=== PATIENT | male | born 1930 | race Caucasian/White ===

== ENCOUNTER 2017-10-19 13:08 | Inpatient (IN) | payer BC, OTHER ==
[2017-10-19] MEDS ORDERED: ACETAMINOPHEN 325 MG TABLET (FP) PO ONE (13:17)
[2017-10-19] MEDS ORDERED: SODIUM CHLORIDE 1,000 ML IV STA (13:32)
--- NOTE | 2017-10-19 13:39 | PDOC ---
History of Present Illness - General Chief Complaint: SIRS, Suspected/Possible Stated Complaint: WEAKNESS Time Seen by Provider: 10/19/17 13:25 History Source: Patient, Family - History of Present Illness Timing/Duration: other (this am) Past History - Past Medical History Allergies/Adverse Reactions: Allergies Allergy/AdvReac Type Severity Reaction Status Date / Time No Known Allergies Allergy Verified 10/03/14 13:20 Home Medications: Ambulatory Orders Acetaminophen W/ Codeine #3 [Tylenol # 3 -] 1 tab PO Q6H #14 tablet 07/19/14 Aspirin Coated [Ecotrin -] 81 mg PO DAILY #0 07/19/14 Cholecalciferol (Vitamin D3) [Vitamin D3] 1,000 units PO DAILY 07/19/14 Cyanocobalamin [Vitamin B12 -] 5,000 mcg PO DAILY 07/19/14 Donepezil HCl [Aricept] 10 mg PO DAILY 07/19/14 Ferrous Sulfate [Feosol] 325 mg PO BID 07/19/14 Folic Acid 0.4 mg PO DAILY 07/19/14 Memantine HCl [Namenda -] 10 mg PO BID 07/19/14 Metoprolol Succinate [Toprol XL -] 25 mg PO DAILY 07/19/14 Pravastatin Sodium [Pravachol] 40 mg PO DAILY 07/19/14 Pyridoxine HCl [Vitamin B6] 100 mg PO DAILY 07/19/14 Ranitidine [Zantac -] 150 mg PO DAILY 07/19/14 Fenofibrate Nanocrystallized [Fenofibrate] DAILY 10/19/17 Valsartan 40 mg PO BID 10/19/17 Anemia: No Asthma: No Cancer: No Cardiac Disorders: Yes (2 "MILD HEART ATTACKS" STENT PLACED -) CVA: No COPD: No CHF: No Dementia: Yes (ALZ) Diabetes: No GI Disorders: No Disorders: No HTN: No Hypercholesterolemia: No Liver Disease: No Seizures: No Thyroid Disease: No - Surgical History Cardiac Surgery: Yes (CARDIAC STENT 4 YRS AGO) Cholecystectomy: Yes - Suicide/Smoking/Psychosocial Hx Smoking History: Former smoker Have you smoked in the past 12 months: No Information on smoking cessation initiated: No Hx Alcohol Use: Yes (RARE) Drug/Substance Use Hx: No Substance Use Type: None Hx Substance Use Treatment: No Review of Systems - Review of Systems Constitutional: Yes: Fever, Weakness Respiratory: Yes: Cough. No: Shortness of Breath Cardiac (ROS): No: Chest Pain, Lightheadedness, Palpitations, Syncope ABD/GI: No: Blood Streaked Bowels, Constipated, Diarrhea, Nausea, Rectal Bleeding, Vomiting, Abdominal cramping : No: Burning, Dysuria, Frequency, Flank Pain, Hematuria Musculoskeletal: No: Back Pain, Neck Pain Neurological: No: Headache, Dizziness *Physical Exam - Vital Signs Last Vital Signs Temp Pulse Resp BP Pulse Ox 101.3 F H 86 20 141/62 96 10/19/17 13:13 10/19/17 13:13 10/19/17 13:13 10/19/17 13:13 10/19/17 13:13 - Physical Exam General Appearance: Yes: Appropriately Dressed. No: Apparent Distress HEENT: positive: Normal Voice Neck: positive: Supple Respiratory/Chest: positive: Lungs Clear, Normal Breath Sounds. negative: Respiratory Distress Cardiovascular: positive: Regular Rate, S1, S2 Gastrointestinal/Abdominal: positive: Soft. negative: Tender Musculoskeletal: negative: CVA Tenderness Integumentary: positive: Dry, Warm Neurologic: positive: Fully Oriented, Alert, Normal Mood/Affect ED Treatment Course - LABORATORY CBC & Chemistry Diagram: 10/19/17 13:54 10/19/17 13:54 - RADIOLOGY Radiology Studies Ordered: Category Date Time Status CHEST X-RAY PORTABLE* [RAD] Stat Radiology 10/19/17 13:32 Ordered - Medications Given in the ED: ED Medications Discontinued Medications Generic Name Dose Route Start Last Admin Trade Name Freq PRN Reason Stop Dose Admin Acetaminophen 975 mg 10/19/17 13:17 10/19/17 13:21 Tylenol - PO 10/19/17 13:18 975 mg NOW ONE Administration Medical Decision Making - Medical Decision Making 10/19/17 13:34 87-year-old male, history of alzheimers, HTN, HLD, CAD w/ 1 stent, stomach cancer, s/p surgery over 20 years ago, BPH, s/p TURP, brought in by family for lethargy. As per , states patient appeared "out of it" this a.m. and that while walking outdoors with home health caregiver this afternoon, patient's legs gave out but that pt was able to hold on to a car which prevented him from falling. Noted that patient had fever at triage. Possible dry cough at home per . Patient denies any shortness of breath, chest pain, abdominal pain, change in bowel movements or dysuria See exam FUO Triggered sepsis at triage Febrile to 101 F w/ unremarkable exam otherwise -antipyretic -IVF -ekg -cxr -labs -melendez-cx -anticipate admission 10/19/17 14:53 Cr 2.3, same on labs 08/25, was 1.4/1.5 in 2010 based on chart review. Rest of labs and CXR unremarkable. UA pending 10/19/17 15:22 EKG w/ LBBB, new since ekg 2010. Trop wnl. Pt has no CP or SOB and is stable on monitor. Will contact PMD to inquire about more recent ekg and admission 10/19/17 15:[address] Antoine Alfonso, patient's PMD, who states patient has known LBBB (within the past 2 years). [address] Gunn. States patient's baseline creatinine is about 1.9. Pt to be admitted to Dr Proctor 10/19/17 16:25 UA unremarkable. Case discussed with Dr. Proctor and patient admitted to observation *DC/Admit/Observation/Transfer Diagnosis at time of Disposition: Near syncope, KATHY (acute kidney injury) - Discharge Dispostion Condition at time of disposition: Fair Decision to Admit order: Yes - Referrals Referrals: Antoine Alfonso MD [Primary Care Provider] - - Patient Instructions - Post Discharge Activity
[2017-10-19 14:09] LABS: BASO % 0.3 % (0-2.0); EOS % 0.2 % (0-4.5); HEMATOCRIT 37.5 % (35.4-49); HEMOGLOBIN 12.7 GM/dL (11.7-16.9); LYMPH % 10.6 % (8-40); MCH 30.1 pg (25.7-33.7); MCHC 33.9 g/dl (32.0-35.9); MONO % 7.6 % (3.8-10.2); NEUT % 81.3 % (42.8-82.8); PLATELET COUNT 149 K/MM3 (134-434); RBC 4.21 M/mm3 (4.00-5.60); RDW 14.3 % (11.9-15.9); WHITE BLOOD COUNT 6.8 K/mm3 (4.0-10.0)
[2017-10-19 14:11] LABS: VENOUS PC02 40.7 mmHg (38-52); VENOUS PH 7.36 (7.32-7.42); VENOUS PO2 30.2 mmHg (28-48)
[2017-10-19 14:34] LABS: ALBUMIN 3.2 g/dl (3.4-5.0); ALK PHOS 31 U/L (45-117); ANION GAP 6 (8-16); BILIRUBIN,TOTAL 0.8 mg/dL (0.2-1.0); BLOOD UREA NITROGEN 34 mg/dL (7-18); CALCIUM 8.6 mg/dL (8.5-10.1); CHLORIDE 110 mmol/L (98-107); CO2 24 mmol/L (21-32); CREATININE 2.3 mg/dL (0.7-1.3); GLUCOSE,RANDOM 164 mg/dL (74-106); SGOT/AST 19 U/L (15-37); SGPT/ALT 18 U/L (12-78); SODIUM 140 mmol/L (136-145)
[2017-10-19 14:46] LABS: INR 1.11 (0.82-1.09); PROTHROMBIN TIME (PATIENT) 12.5 SEC (9.7-13.0)
[2017-10-19 14:49] LABS: ACTIVATED PTT 27.9 SECONDS (26.9-34.4)
[2017-10-19 15:45] LABS: URINE APPEARANCE CLEAR; URINE BILIRUBIN NEGATIVE (<2.0 mg/dL); URINE COLOR YELLOW; URINE GLUCOSE (UA) 2+ (NEGATIVE); URINE KETONE NEGATIVE (NEGATIVE); URINE LEUK ESTERASE NEGATIVE (NEGATIVE); URINE NITRITE NEGATIVE (NEGATIVE)
--- NOTE | 2017-10-19 15:50 | HP ---
Admitting History and Physical - Primary Care Physician PCP: Antoine Alfonso - Admission Chief Complaint: weakness History of Present Illness: is an 87 year old male pmh of Alzheimer's disease, htn, hld, cad s/ p angioplasty, ckd, chf, oa, stomach ca s/p resection, who comes in from home after having a near fall experience today. Pt unable to provide much history due to dementia. mentions pt went for a walk with his aide this am, felt as his legs gave out and almost fell, he was caught by his neighbors who helped him to a sitting position. She reports "he has been out of it" since yesterday. mentions pt did not report any symptoms at the time of fall or before. She said pt's ambulation has declined since yesterday. He is usually ambulatory at home but since yesterday, he hasn't been able to ambulate as well as before. She reports he has had a productive cough since yesterday as well. Otherwise, he has not complained of any symptoms. He denies chest pain, sob, n/v/d, rash, fever/chills, dysuria, unilateral weakness, dizziness, lightheadedness, recent medication change, or changes in diet. 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 Cardiovascular: Yes: CAD, CHF, HTN, Hyperlipdemia, [place], Other (hyperlipidemia) Gastrointestinal: Yes: GERD Renal/: Yes: Renal Inusuff Heme/Onc: Yes: B12 Deficiency Musculoskeletal: Yes: Osteoarthritis - Past Surgical History Past Surgical History: Yes: None - Smoking History Smoking history: Former smoker Have you smoked in the past 12 months: No - Alcohol/Substance Use Hx Alcohol Use: Yes (RARE) - Social History Usual Living Arrangement: Yes: With Spouse ADL: Family Assistance History of Recent Travel: No Home Medications - Allergies Allergies/Adverse Reactions: Allergies Allergy/AdvReac Type Severity Reaction Status Date / Time No Known Allergies Allergy Verified 10/03/14 13:20 - Home Medications Home Medications: Ambulatory Orders Aspirin Coated [Ecotrin -] 81 mg PO DAILY #0 07/19/14 Cholecalciferol (Vitamin D3) [Vitamin D3] 1,000 units PO DAILY 07/19/14 Cyanocobalamin [Vitamin B12 -] 5,000 mcg PO DAILY 07/19/14 Donepezil HCl [Aricept] 10 mg PO DAILY 07/19/14 Folic Acid 1 mg PO DAILY 07/19/14 Memantine HCl [Namenda -] 10 mg PO BID 07/19/14 Metoprolol Succinate [Toprol XL -] 25 mg PO DAILY 07/19/14 Pravastatin Sodium [Pravachol] 40 mg PO DAILY 07/19/14 Ranitidine [Zantac -] 150 mg PO DAILY 07/19/14 Fenofibrate Nanocrystallized [Fenofibrate] 160 mg PO DAILY 10/19/17 [place]-3 Acid Ethyl Esters [Lovaza -] 1 gm PO DAILY 10/19/17 Valsartan 40 mg PO BID 10/19/17 Family Disease History - Family Disease History Family Disease History: Heart Disease: Brother, [place]: Sister Review of Systems Findings/Remarks: as per hpi Physical Examination Vital Signs: Vital Signs Temperature 101.3 F H 10/19/17 13:13 Pulse Rate 86 10/19/17 13:13 Respiratory Rate 20 10/19/17 13:13 Blood Pressure 141/62 10/19/17 13:13 O2 Sat by Pulse Oximetry (%) 96 10/19/17 13:13 Constitutional: Yes: Well Nourished, No Distress Cardiovascular: Yes: WNL, Regular Rate and Rhythm Respiratory: Yes: WNL, Regular, CTA Bilaterally, Diminished. No: Accessory Muscle Use, SOB, Tachypnea, Wheezes Gastrointestinal: Yes: WNL, Normal Bowel Sounds, Soft, Abdomen, Obese. No: Distention, Tenderness Renal/: Yes: WNL Edema: Yes Edema: LLE: 1+, RLE: Trace Neurological: Yes: Alert, Oriented, Confusion (forgetful) Psychiatric: Yes: WNL, Alert, Oriented Labs: CBC, BMP 10/19/17 13:54 10/19/17 13:54 Imaging - Results Chest X-ray: Report Reviewed (unremarkable) Ultrasound: Report Reviewed (b/l le duplex neg) Problem List - Problems (1) SIRS (systemic inflammatory response syndrome) Assessment/Plan: febrile, generalized weakness, +productive cough wbcs, lactic acid wnl UA neg/ UC pending chest xray without acute findings blood cultures pending defer empiric antibiotics for now and monitor IVF will monitor Code(s): R65.10 - SIRS OF NON-INFECTIOUS ORIGIN W/O ACUTE ORGAN DYSFUNCTION (2) FUO (fever of unknown origin) Assessment/Plan: as above Code(s): R50.9 - FEVER, UNSPECIFIED (3) Near syncope Assessment/Plan: generalized weakness and near syncope episode today r/o infec etiology echo ordered trop x1 neg, ekg noted Code(s): R55 - SYNCOPE AND COLLAPSE (4) KATHY (acute kidney injury) Assessment/Plan: acute on chronic plan as below Code(s): N17.9 - ACUTE KIDNEY FAILURE, UNSPECIFIED (5) CKD (chronic kidney disease) Assessment/Plan: acute on chronic, baseline cr 1.9 ivf-gentle hydration hold valsartan until tomorrow urine na ordered monitor Code(s): N18.9 - CHRONIC KIDNEY DISEASE, UNSPECIFIED Qualifiers: Chronic kidney disease stage: stage 3 (moderate) Qualified Code(s): N18.3 - Chronic kidney disease, stage 3 (moderate) (6) Dehydration Assessment/Plan: secondary to poor intake, possibly increased demand 2/2 infectious process IVF will monitor Code(s): E86.0 - DEHYDRATION (7) Swelling of lower leg Assessment/Plan: L >R has chronic pedal edema secondary to chf/ckd r/o dvt b/l us duplex neg Code(s): M79.89 - OTHER SPECIFIED SOFT TISSUE DISORDERS (8) HTN (hypertension) Assessment/Plan: controlled continue metoprolol/valsartan Code(s): I10 - ESSENTIAL (PRIMARY) HYPERTENSION Qualifiers: Hypertension type: essential hypertension Qualified Code(s): I10 - Essential (primary) hypertension (9) Hyperlipidemia Assessment/Plan: chronic continue statin, lovaza lifestyle modifications Code(s): E78.5 - HYPERLIPIDEMIA, UNSPECIFIED Qualifiers: Hyperlipidemia type: mixed hyperlipidemia Qualified Code(s): E78.2 - Mixed hyperlipidemia (10) ASHD (arteriosclerotic heart disease) Assessment/Plan: Hx of [place], s/p angioplasty continue statin heart healthy diet weight loss followed by outpt Cardiology, Code(s): I25.10 - ATHSCL HEART DISEASE OF [place] CORONARY ARTERY W/O ANG PCTRS (11) CHF (congestive heart failure) Assessment/Plan: chronic, systolic bnp elevated, baseline uncertain echo ordered chest xray normal Code(s): I50.9 - HEART FAILURE, UNSPECIFIED Qualifiers: Heart failure type: systolic Heart failure chronicity: chronic Qualified Code(s): I50.22 - Chronic systolic (congestive) heart failure
[2017-10-19 16:20] LABS: URINE PROTEIN 1+ (NEGATIVE)
[2017-10-19 16:39] LABS: EPI CELLS RARE /HPF (FEW); URINE MUCUS RARE
--- NOTE | 2017-10-19 16:59 | PDOC ---
*Physical Exam - Vital Signs Last Vital Signs Temp Pulse Resp BP Pulse Ox 101.3 F H 86 20 141/62 96 10/19/17 13:13 10/19/17 13:13 10/19/17 13:13 10/19/17 13:13 10/19/17 13:13 ED Treatment Course - LABORATORY CBC & Chemistry Diagram: 10/19/17 13:54 10/19/17 13:54 - ADDITIONAL ORDERS Additional order review: Laboratory Results 10/19/17 10/19/17 10/19/17 15:32 13:54 13:54 PT with INR INR PTT (Actin FS) VBG pH POC VBG pCO2 POC VBG pO2 Mixed VBG HCO3 Sodium Potassium Chloride Carbon Dioxide Anion Gap BUN Creatinine Creat Clearance w eGFR Random Glucose Lactic Acid 1.6 Calcium Total Bilirubin AST ALT Alkaline Phosphatase Troponin I 0.05 Total Protein Albumin Urine Color Yellow Urine Appearance Clear Urine pH 5.0 Ur Specific [place] 1.018 Urine Protein 1+ H Urine Glucose (UA) 2+ H Urine Ketones Negative Urine Blood 1+ H Urine Nitrite Negative Urine Bilirubin Negative Urine Urobilinogen 2.0 Ur Leukocyte Esterase Negative Urine WBC (Auto) 2 Urine RBC (Auto) 7 Ur Epithelial Cells Rare Urine Mucus Rare 10/19/17 10/19/17 10/19/17 13:54 13:54 13:54 PT with INR 12.50 INR 1.11 PTT (Actin FS) 27.9 VBG pH 7.36 POC VBG pCO2 40.7 POC VBG pO2 30.2 Mixed VBG HCO3 22.2 Sodium 140 Potassium 5.0 Chloride 110 H Carbon Dioxide 24 Anion Gap 6 L BUN 34 H Creatinine 2.3 H Creat Clearance w eGFR 27.03 Random Glucose 164 H Lactic Acid Calcium 8.6 Total Bilirubin 0.8 AST 19 ALT 18 Alkaline Phosphatase 31 L Troponin I Total Protein 7.0 Albumin 3.2 L Urine Color Urine Appearance Urine pH Ur Specific [place] Urine Protein Urine Glucose (UA) Urine Ketones Urine Blood Urine Nitrite Urine Bilirubin Urine Urobilinogen Ur Leukocyte Esterase Urine WBC (Auto) Urine RBC (Auto) Ur Epithelial Cells Urine Mucus 10/19/17 13:54 RBC 4.21 MCV 89.0 MCHC 33.9 RDW 14.3 MPV 7.0 L Neutrophils % 81.3 Lymphocytes % 10.6 Monocytes % 7.6 Eosinophils % 0.2 Basophils % 0.3 - RADIOLOGY Radiology Studies Ordered: Category Date Time Status CHEST X-RAY PORTABLE* [RAD] Stat Radiology 10/19/17 13:32 Completed - Medications Given in the ED: ED Medications Discontinued Medications Generic Name Dose Route Start Last Admin Trade Name Freq PRN Reason Stop Dose Admin Acetaminophen 975 mg 10/19/17 13:17 10/19/17 13:21 Tylenol - PO 10/19/17 13:18 975 mg NOW ONE Administration Sodium Chloride 1,000 mls @ 1,000 mls/hr 10/19/17 13:32 10/19/17 14:19 Normal Saline - IV 10/19/17 14:31 1,000 mls/hr ASDIR STA Administration *DC/Admit/Observation/Transfer Diagnosis at time of Disposition: KATHY (acute kidney injury), Near syncope, Fever of unknown origin - Discharge Dispostion Condition at time of disposition: Fair - Referrals - Patient Instructions - Post Discharge Activity
[2017-10-19] MEDS: SODIUM CHLORIDE 1,000 ML IV SCH (17:16)
[2017-10-19] MEDS: MEMANTINE HCL 10 MG TABLET (FP) PO SCH (21:24)
[2017-10-19] MEDS ORDERED: VALSARTAN 40 MG TABLET (FP) PO SCH (22:00)
[2017-10-19 23:46] VITALS: BMI 33.9
[2017-10-20 06:35] LABS: BASO % 0.3 % (0-2.0); EOS % 0.2 % (0-4.5); HEMATOCRIT 35.4 % (35.4-49); HEMOGLOBIN 12.2 GM/dL (11.7-16.9); LYMPH % 16.3 % (8-40); MCH 30.5 pg (25.7-33.7); MCHC 34.4 g/dl (32.0-35.9); MEAN CELL VOLUME 88.7 fl (80-96); MEAN PLT VOLUME 6.9 fl (7.5-11.1); MONO % 10.9 % (3.8-10.2); NEUT % 72.3 % (42.8-82.8); PLATELET COUNT 122 K/MM3 (134-434); RBC 3.99 M/mm3 (4.00-5.60); RDW 14.4 % (11.9-15.9); WHITE BLOOD COUNT 5.1 K/mm3 (4.0-10.0)
[2017-10-20 07:01] LABS: CHLORIDE 110 mmol/L (98-107); POTASSIUM 4.7 mmol/L (3.5-5.1); SODIUM 142 mmol/L (136-145)
[2017-10-20 07:07] LABS: ANION GAP 11 (8-16); BLOOD UREA NITROGEN 27 mg/dL (7-18); CALCIUM 8.2 mg/dL (8.5-10.1); CO2 21 mmol/L (21-32); CREATININE 1.9 mg/dL (0.7-1.3); GLUCOSE,RANDOM 140 mg/dL (74-106); MAGNESIUM 1.9 mg/dL (1.8-2.4)
[2017-10-20] MEDS ORDERED: PT OWN MED DRAWER 7, Y5N ONE ×2 (07:45→08:58)
[2017-10-20] MEDS: VALSARTAN 40 MG TABLET (FP) PO SCH ×2 (09:04→21:20)
[2017-10-20] MEDS: MEMANTINE HCL 10 MG TABLET (FP) PO SCH ×2 (09:04→21:11)
[2017-10-20] MEDS: FOLIC ACID 1 MG TABLET (FP) PO SCH (09:05)
[2017-10-20] MEDS: OMEGA-3 ACID ETHYL ESTERS (FATTY-ACIDS) 1 GM CAPSULE (FP) PO SCH (09:05)
[2017-10-20] MEDS: ASPIRIN COATED 81 MG TABLET.EC PO SCH (09:05)
[2017-10-20] MEDS: CYANOCOBALAMIN 1,000 MCG TABLET (FP) PO SCH (09:05)
[2017-10-20] MEDS: metoPROLOL SUCCINATE 25 MG TAB.SR.24H (FP) PO SCH (09:05)
[2017-10-20] MEDS: CHOLECALCIFEROL (VITAMIN D3) 1,000 UNIT TABLET (FP) PO SCH (09:05)
[2017-10-20] MEDS: FENOFIBRIC ACID 135 MG CAP PO SCH (09:05)
[2017-10-20] MEDS: RANITIDINE HCL 150 MG TABLET (FP) PO SCH (09:05)
--- NOTE | 2017-10-20 09:43 | EKG ---
Test Reason : Blood Pressure : / mmHG Vent. Rate : 080 BPM Atrial Rate : 080 BPM P-R Int : 224 ms QRS Dur : 152 ms QT Int : 408 ms P-R-T Axes : 049 -30 123 degrees QTc Int : 470 ms SINUS RHYTHM WITH 1ST DEGREE A-V BLOCK POSSIBLE LEFT ATRIAL ENLARGEMENT LEFT AXIS DEVIATION LEFT BUNDLE BRANCH BLOCK ABNORMAL ECG WHEN COMPARED WITH ECG OF 02-JUN-2010 10:34, NM INTERVAL HAS INCREASED LEFT BUNDLE BRANCH BLOCK IS NOW PRESENT Confirmed by MIRIAN CUMMINS, YELENA ([id number]) on 10/20/2017 9:43:05 AM Referred By: Confirmed By:YELENA VELA MD
--- NOTE | 2017-10-20 11:49 | PN ---
Progress Note, Physician Chief Complaint: Pt lying in bed in no acute distress. He denies any chest discomfort, chest pain , sob, n/v/d, unilateral weakness or further complaints. Per his room mate, pt was very congested and frequently coughing throughout the night. at bedside. - Current Medication List Current Medications: Active Medications Aspirin (Ecotrin -) 81 mg PO DAILY [facility] Last Admin: 10/20/17 09:05 Dose: 81 mg Atorvastatin Calcium (Lipitor -) [address] [facility] Cholecalciferol (Vitamin D3 -) 1,000 unit PO DAILY [facility] Last Admin: 10/20/17 09:05 Dose: 1,000 unit Cyanocobalamin (Vitamin B12 -) 5,000 mcg PO DAILY [facility] Last Admin: 10/20/17 09:05 Dose: 5,000 mcg Donepezil HCl (Aricept -) [address] [facility] Fenofibric Acid (Trilipix -) 135 mg PO DAILY [facility] Last Admin: 10/20/17 09:05 Dose: 135 mg Folic Acid (Folic Acid -) 1 mg PO DAILY [facility] Last Admin: 10/20/17 09:05 Dose: 1 mg Sodium Chloride (Normal Saline -) 1,000 mls @ 50 mls/hr IV ASDIR [facility] Stop: 10/20/17 17:00 Last Admin: 10/19/17 17:16 Dose: 50 mls/hr Memantine (Namenda -) 10 mg PO BID [facility] Last Admin: 10/20/17 09:04 Dose: 10 mg Metoprolol Succinate (Toprol Xl -) 25 mg PO DAILY [facility] Last Admin: 10/20/17 09:05 Dose: 25 mg [id number] Ethyl Esters (Lovaza -) 1 gm PO DAILY [facility] Last Admin: 10/20/17 09:05 Dose: 1 gm Ranitidine HCl (Zantac -) 150 mg PO DAILY [facility] Last Admin: 10/20/17 09:05 Dose: 150 mg Valsartan (Diovan -) 40 mg PO BID [facility] Last Admin: 10/20/17 09:04 Dose: 40 mg - Objective Vital Signs: Vital Signs Temperature 100.2 F H 10/20/17 05:30 Pulse Rate 79 10/20/17 05:30 Respiratory Rate 17 10/20/17 05:30 Blood Pressure 158/76 10/20/17 05:30 O2 Sat by Pulse Oximetry (%) 97 10/19/17 20:00 Constitutional: Yes: Well Nourished, No Distress, Calm, Obese Cardiovascular: Yes: WNL, Regular Rate and Rhythm Respiratory: Yes: Regular, CTA Bilaterally, Cough, Other (congestion). No: Accessory Muscle Use, Rhonchi, SOB, Tachypnea, Wheezes Gastrointestinal: Yes: WNL, Normal Bowel Sounds, Soft, Abdomen, Obese. No: Distention, Tenderness Edema: Yes Edema: LLE: 1+, RLE: 1+ Neurological: Yes: Alert, Oriented Psychiatric: Yes: WNL, Alert, Oriented Labs: CBC, BMP 10/20/17 05:30 10/20/17 05:30 INR, PTT INR 1.11 (0.82-1.09) 10/19/17 13:54 - ....Imaging Cat Scan: Pending Problem List - Problems (1) SIRS (systemic inflammatory response syndrome) Code(s): R65.10 - SIRS OF NON-INFECTIOUS ORIGIN W/O ACUTE ORGAN DYSFUNCTION (2) Near syncope Code(s): R55 - SYNCOPE AND COLLAPSE (3) KATHY (acute kidney injury) Code(s): N17.9 - ACUTE KIDNEY FAILURE, UNSPECIFIED (4) CKD (chronic kidney disease) Code(s): N18.9 - CHRONIC KIDNEY DISEASE, UNSPECIFIED Qualifiers: Chronic kidney disease stage: stage 3 (moderate) Qualified Code(s): N18.3 - Chronic kidney disease, stage 3 (moderate) (5) Dehydration Code(s): E86.0 - DEHYDRATION (6) Swelling of lower leg Code(s): M79.89 - OTHER SPECIFIED SOFT TISSUE DISORDERS (7) HTN (hypertension) Code(s): I10 - ESSENTIAL (PRIMARY) HYPERTENSION Qualifiers: Hypertension type: essential hypertension Qualified Code(s): I10 - Essential (primary) hypertension (8) Hyperlipidemia Code(s): E78.5 - HYPERLIPIDEMIA, UNSPECIFIED Qualifiers: Hyperlipidemia type: mixed hyperlipidemia Qualified Code(s): E78.2 - Mixed hyperlipidemia (9) ASHD (arteriosclerotic heart disease) Code(s): I25.10 - ATHSCL HEART DISEASE OF [place] CORONARY ARTERY W/O ANG PCTRS (10) CHF (congestive heart failure) Code(s): I50.9 - HEART FAILURE, UNSPECIFIED Qualifiers: Heart failure type: systolic Heart failure chronicity: chronic Qualified Code(s): I50.22 - Chronic systolic (congestive) heart failure Assessment/Plan (1) SIRS (systemic inflammatory response syndrome) Assessment/Plan: persistent fevers overnight,+productive cough/congestion wbcs, lactic acid wnl influenza panel neg UA neg/ UC pending chest xray without acute findings chest CT ordered blood cultures pending start empiric azithromycin/ceftriaxone considering persistent fevers IVF will monitor Code(s): R65.10 - SIRS OF NON-INFECTIOUS ORIGIN W/O ACUTE ORGAN DYSFUNCTION (2) FUO (fever of unknown origin) Assessment/Plan: as above Code(s): R50.9 - FEVER, UNSPECIFIED (3) Near syncope Assessment/Plan: cardiac/neuro etiology unlikely suspect generalized weakness secondary to infectious process r/o infec etiology echo pending trop neg, ekg LBBB w/out acute changes cardiology consulted PT- pt ambulated 5ft. Code(s): R55 - SYNCOPE AND COLLAPSE (4) KATHY (acute kidney injury) Assessment/Plan: acute on chronic improved s/p IVF will monitor Code(s): N17.9 - ACUTE KIDNEY FAILURE, UNSPECIFIED (5) CKD (chronic kidney disease) Assessment/Plan: acute on chronic, baseline cr 1.9 improved, at baseline now continue valsartan/metoprolol urine na pending monitor Code(s): N18.9 - CHRONIC KIDNEY DISEASE, UNSPECIFIED Qualifiers: Chronic kidney disease stage: stage 3 (moderate) Qualified Code(s): N18.3 - Chronic kidney disease, stage 3 (moderate) (6) Dehydration Assessment/Plan: secondary to poor intake, possibly increased demand 2/2 infectious process IVF will monitor Code(s): E86.0 - DEHYDRATION (7) Swelling of lower leg Assessment/Plan: b/l us duplex neg secondary to ckd/chf Code(s): M79.89 - OTHER SPECIFIED SOFT TISSUE DISORDERS (8) HTN (hypertension) Assessment/Plan: controlled continue metoprolol/valsartan Code(s): I10 - ESSENTIAL (PRIMARY) HYPERTENSION Qualifiers: Hypertension type: essential hypertension Qualified Code(s): I10 - Essential (primary) hypertension (9) Hyperlipidemia Assessment/Plan: chronic continue statin, lovaza lifestyle modifications Code(s): E78.5 - HYPERLIPIDEMIA, UNSPECIFIED Qualifiers: Hyperlipidemia type: mixed hyperlipidemia Qualified Code(s): E78.2 - Mixed hyperlipidemia (10) ASHD (arteriosclerotic heart disease) Assessment/Plan: Hx of [place], s/p angioplasty continue statin heart healthy diet weight loss followed by outpt Cardiology, Code(s): I25.10 - ATHSCL HEART DISEASE OF [place] CORONARY ARTERY W/O ANG PCTRS (11) CHF (congestive heart failure) Assessment/Plan: chronic, systolic bnp elevated, baseline uncertain echo pending chest xray normal cardiology consulted Code(s): I50.9 - HEART FAILURE, UNSPECIFIED Qualifiers: Heart failure type: systolic Heart failure chronicity: chronic Qualified Code(s): I50.22 - Chronic systolic (congestive) heart failure Dispo: pt ambulated 5ft. cm informed. discussed with at bedside, option of SNF possibly. continue PT tomorrow, and monitor
[2017-10-20] MEDS ORDERED: ACETAMINOPHEN 1000 MG/100 ML VIAL (NON FORMULARY) IVPB ONE (12:13)
--- NOTE | 2017-10-20 16:00 | CON.CARD ---
Cardiology Consult (text) - Consultation Consultation Note: CC: weakness 87 yo with hx of htn, hld, cad s/p BMS, ischemic cardiomyopathy, known LBBB, sinus margarette, Alzheimer's disease, ckd (baseline [employer] 1.5-2.6)-, venous insufficiency, oa, stomach ca s/p resection, kidney stones, gerd who p/w weakness/near fall. + weakness. Legs gave out on him while walking on day of presentation. Was able to catch himself from falling to the ground. Family endorses increased confusion today. recent cough. Thus far, has had temp up to 102.8 F. s/p 1L IVF and then maintenance IVF at 50 cc/hr. --> improvement in cr today. Denies cp, sob, orthopnea, pnd, le edema, palps, dizziness, bleeding, claudication. Denies chills/sweats, n/v/d, congestion, rash, h/a, visual disturbances. cards: Dr. Altamirano pmhx/pshx: per hpi social hx: Former smoker family hx: brother, heart disease. ros: per hpi Ambulatory Orders Aspirin Coated [Ecotrin -] 81 mg PO DAILY #0 07/19/14 Cholecalciferol (Vitamin D3) [Vitamin D3] 1,000 units PO DAILY 07/19/14 Cyanocobalamin [Vitamin B12 -] 5,000 mcg PO DAILY 07/19/14 Donepezil HCl [Aricept] 10 mg PO DAILY 07/19/14 Folic Acid 0.4 mg PO DAILY 07/19/14 Memantine HCl [Namenda -] 10 mg PO BID 07/19/14 Metoprolol Succinate [Toprol XL -] 25 mg PO DAILY 07/19/14 Pravastatin Sodium [Pravachol] 40 mg PO DAILY 07/19/14 Ranitidine [Zantac -] 150 mg PO DAILY 07/19/14 Fenofibrate Nanocrystallized [Fenofibrate] 160 mg PO DAILY 10/19/17 Bruce-3 Acid Ethyl Esters [Lovaza -] 1 gm PO DAILY 10/19/17 Valsartan 40 mg PO BID 10/19/17 Current Medications Acetaminophen (Tylenol -) 650 mg PO Q6H PRN PRN Reason: FEVER Aspirin (Ecotrin -) 81 mg PO DAILY [facility] Last Admin: 10/20/17 09:05 Dose: 81 mg Atorvastatin Calcium (Lipitor -) 10 mg PO [facility] Cholecalciferol (Vitamin D3 -) 1,000 unit PO DAILY [facility] Last Admin: 10/20/17 09:05 Dose: 1,000 unit Cyanocobalamin (Vitamin B12 -) 5,000 mcg PO DAILY [facility] Last Admin: 10/20/17 09:05 Dose: 5,000 mcg Donepezil HCl (Aricept -) 10 mg PO [facility] Fenofibric Acid (Trilipix -) 135 mg PO DAILY [facility] Last Admin: 10/20/17 09:05 Dose: 135 mg Folic Acid (Folic Acid -) 1 mg PO DAILY [facility] Last Admin: 10/20/17 09:05 Dose: 1 mg Sodium Chloride (Normal Saline -) 1,000 mls @ 50 mls/hr IV ASDIR [facility] Stop: 10/20/17 17:00 Last Admin: 10/19/17 17:16 Dose: 50 mls/hr Memantine (Namenda -) 10 mg PO BID [facility] Last Admin: 10/20/17 09:04 Dose: 10 mg Metoprolol Succinate (Toprol Xl -) 25 mg PO DAILY [facility] Last Admin: 10/20/17 09:05 Dose: 25 mg [id number] Ethyl Esters (Lovaza -) 1 gm PO DAILY [facility] Last Admin: 10/20/17 09:05 Dose: 1 gm Ranitidine HCl (Zantac -) 150 mg PO DAILY [facility] Last Admin: 10/20/17 09:05 Dose: 150 mg Valsartan (Diovan -) 40 mg PO BID [facility] Last Admin: 10/20/17 09:04 Dose: 40 mg Vital Signs - 24 hr 10/19/17 10/20/17 10/20/17 20:00 02:00 05:30 Temperature 100.7 F H 100.3 F H 100.2 F H Pulse Rate 81 81 79 Respiratory 18 20 17 Rate Blood Pressure 147/59 175/74 158/76 O2 Sat by Pulse 97 Oximetry (%) 10/20/17 10/20/17 10/20/17 10:00 12:36 14:00 Temperature 99.3 F 102.8 F H 101.1 F H Pulse Rate 74 71 Respiratory 18 Rate Blood Pressure 160/59 135/64 O2 Sat by Pulse 96 Oximetry (%) Intake & Output 10/18/17 10/19/17 10/20/17 10/21/17 07:59 07:59 07:59 07:59 Intake Total 780 540 Balance 780 540 Weight 210 lb NAD, calm JVD flat, neck supple ctab, nl effort rrr nl s1, s2. no mrg + bs soft nt nd ext without e/c/c + dp/pt, no carotid bruits no jaundice, diaphoresis aaox3 CBC, BMP 10/20/17 05:30 10/20/17 05:30 Laboratory Tests 08/19/17 10/19/17 10/19/17 16:44 13:54 13:54 ESR INR 1.11 Creatinine 2.3 H 2.3 H Lactic Acid Magnesium Total Bilirubin 0.8 AST 19 ALT 18 Alkaline Phosphatase 31 L Troponin I C-Reactive Protein Albumin 3.2 L 10/19/17 10/19/17 10/20/17 13:54 13:54 05:30 ESR INR Creatinine Lactic Acid 1.6 Magnesium 1.9 Total Bilirubin AST ALT Alkaline Phosphatase Troponin I 0.05 C-Reactive Protein 9.9 H Albumin 10/20/17 10/20/17 12:10 12:10 ESR 30 H INR Creatinine Lactic Acid Magnesium Total Bilirubin AST ALT Alkaline Phosphatase Troponin I 0.09 H D C-Reactive Protein Albumin tele: sr/sb. ventricular ectopy, occ bigeminy. EKG: sr, av delay. lad. LBBB Echo 10/2017: tds, "no definitive statements can be made about findings due to extremely poor acoustic windows". nl lv size. Severely decreased LV sys fn. Global with possible anteroapical septal AK. RV not seen. 1+ ar. MV/TV not well visualized. chest ct 10/2017: vascular u/s 10/2017: no dvt, bilaterally Echo 09/2016: nl lv size. Septum is akinetic. No rwma in inferior, inferolateral or lateral wall, other ordoñez not well seen. Overall ejection fraction is probably mildly, vs [id number]-ot-[id number] reduced--estimated at 45% vs 40-45%. nl rv/valves. MUGA 08/23: EF 51% MIBI 07/22: 4:30min, probably + STs; large area mid-AW/septum/apex scar with small P.I.I.; moder decr EF with mild global HK and sev HK vs AK of mid-AW// apex; mild LVE, no TID [facility] ([place]) 05/20: thrombotic subtotal occl pLAD (BMS), 70-80% ramus, diffuse 30- 50% RCA, EF 35% (anterolat AK, lateral/posterolat HK) ASSESSMENT/PLAN 87 yo with hx of htn, hld, cad s/p BMS, ischemic cardiomyopathy, known LBBB, sinus margarette, Alzheimer's disease, ckd (baseline [employer] 1.5-2.6)-, venous insufficiency, oa, stomach ca s/p resection, kidney stones, gerd who p/w weakness/near fall. weakness - likely with large contribution from fevers/infection. Ongoing eval/mgm't per pmd - chest ct pending. CAD/hl/lbbb - s/p ACS 2010 with LAD thrombotic lesion --> s/p BMS, residual ramus dz - con't asa, toprol, valsartan, statin/fibrate/lovaza - ekg with lbbb. trop x 2 yesterday and today - neg (would not consider 0.09 an elevation in this clinical setting). No clinical signs suggestive of acs. - frequent ventricular ectopy on tele, con't to monitor. ischemic cardiomyopathy - has been euvolemic off diuretics as outpatient. would not make clinical decisions based on bnp with this level of ckd. - ? questionable decrease in EF on current echo. However, given that report stated that no definitive statements could be made regarding findings due to suboptimal images, will not make any clinical decisions based on this report. May need to review images. - s/p gentle IVF with improvement in creatinine. bp stable. - daily weights, i/o's, bmp. - lyte repletion prn htn - outpatient regimen being resumed today. Monitor for hypotension in setting of infection.
[2017-10-20] MEDS ORDERED: cefTRIAXone SODIUM 1 GM VIAL ONE (17:14)
[2017-10-20] MEDS ORDERED: DEXTROSE 5%-WATER - 50 ML IVPB ONE (17:14)
[2017-10-20] MEDS: SODIUM CHLORIDE 1,000 ML IV SCH (17:28)
[2017-10-20] MEDS: CEFTRIAXONE 1 GM in DEXTROSE 5%-WATER - 50 ML IVPB SCH (17:28)
[2017-10-20] MEDS: AZITHROMYCIN IVPB 500 MG in DEXTROSE 5%-WATER - 250 ML IVPB SCH (18:56)
[2017-10-20] MEDS: ATORVASTATIN CA 10 MG TABLET (FP) PO SCH (21:11)
[2017-10-20] MEDS: ACETAMINOPHEN 325 MG TABLET (FP) PO PRN (21:11)
[2017-10-20] MEDS: DONEPEZIL HCL 10 MG TABLET (FP) PO SCH (21:12)
[2017-10-21] MEDS ORDERED: cefTRIAXone SODIUM 1 GM VIAL ONE ×2 (08:25→09:45)
[2017-10-21 08:56] LABS: ANION GAP 9 (8-16); BLOOD UREA NITROGEN 26 mg/dL (7-18); CALCIUM 8.3 mg/dL (8.5-10.1); CHLORIDE 110 mmol/L (98-107); CO2 22 mmol/L (21-32); CREATININE 1.9 mg/dL (0.7-1.3); GLUCOSE,RANDOM 139 mg/dL (74-106); MAGNESIUM 2.1 mg/dL (1.8-2.4); POTASSIUM 4.6 mmol/L (3.5-5.1); SODIUM 141 mmol/L (136-145)
[2017-10-21 09:04] LABS: BASO % 0.6 % (0-2.0); EOS % 4.9 % (0-4.5); HEMATOCRIT 35.3 % (35.4-49); HEMOGLOBIN 12.2 GM/dL (11.7-16.9); LYMPH % 23.7 % (8-40); MCH 30.5 pg (25.7-33.7); MCHC 34.5 g/dl (32.0-35.9); MEAN CELL VOLUME 88.7 fl (80-96); MEAN PLT VOLUME 7.6 fl (7.5-11.1); MONO % 13.8 % (3.8-10.2); PLATELET COUNT 113 K/MM3 (134-434); RBC 3.98 M/mm3 (4.00-5.60); RDW 14.5 % (11.9-15.9); WHITE BLOOD COUNT 4.5 K/mm3 (4.0-10.0)
[2017-10-21] MEDS ORDERED: DEXTROSE 5%-WATER - 50 ML IVPB ONE (09:45)
[2017-10-21] MEDS: FENOFIBRIC ACID 135 MG CAP PO SCH (10:14)
[2017-10-21] MEDS: RANITIDINE HCL 150 MG TABLET (FP) PO SCH (10:14)
[2017-10-21] MEDS: ASPIRIN COATED 81 MG TABLET.EC PO SCH (10:14)
[2017-10-21] MEDS: VALSARTAN 40 MG TABLET (FP) PO SCH ×2 (10:14→22:36)
[2017-10-21] MEDS: OMEGA-3 ACID ETHYL ESTERS (FATTY-ACIDS) 1 GM CAPSULE (FP) PO SCH (10:14)
[2017-10-21] MEDS: CYANOCOBALAMIN 1,000 MCG TABLET (FP) PO SCH (10:14)
[2017-10-21] MEDS: FOLIC ACID 1 MG TABLET (FP) PO SCH (10:14)
[2017-10-21] MEDS: CHOLECALCIFEROL (VITAMIN D3) 1,000 UNIT TABLET (FP) PO SCH (10:14)
[2017-10-21] MEDS: AZITHROMYCIN IVPB 500 MG in DEXTROSE 5%-WATER - 250 ML IVPB SCH (10:15)
[2017-10-21] MEDS: MEMANTINE HCL 10 MG TABLET (FP) PO SCH ×2 (10:15→22:36)
[2017-10-21] MEDS: metoPROLOL SUCCINATE 25 MG TAB.SR.24H (FP) PO SCH (10:15)
[2017-10-21] MEDS: CEFTRIAXONE 1 GM in DEXTROSE 5%-WATER - 50 ML IVPB SCH (10:15)
--- NOTE | 2017-10-21 10:29 | PN ---
Progress Note, Physician Chief Complaint: Pt lying in bed in no acute distress. He denies any chest discomfort, chest pain , sob, n/v/d, unilateral weakness or further complaints. - Current Medication List Current Medications: Active Medications Acetaminophen (Tylenol -) 650 mg PO Q6H PRN PRN Reason: FEVER Last Admin: 10/20/17 21:11 Dose: 650 mg Aspirin (Ecotrin -) 81 mg PO DAILY [facility] Last Admin: 10/21/17 10:14 Dose: 81 mg Atorvastatin Calcium (Lipitor -) 10 mg PO HS [facility] Last Admin: 10/20/17 21:11 Dose: 10 mg Cholecalciferol (Vitamin D3 -) 1,000 unit PO DAILY [facility] Last Admin: 10/21/17 10:14 Dose: 1,000 unit Cyanocobalamin (Vitamin B12 -) 5,000 mcg PO DAILY [facility] Last Admin: 10/21/17 10:14 Dose: 5,000 mcg Donepezil HCl (Aricept -) 10 mg PO HS [facility] Last Admin: 10/20/17 21:12 Dose: 10 mg Fenofibric Acid (Trilipix -) 135 mg PO DAILY [facility] Last Admin: 10/21/17 10:14 Dose: 135 mg Folic Acid (Folic Acid -) 1 mg PO DAILY [facility] Last Admin: 10/21/17 10:14 Dose: 1 mg Azithromycin 500 mg/ Dextrose 250 mls @ 250 mls/hr IVPB DAILY [facility] Last Admin: 10/21/17 10:15 Dose: 250 mls/hr Ceftriaxone Sodium 1 gm/ (Dextrose) 50 mls @ 100 mls/hr IVPB DAILY [facility]; Protocol Last Admin: 10/21/17 10:15 Dose: 100 mls/hr Memantine (Namenda -) 10 mg PO BID [facility] Last Admin: 10/21/17 10:15 Dose: 10 mg Metoprolol Succinate (Toprol Xl -) 25 mg PO DAILY [facility] Last Admin: 10/21/17 10:15 Dose: 25 mg [id number]-7-[id number] Ethyl Esters (Lovaza -) 1 gm PO DAILY [facility] Last Admin: 10/21/17 10:14 Dose: 1 gm Ranitidine HCl (Zantac -) 150 mg PO DAILY [facility] Last Admin: 10/21/17 10:14 Dose: 150 mg Valsartan (Diovan -) 40 mg PO BID [facility] Last Admin: 10/21/17 10:14 Dose: 40 mg - Objective Vital Signs: Vital Signs Temperature 98.5 F 10/21/17 09:00 Pulse Rate 66 10/21/17 09:00 Respiratory Rate 18 10/21/17 09:00 Blood Pressure 152/77 10/21/17 09:00 O2 Sat by Pulse Oximetry (%) 96 10/21/17 09:00 Constitutional: Yes: Well Nourished, No Distress, Calm Cardiovascular: Yes: WNL, Regular Rate and Rhythm Respiratory: Yes: CTA Bilaterally, Diminished. No: Accessory Muscle Use, SOB, Tachypnea, Wheezes Gastrointestinal: Yes: WNL, Normal Bowel Sounds, Soft, Abdomen, Obese. No: Distention, Tenderness Genitourinary: Yes: Incontinence Edema: Yes Edema: LLE: Trace, RLE: Trace Neurological: Yes: Alert, Oriented, Confusion (forgetful) Psychiatric: Yes: WNL, Alert, Oriented Labs: CBC, BMP 10/21/17 06:00 10/21/17 06:00 INR, PTT INR 1.11 (0.82-1.09) 10/19/17 13:54 - ....Imaging Cat Scan: Report Reviewed (mild interstitial/pleural thickening, mild bibasal atelectasis, trace right pleural effusion) Problem List - Problems (1) SIRS (systemic inflammatory response syndrome) Code(s): R65.10 - SIRS OF NON-INFECTIOUS ORIGIN W/O ACUTE ORGAN DYSFUNCTION (2) Near syncope Code(s): R55 - SYNCOPE AND COLLAPSE (3) KATHY (acute kidney injury) Code(s): N17.9 - ACUTE KIDNEY FAILURE, UNSPECIFIED (4) CKD (chronic kidney disease) Code(s): N18.9 - CHRONIC KIDNEY DISEASE, UNSPECIFIED Qualifiers: Chronic kidney disease stage: stage 3 (moderate) Qualified Code(s): N18.3 - Chronic kidney disease, stage 3 (moderate) (5) Dehydration Code(s): E86.0 - DEHYDRATION (6) Swelling of lower leg Code(s): M79.89 - OTHER SPECIFIED SOFT TISSUE DISORDERS (7) HTN (hypertension) Code(s): I10 - ESSENTIAL (PRIMARY) HYPERTENSION Qualifiers: Hypertension type: essential hypertension Qualified Code(s): I10 - Essential (primary) hypertension (8) Hyperlipidemia Code(s): E78.5 - HYPERLIPIDEMIA, UNSPECIFIED Qualifiers: Hyperlipidemia type: mixed hyperlipidemia Qualified Code(s): E78.2 - Mixed hyperlipidemia (9) ASHD (arteriosclerotic heart disease) Code(s): I25.10 - ATHSCL HEART DISEASE OF [place] CORONARY ARTERY W/O ANG PCTRS (10) CHF (congestive heart failure) Code(s): I50.9 - HEART FAILURE, UNSPECIFIED Qualifiers: Heart failure type: systolic Heart failure chronicity: chronic Qualified Code(s): I50.22 - Chronic systolic (congestive) heart failure Assessment/Plan (1) SIRS (systemic inflammatory response syndrome) Assessment/Plan: chest CT mild pleural/interstitial thickening, suspect viral- bacterial pneumonitis/possible superimposed infection febrile last night, +productive cough/congestion leukocytosis neg influenza panel/UA/UC/blood cultures neg sputum culture pending empiric azithromycin/ceftriaxone day 2 transition to po antibiotics if afebrile for 24 hours and plan for discharge to SNF will monitor Code(s): R65.10 - SIRS OF NON-INFECTIOUS ORIGIN W/O ACUTE ORGAN DYSFUNCTION (2) FUO (fever of unknown origin) Assessment/Plan: as above Code(s): R50.9 - FEVER, UNSPECIFIED (3) Near syncope Assessment/Plan: cardiac/neuro etiology unlikely suspect generalized weakness secondary to infectious process echo reviewed trop neg, ekg LBBB w/out acute changes cardiology following PT- poorly tolerated Code(s): R55 - SYNCOPE AND COLLAPSE (4) KATHY (acute kidney injury) Assessment/Plan: resolved, at baseline Code(s): N17.9 - ACUTE KIDNEY FAILURE, UNSPECIFIED (5) CKD (chronic kidney disease) Assessment/Plan: baseline cr 1.9 at baseline now continue valsartan/metoprolol monitor Code(s): N18.9 - CHRONIC KIDNEY DISEASE, UNSPECIFIED Qualifiers: Chronic kidney disease stage: stage 3 (moderate) Qualified Code(s): N18.3 - Chronic kidney disease, stage 3 (moderate) (6) Dehydration Assessment/Plan: secondary to poor intake, possibly increased demand 2/2 infectious process improved s/p IVF Code(s): E86.0 - DEHYDRATION (7) Swelling of lower leg Assessment/Plan: b/l us duplex neg secondary to ckd/chf Code(s): M79.89 - OTHER SPECIFIED SOFT TISSUE DISORDERS (8) HTN (hypertension) Assessment/Plan: controlled continue metoprolol/valsartan Code(s): I10 - ESSENTIAL (PRIMARY) HYPERTENSION Qualifiers: Hypertension type: essential hypertension Qualified Code(s): I10 - Essential (primary) hypertension (9) Hyperlipidemia Assessment/Plan: chronic continue statin, lovaza lifestyle modifications Code(s): E78.5 - HYPERLIPIDEMIA, UNSPECIFIED Qualifiers: Hyperlipidemia type: mixed hyperlipidemia Qualified Code(s): E78.2 - Mixed hyperlipidemia (10) ASHD (arteriosclerotic heart disease) Assessment/Plan: Hx of AK, s/p angioplasty continue statin heart healthy diet weight loss followed by outpt Cardiology, Code(s): I25.10 - ATHSCL HEART DISEASE OF [place] CORONARY ARTERY W/O ANG PCTRS (11) CHF (congestive heart failure) Assessment/Plan: chronic, systolic, euvolemic ischemic cardiomyopathy echo reviewed- suboptimal images chest xray normal cardiology following Code(s): I50.9 - HEART FAILURE, UNSPECIFIED Qualifiers: Heart failure type: systolic Heart failure chronicity: chronic Qualified Code(s): I50.22 - Chronic systolic (congestive) heart failure Dispo: SNF when afebrile for 24 hours
--- NOTE | 2017-10-21 10:45 | PN ---
Progress Note (short form) - Note Progress Note: s: no cp sob palps dizzy loc o: Vital Signs Period Temp Pulse Resp BP Sys/Hereida Pulse Ox Last 24 Hr 97.9 F-102.8 F 54-71 18-18 114-152/50-77 96-96 NAD, calm JVD flat, neck supple ctab, nl effort rrr nl s1, s2. no mrg + bs soft nt nd ext without e/c/c no jaundice, diaphoresis aaox3 Current Medications Generic Name Dose Route Start Last Admin Trade Name Freq PRN Reason Stop Dose Admin Acetaminophen 650 mg 10/20/17 11:56 10/20/17 21:11 Tylenol - PO 650 mg Q6H PRN Administration FEVER Aspirin 81 mg 10/20/17 10:00 10/21/17 10:14 Ecotrin - PO 81 mg DAILY [facility] Administration Atorvastatin Calcium 10 mg 10/20/17 22:00 10/20/17 21:11 Lipitor - PO 10 mg HS [facility] Administration Cholecalciferol 1,000 unit 10/20/17 10:00 10/21/17 10:14 Vitamin D3 - PO 1,000 unit DAILY [facility] Administration Cyanocobalamin 5,000 mcg 10/20/17 10:00 10/21/17 10:14 Vitamin B12 - PO 5,000 mcg DAILY [facility] Administration Donepezil HCl 10 mg 10/20/17 22:00 10/20/17 21:12 Aricept - PO 10 mg HS [facility] Administration Fenofibric Acid 135 mg 10/20/17 10:00 10/21/17 10:14 Trilipix - PO 135 mg DAILY [facility] Administration Folic Acid 1 mg 10/20/17 10:00 10/21/17 10:14 Folic Acid - PO 1 mg DAILY [facility] Administration Azithromycin 500 mg/ Dextrose 250 mls @ 250 mls/hr 10/20/17 16:30 10/21/17 10 :15 IVPB 250 mls/hr DAILY [facility] Administration Ceftriaxone Sodium 1 gm/ 50 mls @ 100 mls/hr 10/20/17 16:30 10/21/17 10:15 Dextrose IVPB 100 mls/hr DAILY [facility] Administration Protocol Memantine 10 mg 10/19/17 22:00 10/21/17 10:15 Namenda - PO 10 mg BID [facility] Administration Metoprolol Succinate 25 mg 10/20/17 10:00 10/21/17 10:15 Toprol Xl - PO 25 mg DAILY [facility] Administration [id number] Ethyl Esters 1 gm 10/20/17 10:00 10/21/17 10:14 Lovaza - PO 1 gm DAILY [facility] Administration Ranitidine HCl 150 mg 10/20/17 10:00 10/21/17 10:14 Zantac - PO 150 mg DAILY [facility] Administration Valsartan 40 mg 10/20/17 10:00 10/21/17 10:14 Diovan - PO 40 mg BID [facility] Administration CBC, BMP 10/21/17 06:00 10/21/17 06:00 tele: sr/sb. ventricular ectopy EKG: sr, av delay. lad. LBBB Echo 10/2017: tds, "no definitive statements can be made about findings due to extremely poor acoustic windows". nl lv size. Severely decreased LV sys fn. Global with possible anteroapical septal AK. RV not seen. 1+ ar. MV/TV not well visualized. chest ct 10/2017: vascular u/s 10/2017: no dvt, bilaterally Echo 09/2016: nl lv size. Septum is akinetic. No rwma in inferior, inferolateral or lateral wall, other ordoñez not well seen. Overall ejection fraction is probably mildly, vs atvv-[id number]-iyqwrpvplr reduced--estimated at 45% vs 40-45%. nl rv/valves. MUGA 08/23: EF 51% MIBI 07/22: 4:30min, probably + STs; large area mid-AW/septum/apex scar with small P.I.I.; moder decr EF with mild global HK and sev HK vs AK of mid-AW// apex; mild LVE, no TID [facility] ([place]) 05/20: thrombotic subtotal occl pLAD (BMS), 70-80% ramus, diffuse 30- 50% RCA, EF 35% (anterolat AK, lateral/posterolat HK) ASSESSMENT/PLAN 87 yo with hx of htn, hld, cad s/p BMS, ischemic cardiomyopathy, known LBBB, sinus margarette, Alzheimer's disease, ckd (baseline [employer] 1.5-2.6)-, venous insufficiency, oa, stomach ca s/p resection, kidney stones, gerd who p/w weakness/near fall. weakness - likely with contribution from fevers/infection. Ongoing eval/mgm't per pmd CAD/hl/lbbb - s/p ACS 2010 with LAD thrombotic lesion --> s/p BMS, residual ramus dz - con't asa, toprol, valsartan, statin/fibrate/lovaza - ekg with lbbb. trop x 2 yesterday and today - neg (would not consider 0.09 an elevation in this clinical setting). No clinical signs suggestive of acs. ischemic cardiomyopathy - has been euvolemic off diuretics as outpatient. would not make clinical decisions based on bnp with this level of ckd. - ? questionable decrease in EF on current echo. However, given that report stated that no definitive statements could be made regarding findings due to suboptimal images, will not make any clinical decisions based on this report. - s/p gentle IVF with improvement in creatinine. bp stable. htn - outpatient regimen resumed. Monitor for hypotension in setting of infection.
[2017-10-21] MEDS: LACTOBACILLUS ACIDOPHILUS 1 TABLET PO SCH (12:26)
[2017-10-21] MEDS: DONEPEZIL HCL 10 MG TABLET (FP) PO SCH (22:36)
[2017-10-21] MEDS: ATORVASTATIN CA 10 MG TABLET (FP) PO SCH (22:36)
[2017-10-21] MEDS: ACETAMINOPHEN 325 MG TABLET (FP) PO PRN (22:38)
[2017-10-22 06:59] VITALS: TEMP 98.5
[2017-10-22 07:06] LABS: ANION GAP 8 (8-16); BLOOD UREA NITROGEN 23 mg/dL (7-18); CALCIUM 8.4 mg/dL (8.5-10.1); CHLORIDE 111 mmol/L (98-107); CO2 23 mmol/L (21-32); CREATININE 1.7 mg/dL (0.7-1.3); GLUCOSE,RANDOM 138 mg/dL (74-106); POTASSIUM 4.6 mmol/L (3.5-5.1); SODIUM 142 mmol/L (136-145)
[2017-10-22 07:12] LABS: BASO % 0.3 % (0-2.0); EOS % 3.5 % (0-4.5); HEMATOCRIT 35.1 % (35.4-49); HEMOGLOBIN 12.1 GM/dL (11.7-16.9); LYMPH % 18.8 % (8-40); MCH 30.3 pg (25.7-33.7); MCHC 34.4 g/dl (32.0-35.9); MEAN CELL VOLUME 88.2 fl (80-96); MEAN PLT VOLUME 7.7 fl (7.5-11.1); MONO % 9.1 % (3.8-10.2); NEUT % 68.3 % (42.8-82.8); PLATELET COUNT 125 K/MM3 (134-434); RBC 3.98 M/mm3 (4.00-5.60); RDW 14.2 % (11.9-15.9); WHITE BLOOD COUNT 6.6 K/mm3 (4.0-10.0)
[2017-10-22 07:51] VITALS: BP 144/72; PULSE 80
[2017-10-22] MEDS ORDERED: cefTRIAXone SODIUM 1 GM VIAL ONE (08:20)
[2017-10-22] MEDS ORDERED: DEXTROSE 5%-WATER - 50 ML IVPB ONE (08:21)
[2017-10-22] MEDS ORDERED: PT OWN MED DRAWER 7, Y5N ONE (09:09)
[2017-10-22] MEDS: AZITHROMYCIN IVPB 500 MG in DEXTROSE 5%-WATER - 250 ML IVPB SCH (09:12)
[2017-10-22] MEDS: CYANOCOBALAMIN 1,000 MCG TABLET (FP) PO SCH (09:13)
[2017-10-22] MEDS: ASPIRIN COATED 81 MG TABLET.EC PO SCH (09:13)
[2017-10-22] MEDS: MEMANTINE HCL 10 MG TABLET (FP) PO SCH (09:13)
[2017-10-22] MEDS: FOLIC ACID 1 MG TABLET (FP) PO SCH (09:13)
[2017-10-22] MEDS: CHOLECALCIFEROL (VITAMIN D3) 1,000 UNIT TABLET (FP) PO SCH (09:13)
[2017-10-22] MEDS: FENOFIBRIC ACID 135 MG CAP PO SCH (09:13)
[2017-10-22] MEDS: CEFTRIAXONE 1 GM in DEXTROSE 5%-WATER - 50 ML IVPB SCH (09:13)
[2017-10-22] MEDS: LACTOBACILLUS ACIDOPHILUS 1 TABLET PO SCH (09:13)
[2017-10-22] MEDS: RANITIDINE HCL 150 MG TABLET (FP) PO SCH (09:13)
[2017-10-22] MEDS: VALSARTAN 40 MG TABLET (FP) PO SCH (09:13)
[2017-10-22] MEDS: OMEGA-3 ACID ETHYL ESTERS (FATTY-ACIDS) 1 GM CAPSULE (FP) PO SCH (09:14)
[2017-10-22] MEDS: metoPROLOL SUCCINATE 25 MG TAB.SR.24H (FP) PO SCH (09:14)
--- NOTE | 2017-10-22 10:01 | DS ---
Physical Examination Vital Signs: Vital Signs Temperature 98.5 F 10/22/17 07:46 Pulse Rate 80 10/22/17 07:46 Respiratory Rate 19 10/22/17 07:51 Blood Pressure 144/72 10/22/17 07:46 O2 Sat by Pulse Oximetry (%) 95 10/22/17 07:51 Constitutional: Yes: Well Nourished, No Distress, Calm Cardiovascular: Yes: WNL, Regular Rate and Rhythm Respiratory: Yes: Regular, Cough, Rhonchi (scattered). No: Accessory Muscle Use , On Nasal O2, Rales, SOB, Tachypnea, Wheezes Gastrointestinal: Yes: WNL, Normal Bowel Sounds, Soft. No: Distention, Tenderness Edema: Yes Edema: LLE: Trace, RLE: Trace Neurological: Yes: Alert, Oriented, Confusion (forgetful) Psychiatric: Yes: WNL, Alert, Oriented Labs: CBC, BMP 10/22/17 05:30 10/22/17 05:30 Discharge Summary Reason For Visit: PRE SYNCOPE Current Active Problems GERD (gastroesophageal reflux disease) (Chronic) HTN (hypertension) (Chronic) CKD (chronic kidney disease) (Chronic) Hyperlipidemia (Chronic) ASHD (arteriosclerotic heart disease) (Chronic) Swelling of lower leg (Chronic) CHF (congestive heart failure) (Chronic) Hospital Course: is an 87 year old male who was admitted for FUO, KATHY, and inability to ambulate, near syncope. Pt had persistent fevers, resp congestion, and cough. CT shows pleural/bronchial thickening, otherwise no infiltrate, suspect superimposed viral to bacterial pneumonitis. Antibiotics started due to persistent fevers. Pt has been afebrile for the last 24 hours since starting antibiotics. Transition to PO vantin and azithromycin today and d/c to SNF for further rehabilitation. Duonebs prn for sob/rhonchi/wheezing. Cardiac/neuro causes of near syncope ruled out. Suspect near syncope secondary to infectious process/weakness. KATHY resolved with IVF, renal function at baseline. Pt ambulated 30 ft with PT, poorly tolerated. Plan to safely discharge pt to SNF today. Pt is medically cleared for discharge. He has been afebrile, hemodynamically stable, without further clinical changes. F/U DIRECTED. Condition: Fair - Instructions Diet, Activity, Other Instructions: resume prev diet, activity PT as tolerated Antibiotics - vantin and azithromycin x 2 MORE DAYS STARTING TOMORROW. f/u as directed Referrals: Heraclio Altamirano MD [Staff Physician] - 2 Weeks Antoine Alfonso MD [Primary Care Provider] - 1 Week Disposition: [facility] - Home Medications Comprehensive Discharge Medication List: Ambulatory Orders Aspirin Coated [Ecotrin -] 81 mg PO DAILY #0 07/19/14 Cholecalciferol (Vitamin D3) [Vitamin D3] 1,000 units PO DAILY 07/19/14 Cyanocobalamin [Vitamin B12 -] 5,000 mcg PO DAILY 07/19/14 Donepezil HCl [Aricept] 10 mg PO DAILY 07/19/14 Folic Acid 1 mg PO DAILY 07/19/14 Memantine HCl [Namenda -] 10 mg PO BID 07/19/14 Metoprolol Succinate [Toprol XL -] 25 mg PO DAILY 07/19/14 Pravastatin Sodium [Pravachol] 40 mg PO DAILY 07/19/14 Ranitidine [Zantac -] 150 mg PO DAILY 07/19/14 Fenofibrate Nanocrystallized [Fenofibrate] 160 mg PO DAILY 10/19/17 [place]-3 Acid Ethyl Esters [Lovaza -] 1 gm PO DAILY 10/19/17 Valsartan 40 mg PO BID 10/19/17 Azithromycin 250 mg PO DAILY 2 Days tablet 10/22/17 Cefpodoxime Proxetil [Vantin -] 200 mg PO Q12H 2 Days #20 tablet 10/22/17 Lactobacillus Acidophilus [Bacid -] 1 tab PO DAILY 2 Days tab 10/22/17
[2017-10-22] MEDS ORDERED: ALBUTEROL SO4 2.5/IPRATROPIUM 0.5 INH SOL 3 ML VIAL.NEB. NEB ONE (11:00)
--- NOTE | 2017-10-22 11:54 | PN ---
Progress Note (short form) - Note Progress Note: s: no cp sob palps dizzy loc o: Vital Signs Period Temp Pulse Resp BP Sys/Heredia Pulse Ox Last 24 Hr 97.6 F-98.8 F 56-80 17-20 134-155/65-82 95-95 NAD, calm JVD flat, neck supple ctab, nl effort rrr nl s1, s2. no mrg + bs soft nt nd ext without e/c/c no jaundice, diaphoresis aaox3 Current Medications Generic Name Dose Route Start Last Admin Trade Name Freq PRN Reason Stop Dose Admin Acetaminophen 650 mg 10/20/17 11:56 10/21/17 22:38 Tylenol - PO 650 mg Q6H PRN Administration FEVER Aspirin 81 mg 10/20/17 10:00 10/22/17 09:13 Ecotrin - PO 81 mg DAILY IKER Administration Atorvastatin Calcium 10 mg 10/20/17 22:00 10/21/17 22:36 Lipitor - PO 10 mg HS IKER Administration Cholecalciferol 1,000 unit 10/20/17 10:00 10/22/17 09:13 Vitamin D3 - PO 1,000 unit DAILY IKER Administration Cyanocobalamin 5,000 mcg 10/20/17 10:00 10/22/17 09:13 Vitamin B12 - PO 5,000 mcg DAILY IKER Administration Donepezil HCl 10 mg 10/20/17 22:00 10/21/17 22:36 Aricept - PO 10 mg HS IKER Administration Fenofibric Acid 135 mg 10/20/17 10:00 10/22/17 09:13 Trilipix - PO 135 mg DAILY IKER Administration Folic Acid 1 mg 10/20/17 10:00 10/22/17 09:13 Folic Acid - PO 1 mg DAILY IKER Administration Azithromycin 500 mg/ Dextrose 250 mls @ 250 mls/hr 10/20/17 16:30 10/22/17 09 :12 IVPB 250 mls/hr DAILY IKER Administration Ceftriaxone Sodium 1 gm/ 50 mls @ 100 mls/hr 10/20/17 16:30 10/22/17 09:13 Dextrose IVPB 100 mls/hr DAILY IKER Administration Protocol Lactobacillus Acidophilus 1 tab 10/21/17 11:30 10/22/17 09:13 Bacid - PO 1 tab DAILY IKER Administration Memantine 10 mg 10/19/17 22:00 10/22/17 09:13 Namenda - PO 10 mg BID IKER Administration Metoprolol Succinate 25 mg 10/20/17 10:00 10/22/17 09:14 Toprol Xl - PO 25 mg DAILY IKER Administration [id number] Ethyl Esters 1 gm 10/20/17 10:00 10/22/17 09:14 Lovaza - PO 1 gm DAILY IKER Administration Ranitidine HCl 150 mg 10/20/17 10:00 10/22/17 09:13 Zantac - PO 150 mg DAILY IKER Administration Valsartan 40 mg 10/20/17 10:00 10/22/17 09:13 Diovan - PO 40 mg BID IKER Administration Laboratory Last Values WBC 6.6 K/mm3 (4.0-10.0) D 10/22/17 05:30 RBC 3.98 M/mm3 (4.00-5.60) L 10/22/17 05:30 Hgb 12.1 GM/dL (11.7-16.9) 10/22/17 05:30 Hct 35.1 % (35.4-49) L 10/22/17 05:30 MCV 88.2 fl (80-96) 10/22/17 05:30 MCH 30.3 pg (25.7-33.7) 10/22/17 05:30 MCHC 34.4 g/dl (32.0-35.9) 10/22/17 05:30 RDW 14.2 % (11.9-15.9) 10/22/17 05:30 Plt Count 125 K/MM3 (134-434) L 10/22/17 05:30 MPV 7.7 fl (7.5-11.1) 10/22/17 05:30 Absolute Neuts (auto) 4.5 # 10/22/17 05:30 Neutrophils % 68.3 % (42.8-82.8) 10/22/17 05:30 Lymphocytes % 18.8 % (8-40) D 10/22/17 05:30 Monocytes % 9.1 % (3.8-10.2) 10/22/17 05:30 Eosinophils % 3.5 % (0-4.5) 10/22/17 05:30 Basophils % 0.3 % (0-2.0) 10/22/17 05:30 Nucleated RBC % 0 % (0-0) 10/22/17 05:30 ESR 30 mm/hr (0-20) H 10/20/17 12:10 PT with INR 12.50 SEC (9.7-13.0) 10/19/17 13:54 INR 1.11 (0.82-1.09) 10/19/17 13:54 PTT (Actin FS) 27.9 SECONDS (26.9-34.4) 10/19/17 13:54 VBG pH 7.36 (7.32-7.42) 10/19/17 13:54 POC VBG pCO2 40.7 mmHg (38-52) 10/19/17 13:54 POC VBG pO2 30.2 mmHg (28-48) 10/19/17 13:54 Mixed VBG HCO3 22.2 meq/L (19-25) 10/19/17 13:54 Sodium 142 mmol/L (136-145) 10/22/17 05:30 Potassium 4.6 mmol/L (3.5-5.1) 10/22/17 05:30 Chloride 111 mmol/L (98-107) H 10/22/17 05:30 Carbon Dioxide 23 mmol/L (21-32) 10/22/17 05:30 Anion Gap 8 (8-16) 10/22/17 05:30 BUN 23 mg/dL (7-18) H 10/22/17 05:30 Creatinine 1.7 mg/dL (0.7-1.3) H 10/22/17 05:30 Creat Clearance w eGFR 27.03 (>60) 10/19/17 13:54 Random Glucose 138 mg/dL (74-106) H 10/22/17 05:30 Lactic Acid 1.6 mmol/L (0.0-2.0) 10/19/17 13:54 Calcium 8.4 mg/dL (8.5-10.1) L 10/22/17 05:30 Magnesium 2.1 mg/dL (1.8-2.4) 10/21/17 06:00 Total Bilirubin 0.8 mg/dL (0.2-1.0) 10/19/17 13:54 AST 19 U/L (15-37) 10/19/17 13:54 ALT 18 U/L (12-78) 10/19/17 13:54 Alkaline Phosphatase 31 U/L (45-117) L 10/19/17 13:54 Troponin I 0.08 ng/ml (0.00-0.05) H 10/20/17 18:50 C-Reactive Protein Cancelled 10/20/17 09:45 B-Natriuretic Peptide 9330.07 pg/ml (5-450) H 10/20/17 05:30 Total Protein 7.0 g/dl (6.4-8.2) 10/19/17 13:54 Albumin 3.2 g/dl (3.4-5.0) L 10/19/17 13:54 Urine Color Yellow 10/19/17 15:32 Urine Appearance Clear 10/19/17 15:32 Urine pH 5.0 (5.0-8.0) 10/19/17 15:32 Ur Specific Snow 1.018 (1.001-1.035) 10/19/17 15:32 Urine Protein 1+ (NEGATIVE) H 10/19/17 15:32 Urine Glucose (UA) 2+ (NEGATIVE) H 10/19/17 15:32 Urine Ketones Negative (NEGATIVE) 10/19/17 15:32 Urine Blood 1+ (NEGATIVE) H 10/19/17 15:32 Urine Nitrite Negative (NEGATIVE) 10/19/17 15:32 Urine Bilirubin Negative (<2.0 mg/dL) 10/19/17 15:32 Urine Urobilinogen 2.0 mg/dL (0.2-1.0) 10/19/17 15:32 Ur Leukocyte Esterase Negative (NEGATIVE) 10/19/17 15:32 Urine WBC (Auto) 2 /hpf (3-5) 10/19/17 15:32 Urine RBC (Auto) 7 /hpf (0-3) 10/19/17 15:32 Ur Epithelial Cells Rare /HPF (FEW) 10/19/17 15:32 Urine Mucus Rare 10/19/17 15:32 Ur Random Sodium 137 MMOL/L 10/21/17 12:10 tele: sr/sb. ventricular ectopy EKG: sr, av delay. lad. LBBB Echo 10/2017: tds, "no definitive statements can be made about findings due to extremely poor acoustic windows". nl lv size. Severely decreased LV sys fn. Global with possible anteroapical septal AK. RV not seen. 1+ ar. MV/TV not well visualized. chest ct 10/2017: vascular u/s 10/2017: no dvt, bilaterally Echo 09/2016: nl lv size. Septum is akinetic. No rwma in inferior, inferolateral or lateral wall, other ordoñez not well seen. Overall ejection fraction is probably mildly, vs urny-hc-dmsgawevet reduced--estimated at 45% vs 40-45%. nl rv/valves. MUGA 08/23: EF 51% MIBI 07/22: 4:30min, probably + STs; large area mid-AW/septum/apex scar with small P.I.I.; moder decr EF with mild global HK and sev HK vs AK of mid-AW// apex; mild LVE, no TID [facility] ([facility]) 05/20: thrombotic subtotal occl pLAD (BMS), 70-80% ramus, diffuse 30- 50% RCA, EF 35% (anterolat AK, lateral/posterolat HK) ASSESSMENT/PLAN 87 yo with hx of htn, hld, cad s/p BMS, ischemic cardiomyopathy, known LBBB, sinus margarette, Alzheimer's disease, ckd (baseline Distribution Driver 1.5-2.6)-, venous insufficiency, oa, stomach ca s/p resection, kidney stones, gerd who p/w weakness/near fall. weakness - likely with contribution from fevers/infection. Ongoing eval/mgm't per pmd CAD/hl/lbbb - s/p ACS 2010 with LAD thrombotic lesion --> s/p BMS, residual ramus dz - con't asa, toprol, valsartan, statin/fibrate/lovaza - ekg with lbbb. trop x 2 yesterday and today - neg (would not consider 0.09 an elevation in this clinical setting). No clinical signs suggestive of acs. ischemic cardiomyopathy - has been euvolemic off diuretics as outpatient. would not make clinical decisions based on bnp with this level of ckd. - ? questionable decrease in EF on current echo. However, given that report stated that no definitive statements could be made regarding findings due to suboptimal images, will not make any clinical decisions based on this report. - s/p gentle IVF with improvement in creatinine. bp stable. htn - outpatient regimen resumed. cardiac lopez remains stable
--- NOTE | 2017-10-23 08:36 | EKG ---
Test Reason : Blood Pressure : / mmHG Vent. Rate : 059 BPM Atrial Rate : 059 BPM P-R Int : 160 ms QRS Dur : 154 ms QT Int : 450 ms P-R-T Axes : 019 -12 125 degrees QTc Int : 445 ms SINUS BRADYCARDIA WITH OCCASIONAL PREMATURE VENTRICULAR COMPLEXES LEFT BUNDLE BRANCH BLOCK ABNORMAL ECG WHEN COMPARED WITH ECG OF 19-OCT-2017 14:02, PREMATURE VENTRICULAR COMPLEXES ARE NOW PRESENT [place] INTERVAL HAS DECREASED Confirmed by MIRIAN CUMMINS, YELENA ([id number]) on 10/23/2017 8:35:58 AM Referred By: CHUY WATERS DR Confirmed By:YELENA VELA MD
== END 2017-10-22 12:48 | DRG 194 ==
LOC: JER 13:08 → JERBED 16:26 → J4W 18:21 → OBSVTOIN 10-20 12:53
PROVIDERS: ADMIT Internal Medicine; ATTEND Internal Medicine
DX: J15.9 Unspecified bacterial pneumonia (principal); N17.9 Acute kidney failure, unspecified; R65.10 Systemic inflammatory response syndrome (SIRS) of non-infectious origin without acute organ dysfunction; I13.0 Hypertensive heart and chronic kidney disease with heart failure and stage 1 through stage 4 chronic kidney disease, or unspecified chronic kidney disease; I50.22 Chronic systolic (congestive) heart failure; J98.11 Atelectasis; J12.9 Viral pneumonia, unspecified; I12.9 Hypertensive chronic kidney disease with stage 1 through stage 4 chronic kidney disease, or unspecified chronic kidney disease; N18.3 Chronic kidney disease, stage 3 (moderate); E86.0 Dehydration; M79.89 Other specified soft tissue disorders; E78.5 Hyperlipidemia, unspecified; I25.10 Atherosclerotic heart disease of native coronary artery without angina pectoris; I25.2 Old myocardial infarction; K21.9 Gastro-esophageal reflux disease without esophagitis; G30.9 Alzheimer's disease, unspecified; I44.7 Left bundle-branch block, unspecified; I25.5 Ischemic cardiomyopathy; N20.0 Calculus of kidney; R00.1 Bradycardia, unspecified; M19.90 Unspecified osteoarthritis, unspecified site; I87.2 Venous insufficiency (chronic) (peripheral); F02.80 Dementia in other diseases classified elsewhere, unspecified severity, without behavioral disturbance, psychotic disturbance, mood disturbance, and anxiety; E66.9 Obesity, unspecified; Z68.31 Body mass index [BMI] 31.0-31.9, adult; E53.8 Deficiency of other specified B group vitamins; Z95.5 Presence of coronary angioplasty implant and graft; Z87.891 Personal history of nicotine dependence; Z85.028 Personal history of other malignant neoplasm of stomach
CPT/HCPCS: 36415; 71045-TC-FY; 71250-TC; 80048; 80053; 81003; 81015; 82803; 83605; 83735; 83880; 84300; 84484; 85025; 85610; 85651; 85730; 86140; 87040; 87070; 87086; 87205; 87804; 87899; 93005; 93010; 93306-TC; 93970-TC; 94010; 94640; 97116-GP; 97161-GP; 99283-25; G0378; J0131; J7030; J7620

== ENCOUNTER 2018-12-02 13:09 | Inpatient (IN) | payer BC, OTHER ==
--- NOTE | 2018-12-02 13:18 | PDOC ---
Rapid Medical Evaluation Time Seen by Provider: 12/02/18 13:16 Medical Evaluation: Allergies Allergy/AdvReac Type Severity Reaction Status Date / Time No Known Allergies Allergy Verified 10/03/14 13:20 Vital Signs Temp Pulse Resp BP Pulse Ox 98.0 F 74 126 H 153/58 L 96 12/02/18 13:14 12/02/18 13:14 12/02/18 13:14 12/02/18 13:14 12/02/18 13:14 12/02/18 13:16 I have performed a brief in-person evaluation of this patient. The patient presents with a chief complaint of: Vomiting a lot of phlegm since yesterday Pertinent physical exam findings: I have ordered the following: The patient will proceed to the ED for further evaluation. Discharge Disposition - Diagnosis Vomiting Qualifiers: Vomiting type: unspecified Vomiting Intractability: unspecified Nausea presence : unspecified Qualified Code(s): R11.10 - Vomiting, unspecified - Referrals - Patient Instructions - Post Discharge Activity
--- NOTE | 2018-12-02 13:20 | PDOC ---
Rapid Medical Evaluation Chief Complaint: Nausea/Vomiting Time Seen by Provider: 12/02/18 13:16 Medical Evaluation: Allergies Allergy/AdvReac Type Severity Reaction Status Date / Time No Known Allergies Allergy Verified 12/02/18 13:16 Vital Signs Temp Pulse Resp BP Pulse Ox 98.0 F 74 126 H 153/58 L 96 12/02/18 13:14 12/02/18 13:14 12/02/18 13:14 12/02/18 13:14 12/02/18 13:14 12/02/18 13:19 I have performed a brief in-person evaluation of this patient. The patient presents with a chief complaint of: vomiting a lot of phlegm since yesterday with burning in the chest. Denies chest pain/back pain, no abdominal pain, no known sick contacts, no recent travel. Pertinent physical exam findings: Pt in no acute distress I have ordered the following: CBC, CMP, lytes, cardiac enzymes, CXR, EKG. The patient will proceed to the ED for further evaluation. Discharge Disposition - Diagnosis Vomiting Qualifiers: Vomiting type: unspecified Vomiting Intractability: unspecified Nausea presence : unspecified Qualified Code(s): R11.10 - Vomiting, unspecified - Referrals - Patient Instructions - Post Discharge Activity
--- NOTE | 2018-12-02 14:48 | PDOC ---
History of Present Illness - General Chief Complaint: Nausea/Vomiting Stated Complaint: VOMITTING Time Seen by Provider: 12/02/18 13:16 - History of Present Illness Initial Comments: Mariano Camacho is an 88yo man with a PMH HTH, HLD, CAD, known LBBB and bradycardia, Alzheimer's, CKD, PVD, OA, h/o stomach CA s/p resection, GERD who presents with multiple episodes of vomiting since yesterday. Mr Camacho is unable to provide details due to his dementia, but his and home health aide are at bedside. According to his , the pt ate dinner yesterday without difficulty. He started to have vomiting after dinner yesterday; she reports at least 10 episdes of NBNB vomiting overnight. His aide reports that he ate breakfast this morning but subsequently vomited out everything he ate. Neither is aware of any fever, chills, diarrhea, or constipation. His aide states that he had a normal bowel movement today. Mr Camacho currently denies any nausea or pain. Past History - Past Medical History Allergies/Adverse Reactions: Allergies Allergy/AdvReac Type Severity Reaction Status Date / Time No Known Allergies Allergy Verified 12/02/18 13:16 Home Medications: Ambulatory Orders Aspirin Coated [Ecotrin -] 81 mg PO DAILY #0 07/19/14 Cholecalciferol (Vitamin D3) [Vitamin D3] 2,000 units PO DAILY 07/19/14 Cyanocobalamin [Vitamin B12 -] 1,000 mcg PO DAILY 07/19/14 Donepezil HCl [Aricept] 10 mg PO DAILY 07/19/14 Folic Acid 1 mg PO DAILY 07/19/14 Memantine HCl [Namenda -] 10 mg PO BID 07/19/14 Metoprolol Succinate [Toprol XL -] 25 mg PO DAILY 07/19/14 Pravastatin Sodium [Pravachol] 40 mg PO DAILY 07/19/14 Ranitidine [Zantac -] 150 mg PO DAILY 07/19/14 Fenofibrate Nanocrystallized [Fenofibrate] 160 mg PO DAILY 10/19/17 Albuterol 2.5/Ipratropium 0.5 [Duoneb -] 1 amp NEB Q6H PRN 7 Days amp 10/22/17 Lactobacillus Acidophilus [Acidophilus] 1 each PO DAILY 12/02/18 [place]-3 Fatty Acids/Fish Oil [Fish Oil 1,000 mg Capsule] 1 each PO DAILY Anemia: No Asthma: No Cancer: Yes (Stomach (2 yrs ago)) Cardiac Disorders: Yes (AR x2, CAD) CVA: No COPD: No CHF: Yes Dementia: Yes Diabetes: No GI Disorders: No Disorders: No HTN: Yes Hypercholesterolemia: Yes Liver Disease: No Seizures: No Thyroid Disease: No - Surgical History Cardiac Surgery: Yes (CARDIAC STENTS 4 YRS AGO) Cholecystectomy: Yes - Suicide/Smoking/Psychosocial Hx Smoking History: Never smoked Have you smoked in the past 12 months: No If you are a former smoker, when did you quit?: Does not remember Hx Alcohol Use: Yes (RARE) Drug/Substance Use Hx: No Substance Use Type: None Hx Substance Use Treatment: No Review of Systems - Review of Systems Comments:: Could not obtain due to dementia *Physical Exam - Vital Signs Last Vital Signs Temp Pulse Resp BP Pulse Ox 98.0 F 74 126 H 153/58 L 96 12/02/18 13:14 12/02/18 13:14 12/02/18 13:14 12/02/18 13:14 12/02/18 13:14 - Physical Exam Comments: General: Comfortable, no acute distress HEENT: PERRL, EOMI, MMM, voice normal Cards: RRR, no murmur appreciated Pulm: Comfortable on room air, clear to auscultation bilaterally Abd: Soft, nontender, nondistended Ext: Atraumatic. No LE edema Vasc: Extremities WWP Skin: Normal color, no rashes or lesions Neuro: Awake, alert, oriented to self, CN grossly intact, normal speech, motor/ sensory grossly intact and symmetric Psych: Pleasant, cooperative Procedures - Intubation Intubation Method: orotracheal Blade used: Mac (3) Tube Size (Fr): 7.5 Medications: Etomidate, Rocuronium Tube position confirmed by: Direct visualization, CO2 detector, Chest x-ray, Breath sounds Breath Sounds after Intubation: right greater than left (Same finding pre- intubation) Post Intubation Xray: Yes ED Treatment Course - LABORATORY CBC & Chemistry Diagram: 12/02/18 14:35 12/02/18 15:48 Medical Decision Making - Medical Decision Making 12/02/18 14:48 Mariano Camacho is an 88yo man with a PMH HTH, HLD, CAD, known LBBB and bradycardia, Alzheimer's, CKD, PVD, OA, h/o stomach CA s/p resection, GERD who presents with multiple episodes of NBNB vomiting since yesterday with no abdominal pain or associated symptoms. - Ddx includes gastritis, pancreatitis. Less likely ACS as he has no chest pain. Pt reports he is s/p cholecystectomy; duct stone still possible but no abdominal tenderness - CBC, CMP, lipase, trop, EKG - EKG completed prior to evaluation; Sinus w/ HR 76, left axis, prolonged intervals (VA 256, QRS 158, PTc 468), LBBB. Unchanged from previous - NS, zofran, Pepcid for symptoms 12/02/18 15:36 - Chemistry, lipase, trop hemolized. Reordered - h/o gastric surgery. Will need CT w/ PO contrast. IV contrast preferred but pending labs 12/02/18 16:42 - Labs reviewed. Notable for Cr 1.9, appears to be baseline. Leukocytosis to 11 , nonspecific, possibly inflammatory due to vomiting. - Noncontrast CT abd/pelvis ordered for evaluation. PO contrast to be given just prior to scan due to gastric surgery - Continued retching. Additional 4mg zofran and 0.5mg ativan ordered 12/02/18 18:42 - Pt developed acute respiratory distress, gurgling respirations, hypoxia, tachycardia, AMS - intubated following discussion w/ pt's . Significant foaming secretions in pt's airway. Intubated using glidoscope, 7.5 tube at 22cm at the teeth. Initial tube with malfunctioning balloon; replaced over boogie. - CXR ordered to confirm - Propofol drip, 50mcg fentanyl ordered - Spoke to Dr Wilson, ICU. Will come for evaluation - Microblog to hospitalist for admission - CT pending 12/02/18 19:01 - CT read completed. No acute abnormalities noted 12/02/18 19:52 - Sign out given to hospitalist team by Dr Recinos. Seen and discussed with Dr Recinos. Martha Fuller PGY2 *DC/Admit/Observation/Transfer Diagnosis at time of Disposition: Acute respiratory distress, Aspiration pneumonia Vomiting Qualifiers: Vomiting type: unspecified Vomiting Intractability: unspecified Nausea presence : unspecified Qualified Code(s): R11.10 - Vomiting, unspecified - Discharge Dispostion Condition at time of disposition: Guarded Decision to Admit order: Yes - Referrals - Patient Instructions - Post Discharge Activity
[2018-12-02 14:52] LABS: BASO % 0.6 % (0-2.0); EOS % 0.7 % (0-4.5); HEMATOCRIT 38.4 % (35.4-49); MCH 30.4 pg (25.7-33.7); MCHC 33.9 g/dl (32.0-35.9); MEAN CELL VOLUME 89.9 fl (80-96); MEAN PLT VOLUME 7.5 fl (7.5-11.1); MONO % 3.9 % (3.8-10.2); NEUT % 83.8 % (42.8-82.8); PLATELET COUNT 170 K/MM3 (134-434); RBC 4.27 M/mm3 (4.00-5.60); RDW 14.4 % (11.9-15.9); WHITE BLOOD COUNT 11.6 K/mm3 (4.0-10.0)
[2018-12-02 15:00] LABS: INR 1.01 (0.83-1.09); PROTHROMBIN TIME (PATIENT) 11.9 SEC (9.7-13.0)
[2018-12-02] MEDS ORDERED: FAMOTIDINE 20 MG/50 ML IVPB 20 MG/50 ML MG IVPB ONE ×2 (15:12→15:37)
[2018-12-02] MEDS ORDERED: SODIUM CHLORIDE 0.9% 500 ML INFUS.BAG IV ONE ×2 (15:12→19:30)
[2018-12-02] MEDS ORDERED: ONDANSETRON 4 MG/2 ML VIAL IVPUSH ONE ×2 (15:13→16:41)
[2018-12-02] MEDS ORDERED: ONDANSETRON 4 MG/2 ML VIAL ONE ×2 (15:36→16:42)
[2018-12-02 16:38] LABS: ALBUMIN 3.6 g/dl (3.4-5.0); ALK PHOS 37 U/L (45-117); ANION GAP 6 MMOL/L (8-16); BILIRUBIN,TOTAL 0.7 mg/dL (0.2-1); BLOOD UREA NITROGEN 34.8 mg/dL (7-18); CALCIUM 9.3 mg/dL (8.5-10.1); CHLORIDE 111 mmol/L (98-107); CO2 25 mmol/L (21-32); CREATININE 1.9 mg/dL (0.55-1.3); GLUCOSE,RANDOM 154 mg/dL (74-106); POTASSIUM 4.9 mmol/L (3.5-5.1); SGOT/AST 11 U/L (15-37); SGPT/ALT 15 U/L (13-61); SODIUM 142 mmol/L (136-145); TOT PROT 7.3 g/dl (6.4-8.2)
[2018-12-02] MEDS ORDERED: LORazepam 2 MG/ML SDV VIAL ONE (16:42)
[2018-12-02] MEDS ORDERED: ETOMIDATE 20 MG/10 ML AMPUL IVPUSH ONE (18:13)
[2018-12-02] MEDS ORDERED: PIPERACILLIN/TAZOB 3.375 GM 3.375 GM in DEXTROSE 5%-WATER - 50 ML IVPB ONE (18:13)
[2018-12-02] MEDS ORDERED: ETOMIDATE 40 MG/20 ML VIAL IVPUSH ONE (18:17)
[2018-12-02] MEDS: PROPOFOL 1,000,000 MCG/100 ML VIAL IVPB SCH (19:05)
[2018-12-02] MEDS ORDERED: PROPOFOL 1,000,000 MCG/100 ML VIAL ONE (19:08)
[2018-12-02] MEDS ORDERED: PIPERACILLIN/TAZOB 3.375 GM 3.375 GM/50 ML BAG IVPB ONE (19:08)
[2018-12-02] MEDS ORDERED: ALBUTEROL SO4 2.5/IPRATROPIUM 0.5 INH SOL 3 ML VIAL.NEB. NEB PRN (19:38)
--- NOTE | 2018-12-02 19:43 | PDOC ---
Documentation entered by Rosy León SCRIBE, acting as scribe for Chiki Recinos MD. Chiki Recinos MD: This documentation has been prepared by the [place], SCRIBE, under my direction and personally reviewed by me in its entirety. I confirm that the documentation accurately reflects all work, treatment, procedures, and medical decision making performed by me. Attending Attestation - Resident Resident Name: JonnyMartha - ED Attending Attestation I have performed the following: I have examined & evaluated the patient, The case was reviewed & discussed with the resident, I agree w/resident's findings & plan, Exceptions are as noted - HPI HPI: 12/02/18 16:39 The patient is an 88 year old male, with a significant PMH of PMH HTH, HLD, CAD , known LBBB and bradycardia, Alzheimer's, CKD, PVD, OA, h/o stomach CA s/p resection and GERD who presents to the emergency department with 10 episodes of NBNB vomiting since yesterday. As per aide, on the bedside, the patient ate dinner yesterday, which was when his vomiting began and continued overnight. As per aide, he ate breakfast this morning but was not able to keep it down, but notes that he had a normal bowel movement as well. The aide denies any fever or chills. The patient denies nausea or pain. Allergies: NKA Past surgical history: Cholecystectomy, stents 4 years ago - Physicial Exam PE: 12/02/18 19:20 GENERAL: Ill-appearing, minimally responsive, diaphoretic, critically ill HEAD: No signs of trauma EYES:EOMI, sclera anicteric, conjunctiva clear ENT: Auricles normal inspection, nares patent, NECK: Normal ROM, supple LUNGS: Course breath sounds bilaterally. Tachypneic HEART: Regular rate and rhythm, normal S1 and S2, no murmurs, rubs or gallops. Tachycardic ABDOMEN: Soft, nontender EXTREMITIES: Normal range of motion, no edema. NEUROLOGICAL: minimally responsive. Withdraws on tactile stimuli. SKIN: Warm, Dry, normal turgor, no rashes or lesions noted. - Critical Care Time Total Critical Care Time: 45 Critical Care Statement: The care of this patient involved high complexity decision making to prevent further life threatening deterioration of the patient 's condition and/or to evaluate & treat vital organ system(s) failure or risk of failure. - Medical Decision Making 12/02/18 19:36 A portion of this note was written by my scribe, under my supervision. Vital Signs Temp Pulse Resp BP Pulse Ox 99.9 F H 138 H 12 153/58 L 98 12/02/18 19:35 12/02/18 18:40 12/02/18 18:40 12/02/18 13:14 12/02/18 18:40 88 year old male with likely aspiration pneumonia. The patient was seen initially by my residents. At that time, the patient was alert and talkative. However, pt was continuously vomiting. However, as the stay progressed, pt started to continue vomiting and had likely aspirated. The patient become increasingly somnolent and difficulty breathing. Became less unresponsive and started to become hypoxic. Pt was brought immediately to room 10 and noted to be 56% on room air. Pt placed on nonrebreather but pt found to be in acute respiratory distress. Pt's at bedside and given updates. Given our concerns for pt's overall general status, decision was made to intubate the patient. Pt's consents for intubation. Pt intubated with glydeoscope and intubated. 7.5 ET tube at 22 at the lip. Tube confirmed with chest xray. This chest xray demonstrates new infiltrates compared to the right (possibly ARDS) Pt's respiratory status improved with intubation. Pt now sedated with propofol. Will treat as aspiration PNA. Give vanc and zosyn. Case discussed with ICU who accepts the patient. Dr. Alfonso at bedside and speaking with . Requests hospitalist admission. Case discussed with hospitalist who accepts patient. CBC, BMP 12/02/18 14:35 12/02/18 15:48 CMP Sodium 142 mmol/L (136-145) 12/02/18 15:48 Potassium 4.9 mmol/L (3.5-5.1) 12/02/18 15:48 Chloride 111 mmol/L (98-107) H 12/02/18 15:48 Carbon Dioxide 25 mmol/L (21-32) 12/02/18 15:48 Anion Gap 6 MMOL/L (8-16) L 12/02/18 15:48 BUN 34.8 mg/dL (7-18) H 12/02/18 15:48 Creatinine 1.9 mg/dL (0.55-1.3) H 12/02/18 15:48 Est GFR (CKD-EPI)AfAm 35.69 12/02/18 15:48 Est GFR (CKD-EPI)NonAf 30.79 12/02/18 15:48 POC Glucometer 247 UNITS (80-120) 12/02/18 18:02 Random Glucose 154 mg/dL (74-106) H 12/02/18 15:48 Calcium 9.3 mg/dL (8.5-10.1) 12/02/18 15:48 Phosphorus Cancelled 12/02/18 14:35 Magnesium Cancelled 12/02/18 14:35 Total Bilirubin 0.7 mg/dL (0.2-1) 12/02/18 15:48 AST 11 U/L (15-37) L 12/02/18 15:48 ALT 15 U/L (13-61) 12/02/18 15:48 Alkaline Phosphatase 37 U/L (45-117) L 12/02/18 15:48 Creatine Kinase 72 U/L (26-308) 12/02/18 15:48 Troponin I < 0.02 ng/ml (0.00-0.05) 12/02/18 15:48 Total Protein 7.3 g/dl (6.4-8.2) 12/02/18 15:48 Albumin 3.6 g/dl (3.4-5.0) 12/02/18 15:48 Lipase 91 U/L (73-393) 12/02/18 15:48 12/02/18 20:09 Doug has a history of Left bundle branch block. ECG shows tachycardia with LBBB. *DC/Admit/Observation/Transfer Diagnosis at time of Disposition: Acute respiratory distress, Aspiration pneumonia Vomiting Qualifiers: Vomiting type: unspecified Vomiting Intractability: unspecified Nausea presence : unspecified Qualified Code(s): R11.10 - Vomiting, unspecified - Discharge Dispostion Condition at time of disposition: Guarded Decision to Admit order: Yes - Referrals - Patient Instructions - Post Discharge Activity Heart Score/ECG Review #1 ECG reviewed & interpreted by me at: 18:00 12/02/18 19:15 ?Sinus tachycardia with LBBB pattern
--- NOTE | 2018-12-02 19:52 | CONSULT ---
Consultation: REQUESTING PROVIDER: Dr. Fuller CONSULT REQUEST: We have been asked to medically evaluate this patient for aspiration pneumonitis. PCP: Dr. 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 The patient and his had been eating dinner last night and an hour after finishing dinner the patient began to have multiple episodes of nausea and vomiting for roughly 2 hours. Vomiting was non bililious and non bloody. The did not have similar symptoms and consumed the same food. The patient had roughly 10 episodes of vomiting which was described as watery white phlegm. The patient did not have any further episodes until this morning when he was given a breakfast of oatmeal and began to have similar episodes of vomiting. stated that he did not have any symptoms prior to the episodes that indicated any illness, no fevers, chills, chest pain, palpitations, abd pain, headaches, lightheadedness, dizziness, weakness. Had been having normal non bloody bowel movements. No sick contacts. Previously had colonoscopy which was negative. In the ED, the patient had arrived and was in no apparent distress. While the patient was at the CT scan, there was concern for another vomiting episode and possible aspiration. When the patient was brought back to the department, he began to develop tachypnea, tachycardia, and began to desaturate to the 50s. The patient was deemed unable to protect his airway and was intubated. ED Course notable for: 1) Intubation 2) EKG with LBBB and sinus tachycardia, LBBB unchanged from previous EKG 3) WBC 11.6 REVIEW OF SYSTEMS: PER CONSTITUTIONAL: Absent: fever, chills, diaphoresis, generalized weakness, malaise, loss of appetite, weight change HEENT: Absent: rhinorrhea, nasal congestion, throat pain, throat swelling, difficulty swallowing, mouth swelling, ear pain, eye pain, visual changes CARDIOVASCULAR: Absent: chest pain, syncope, palpitations, irregular heart rate, lightheadedness , peripheral edema RESPIRATORY: Absent: cough, shortness of breath, dyspnea with exertion, orthopnea, wheezing, stridor, hemoptysis GASTROINTESTINAL: nausea, vomiting Absent: abdominal pain, abdominal distension, diarrhea, constipation, melena, hematochezia GENITOURINARY: Absent: dysuria, frequency, urgency, hesitancy, hematuria, flank pain, genital pain MUSCULOSKELETAL: Absent: myalgia, arthralgia, joint swelling, back pain, neck pain SKIN: Absent: rash, itching, pallor HEMATOLOGIC/IMMUNOLOGIC: Absent: easy bleeding, easy bruising, lymphadenopathy, frequent infections ENDOCRINE: Absent: unexplained weight gain, unexplained weight loss, heat intolerance, cold intolerance NEUROLOGIC: Absent: headache, focal weakness or paresthesias, dizziness, unsteady gait, seizure, mental status changes, bladder or bowel incontinence PSYCHIATRIC: Absent: anxiety, depression, suicidal or homicidal ideation, hallucinations. PHYSICAL EXAMINATION Vital Signs - 24 hr 12/02/18 12/02/18 12/02/18 13:14 18:20 18:40 Temperature 98.0 F Pulse Rate 74 138 H Respiratory 126 H 12 12 Rate Blood Pressure 153/58 L O2 Sat by Pulse 96 98 Oximetry (%) 12/02/18 19:35 Temperature 99.9 F H Pulse Rate Respiratory Rate Blood Pressure O2 Sat by Pulse Oximetry (%) GENERAL: Intubated and sedated HEAD: Normal with no signs of trauma. EYES: Pupils equal, round and reactive to light. EARS, NOSE, THROAT: Intubated, moist mucous membranes LUNGS: Crackles and coarse breath sounds heard in the R upper lobe and lower lobes, Decreased breath sounds at the bases. HEART: Tachycardic rate and regular rhythm, normal S1 and S2, systolic murmur appreciated at the L 2nd intercostal space ABDOMEN: Soft, nontender, not distended, normoactive bowel sounds, no guarding, no rebound, no masses. MUSCULOSKELETAL: Normal range of motion at all joints. UPPER EXTREMITIES: 1+ pulses, warm, well-perfused. No cyanosis. No clubbing. Cap refill <2 seconds. No peripheral edema. LOWER EXTREMITIES: 1+ pulses, warm, well-perfused. No peripheral edema. NEUROLOGICAL: Unable to assess PSYCHIATRIC: Unable to assess SKIN: Warm, dry, normal turgor, no rashes or lesions noted. Laboratory Results - last 24 hr 0712/02/18 12/02/18 14:35 14:35 14:35 WBC 11.6 H RBC 4.27 Hgb 13.0 Hct 38.4 MCV 89.9 MCH 30.4 MCHC 33.9 RDW 14.4 Plt Count 170 D MPV 7.5 Absolute Neuts (auto) 9.7 H Neutrophils % 83.8 H D Lymphocytes % 11.0 D Monocytes % 3.9 Eosinophils % 0.7 Basophils % 0.6 Nucleated RBC % 0 PT with INR INR Sodium Cancelled Potassium Cancelled Chloride Cancelled Carbon Dioxide Cancelled Anion Gap Cancelled BUN Cancelled Creatinine Cancelled Est GFR (CKD-EPI)AfAm Cancelled Est GFR (CKD-EPI)NonAf Cancelled POC Glucometer Random Glucose Cancelled Calcium Cancelled Phosphorus Cancelled Magnesium Cancelled Total Bilirubin Cancelled AST Cancelled ALT Cancelled Alkaline Phosphatase Cancelled Creatine Kinase Troponin I Total Protein Cancelled Albumin Cancelled Lipase Cancelled Blood Type AB POSITIVE Antibody Screen Negative 12/02/18 12/02/18 12/02/18 14:35 14:35 15:48 WBC RBC Hgb Hct MCV MCH MCHC RDW Plt Count MPV Absolute Neuts (auto) Neutrophils % Lymphocytes % Monocytes % Eosinophils % Basophils % Nucleated RBC % PT with INR 11.90 INR 1.01 Sodium 142 Potassium 4.9 Chloride 111 H Carbon Dioxide 25 Anion Gap 6 L BUN 34.8 H Creatinine 1.9 H Est GFR (CKD-EPI)AfAm 35.69 Est GFR (CKD-EPI)NonAf 30.79 POC Glucometer Random Glucose 154 H Calcium 9.3 Phosphorus Magnesium Total Bilirubin 0.7 AST 11 L ALT 15 Alkaline Phosphatase 37 L Creatine Kinase Cancelled 72 Troponin I Cancelled < 0.02 Total Protein 7.3 Albumin 3.6 Lipase Blood Type Antibody Screen 12/02/18 12/02/18 15:48 18:02 WBC RBC Hgb Hct MCV MCH MCHC RDW Plt Count MPV Absolute Neuts (auto) Neutrophils % Lymphocytes % Monocytes % Eosinophils % Basophils % Nucleated RBC % PT with INR INR Sodium Potassium Chloride Carbon Dioxide Anion Gap BUN Creatinine Est GFR (CKD-EPI)AfAm Est GFR (CKD-EPI)NonAf POC Glucometer 247 Random Glucose Calcium Phosphorus Magnesium Total Bilirubin AST ALT Alkaline Phosphatase Creatine Kinase Troponin I Total Protein Albumin Lipase 91 Blood Type Antibody Screen Active Medications Generic Name Dose Route Start Last Admin Trade Name Freq PRN Reason Stop Dose Admin Propofol 1,000,000 mcg in 100 mls @ 2.613 mls/hr 12/02/18 18:45 12/02/18 19: 05 Diprivan - IVPB 5 mcg/kg/min TITR IKER 2.613 mls/hr Administration Protocol 5 MCG/KG/MIN ASSESSMENT/PLAN: Mariano Camacho is an 88 y/o male with a PMHx of HTN, HLD, CAD (s/p stent 2010) , LBBB, Alzheimer's disease, CKD, PVD, OA, 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 Hypoxic Hypercapneic Respiratory Failure 2/2 aspiration with ARDS Possible severe sepsis HTN HLD CAD Alzheimer's disease Hx of stomach CA (MALT) NEUROLOGIC - intubated and sedated - propofol and fentanyl - continue home donepezil and memantine CARDIOLOGY - EKG showing LBBB, which is unchanged from 2018 - tachycardia likely from aspiration and respiratory compromise, continue to monitor - given Lopressor 5mg once with good effect - continue aspirin - continue home metoprolol 25mg daily - last echo on 10/20/17 showing EF of 35% - repeat echo ordered - I+Os RESPIRATORY - intubated - aspiration pneumonitis may follow a fulminant course and result in complications of ARDS thus implementing vent settings for possible ARDS physiology, adjust as needed based on ABG - ABG showing respiratory acidosis with non anion gap metabolic acidosis, respiratory component of CO2 retention, metabolic component of likely hyperchloremia from dehydration and chronic renal failure - repeat ABG mildly improved, still with component of respiratory acidosis and retention of CO2 - A-a gradient 534, expected 26, indicating likely PNA or ARDS - continue to monitor with regular ABGs to adjust vent settings as needed - keep SpO2 above 92% - original CXR did not show infiltrate - subsequent CXR show endotracheal tube placement and infiltrate in the R upper and lower lobes, likely from aspiration - continue to monitor CXR for development of pneumonitis/pneumonia - duonebs q6h prn - will likely need PFTs to assess respiratory function RENAL - CRE 1.9, at baseline GASTROINTESTINAL - given Zofran and Pepcid in ED - one dose Protonix now - Protonix 40mg daily - Abdominal CT showing s/p gastrectomy, 1.5cm hypodense nodule in the pancreatic tail, epigastric hernia with nondilated small bowel loop, small umbilical hernia with a small nondilated small bowel loop, bilateral inguinal hernias containing only fat, colonic diverticulosis, nonobstructing renal calculi - vomiting causes may include transient obstruction from hernias, food poisoning , viral gastritis - HOB elevated, aspiration precautions GENITOURINARY - gan in - no acute issues INFECTIOUS DISEASE - qSOFA of 2 for altered mental status and elevated respiratory rate, high risk of in-hospital mortality, admitted to ICU - severe sepsis in the setting of aspiration pneumonitis/pneumonia - cannot rule out community acquired pneumonia - initiation of broad spectrum coverage - given Zosyn in ED - continue renal dosed Zosyn 2.25 q6h - Vancomycin 1g given - doxycycline 100mg bid - lactic acid 2.8, repeat and trend - urine legionella and strep pneumo ordered - sputum culture - blood cultures ordered - urine unlikely source - isolation precautions, hx of MRSA ENDOCRINE - elevated glucose on current and prior admissions - HgA1c ordered - BGM - ISS HEMATOLOGY - WBC elevation likely from aspiration - continue to monitor counts MUSCULOSKELETAL - no acute issues PSYCHIATRY - no acute issues F/E/N - LR @ 42 cc/hr, decreased due to reduced heart function - continue to monitor electrolytes and replete as necessary - NPO LINES - R AC inserted 12/02/18 - L AC inserted 12/02/18 PROPHYLAXIS - heparin 5000 units subq bid - Protonix - SCDs CODE - full code DISPO - continue to monitor in ICU Thank you for this consultative opportunity. CASE DISCUSSED WITH PRIMARY TEAM ERIK PERSON DO - PGY-1 INTERNAL MEDICINE Problem List - Problems (1) Acute respiratory distress Code(s): R06.03 - ACUTE RESPIRATORY DISTRESS (2) Vomiting Code(s): R11.10 - VOMITING, UNSPECIFIED Qualifiers: Vomiting type: unspecified Vomiting Intractability: unspecified Nausea presence: unspecified Qualified Code(s): R11.10 - Vomiting, unspecified (3) CHF (congestive heart failure) Code(s): I50.9 - HEART FAILURE, UNSPECIFIED Qualifiers: Heart failure type: systolic Heart failure chronicity: chronic Qualified Code(s): I50.22 - Chronic systolic (congestive) heart failure (4) CKD (chronic kidney disease) Code(s): N18.9 - CHRONIC KIDNEY DISEASE, UNSPECIFIED Qualifiers: Chronic kidney disease stage: stage 3 (moderate) Qualified Code(s): N18.3 - Chronic kidney disease, stage 3 (moderate) (5) GERD (gastroesophageal reflux disease) Code(s): K21.9 - GASTRO-ESOPHAGEAL REFLUX DISEASE WITHOUT ESOPHAGITIS (6) HTN (hypertension) Code(s): I10 - ESSENTIAL (PRIMARY) HYPERTENSION Qualifiers: Hypertension type: essential hypertension Qualified Code(s): I10 - Essential (primary) hypertension (7) Hyperlipidemia Code(s): E78.5 - HYPERLIPIDEMIA, UNSPECIFIED Qualifiers: Hyperlipidemia type: mixed hyperlipidemia Qualified Code(s): E78.2 - Mixed hyperlipidemia Visit type - Emergency Visit Emergency Visit: Yes ED Registration Date: 12/02/18 Care time: The patient presented to the Emergency Department on the above date and was hospitalized for further evaluation of their emergent condition. - New Patient This patient is new to me today: Yes Date on this admission: 12/03/18 - Critical Care Critical Care patient: Yes Total Critical Care Time (in minutes): 35 Critical Care Statement: The care of this patient involved high complexity decision making to prevent further life threatening deterioration of the patient 's condition and/or to evaluate & treat vital organ system(s) failure or risk of failure.
[2018-12-02 20:27] LABS: ARTERIAL BLD GAS O2 SATURATION 94.1 % (95-98); ARTERIAL BLOOD GAS BASE EXCESS -13.7 meq/l (-2-2); ARTERIAL BLOOD GAS PCO2 60.4 mmHg (35-45); ARTERIAL BLOOD GAS PO2 97.7 mmHg (80-105); CARBOXYHEMOGLOBIN 0.8 % (0-2)
[2018-12-02 20:39] LABS: ARTERIAL BLOOD GAS pH 7.08 (7.35-7.45)
[2018-12-02] MEDS ORDERED: LACTATED RINGERS SOLUTION 1,000 ML/1,000 ML INFUS.BAG IV SCH (20:45)
[2018-12-02] MEDS ORDERED: METOPROLOL TARTRATE 5 MG/5 ML VIAL IVPUSH ONE (20:50)
[2018-12-02] MEDS: MEMANTINE HCL 10 MG TABLET (FP) GT SCH (21:09)
[2018-12-02] MEDS: HEPARIN NA (PORCINE) 5,000 UNITS/ML 1ML VIAL SQ SCH (21:13)
[2018-12-02] MEDS ORDERED: VANCOMYCIN 1 GM in D5W (PRE-DOCKED) 1,000 MG/250 ML IVPB ONE (21:18)
[2018-12-02] MEDS ORDERED: PIPERACILLIN/TAZOB 2.25 GM 2.25 GM in DEXTROSE 5%-WATER - 50 ML IVPB SCH (21:30)
[2018-12-02] MEDS ORDERED: PANTOPRAZOLE SODIUM 40 MG VIAL IVPUSH ONE (21:42)
[2018-12-02] MEDS ORDERED: DOXYCYCLINE INJECTION 100 MG in DEXTROSE 5%-WATER - 100 ML IVPB SCH (22:00)
[2018-12-02 22:14] LABS: ARTERIAL BLD GAS O2 SATURATION 95.6 % (95-98); ARTERIAL BLOOD GAS BASE EXCESS -12.6 meq/l (-2-2); ARTERIAL BLOOD GAS PCO2 59.7 mmHg (35-45); ARTERIAL BLOOD GAS PO2 104 mmHg (80-105)
[2018-12-02 22:19] LABS: ALLENS TEST POSITIVE
--- NOTE | 2018-12-02 22:52 | HP ---
CHIEF COMPLAINT: vomiting PCP: HISTORY OF PRESENT ILLNESS: 88 y/o M with PMH HTN, HLD, CAD, known LBBB, Alzheimer's, CKD, PVD, OA, stomach ca s/p resection, GERD, hx R gluteal stage 3 ulcer, hx MRSA, ER course was notable for: (1) (2) (3) Recent Travel: PAST MEDICAL HISTORY: PAST SURGICAL HISTORY: Social History: Smoking: Alcohol: Drugs: Family History: Allergies No Known Allergies Allergy (Verified 12/02/18 13:16) HOME MEDICATIONS: Home Medications Medication Instructions Recorded Aspirin Coated [Ecotrin -] 81 mg PO DAILY #0 07/19/14 Cholecalciferol (Vitamin D3) 2,000 units PO DAILY 07/19/14 [Vitamin D3] Cyanocobalamin [Vitamin B12 -] 1,000 mcg PO DAILY 07/19/14 Donepezil HCl [Aricept] 10 mg PO DAILY 07/19/14 Folic Acid 1 mg PO DAILY 07/19/14 Memantine HCl [Namenda -] 10 mg PO BID 07/19/14 Metoprolol Succinate [Toprol XL -] 25 mg PO DAILY 07/19/14 Pravastatin Sodium [Pravachol] 40 mg PO DAILY 07/19/14 Ranitidine [Zantac -] 150 mg PO DAILY 07/19/14 Fenofibrate Nanocrystallized 160 mg PO DAILY 10/19/17 [Fenofibrate] Albuterol 2.5/Ipratropium 0.5 1 amp NEB Q6H PRN 7 Days amp 10/22/17 [Duoneb -] Lactobacillus Acidophilus 1 each PO DAILY 12/02/18 [Acidophilus] [place]-3 Fatty Acids/Fish Oil [Fish 1 each PO DAILY 12/02/18 Oil 1,000 mg Capsule] REVIEW OF SYSTEMS CONSTITUTIONAL: Absent: fever, chills, diaphoresis, generalized weakness, malaise, loss of appetite, weight change HEENT: Absent: rhinorrhea, nasal congestion, throat pain, throat swelling, difficulty swallowing, mouth swelling, ear pain, eye pain, visual changes CARDIOVASCULAR: Absent: chest pain, syncope, palpitations, irregular heart rate, lightheadedness , peripheral edema RESPIRATORY: Absent: cough, shortness of breath, dyspnea with exertion, orthopnea, wheezing, stridor, hemoptysis GASTROINTESTINAL: Absent: abdominal pain, abdominal distension, nausea, vomiting, diarrhea, constipation, melena, hematochezia GENITOURINARY: Absent: dysuria, frequency, urgency, hesitancy, hematuria, flank pain, genital pain MUSCULOSKELETAL: Absent: myalgia, arthralgia, joint swelling, back pain, neck pain SKIN: Absent: rash, itching, pallor HEMATOLOGIC/IMMUNOLOGIC: Absent: easy bleeding, easy bruising, lymphadenopathy, frequent infections ENDOCRINE: Absent: unexplained weight gain, unexplained weight loss, heat intolerance, cold intolerance NEUROLOGIC: Absent: headache, focal weakness or paresthesias, dizziness, unsteady gait, seizure, mental status changes, bladder or bowel incontinence PSYCHIATRIC: Absent: anxiety, depression, suicidal or homicidal ideation, hallucinations. PHYSICAL EXAMINATION Vital Signs - 24 hr 12/02/18 12/02/18 12/02/18 13:14 18:00 18:20 Temperature 98.0 F Pulse Rate 74 Pulse Rate [ 133 H 133 H Apical] Respiratory 126 H 38 H 35 H Rate Blood Pressure 153/58 L Blood Pressure 125/72 130/72 [Left Arm] O2 Sat by Pulse 96 54 L 89 L Oximetry (%) 12/02/18 12/02/18 12/02/18 18:30 18:40 19:35 Temperature 99.9 F H Pulse Rate 138 H Pulse Rate [ 124 H Apical] Respiratory 12 Rate Blood Pressure Blood Pressure 160/72 [Left Arm] O2 Sat by Pulse 98 Oximetry (%) 12/02/18 12/02/18 12/02/18 19:41 20:30 21:00 Temperature Pulse Rate Pulse Rate [ 130 H Apical] Respiratory 12 12 15 Rate Blood Pressure Blood Pressure 117/72 [Left Arm] O2 Sat by Pulse 96 Oximetry (%) 12/02/18 21:12 Temperature Pulse Rate 127 H Pulse Rate [ Apical] Respiratory Rate Blood Pressure 125/60 Blood Pressure [Left Arm] O2 Sat by Pulse Oximetry (%) GENERAL: Awake, alert, and fully oriented, in no acute distress. HEAD: Normal with no signs of trauma. EYES: Pupils equal, round and reactive to light, extraocular movements intact, sclera anicteric, conjunctiva clear. No lid lag. EARS, NOSE, THROAT: Ears normal, nares patent, oropharynx clear without exudates. Moist mucous membranes. NECK: Normal range of motion, supple without lymphadenopathy, JVD, or masses. LUNGS: Breath sounds equal, clear to auscultation bilaterally. No wheezes, and no crackles. No accessory muscle use. HEART: Regular rate and rhythm, normal S1 and S2 without murmur, rub or gallop. ABDOMEN: Soft, nontender, not distended, normoactive bowel sounds, no guarding, no rebound, no masses. No hepatomegaly or splenomegaly. MUSCULOSKELETAL: Normal range of motion at all joints. No bony deformities or tenderness. No CVA tenderness. UPPER EXTREMITIES: 2+ pulses, warm, well-perfused. No cyanosis. No clubbing. No peripheral edema. LOWER EXTREMITIES: 2+ pulses, warm, well-perfused. No calf tenderness. No peripheral edema. NEUROLOGICAL: Cranial nerves II-XII intact. Normal speech. Normal gait. PSYCHIATRIC: Cooperative. Good eye contact. Appropriate mood and affect. SKIN: Warm, dry, normal turgor, no rashes or lesions noted, normal capillary refill. Laboratory Results - last 24 hr 12/02/18 12/02/18 12/02/18 14:35 14:35 14:35 WBC 11.6 H RBC 4.27 Hgb 13.0 Hct 38.4 MCV 89.9 MCH 30.4 MCHC 33.9 RDW 14.4 Plt Count 170 D MPV 7.5 Absolute Neuts (auto) 9.7 H Neutrophils % 83.8 H D Lymphocytes % 11.0 D Monocytes % 3.9 Eosinophils % 0.7 Basophils % 0.6 Nucleated RBC % 0 PT with INR INR Anticoagulation Therapy Puncture Site ABG pH ABG pCO2 at Pt Temp ABG pO2 at Pt Temp ABG HCO3 ABG O2 Sat (Measured) ABG O2 Content ABG Base Excess Tony Test Carboxyhemoglobin Methemoglobin O2 Delivery Device Oxygen Flow Rate Vent Mode Vent Rate Mechanical Rate PEEP Pressure Support Vent Sodium Cancelled Potassium Cancelled Chloride Cancelled Carbon Dioxide Cancelled Anion Gap Cancelled BUN Cancelled Creatinine Cancelled Est GFR (CKD-EPI)AfAm Cancelled Est GFR (CKD-EPI)NonAf Cancelled POC Glucometer Random Glucose Cancelled Calcium Cancelled Phosphorus Cancelled Magnesium Cancelled Total Bilirubin Cancelled AST Cancelled ALT Cancelled Alkaline Phosphatase Cancelled Creatine Kinase Troponin I Total Protein Cancelled Albumin Cancelled Lipase Cancelled Blood Type AB POSITIVE Antibody Screen Negative 12/02/18 12/02/18 12/02/18 14:35 14:35 15:48 WBC RBC Hgb Hct MCV MCH MCHC RDW Plt Count MPV Absolute Neuts (auto) Neutrophils % Lymphocytes % Monocytes % Eosinophils % Basophils % Nucleated RBC % PT with INR 11.90 INR 1.01 Anticoagulation Therapy Puncture Site ABG pH ABG pCO2 at Pt Temp ABG pO2 at Pt Temp ABG HCO3 ABG O2 Sat (Measured) ABG O2 Content ABG Base Excess Tony Test Carboxyhemoglobin Methemoglobin O2 Delivery Device Oxygen Flow Rate Vent Mode Vent Rate Mechanical Rate PEEP Pressure Support Vent Sodium 142 Potassium 4.9 Chloride 111 H Carbon Dioxide 25 Anion Gap 6 L BUN 34.8 H Creatinine 1.9 H Est GFR (CKD-EPI)AfAm 35.69 Est GFR (CKD-EPI)NonAf 30.79 POC Glucometer Random Glucose 154 H Calcium 9.3 Phosphorus Magnesium Total Bilirubin 0.7 AST 11 L ALT 15 Alkaline Phosphatase 37 L Creatine Kinase Cancelled 72 Troponin I Cancelled < 0.02 Total Protein 7.3 Albumin 3.6 Lipase Blood Type Antibody Screen 12/02/18 12/02/18 12/02/18 15:48 18:02 19:59 WBC RBC Hgb Hct MCV MCH MCHC RDW Plt Count MPV Absolute Neuts (auto) Neutrophils % Lymphocytes % Monocytes % Eosinophils % Basophils % Nucleated RBC % PT with INR INR Anticoagulation Therapy No Result Required. Puncture Site Right radial ABG pH 7.08 L* ABG pCO2 at Pt Temp 60.4 H ABG pO2 at Pt Temp 97.7 ABG HCO3 16.9 L ABG O2 Sat (Measured) 94.1 L ABG O2 Content 17.4 ABG Base Excess -13.7 L Tony Test No Result Required. Carboxyhemoglobin 0.8 Methemoglobin 0.6 O2 Delivery Device Mech vent Oxygen Flow Rate 100% Vent Mode No Result Required. Vent Rate 12 Mechanical Rate A/c PEEP 5.0 Pressure Support Vent 450 Sodium Potassium Chloride Carbon Dioxide Anion Gap BUN Creatinine Est GFR (CKD-EPI)AfAm Est GFR (CKD-EPI)NonAf POC Glucometer 247 Random Glucose Calcium Phosphorus Magnesium Total Bilirubin AST ALT Alkaline Phosphatase Creatine Kinase Troponin I Total Protein Albumin Lipase 91 Blood Type Antibody Screen 12/02/18 21:50 WBC RBC Hgb Hct MCV MCH MCHC RDW Plt Count MPV Absolute Neuts (auto) Neutrophils % Lymphocytes % Monocytes % Eosinophils % Basophils % Nucleated RBC % PT with INR INR Anticoagulation Therapy No Result Required. Puncture Site Right radial ABG pH 7.10 L* ABG pCO2 at Pt Temp 59.7 H ABG pO2 at Pt Temp 104 ABG HCO3 17.7 L ABG O2 Sat (Measured) 95.6 ABG O2 Content 18.4 ABG Base Excess -12.6 L Tony Test Positive Carboxyhemoglobin Methemoglobin O2 Delivery Device No Result Required. Oxygen Flow Rate 100% Vent Mode A/c Vent Rate 12 Mechanical Rate No Result Required. PEEP 5.0 Pressure Support Vent 450 Sodium Potassium Chloride Carbon Dioxide Anion Gap BUN Creatinine Est GFR (CKD-EPI)AfAm Est GFR (CKD-EPI)NonAf POC Glucometer Random Glucose Calcium Phosphorus Magnesium Total Bilirubin AST ALT Alkaline Phosphatase Creatine Kinase Troponin I Total Protein Albumin Lipase Blood Type Antibody Screen ASSESSMENT/PLAN: ATTENDING PHYSICIAN STATEMENT I saw and evaluated the patient. I reviewed the resident's note and discussed the case with the resident. I agree with the resident's findings and plan as documented. SUBJECTIVE: OBJECTIVE: ASSESSMENT AND PLAN:
[2018-12-02] MEDS: MUPIROCIN 2% TOPICAL OINTMENT FOR DECOLONIZATION NS SCH (23:09)
[2018-12-02] MEDS: CHLORHEXIDINE GLUCONATE 4% CLEANSER FOR DECOLONIZATION TP SCH (23:09)
[2018-12-02 23:18] LABS: EPI CELLS 7.5 /HPF (0-5/HPF); HYALINE CASTS 43 /lpf (0-8); URINE APPEARANCE TURBID; URINE BILIRUBIN NEGATIVE (NEGATIVE); URINE COLOR YELLOW; URINE GLUCOSE (UA) NEGATIVE (NEGATIVE); URINE KETONE TRACE (NEGATIVE); URINE LEUK ESTERASE NEGATIVE (NEGATIVE); URINE NITRITE NEGATIVE (NEGATIVE); URINE PROTEIN 2+ (NEGATIVE); URINE RBC 1 /hpf (0-4); URINE UROBILINOGEN 0.2 mg/dL (0.2-1.0); URINE WBC 5 /hpf (0-5)
[2018-12-02 23:29] LABS: MAGNESIUM 2.2 mg/dL (1.8-2.4)
[2018-12-02 23:43] LABS: COCAINE, UR NEGATIVE ng/ml (CUTOFF=300); METHADONE, UR NEGATIVE ng/ml (CUTOFF=300); OPIATES, URI NEGATIVE ng/ml (CUTOFF=300); PHENCYCLIDINE,URINE NEGATIVE ng/ml (CUTOFF=25); URINE AMPHETAMINES NEGATIVE ng/ml (CUTOFF=500); URINE BARBITURATES NEGATIVE ng/ml (CUTOFF=200); URINE BENZODIAZEPINES NEGATIVE ng/ml (CUTOFF=200)
[2018-12-03 01:06] LABS: ARTERIAL BLD GAS O2 SATURATION 97.9 % (95-98); ARTERIAL BLOOD GAS BASE EXCESS -9.6 meq/l (-2-2); ARTERIAL BLOOD GAS PCO2 51.5 mmHg (35-45); ARTERIAL BLOOD GAS PO2 118 mmHg (80-105)
[2018-12-03 01:10] LABS: ALLENS TEST POSITIVE
[2018-12-03 01:12] LABS: ARTERIAL BLOOD GAS pH 7.18 (7.35-7.45)
--- NOTE | 2018-12-03 01:51 | PN ---
Teaching Attending Note Name of Resident: Ximena Marshall ATTENDING PHYSICIAN STATEMENT I saw and evaluated the patient. Chart, data, imaging reviewed. I reviewed the resident's note and discussed the case with the resident. I agree with the resident's findings and plan as documented. SUBJECTIVE: 88 year old critically ill male with HTN, HLD, CAD (s/p stent 2010), LBBB, ALzheimer's disease, CKD, PVD, OA, stomach CA (MALToma) s/p resection brought to hospital after vomiting episodes, suspected aspiration, intubated in ER for airway protection, resp failure. OBJECTIVE: Last Vital Signs Temp Pulse Resp BP Pulse Ox 99.9 F H 127 H 18 125/60 96 12/02/18 19:35 12/02/18 21:12 12/03/18 00:22 12/02/18 21:12 12/03/18 00:22 gen - intubated, sedated heent- at, nc et tube neck supple cor s1+s2+tachy chest -b/l air entry sounds abd -soft, bs+ ext - no pedal edema Abnormal Lab Results 12/02/18 12/02/18 12/02/18 14:35 15:48 19:59 WBC 11.6 H Absolute Neuts (auto) 9.7 H Neutrophils % 83.8 H D ABG pH 7.08 L* ABG pCO2 at Pt Temp 60.4 H ABG pO2 at Pt Temp ABG HCO3 16.9 L ABG O2 Sat (Measured) 94.1 L ABG Base Excess -13.7 L Chloride 111 H Anion Gap 6 L BUN 34.8 H Creatinine 1.9 H Random Glucose 154 H Lactic Acid AST 11 L Alkaline Phosphatase 37 L Urine Protein Urine Ketones 12/02/18 12/02/18 12/02/18 21:50 22:50 22:50 WBC Absolute Neuts (auto) Neutrophils % ABG pH 7.10 L* ABG pCO2 at Pt Temp 59.7 H ABG pO2 at Pt Temp ABG HCO3 17.7 L ABG O2 Sat (Measured) ABG Base Excess -12.6 L Chloride Anion Gap BUN Creatinine Random Glucose Lactic Acid 2.8 H* AST Alkaline Phosphatase Urine Protein 2+ H Urine Ketones Trace H 12/03/18 00:30 WBC Absolute Neuts (auto) Neutrophils % ABG pH 7.18 L* ABG pCO2 at Pt Temp 51.5 H ABG pO2 at Pt Temp 118 H ABG HCO3 18.5 L ABG O2 Sat (Measured) ABG Base Excess -9.6 L Chloride Anion Gap BUN Creatinine Random Glucose Lactic Acid AST Alkaline Phosphatase Urine Protein Urine Ketones cxr - b/l patchy infiltrates ct abdomen/pelvis reviewed qtc- prolonged qtc ASSESSMENT AND PLAN: 88yo critically ill man with hypercapniec, hypoxemic resp failure, likely sepsis secondary to aspiration pneumonia, ARDS, severe hypoxemia, leukocytosis, mild lactic acidosis. Currently hemodynamically stable. -ICU -maintain HOB elevated -NPO -maintain on sedation with propofol + fentanyl -mechanical ventilation -blood, urine, tracheal aspirate cultures -urine legionella ag -repeat abg, adjust vent settings - ARDS protocol -echo -doxycycline, vancomycin, zosyn -blood glucose measurements -dvt ppx
[2018-12-03] MEDS ORDERED: PIPERACILLIN/TAZOB 2.25 GM 2.25 GM in DEXTROSE 5%-WATER - 50 ML IVPB ONE (03:00)
--- NOTE | 2018-12-03 03:45 | HP ---
CHIEF COMPLAINT: multiple episodes emesis PCP: Dr. 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 Upon my exam, pt intubated and sedated. Per chart, pt had multiple episodes of NBNB emesis after eating dinner last night. Was seen to aspirate by . Pt quickly deteriorated in ER, becoming cyanotic, with dropping 02 sat to high 50's. Was intubated and sedated w propofol gtt and brought to ICU for further mgmt. ER course was notable for: (1) intubated, sedated. on vent a/c (2) zosyn (3) EKG with LBBB and sinus tach, LBBB unchanged from previous Recent Travel: none PAST MEDICAL HISTORY: as above PAST SURGICAL HISTORY: unable to obtain; see above Social History: unable to obtain; see above Family History: Allergies No Known Allergies Allergy (Verified 12/02/18 13:16) HOME MEDICATIONS: Home Medications Medication Instructions Recorded Aspirin Coated [Ecotrin -] 81 mg PO DAILY #0 07/19/14 Cholecalciferol (Vitamin D3) 2,000 units PO DAILY 07/19/14 [Vitamin D3] Cyanocobalamin [Vitamin B12 -] 1,000 mcg PO DAILY 07/19/14 Donepezil HCl [Aricept] 10 mg PO DAILY 07/19/14 Folic Acid 1 mg PO DAILY 07/19/14 Memantine HCl [Namenda -] 10 mg PO BID 07/19/14 Metoprolol Succinate [Toprol XL -] 25 mg PO DAILY 07/19/14 Pravastatin Sodium [Pravachol] 40 mg PO DAILY 07/19/14 Ranitidine [Zantac -] 150 mg PO DAILY 07/19/14 Fenofibrate Nanocrystallized 160 mg PO DAILY 10/19/17 [Fenofibrate] Albuterol 2.5/Ipratropium 0.5 1 amp NEB Q6H PRN 7 Days amp 10/22/17 [Duoneb -] Lactobacillus Acidophilus 1 each PO DAILY 12/02/18 [Acidophilus] [place]-3 Fatty Acids/Fish Oil [Fish 1 each PO DAILY 12/02/18 Oil 1,000 mg Capsule] PHYSICAL EXAMINATION Vital Signs 12/02/18 12/02/18 12/02/18 13:14 18:00 18:20 Temperature 98.0 F Pulse Rate 74 Pulse Rate [ 133 H 133 H Apical] Respiratory 126 H 38 H 35 H Rate Blood Pressure 153/58 L Blood Pressure 125/72 130/72 [Left Arm] O2 Sat by Pulse 96 54 L 89 L Oximetry (%) GENERAL: intubated. vented, sedated HEAD: NCAT EYES: Pupils equal, round and reactive to light. EARS, NOSE, THROAT: Intubated, moist mucous membranes LUNGS: +crackles appreciated, coarse breath sounds. HEART: +tachy rate. +ISIDRA ABDOMEN: Soft, nontender, not distended, normoactive bowel sounds LOWER EXTREMITIES: 2+ pt pulses, warm, well-perfused. No peripheral edema. NEUROLOGICAL: currently sedated Laboratory Tests 12/02/18 12/02/18 12/02/18 19:59 21:50 22:50 ABG pH 7.08 L* 7.10 L* ABG pCO2 at Pt Temp 60.4 H 59.7 H ABG pO2 at Pt Temp 97.7 104 ABG HCO3 16.9 L 17.7 L O2 Delivery Device Mech vent No Result Required. 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 Found to be in acute hypoxic hypercapnic RF 2/2 possible asp PNA w ARDS. #acute hypoxic hypercapnic RF #sepsis from possible asp pneumonitis w ARDS -vented, sedated. cont w/ propofol, fent gtt. -settings per [facility] protocol. p plateau P < 30, high RR. f/u repeat ABG -will hold steroids for now in case of asp pneumonitis -however will cover w/ vanc, zosyn, doxy -iso precautions: hx MRSA -repeat lactic. f/u. c/w gentle IVF as low EF -f/u UA, ucx, sputum, blood cx -bg control: ISS, BGM #HTN- controlled -c/w metoprolol #CAD -EKG w unchanged LBBB -c/w asa -last ECHO ef 35% (2017) #stomach CA s/p resection #GERD -c/w protonix -elevate HOB -asp precautions #CKD -at baseline #dementia -c/w donepezil, memantine. #F/E/N LR 42 cc/hr cont to follow lytes npo #PPX hep 5k sq tid #dispo admit to icu Visit type - Emergency Visit Emergency Visit: Yes ED Registration Date: 12/02/18 Care time: The patient presented to the Emergency Department on the above date and was hospitalized for further evaluation of their emergent condition. - New Patient This patient is new to me today: Yes Date on this admission: 12/03/18 - Critical Care Critical Care patient: Yes Total Critical Care Time (in minutes): 45 Critical Care Statement: The care of this patient involved high complexity decision making to prevent further life threatening deterioration of the patient 's condition and/or to evaluate & treat vital organ system(s) failure or risk of failure. ATTENDING PHYSICIAN STATEMENT I saw and evaluated the patient. I reviewed the resident's note and discussed the case with the resident. I agree with the resident's findings and plan as documented. SUBJECTIVE: OBJECTIVE: ASSESSMENT AND PLAN:
[2018-12-03] MEDS ORDERED: DEXTROSE 5%-WATER - 50 ML IVPB ONE ×4 (04:23→21:48)
[2018-12-03] MEDS ORDERED: PIPERACILLIN/TAZOBACTAM 2.25 GM VIAL IVPB ONE ×4 (04:23→21:48)
[2018-12-03 04:48] LABS: ARTERIAL BLD GAS O2 SATURATION 99.7 % (95-98); ARTERIAL BLOOD GAS BASE EXCESS -9.5 meq/l (-2-2); ARTERIAL BLOOD GAS PCO2 37.2 mmHg (35-45); ARTERIAL BLOOD GAS PO2 229 mmHg (80-105); ARTERIAL BLOOD GAS pH 7.27 (7.35-7.45)
[2018-12-03 04:52] LABS: ALLENS TEST POSITIVE
[2018-12-03 06:27] LABS: BASO % 0.6 % (0-2.0); HEMATOCRIT 39.9 % (35.4-49); HEMOGLOBIN 13.6 GM/dL (11.7-16.9); LYMPH % 9.6 % (8-40); MEAN CELL VOLUME 91.1 fl (80-96); MEAN PLT VOLUME 7.7 fl (7.5-11.1); MONO % 4.2 % (3.8-10.2); NEUT % 85.6 % (42.8-82.8); PLATELET COUNT 186 K/MM3 (134-434); RBC 4.38 M/mm3 (4.00-5.60); RDW 14.7 % (11.9-15.9); WHITE BLOOD COUNT 9.5 K/mm3 (4.0-10.0)
[2018-12-03 06:35] LABS: INR 1.07 (0.83-1.09); PROTHROMBIN TIME (PATIENT) 12.6 SEC (9.7-13.0)
[2018-12-03 06:38] LABS: ACTIVATED PTT 32.2 SECONDS (25.2-36.5)
[2018-12-03] MEDS: INSULIN SLIDING SCALE (NOVOLOG) 1 VIAL SQ SCH ×4 (06:38→21:51)
[2018-12-03 06:48] LABS: BILIRUBIN,TOTAL 1.1 mg/dL (0.2-1); BLOOD UREA NITROGEN 38.7 mg/dL (7-18); CALCIUM 8.6 mg/dL (8.5-10.1); CREATININE 2.9 mg/dL (0.55-1.3); PHOSPHOROUS 4.4 mg/dL (2.5-4.9); POTASSIUM 5.5 mmol/L (3.5-5.1); TOT PROT 6.8 g/dl (6.4-8.2)
[2018-12-03 07:22] LABS: ARTERIAL BLD GAS O2 SATURATION 99.1 % (95-98); ARTERIAL BLOOD GAS BASE EXCESS -8.7 meq/l (-2-2); ARTERIAL BLOOD GAS PO2 142 mmHg (80-105); ARTERIAL BLOOD GAS pH 7.29 (7.35-7.45)
[2018-12-03 07:28] LABS: ALLENS TEST POSITIVE
--- NOTE | 2018-12-03 09:06 | CONSULT ---
Consult Consult Specialty:: PULM/CCM Referred by:: Dr. Luis Proctor Reason for Consultation:: RESP FAIL - History of Present Illness Chief Complaint: RESP FAIL History of Present Illness: Mr. 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 No report of any fever, chills, diarrhea, or constipation. S/p CTAP in ED pt vomited while supine & subsequently developed SOB requiring intubation m/l asp pna. 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 - Alcohol/Substance Use Hx Alcohol Use: Yes (RARE) - Smoking History Smoking history: Never smoked Have you smoked in the past 12 months: No If you are a former smoker, when did you quit?: Does not remember - Social History Usual Living Arrangement: With Spouse ADL: Family Assistance History of Recent Travel: No Home Medications - Allergies Allergies/Adverse Reactions: Allergies Allergy/AdvReac Type Severity Reaction Status Date / Time No Known Allergies Allergy Verified 12/02/18 13:16 - Home Medications Home Medications: Ambulatory Orders Aspirin Coated [Ecotrin -] 81 mg PO DAILY #0 07/19/14 Cholecalciferol (Vitamin D3) [Vitamin D3] 2,000 units PO DAILY 07/19/14 Cyanocobalamin [Vitamin B12 -] 1,000 mcg PO DAILY 07/19/14 Donepezil HCl [Aricept] 10 mg PO DAILY 07/19/14 Folic Acid 1 mg PO DAILY 07/19/14 Memantine HCl [Namenda -] 10 mg PO BID 07/19/14 Metoprolol Succinate [Toprol XL -] 25 mg PO DAILY 07/19/14 Pravastatin Sodium [Pravachol] 40 mg PO DAILY 07/19/14 Ranitidine [Zantac -] 150 mg PO DAILY 07/19/14 Fenofibrate Nanocrystallized [Fenofibrate] 160 mg PO DAILY 10/19/17 Albuterol 2.5/Ipratropium 0.5 [Duoneb -] 1 amp NEB Q6H PRN 7 Days amp 10/22/17 Lactobacillus Acidophilus [Acidophilus] 1 each PO DAILY 12/02/18 [place]-3 Fatty Acids/Fish Oil [Fish Oil 1,000 mg Capsule] 1 each PO DAILY Family Disease History - Family Disease History Family History: Unable to Obtain (PT IS UNCON/UNRESP SEDATED INTUBATED) Family Disease History: Heart Disease: Brother, CA: Sister Review of Systems Unable to obtain ROS, reason: PT IS UNCON/UNRESP SEDATE Physical Exam Vital Signs: Vital Signs Temperature 97.4 F L 12/03/18 03:57 Pulse Rate 75 12/03/18 04:17 Respiratory Rate 18 12/03/18 07:00 Blood Pressure 93/58 L 12/03/18 04:17 O2 Sat by Pulse Oximetry (%) 96 12/03/18 00:22 Intake & Output 11/30/18 12/01/18 12/02/18 12/03/18 23:59 23:59 23:59 23:59 Weight 87.09 kg 84.277 kg Constitutional: Yes: No Distress, Calm, Obese Eyes: Yes: WNL, Conjunctiva Clear, PERRL HENT: Yes: WNL, Atraumatic, Normocephalic Neck: Yes: WNL, Trachea Midline Cardiovascular: Yes: WNL, Regular Rate and Rhythm Respiratory: Yes: Diminished, Intubated, Mechanically Ventilated, Rhonchi Gastrointestinal: Yes: Abdomen, Obese, Hypoactive Bowel Sounds, Vomiting ...Rectal Exam: Yes: Deferred Renal/: Yes: [place] Present Breast(s): Yes: WNL Musculoskeletal: Yes: WNL Extremities: Yes: WNL Edema: No Peripheral Pulses WNL: Yes Integumentary: Yes: WNL Neurological: Yes: WNL, Other (SEDATED On VENT) ...Motor Strength: WNL Psychiatric: Yes: WNL Labs: CBC, BMP 12/03/18 05:40 12/03/18 05:40 ABG Results ABG pH 7.29 (7.35-7.45) L 12/03/18 06:55 ABG pCO2 at Pt Temp 36.0 mmHg (35-45) 12/03/18 06:55 ABG pO2 at Pt Temp 142 mmHg (80-105) H 12/03/18 06:55 ABG HCO3 16.8 mmol/L (22-27) L 12/03/18 06:55 ABG O2 Sat (Measured) 99.1 % (95-98) H 12/03/18 06:55 ABG O2 Content 18.3 % vol (15-22) 12/03/18 06:55 ABG Base Excess -8.7 meq/l (-2-2) L 12/03/18 06:55 Hepatic Panel Total Bilirubin 1.1 mg/dL (0.2-1) H 12/03/18 05:40 AST 67 U/L (15-37) H 12/03/18 05:40 ALT 39 U/L (13-61) 12/03/18 05:40 Alkaline Phosphatase 37 U/L (45-117) L 12/03/18 05:40 Albumin 3.0 g/dl (3.4-5.0) L 12/03/18 05:40 Imaging - Results Chest X-ray: Image Reviewed (CXR 12/03: ETT in good position, NGT in esophagus & needs to be advanced. B/L patchy infiltrates & Retrocardiac opacity (My Read).) Cat Scan: Report Reviewed (CTAP 12/02: No definite CT findings of acute pathology are identified. Status post partial gastrectomy. A 1.5 cm spherical hypodense structure is seen within or adjacent to the pancreatic tail possibly representing a pancreatic cystic lesion and less likely a splenic artery aneurysm. Correlation with 3 month follow-up CT or MRI is suggested to evaluate stability. Epigastric hernia containing a nondilated small bowel loop. Small umbilical hernia with a nondilated small bowel loop slightly bulging into the hernia defect. Bilateral inguinal hernias containing fat only. Colonic diverticulosis. Status post cholecystectomy. Nonobstructing left renal calculi.) EKG: Image Reviewed (12-LEAD 12/02: ABNORMALS-Tach in the 120's, L axis deviation, LBB, QTC = 526ms (My Read).) Problem List - Problems (1) Acute kidney injury superimposed on CKD Code(s): N17.9 - ACUTE KIDNEY FAILURE, UNSPECIFIED; N18.9 - CHRONIC KIDNEY DISEASE, UNSPECIFIED (2) Acute respiratory distress Code(s): R06.03 - ACUTE RESPIRATORY DISTRESS (3) Acute respiratory failure Code(s): J96.00 - ACUTE RESPIRATORY FAILURE, UNSP W HYPOXIA OR HYPERCAPNIA (4) Aspiration pneumonia Code(s): J69.0 - PNEUMONITIS DUE TO INHALATION OF FOOD AND VOMIT (5) Vomiting Code(s): R11.10 - VOMITING, UNSPECIFIED Qualifiers: Vomiting type: unspecified Vomiting Intractability: unspecified Nausea presence: unspecified Qualified Code(s): R11.10 - Vomiting, unspecified (6) MRSA (methicillin resistant Staphylococcus aureus) colonization Code(s): Z22.322 - CARRIER OR SUSPECTED CARRIER OF METHICILLIN RESIS STAPH (7) CHF (congestive heart failure) Code(s): I50.9 - HEART FAILURE, UNSPECIFIED Qualifiers: Heart failure type: systolic Heart failure chronicity: chronic Qualified Code(s): I50.22 - Chronic systolic (congestive) heart failure (8) CKD (chronic kidney disease) Code(s): N18.9 - CHRONIC KIDNEY DISEASE, UNSPECIFIED Qualifiers: Chronic kidney disease stage: stage 3 (moderate) Qualified Code(s): N18.3 - Chronic kidney disease, stage 3 (moderate) (9) HTN (hypertension) Code(s): I10 - ESSENTIAL (PRIMARY) HYPERTENSION Qualifiers: Hypertension type: essential hypertension Qualified Code(s): I10 - Essential (primary) hypertension (10) Hyperlipidemia Code(s): E78.5 - HYPERLIPIDEMIA, UNSPECIFIED Qualifiers: Hyperlipidemia type: mixed hyperlipidemia Qualified Code(s): E78.2 - Mixed hyperlipidemia Assessment/Plan ASSESS: -Respiratory failure secondary to aspiration -vomiting unexplained- lipase normal, ct scan normal -HTN -HLD -CAD -CKD -MARTA -PVD -OA -GERD PLAN: -Cont Vent support -Sedated for Vent Sync -Wean FiO2 as tolerated -Nebs -F/u ABG -F/u CXR -F/u Clxrs -NGT --> iLWS -Continue Zo -check vanco level and redose if less then 25 pat with KATHY/CKD -ID -ONCE CXR Clears Wean Sedation & begin SBTs -Stict I's & O's -Trend BUN/Cr -Replete e-lytes prn -SQH -SCD -PPI (RESP FAIL) -[facility] ICU PULM/CCM [id number]
--- NOTE | 2018-12-03 09:29 | CON.ID ---
Consult Consult Specialty:: infectious disease Referred by:: hospitalist Reason for Consultation:: respiratory failure, pneumonia - History of Present Illness Chief Complaint: vomiting History of Present Illness: 88 yo man admitted from home- now intubated and sedated history from chart developed vomiting night after dinner NBNB about 10 times per apparently had breakfast Wednesday morning and begain vomiting again he came to ED continued to vomit developed hypoxia and cyanosis with lethargy required intubation in the ED cxray with LLL infiltrate history of MRSA gluteal ulcer given vanco/zosyn/doxycycline in the ED - History Source History Provided By: Medical Record Limitations to Obtaining History: Clinical Condition - 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 Cardio/Vascular: Yes: CAD, CHF, HTN, Hyperlipdemia, [place], Other (hyperlipidemia) Gastrointestinal: Yes: GERD Renal/: Yes: Renal Inusuff Heme/Onc: Yes: Cancer (gastric) Infectious Disease: Yes: MRSA (buttock wound April 2018) Musculoskeletal: Yes: Osteoarthritis - Past Surgical History Past Surgical History: Yes: None Additional Surgical History: gastric resection - Alcohol/Substance Use Hx Alcohol Use: Yes (RARE) - Smoking History Smoking history: Never smoked Have you smoked in the past 12 months: No If you are a former smoker, when did you quit?: Does not remember - Social History Usual Living Arrangement: With Spouse ADL: Family Assistance History of Recent Travel: No Home Medications - Allergies Allergies/Adverse Reactions: Allergies Allergy/AdvReac Type Severity Reaction Status Date / Time No Known Allergies Allergy Verified 12/02/18 13:16 - Home Medications Home Medications: Ambulatory Orders Aspirin Coated [Ecotrin -] 81 mg PO DAILY #0 07/19/14 Cholecalciferol (Vitamin D3) [Vitamin D3] 2,000 units PO DAILY 07/19/14 Cyanocobalamin [Vitamin B12 -] 1,000 mcg PO DAILY 07/19/14 Donepezil HCl [Aricept] 10 mg PO DAILY 07/19/14 Folic Acid 1 mg PO DAILY 07/19/14 Memantine HCl [Namenda -] 10 mg PO BID 07/19/14 Metoprolol Succinate [Toprol XL -] 25 mg PO DAILY 07/19/14 Pravastatin Sodium [Pravachol] 40 mg PO DAILY 07/19/14 Ranitidine [Zantac -] 150 mg PO DAILY 07/19/14 Fenofibrate Nanocrystallized [Fenofibrate] 160 mg PO DAILY 10/19/17 Albuterol 2.5/Ipratropium 0.5 [Duoneb -] 1 amp NEB Q6H PRN 7 Days amp 10/22/17 Lactobacillus Acidophilus [Acidophilus] 1 each PO DAILY 12/02/18 [place]-3 Fatty Acids/Fish Oil [Fish Oil 1,000 mg Capsule] 1 each PO DAILY Family Disease History - Family Disease History Family Disease History: Heart Disease: Brother, CA: Sister Review of Systems Unable to obtain ROS, reason: unable to obtain, per HPI Physical Exam Vital Signs: Vital Signs Temperature 97.4 F L 12/03/18 03:57 Pulse Rate 75 12/03/18 04:17 Respiratory Rate 18 12/03/18 07:00 Blood Pressure 93/58 L 12/03/18 04:17 O2 Sat by Pulse Oximetry (%) 96 12/03/18 00:22 Constitutional: Yes: Other (SEDATED) Eyes: Yes: Conjunctiva Clear HENT: Yes: Atraumatic, Normocephalic Neck: Yes: Supple Cardiovascular: Yes: Regular Rate and Rhythm Respiratory: Yes: Diminished (AT BASES) Gastrointestinal: Yes: Normal Bowel Sounds, Soft. No: Tenderness ...Rectal Exam: Yes: Deferred Extremities: Yes: WNL Edema: No Wound/Incision: Yes: Other (NO SKIN BREAKDOWN) Labs: CBC, BMP 12/03/18 05:40 12/03/18 05:40 blood cultures pending sputum culture pending Imaging - Results Chest X-ray: Report Reviewed, Image Reviewed Cat Scan: Report Reviewed Problem List - Problems (1) Acute respiratory failure Code(s): J96.00 - ACUTE RESPIRATORY FAILURE, UNSP W HYPOXIA OR HYPERCAPNIA (2) Aspiration pneumonia Code(s): J69.0 - PNEUMONITIS DUE TO INHALATION OF FOOD AND VOMIT (3) Vomiting Code(s): R11.10 - VOMITING, UNSPECIFIED Qualifiers: Vomiting type: unspecified Vomiting Intractability: unspecified Nausea presence: unspecified Qualified Code(s): R11.10 - Vomiting, unspecified (4) MRSA (methicillin resistant Staphylococcus aureus) colonization Code(s): Z22.322 - CARRIER OR SUSPECTED CARRIER OF METHICILLIN RESIS STAPH (5) Acute kidney injury superimposed on CKD Code(s): N17.9 - ACUTE KIDNEY FAILURE, UNSPECIFIED; N18.9 - CHRONIC KIDNEY DISEASE, UNSPECIFIED Assessment/Plan respiratory failure secondary to aspiration vomiting unexplained- lipase normal, ct scan normal agree with cultures zosyn to continue check vanco level and redose if less then 25 pat with KATHY/CKD f/u cultures contact isolation MRSA
[2018-12-03] MEDS: metoPROLOL SUCCINATE 25 MG TAB.SR.24H (FP) PO SCH (10:32)
[2018-12-03] MEDS: ASPIRIN 81 MG CHEWABLE TABLETS NGT SCH (10:32)
[2018-12-03] MEDS: MEMANTINE HCL 10 MG TABLET (FP) GT SCH ×2 (10:32→21:59)
[2018-12-03] MEDS: PANTOPRAZOLE SODIUM 40 MG VIAL IVPUSH SCH (10:47)
[2018-12-03] MEDS: HEPARIN NA (PORCINE) 5,000 UNITS/ML 1ML VIAL SQ SCH ×2 (10:47→21:51)
[2018-12-03] MEDS: PIPERACILLIN/TAZOB 2.25 GM 2.25 GM in DEXTROSE 5%-WATER - 50 ML IVPB SCH ×3 (10:47→21:50)
[2018-12-03] MEDS: MUPIROCIN 2% TOPICAL OINTMENT FOR DECOLONIZATION NS SCH ×2 (10:47→22:30)
[2018-12-03] MEDS: PROPOFOL 1,000,000 MCG/100 ML VIAL IVPB SCH (12:00)
--- NOTE | 2018-12-03 17:05 | PN ---
Progress Note, Physician Chief Complaint: Unable to obtain, patient intubated and sedated - Current Medication List Current Medications: Active Medications Albuterol/Ipratropium (Duoneb -) 1 amp NEB Q6H PRN PRN Reason: SHORT OF BREATH/WHEEZING Aspirin (Asa -) 81 mg NGT DAILY [facility] Last Admin: 12/03/18 10:32 Dose: Not Given Chlorhexidine Gluconate (Hibiclens For Decolonization -) 1 applic TP HS [facility] Last Admin: 12/02/18 23:09 Dose: 1 applic Donepezil HCl (Aricept -) 10 mg NGT HS [facility] Heparin Sodium (Porcine) (Heparin -) 5,000 unit SQ BID [facility] Last Admin: 12/03/18 10:47 Dose: 5,000 unit Propofol (Diprivan -) 1,000,000 mcg in 100 mls @ 2.613 mls/hr IVPB TITR [facility]; Protocol Last Admin: 12/02/18 19:05 Dose: 5 mcg/kg/min, 2.613 mls/hr Lactated Ringer's (Lactated Ringers Solution) 1,000 ml in 1,000 mls @ 42 mls/ hr IV ASDIR [facility] Stop: 12/03/18 20:34 Last Admin: 12/02/18 21:13 Dose: 42 mls/hr Piperacillin Sod/Tazobactam (Sod 2.25 gm/ Dextrose) 50 mls @ 100 mls/hr IVPB Q6H-IV [facility]; Protocol Last Admin: 12/03/18 15:17 Dose: 100 mls/hr Insulin Aspart (Novolog Vial Sliding Scale -) 1 vial SQ ACHS [facility]; Protocol Last Admin: 12/03/18 12:19 Dose: 2 units Memantine (Namenda -) 10 mg GT BID [facility] Last Admin: 12/03/18 10:32 Dose: Not Given Metoprolol Succinate (Toprol Xl -) 25 mg PO DAILY [facility] Last Admin: 12/03/18 10:32 Dose: Not Given Mupirocin (Bactroban Ointment (For Decolonization) -) 1 applic NS BID [facility] Stop: 12/07/18 21:59 Last Admin: 12/03/18 10:47 Dose: 1 applic Pantoprazole Sodium (Protonix Iv) 40 mg IVPUSH DAILY [facility] Last Admin: 12/03/18 10:47 Dose: 40 mg - Objective Vital Signs: Vital Signs Temperature 36.3 C L 12/03/18 03:57 Pulse Rate 81 12/03/18 16:00 Respiratory Rate 24 H 12/03/18 16:29 Blood Pressure 98/51 L 12/03/18 16:00 O2 Sat by Pulse Oximetry (%) 100 12/03/18 09:25 Constitutional: Yes: Well Nourished, Other (sedated) Cardiovascular: Yes: Regular Rate and Rhythm. No: Gallop, Murmur, Rub Respiratory: Yes: Regular, Intubated, Mechanically Ventilated, Rhonchi. No: Rales, Wheezes Gastrointestinal: Yes: Soft, Hypoactive Bowel Sounds. No: Distention, Tenderness Extremities: Yes: WNL Edema: No Labs: CBC, BMP 12/03/18 05:40 12/03/18 05:40 INR, PTT INR 1.07 (0.83-1.09) 12/03/18 05:40 Problem List - Problems (1) Acute respiratory failure with hypoxia Assessment/Plan: -secondary to aspiration pneumonia -case d/w ICU team -intubated -treat pneumonia -wean as tolerated Code(s): J96.01 - ACUTE RESPIRATORY FAILURE WITH HYPOXIA (2) Aspiration pneumonia Assessment/Plan: -case d/w ID -continue zosyn Code(s): J69.0 - PNEUMONITIS DUE TO INHALATION OF FOOD AND VOMIT (3) Hyperkalemia Assessment/Plan: -concerning with constellation of symptoms -patient with hernias, ? if had strangulation that spontaneously resolved -CT scan not showing strangulation and abdomen soft -has NGT placed, expect to improve with LIWS -monitor Code(s): E87.5 - HYPERKALEMIA (4) Acute kidney injury superimposed on CKD Assessment/Plan: -hydration -IV antibiotics -recheck in am Code(s): N17.9 - ACUTE KIDNEY FAILURE, UNSPECIFIED; N18.9 - CHRONIC KIDNEY DISEASE, UNSPECIFIED (5) ASHD (arteriosclerotic heart disease) Assessment/Plan: -quiescent Code(s): I25.10 - ATHSCL HEART DISEASE OF [place] CORONARY ARTERY W/O ANG PCTRS (6) CHF (congestive heart failure) Assessment/Plan: -intubated and sedated Code(s): I50.9 - HEART FAILURE, UNSPECIFIED Qualifiers: Heart failure type: systolic Heart failure chronicity: chronic Qualified Code(s): I50.22 - Chronic systolic (congestive) heart failure (7) HTN (hypertension) Assessment/Plan: -low normal Code(s): I10 - ESSENTIAL (PRIMARY) HYPERTENSION Qualifiers: Hypertension type: essential hypertension Qualified Code(s): I10 - Essential (primary) hypertension (8) Hyperlipidemia Assessment/Plan: -on pravastatin as an outpatient Code(s): E78.5 - HYPERLIPIDEMIA, UNSPECIFIED Qualifiers: Hyperlipidemia type: mixed hyperlipidemia Qualified Code(s): E78.2 - Mixed hyperlipidemia
[2018-12-03] MEDS ORDERED: ACETAMINOPHEN 1000 MG/100 ML VIAL (NON FORMULARY) IVPB STA (21:43)
[2018-12-03] MEDS: DONEPEZIL HCL 10 MG TABLET (FP) NGT SCH ×2 (21:51→22:03)
[2018-12-03] MEDS: CHLORHEXIDINE GLUCONATE 4% CLEANSER FOR DECOLONIZATION TP SCH (21:51)
[2018-12-04] MEDS: PIPERACILLIN/TAZOB 2.25 GM 2.25 GM in DEXTROSE 5%-WATER - 50 ML IVPB SCH ×5 (03:37→18:44)
[2018-12-04] MEDS ORDERED: PIPERACILLIN/TAZOBACTAM 2.25 GM VIAL IVPB ONE ×3 (04:51→17:06)
[2018-12-04] MEDS ORDERED: DEXTROSE 5%-WATER - 50 ML IVPB ONE ×3 (04:51→17:07)
[2018-12-04] MEDS: INSULIN SLIDING SCALE (NOVOLOG) 1 VIAL SQ SCH ×4 (06:29→21:47)
[2018-12-04] MEDS ORDERED: AMIODARONE HCL 150 MG/3 ML VIAL ONE ×2 (06:30→13:20)
[2018-12-04] MEDS ORDERED: AMIODARONE HCL 150 MG/3 ML VIAL IVPUSH ONE (06:34)
[2018-12-04] MEDS ORDERED: LACTATED RINGERS SOLUTION 1,000 ML/1,000 ML INFUS.BAG IV STA (06:35)
[2018-12-04] MEDS: PROPOFOL 1,000,000 MCG/100 ML VIAL IVPB SCH ×2 (07:00→18:44)
--- NOTE | 2018-12-04 08:23 | PN ---
Progress Note (short form) - Note Progress Note: PULM/CCM Pt Seen & Examined in the ICU. A-Fib w/ RVR --> 140's this AM ---> quickly suppressed w/ 150 IV Amio X 1. Doing well on NGT --> iLWS. Active Medications Albuterol/Ipratropium (Duoneb -) 1 amp NEB Q6H PRN PRN Reason: SHORT OF BREATH/WHEEZING Aspirin (Asa -) 81 mg NGT DAILY [facility] Last Admin: 12/03/18 10:32 Dose: Not Given Chlorhexidine Gluconate (Hibiclens For Decolonization -) 1 applic TP HS [facility] Last Admin: 12/03/18 21:51 Dose: 1 applic Donepezil HCl (Aricept -) 10 mg NGT HS [facility] Last Admin: 12/03/18 22:03 Dose: Not Given Heparin Sodium (Porcine) (Heparin -) 5,000 unit SQ BID [facility] Last Admin: 12/03/18 21:51 Dose: 5,000 unit Propofol (Diprivan -) 1,000,000 mcg in 100 mls @ 2.613 mls/hr IVPB TITR [facility]; Protocol Last Titration: 12/03/18 17:57 Dose: 5 mcg/kg/min, 2.613 mls/hr Piperacillin Sod/Tazobactam (Sod 2.25 gm/ Dextrose) 50 mls @ 100 mls/hr IVPB Q6H-IV [facility]; Protocol Last Admin: 12/04/18 03:37 Dose: 100 mls/hr Insulin Aspart (Novolog Vial Sliding Scale -) 1 vial SQ ACHS [facility]; Protocol Last Admin: 12/04/18 06:29 Dose: Not Given Memantine (Namenda -) 10 mg GT BID [facility] Last Admin: 12/03/18 21:59 Dose: Not Given Metoprolol Succinate (Toprol Xl -) 25 mg PO DAILY [facility] Last Admin: 12/03/18 10:32 Dose: Not Given Mupirocin (Bactroban Ointment (For Decolonization) -) 1 applic NS BID [facility] Stop: 12/07/18 21:59 Last Admin: 12/03/18 22:30 Dose: 1 applic Pantoprazole Sodium (Protonix Iv) 40 mg IVPUSH DAILY [facility] Last Admin: 12/03/18 10:47 Dose: 40 mg Vital Signs Period Temp Pulse Resp BP Sys/Heredia Pulse Ox Last 24 Hr 98 F-102.1 F 68-122 19-32 82-160/44-133 100 Intake & Output 12/01/18 12/02/18 12/03/18 12/04/18 23:59 23:59 23:59 23:59 Output Total 400 Balance -400 Weight 87.09 kg 83.915 kg 87.634 kg CBC, BMP 12/03/18 05:40 12/03/18 05:40 Microbiology 12/02/18 18:30 Blood - Peripheral Venous Blood Culture - Preliminary NO GROWTH OBTAINED AFTER 24 HOURS, INCUBATION TO CONTINUE FOR 4 DAYS. 12/02/18 18:31 Blood - Peripheral Venous Blood Culture - Preliminary NO GROWTH OBTAINED AFTER 24 HOURS, INCUBATION TO CONTINUE FOR 4 DAYS. 12/02/18 22:50 Sputum - Endotrachea Suction/Ventilator Gram Stain - Final Chest X-ray: Image Reviewed (CXR 12/03: ETT in good position, NGT in esophagus & needs to be advanced. B/L patchy infiltrates & Retrocardiac opacity (My Read).) Cat Scan: Report Reviewed (CTAP 12/02: No definite CT findings of acute pathology are identified. Status post partial gastrectomy. A 1.5 cm spherical hypodense structure is seen within or adjacent to the pancreatic tail possibly representing a pancreatic cystic lesion and less likely a splenic artery aneurysm. Correlation with 3 month follow-up CT or MRI is suggested to evaluate stability. Epigastric hernia containing a nondilated small bowel loop. Small umbilical hernia with a nondilated small bowel loop slightly bulging into the hernia defect. Bilateral inguinal hernias containing fat only. Colonic diverticulosis. Status post cholecystectomy. Nonobstructing left renal calculi.) EKG: Image Reviewed (12-LEAD 12/02: ABNORMALS-Tach in the 120's, L axis deviation, LBB, QTC = 526ms (My Read). ASSESS: -Respiratory failure secondary to aspiration -vomiting m/l gastroenteritis (No SBO seen on CTAP) -HTN -HLD -CAD -CKD -MARTA -PVD -OA -GERD PLAN: -Cont Vent support -Sedated for Vent Sync -Wean FiO2 as tolerated -Nebs -F/u ABG -F/u CXR -F/u Clxrs -NGT --> iLWS -Continue Zo -Redose Vanc a/p Levels -ID -ONCE CXR Clears Wean Sedation & begin SBTs -Stict I's & O's -Trend BUN/Cr -Replete e-lytes prn -SQH -SCD -PPI (RESP FAIL) -[facility], ACNP-BC [facility] ICU PULM/CCM [id number] Problem List - Problems (1) Acute kidney injury superimposed on CKD Code(s): N17.9 - ACUTE KIDNEY FAILURE, UNSPECIFIED; N18.9 - CHRONIC KIDNEY DISEASE, UNSPECIFIED (2) Acute respiratory distress Code(s): R06.03 - ACUTE RESPIRATORY DISTRESS (3) Acute respiratory failure Code(s): J96.00 - ACUTE RESPIRATORY FAILURE, UNSP W HYPOXIA OR HYPERCAPNIA (4) Aspiration pneumonia Code(s): J69.0 - PNEUMONITIS DUE TO INHALATION OF FOOD AND VOMIT (5) Vomiting Code(s): R11.10 - VOMITING, UNSPECIFIED Qualifiers: Vomiting type: unspecified Vomiting Intractability: unspecified Nausea presence: unspecified Qualified Code(s): R11.10 - Vomiting, unspecified (6) MRSA (methicillin resistant Staphylococcus aureus) colonization Code(s): Z22.322 - CARRIER OR SUSPECTED CARRIER OF METHICILLIN RESIS STAPH (7) CHF (congestive heart failure) Code(s): I50.9 - HEART FAILURE, UNSPECIFIED Qualifiers: Heart failure type: systolic Heart failure chronicity: chronic Qualified Code(s): I50.22 - Chronic systolic (congestive) heart failure (8) CKD (chronic kidney disease) Code(s): N18.9 - CHRONIC KIDNEY DISEASE, UNSPECIFIED Qualifiers: Chronic kidney disease stage: stage 3 (moderate) Qualified Code(s): N18.3 - Chronic kidney disease, stage 3 (moderate) (9) HTN (hypertension) Code(s): I10 - ESSENTIAL (PRIMARY) HYPERTENSION Qualifiers: Hypertension type: essential hypertension Qualified Code(s): I10 - Essential (primary) hypertension (10) Hyperlipidemia Code(s): E78.5 - HYPERLIPIDEMIA, UNSPECIFIED Qualifiers: Hyperlipidemia type: mixed hyperlipidemia Qualified Code(s): E78.2 - Mixed hyperlipidemia
[2018-12-04 08:37] LABS: BASO % 0.3 % (0-2.0); EOS % 1.7 % (0-4.5); HEMATOCRIT 33.1 % (35.4-49); HEMOGLOBIN 11.4 GM/dL (11.7-16.9); LYMPH % 8.6 % (8-40); MCH 30.7 pg (25.7-33.7); MCHC 34.3 g/dl (32.0-35.9); MEAN CELL VOLUME 89.3 fl (80-96); MEAN PLT VOLUME 7.9 fl (7.5-11.1); NEUT % 86.4 % (42.8-82.8); PLATELET COUNT 146 K/MM3 (134-434); RBC 3.71 M/mm3 (4.00-5.60); RDW 14.9 % (11.9-15.9); WHITE BLOOD COUNT 10.6 K/mm3 (4.0-10.0)
[2018-12-04 08:45] LABS: BLOOD UREA NITROGEN 58.4 mg/dL (7-18); CALCIUM 8.3 mg/dL (8.5-10.1); CREATININE 4.9 mg/dL (0.55-1.3); MAGNESIUM 1.8 mg/dL (1.8-2.4); POTASSIUM 4.7 mmol/L (3.5-5.1)
[2018-12-04] MEDS ORDERED: SODIUM CHLORIDE 1,000 ML IV SCH (09:45)
--- NOTE | 2018-12-04 09:46 | PN ---
Progress Note, Physician Chief Complaint: Unable to obtain, patient intubated and sedated - Current Medication List Current Medications: Active Medications Albuterol/Ipratropium (Duoneb -) 1 amp NEB Q6H PRN PRN Reason: SHORT OF BREATH/WHEEZING Aspirin (Asa -) 81 mg NGT DAILY [facility] Last Admin: 12/03/18 10:32 Dose: Not Given Chlorhexidine Gluconate (Hibiclens For Decolonization -) 1 applic TP HS [facility] Last Admin: 12/03/18 21:51 Dose: 1 applic Donepezil HCl (Aricept -) 10 mg NGT HS [facility] Last Admin: 12/03/18 22:03 Dose: Not Given Heparin Sodium (Porcine) (Heparin -) 5,000 unit SQ BID [facility] Last Admin: 12/03/18 21:51 Dose: 5,000 unit Propofol (Diprivan -) 1,000,000 mcg in 100 mls @ 2.613 mls/hr IVPB TITR [facility]; Protocol Last Titration: 12/03/18 17:57 Dose: 5 mcg/kg/min, 2.613 mls/hr Piperacillin Sod/Tazobactam (Sod 2.25 gm/ Dextrose) 50 mls @ 100 mls/hr IVPB Q6H-IV [facility]; Protocol Last Admin: 12/04/18 03:37 Dose: 100 mls/hr Sodium Chloride (Normal Saline -) 1,000 mls @ 75 mls/hr IV ASDIR [facility] Insulin Aspart (Novolog Vial Sliding Scale -) 1 vial SQ ACHS [facility]; Protocol Last Admin: 12/04/18 06:29 Dose: Not Given Memantine (Namenda -) 10 mg GT BID [facility] Last Admin: 12/03/18 21:59 Dose: Not Given Metoprolol Succinate (Toprol Xl -) 25 mg PO DAILY [facility] Last Admin: 12/03/18 10:32 Dose: Not Given Mupirocin (Bactroban Ointment (For Decolonization) -) 1 applic NS BID [facility] Stop: 12/07/18 21:59 Last Admin: 12/03/18 22:30 Dose: 1 applic Pantoprazole Sodium (Protonix Iv) 40 mg IVPUSH DAILY [facility] Last Admin: 12/03/18 10:47 Dose: 40 mg - Objective Vital Signs: Vital Signs Temperature 36.9 C 12/04/18 04:00 Pulse Rate 73 12/04/18 08:52 Respiratory Rate 25 H 12/04/18 08:52 Blood Pressure 130/56 L 12/04/18 08:00 O2 Sat by Pulse Oximetry (%) 97 12/04/18 08:52 Constitutional: Yes: Well Nourished, Other (sedated) Cardiovascular: Yes: Regular Rate and Rhythm. No: Gallop, Murmur, Rub Respiratory: Yes: CTA Bilaterally, Intubated, Mechanically Ventilated, Tachypnea Gastrointestinal: Yes: Hypoactive Bowel Sounds. No: Soft, Distention, Tenderness Extremities: Yes: WNL Edema: Yes Edema: LLE: 1+, RLE: 1+ Labs: CBC, BMP 12/04/18 07:56 12/04/18 07:56 INR, PTT INR 1.07 (0.83-1.09) 12/03/18 05:40 Problem List - Problems (1) Acute respiratory failure with hypoxia Code(s): J96.01 - ACUTE RESPIRATORY FAILURE WITH HYPOXIA (2) Aspiration pneumonia Code(s): J69.0 - PNEUMONITIS DUE TO INHALATION OF FOOD AND VOMIT (3) Hyperkalemia Code(s): E87.5 - HYPERKALEMIA (4) Acute kidney injury superimposed on CKD Code(s): N17.9 - ACUTE KIDNEY FAILURE, UNSPECIFIED; N18.9 - CHRONIC KIDNEY DISEASE, UNSPECIFIED (5) ASHD (arteriosclerotic heart disease) Code(s): I25.10 - ATHSCL HEART DISEASE OF [place] CORONARY ARTERY W/O ANG PCTRS (6) CHF (congestive heart failure) Code(s): I50.9 - HEART FAILURE, UNSPECIFIED Qualifiers: Heart failure type: systolic Heart failure chronicity: chronic Qualified Code(s): I50.22 - Chronic systolic (congestive) heart failure (7) HTN (hypertension) Code(s): I10 - ESSENTIAL (PRIMARY) HYPERTENSION Qualifiers: Hypertension type: essential hypertension Qualified Code(s): I10 - Essential (primary) hypertension (8) Hyperlipidemia Code(s): E78.5 - HYPERLIPIDEMIA, UNSPECIFIED Qualifiers: Hyperlipidemia type: mixed hyperlipidemia Qualified Code(s): E78.2 - Mixed hyperlipidemia Assessment/Plan (1) Acute respiratory failure with hypoxia Assessment/Plan: -secondary to aspiration pneumonia -intubated and sedated -continue treating aspiration pneumonia -wean as tolerated Code(s): J96.01 - ACUTE RESPIRATORY FAILURE WITH HYPOXIA (2) Aspiration pneumonia Assessment/Plan: -case d/w ID -continue zosyn Code(s): J69.0 - PNEUMONITIS DUE TO INHALATION OF FOOD AND VOMIT (3) Hyperkalemia Assessment/Plan: -resolved Code(s): E87.5 - HYPERKALEMIA (4) Acute kidney injury superimposed on CKD Assessment/Plan: -dramatically worsened Cr today -renal ultrasound -urinalysis and urine lytes -consult Dr Taylor -most likely secondary to sepsis and hypoperfusion but will d/w nephrology Code(s): N17.9 - ACUTE KIDNEY FAILURE, UNSPECIFIED; N18.9 - CHRONIC KIDNEY DISEASE, UNSPECIFIED (5) ASHD (arteriosclerotic heart disease) Assessment/Plan: -troponin elevation but decreasing -suspect stress induced Code(s): I25.10 - ATHSCL HEART DISEASE OF [place] CORONARY ARTERY W/O ANG PCTRS (6) CHF (congestive heart failure) Assessment/Plan: -intubated and sedated Code(s): I50.9 - HEART FAILURE, UNSPECIFIED Qualifiers: Heart failure type: systolic Heart failure chronicity: chronic Qualified Code(s): I50.22 - Chronic systolic (congestive) heart failure (7) HTN (hypertension) Assessment/Plan: -improved Code(s): I10 - ESSENTIAL (PRIMARY) HYPERTENSION Qualifiers: Hypertension type: essential hypertension Qualified Code(s): I10 - Essential (primary) hypertension (8) Hyperlipidemia Assessment/Plan: -on pravastatin as an outpatient Code(s): E78.5 - HYPERLIPIDEMIA, UNSPECIFIED Qualifiers: Hyperlipidemia type: mixed hyperlipidemia Qualified Code(s): E78.2 - Mixed hyperlipidemia
--- NOTE | 2018-12-04 10:26 | PN ---
Progress Note (short form) - Note Progress Note: intubated sedated Vital Signs Period Temp Pulse Resp BP Sys/Heredia Pulse Ox Last 24 Hr 98 F-102.1 F 68-122 19-30 82-160/44-133 97 cor-rrr lungs decreased bs at bases abd soft,nt, decreased bs ext no edema skin +diffuse erythema lower abdomen, no perineal /scrotal involvement CBC, BMP 12/04/18 07:56 12/04/18 07:56 Microbiology 12/02/18 22:50 Sputum - Endotrachea Suction/Ventilator Gram Stain - Final 12/02/18 22:50 Sputum - Endotrachea Suction/Ventilator Sputum Culture - Preliminary NORMAL RESPIRATORY ALEYDA 12/02/18 18:30 Blood - Peripheral Venous Blood Culture - Preliminary NO GROWTH OBTAINED AFTER 24 HOURS, INCUBATION TO CONTINUE FOR 4 DAYS. 12/02/18 18:31 Blood - Peripheral Venous Blood Culture - Preliminary NO GROWTH OBTAINED AFTER 24 HOURS, INCUBATION TO CONTINUE FOR 4 DAYS. vanco trough 8 a/p resp failure aspiration pneumonia ?abdominal wall cellulitis dwain history of MRSA redose vancomycin, adjust zosyn dosing repeat cxray renal sonogram IVF renal evaluation contact isolation Problem List - Problems (1) Acute respiratory failure Code(s): J96.00 - ACUTE RESPIRATORY FAILURE, UNSP W HYPOXIA OR HYPERCAPNIA (2) Aspiration pneumonia Code(s): J69.0 - PNEUMONITIS DUE TO INHALATION OF FOOD AND VOMIT (3) Vomiting Code(s): R11.10 - VOMITING, UNSPECIFIED Qualifiers: Vomiting type: unspecified Vomiting Intractability: unspecified Nausea presence: unspecified Qualified Code(s): R11.10 - Vomiting, unspecified (4) MRSA (methicillin resistant Staphylococcus aureus) colonization Code(s): Z22.322 - CARRIER OR SUSPECTED CARRIER OF METHICILLIN RESIS STAPH (5) Acute kidney injury superimposed on CKD Code(s): N17.9 - ACUTE KIDNEY FAILURE, UNSPECIFIED; N18.9 - CHRONIC KIDNEY DISEASE, UNSPECIFIED
[2018-12-04] MEDS ORDERED: VANCOMYCIN 1,000 MG in DEXTROSE 5%-WATER - 250 ML IVPB ONE (10:28)
[2018-12-04] MEDS ORDERED: VANCOMYCIN 1 GRAM (PRE-DOCKED) 1,000 MG/250 ML BAG IVPB ONE (10:45)
--- NOTE | 2018-12-04 10:45 | EKG ---
Test Reason : Blood Pressure : / mmHG Vent. Rate : 127 BPM Atrial Rate : 125 BPM P-R Int : 000 ms QRS Dur : 166 ms QT Int : 366 ms P-R-T Axes : 000 -43 099 degrees QTc Int : 531 ms WIDE QRS TACHYCARDIA LEFT BUNDLE BRANCH BLOCK MORPHOLOGY ABNORMAL ECG WHEN COMPARED WITH ECG OF 02-DEC-2018 14:12, PREVIOUS ECG LBBB QRX MORPHOLOGY IS UNCHANGED ON PRESENT TRACING, HOWEVER TACHYCARDIA IS NOW PRESENT Confirmed by JEWEL SPEAR MD ([id number]) on 12/04/2018 10:45:11 AM Referred By: Confirmed By:JEWEL PSEAR MD
--- NOTE | 2018-12-04 10:48 | EKG ---
Test Reason : Blood Pressure : / mmHG Vent. Rate : 076 BPM Atrial Rate : 076 BPM P-R Int : 256 ms QRS Dur : 158 ms QT Int : 416 ms P-R-T Axes : 058 -68 100 degrees QTc Int : 468 ms SINUS RHYTHM WITH 1ST DEGREE A-V BLOCK POSSIBLE LEFT ATRIAL ENLARGEMENT LEFT AXIS DEVIATION LEFT BUNDLE BRANCH BLOCK ABNORMAL ECG WHEN COMPARED WITH ECG OF 21-OCT-2017 08:43, PREMATURE VENTRICULAR COMPLEXES ARE NO LONGER PRESENT VA INTERVAL HAS INCREASED QRS AXIS SHIFTED LEFT Confirmed by JEWEL SPEAR MD ([id number]) on 12/04/2018 10:48:07 AM Referred By: Confirmed By:JEWEL SPEAR MD
[2018-12-04] MEDS ORDERED: PT OWN MED DRAWER 7, Y5N ONE (11:04)
--- NOTE | 2018-12-04 12:02 | CONSULT ---
Consult Consult Specialty:: Nephrology Reason for Consultation:: KATHY - History of Present Illness Chief Complaint: vomiting History of Present Illness: Pt is an 88 year old make with pmhx of ckd, htn, hld, cad, alzheimers, PVD, OA, gastric cancer, and gerd who presents to the ER with multiple episodes of vomiting. He was intubated and in now in the ICU. He is unable to give history. He developed worsening renal failure and I was called to evaluate him. He is making urine. He is also being treated for aspiration PNA. Pt became cyanotic and deteriorated in the ER. He was intubated and transferred to ICU. Pt does have history of gastric cancer. - History Source History Provided By: Medical Record - Past Medical History [employer]: Yes: Alzheimer's Cardio/Vascular: Yes: CAD, CHF, HTN, Hyperlipdemia, PA, Other (hyperlipidemia) Gastrointestinal: Yes: Cancer, GERD Renal/: Yes: Renal Inusuff Infectious Disease: Yes: MRSA Musculoskeletal: Yes: Osteoarthritis - Past Surgical History Past Surgical History: Yes: None Additional Surgical History: open Intestinal resect 2/2 gastric CA. - Alcohol/Substance Use Hx Alcohol Use: Yes (RARE) - Smoking History Smoking history: Never smoked Have you smoked in the past 12 months: No If you are a former smoker, when did you quit?: Does not remember - Social History Usual Living Arrangement: With Spouse ADL: Family Assistance History of Recent Travel: No Home Medications - Allergies Allergies/Adverse Reactions: Allergies Allergy/AdvReac Type Severity Reaction Status Date / Time No Known Allergies Allergy Verified 12/02/18 13:16 - Home Medications Home Medications: Ambulatory Orders Aspirin Coated [Ecotrin -] 81 mg PO DAILY #0 07/19/14 Cholecalciferol (Vitamin D3) [Vitamin D3] 2,000 units PO DAILY 07/19/14 Cyanocobalamin [Vitamin B12 -] 1,000 mcg PO DAILY 07/19/14 Donepezil HCl [Aricept] 10 mg PO DAILY 07/19/14 Folic Acid 1 mg PO DAILY 07/19/14 Memantine HCl [Namenda -] 10 mg PO BID 07/19/14 Metoprolol Succinate [Toprol XL -] 25 mg PO DAILY 07/19/14 Pravastatin Sodium [Pravachol] 40 mg PO DAILY 07/19/14 Ranitidine [Zantac -] 150 mg PO DAILY 07/19/14 Fenofibrate Nanocrystallized [Fenofibrate] 160 mg PO DAILY 10/19/17 Albuterol 2.5/Ipratropium 0.5 [Duoneb -] 1 amp NEB Q6H PRN 7 Days amp 10/22/17 Lactobacillus Acidophilus [Acidophilus] 1 each PO DAILY 12/02/18 [place]on-3 Fatty Acids/Fish Oil [Fish Oil 1,000 mg Capsule] 1 each PO DAILY Family Disease History - Family Disease History Family Disease History: Heart Disease: Brother, [place]: Sister Review of Systems Unable to obtain ROS, reason: pt sedated Physical Exam Vital Signs: Vital Signs Temperature 98.4 F 12/04/18 04:00 Pulse Rate 73 12/04/18 08:52 Respiratory Rate 25 H 12/04/18 08:52 Blood Pressure 130/56 L 12/04/18 08:00 O2 Sat by Pulse Oximetry (%) 97 12/04/18 08:52 Constitutional: Yes: Calm Eyes: Yes: Conjunctiva Clear HENT: Yes: Atraumatic Neck: Yes: Supple Cardiovascular: Yes: S1, S2 Respiratory: Yes: Intubated, Mechanically Ventilated Gastrointestinal: Yes: Soft Renal/: Yes: [place] Present Musculoskeletal: Yes: Muscle Weakness Edema: No Neurological: Yes: Lethargy Labs: CBC, BMP 12/04/18 07:56 12/04/18 07:56 Laboratory Tests 10/22/17 12/02/18 12/03/18 05:30 15:48 05:40 WBC 9.5 Hgb Plt Count ABG pH ABG pCO2 at Pt Temp Sodium Potassium Chloride Carbon Dioxide Anion Gap BUN Creatinine 1.7 H 1.9 H 12/03/18 12/03/18 12/04/18 05:40 06:55 07:56 WBC Hgb Plt Count ABG pH 7.29 L ABG pCO2 at Pt Temp 36.0 Sodium 142 Potassium 4.7 Chloride 113 H Carbon Dioxide 20 L Anion Gap 10 BUN 58.4 H Creatinine 2.9 H 4.9 H 12/04/18 07:56 WBC 10.6 H Hgb 11.4 L Plt Count 146 D ABG pH ABG pCO2 at Pt Temp Sodium Potassium Chloride Carbon Dioxide Anion Gap BUN Creatinine Imaging - Results Chest X-ray: Report Reviewed Problem List - Problems (1) Acute kidney injury superimposed on CKD Code(s): N17.9 - ACUTE KIDNEY FAILURE, UNSPECIFIED; N18.9 - CHRONIC KIDNEY DISEASE, UNSPECIFIED (2) Aspiration pneumonia Code(s): J69.0 - PNEUMONITIS DUE TO INHALATION OF FOOD AND VOMIT (3) Vomiting Code(s): R11.10 - VOMITING, UNSPECIFIED Qualifiers: Vomiting type: unspecified Vomiting Intractability: unspecified Nausea presence: unspecified Qualified Code(s): R11.10 - Vomiting, unspecified Assessment/Plan Current Medications Generic Name Dose Route Start Last Admin Trade Name Freq PRN Reason Stop Dose Admin Albuterol/Ipratropium 1 amp 12/02/18 19:38 Duoneb - NEB Q6H PRN SHORT OF BREATH/WHEEZING Aspirin 81 mg 12/03/18 10:00 12/03/18 10:32 Asa - NGT Not Given DAILY [facility] Chlorhexidine Gluconate 1 applic 12/02/18 22:00 12/03/18 21:51 Hibiclens For Decolonization - TP 1 applic HS [facility] Administration Donepezil HCl 10 mg 12/03/18 22:00 12/03/18 22:03 Aricept - NGT Not Given HS [facility] Heparin Sodium (Porcine) 5,000 unit 12/02/18 22:00 12/03/18 21:51 Heparin - SQ 5,000 unit BID [facility] Administration Propofol 1,000,000 mcg in 100 mls @ 2.613 mls/hr 12/02/18 18:45 12/03/18 17: 57 Diprivan - IVPB 5 mcg/kg/min TITR [facility] 2.613 mls/hr Titration Protocol 5 MCG/KG/MIN Sodium Chloride 1,000 mls @ 75 mls/hr 12/04/18 09:45 Normal Saline - IV ASDIR [facility] Piperacillin Sod/Tazobactam 50 mls @ 100 mls/hr 12/04/18 10:30 Sod 2.25 gm/ Dextrose IVPB Q8H-IV [facility] Protocol Insulin Aspart 1 vial 12/03/18 07:00 12/04/18 06:29 Novolog Vial Sliding Scale - SQ Not Given ACHS [facility] Protocol Memantine 10 mg 12/02/18 22:00 12/03/18 21:59 Namenda - GT Not Given BID [facility] Metoprolol Succinate 25 mg 12/03/18 10:00 12/03/18 10:32 Toprol Xl - PO Not Given DAILY [facility] Mupirocin 1 applic 12/02/18 22:00 12/03/18 22:30 Bactroban Ointment (For Decolonization) - NS 12/07/18 21:59 1 applic BID [facility] Administration Pantoprazole Sodium 40 mg 12/03/18 10:00 12/03/18 10:47 Protonix Iv IVPUSH 40 mg DAILY [facility] Administration Impression 1. KATHY 2. acute resp failure 3. HTN 4. gastric cancer 5. dementia 6. HLD 7. CAD 8. PVD 9. PNA 10. sepsis 11. 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
[2018-12-04] MEDS ORDERED: SODIUM CHLORIDE 1,000 ML IV STA (12:09)
[2018-12-04] MEDS: MUPIROCIN 2% TOPICAL OINTMENT FOR DECOLONIZATION NS SCH ×2 (12:17→21:39)
[2018-12-04] MEDS: HEPARIN NA (PORCINE) 5,000 UNITS/ML 1ML VIAL SQ SCH ×2 (12:19→21:41)
[2018-12-04] MEDS: PANTOPRAZOLE SODIUM 40 MG VIAL IVPUSH SCH (12:21)
[2018-12-04 13:08] LABS: EPI CELLS 10.3 /HPF (0-5/HPF); HYALINE CASTS 19 /lpf (0-8); URINE APPEARANCE CLOUDY; URINE BACTERIA 1.4 /hpf (NEGATIVE); URINE BILIRUBIN NEGATIVE (NEGATIVE); URINE COLOR YELLOW; URINE GLUCOSE (UA) NEGATIVE (NEGATIVE); URINE KETONE TRACE (NEGATIVE); URINE LEUK ESTERASE 1+ (NEGATIVE); URINE NITRITE NEGATIVE (NEGATIVE); URINE PROTEIN 1+ (NEGATIVE); URINE RBC 9 /hpf (0-4); URINE WBC 17 /hpf (0-5)
--- NOTE | 2018-12-04 14:05 | PROC ---
Procedure Note Procedure: PROCEDURE: MIDLINE INDICATION: POOR VENOUS ACCESS I did evaluate the pts R Basilic vein w/ US & I did appreciate the vessel to be healthy, patent, & easily accessible. The site was prepped & draped in the usual sterile fashion. STOP TIME OUT I did conduct a Time Out w/ the pt' Nurse Alondra Alvarez @ the bedside. I did anesthetize the target site w/ 2cc 1% Lido. I then entered the pts R Basilic vein under US guidance w/ a 21G introducer needle & I did appreciate the flow of non-pulsatile dark venous blood. I then threaded a 50cm Nitinol straight tip Flexura guidewire through the needle into the pts R Basilic vein I & removed the needle. I then passed a 5.0 Fr MicroEZ Micro introducer w/ vessel dilator over the wire & into the vessel using the seldinger technique. I then removed the wire & I appreciated the wire to be intact & whole. I then removed the central stylette & threaded a 5Fr dual lumen 20cm midline through the sheath into the vessel & then I broke away the sheath & advanced the Midline to the 20cm hub. I did appreciate the return of Dark Venous non- pulsatile blood in both ports. Both ports were flushed & capped in the usual sterile fashion. The line was secured in place w/ the STAT-Lock system. I placed a Bio-disc on the site where the catheter breaches through the pts skin. I applied a sterile dressing to the entire site. EBL < 5cc. The pt tolerated the procedure well. I have no complications to report. A post procedure CXR was ordered to Confirm the Midline placement. FELICIA BELLE-HORACIO [facility] ICU PULM/CCM [id number]
[2018-12-04 14:24] LABS: URINE CRYSTALS AMORPHOUS URATES=1+ /hpf
[2018-12-04] MEDS: SODIUM CHLORIDE 0.45% 1,000 ML IV SCH (14:37)
[2018-12-04] MEDS ORDERED: SODIUM CHLORIDE 1,000 ML IV ONE (15:00)
[2018-12-04] MEDS: metoPROLOL SUCCINATE 25 MG TAB.SR.24H (FP) PO SCH (15:24)
[2018-12-04] MEDS: ASPIRIN 81 MG CHEWABLE TABLETS NGT SCH (15:50)
[2018-12-04] MEDS: MEMANTINE HCL 10 MG TABLET (FP) GT SCH ×2 (15:50→21:39)
[2018-12-04 17:55] LABS: RATIO URIN PROTEIN/URIN CREAT 0.88 MG/DL
[2018-12-04] MEDS ORDERED: AMIODARONE HCL 150 MG/3 ML VIAL IVPUSH STA (18:26)
[2018-12-04] MEDS: DONEPEZIL HCL 10 MG TABLET (FP) NGT SCH (21:38)
[2018-12-04] MEDS: CHLORHEXIDINE GLUCONATE 4% CLEANSER FOR DECOLONIZATION TP SCH (21:39)
[2018-12-04] MEDS ORDERED: PROPOFOL 1,000,000 MCG/100 ML VIAL ONE (21:41)
[2018-12-05] MEDS ORDERED: DEXTROSE 5%-WATER - 50 ML IVPB ONE ×3 (01:40→09:42)
[2018-12-05] MEDS ORDERED: PIPERACILLIN/TAZOBACTAM 2.25 GM VIAL IVPB ONE ×2 (01:40→09:05)
[2018-12-05] MEDS: PIPERACILLIN/TAZOB 2.25 GM 2.25 GM in DEXTROSE 5%-WATER - 50 ML IVPB SCH (01:41)
[2018-12-05] MEDS: INSULIN SLIDING SCALE (NOVOLOG) 1 VIAL SQ SCH ×4 (06:04→22:16)
[2018-12-05 06:21] LABS: BASO % 0.2 % (0-2.0); HEMATOCRIT 30.8 % (35.4-49); HEMOGLOBIN 10.6 GM/dL (11.7-16.9); LYMPH % 8.5 % (8-40); MCH 30.8 pg (25.7-33.7); MCHC 34.5 g/dl (32.0-35.9); MEAN CELL VOLUME 89.3 fl (80-96); MEAN PLT VOLUME 8.5 fl (7.5-11.1); NEUT % 84.3 % (42.8-82.8); PLATELET COUNT 152 K/MM3 (134-434); RBC 3.45 M/mm3 (4.00-5.60); RDW 14.8 % (11.9-15.9); WHITE BLOOD COUNT 9.9 K/mm3 (4.0-10.0)
--- NOTE | 2018-12-05 07:34 | PN ---
Physical Exam: SUBJECTIVE: Patient seen and examined at bed side , intubated sedated on Propofol @ 20 , On vent 18/425/Fio2 35 % PEEP 8 OBJECTIVE: Vital Signs Period Temp Pulse Resp BP Sys/Heredia Pulse Ox Last 24 Hr 99.3 F-99.9 F 66-88 12-25 105-136/45-99 97-100 GENERAL: The patient intubated sedated with OG tube and suction HEAD:NC/AT EYES: PERRL, ENT: intubated sedated with OG tube NECK: supple. LUNGS:decrease breath sounds at the bases HEART: Regular rate and rhythm, S1, S2 without murmur, rub or gallop. ABDOMEN: Obese , Soft, nontender, normoactive bowel sounds, EXTREMITIES: 2+ pulses, warm, well-perfused, +1 LLE edema. NEUROLOGICAL:intubated sedated Laboratory Results - last 24 hr 12/04/18 12/04/18 12/04/18 07:56 07:56 07:56 WBC 10.6 H RBC 3.71 L Hgb 11.4 L Hct 33.1 L D MCV 89.3 MCH 30.7 MCHC 34.3 RDW 14.9 Plt Count 146 D MPV 7.9 Absolute Neuts (auto) 9.2 H Neutrophils % 86.4 H Lymphocytes % 8.6 Monocytes % 3.0 L Eosinophils % 1.7 D Basophils % 0.3 Nucleated RBC % 0 Sodium 142 Potassium 4.7 Chloride 113 H Carbon Dioxide 20 L Anion Gap 10 BUN 58.4 H Creatinine 4.9 H Est GFR (CKD-EPI)AfAm 11.35 Est GFR (CKD-EPI)NonAf 9.79 POC Glucometer Random Glucose 145 H Calcium 8.3 L Phosphorus 5.0 H Magnesium 1.8 Troponin I 1.14 H* Urine Color Urine Appearance Urine pH Ur Specific [place] Urine Protein Urine Glucose (UA) Urine Ketones Urine Blood Urine Nitrite Urine Bilirubin Urine Urobilinogen Ur Leukocyte Esterase Urine WBC (Auto) Urine RBC (Auto) Urine Casts (Auto) U Epithel Cells (Auto) Urine Crystals (Auto) Urine Bacteria (Auto) Ur Random Creatinine U Random Total Protein Ur Random Sodium Ur Random Potassium Ur Random Chloride Urine Creatinine Protein/Creatinin Ratio Random Vancomycin 8.2 L 12/04/18 12/04/18 12/04/18 12:00 12:00 12:00 WBC RBC Hgb Hct MCV MCH MCHC RDW Plt Count MPV Absolute Neuts (auto) Neutrophils % Lymphocytes % Monocytes % Eosinophils % Basophils % Nucleated RBC % Sodium Potassium Chloride Carbon Dioxide Anion Gap BUN Creatinine Est GFR (CKD-EPI)AfAm Est GFR (CKD-EPI)NonAf POC Glucometer Random Glucose Calcium Phosphorus Magnesium Troponin I Urine Color Yellow Urine Appearance Cloudy Urine pH 5.0 Ur Specific [place] 1.022 Urine Protein 1+ H Urine Glucose (UA) Negative Urine Ketones Trace H Urine Blood 1+ H Urine Nitrite Negative Urine Bilirubin Negative Urine Urobilinogen 1.0 Ur Leukocyte Esterase 1+ H Urine WBC (Auto) 17 Urine RBC (Auto) 9 Urine Casts (Auto) 19 U Epithel Cells (Auto) 10.3 Urine Crystals (Auto) Amorphous urates=1+ Urine Bacteria (Auto) 1.4 Ur Random Creatinine 149.0 U Random Total Protein Ur Random Sodium 66 Ur Random Potassium Ur Random Chloride Urine Creatinine Protein/Creatinin Ratio Random Vancomycin 12/04/18 12/04/18 12/04/18 12:12 17:15 17:15 WBC RBC Hgb Hct MCV MCH MCHC RDW Plt Count MPV Absolute Neuts (auto) Neutrophils % Lymphocytes % Monocytes % Eosinophils % Basophils % Nucleated RBC % Sodium Potassium Chloride Carbon Dioxide Anion Gap BUN Creatinine Est GFR (CKD-EPI)AfAm Est GFR (CKD-EPI)NonAf POC Glucometer 110 Random Glucose Calcium Phosphorus Magnesium Troponin I Urine Color Urine Appearance Urine pH Ur Specific [place] Urine Protein Urine Glucose (UA) Urine Ketones Urine Blood Urine Nitrite Urine Bilirubin Urine Urobilinogen Ur Leukocyte Esterase Urine WBC (Auto) Urine RBC (Auto) Urine Casts (Auto) U Epithel Cells (Auto) Urine Crystals (Auto) Urine Bacteria (Auto) Ur Random Creatinine 109.0 U Random Total Protein Ur Random Sodium 67 Ur Random Potassium 27.9 Ur Random Chloride 35 L Urine Creatinine Protein/Creatinin Ratio Random Vancomycin 12/04/18 12/04/18 12/04/18 17:15 17:15 18:02 WBC RBC Hgb Hct MCV MCH MCHC RDW Plt Count MPV Absolute Neuts (auto) Neutrophils % Lymphocytes % Monocytes % Eosinophils % Basophils % Nucleated RBC % Sodium Potassium Chloride Carbon Dioxide Anion Gap BUN Creatinine Est GFR (CKD-EPI)AfAm Est GFR (CKD-EPI)NonAf POC Glucometer 106 Random Glucose Calcium Phosphorus Magnesium Troponin I Urine Color Urine Appearance Urine pH Ur Specific [place] Urine Protein Urine Glucose (UA) Urine Ketones Urine Blood Urine Nitrite Urine Bilirubin Urine Urobilinogen Ur Leukocyte Esterase Urine WBC (Auto) Urine RBC (Auto) Urine Casts (Auto) U Epithel Cells (Auto) Urine Crystals (Auto) Urine Bacteria (Auto) Ur Random Creatinine U Random Total Protein 96.1 H Ur Random Sodium 67 Ur Random Potassium Ur Random Chloride Urine Creatinine 109.0 Protein/Creatinin Ratio 0.880 Random Vancomycin 12/04/18 12/05/18 12/05/18 21:44 05:14 05:15 WBC 9.9 RBC 3.45 L Hgb 10.6 L Hct 30.8 L MCV 89.3 MCH 30.8 MCHC 34.5 RDW 14.8 Plt Count 152 MPV 8.5 Absolute Neuts (auto) 8.4 H Neutrophils % 84.3 H Lymphocytes % 8.5 Monocytes % 3.0 L Eosinophils % 4.0 D Basophils % 0.2 Nucleated RBC % 0 Sodium Potassium Chloride Carbon Dioxide Anion Gap BUN Creatinine Est GFR (CKD-EPI)AfAm Est GFR (CKD-EPI)NonAf POC Glucometer 80 109 Random Glucose Calcium Phosphorus Magnesium Troponin I Urine Color Urine Appearance Urine pH Ur Specific [place] Urine Protein Urine Glucose (UA) Urine Ketones Urine Blood Urine Nitrite Urine Bilirubin Urine Urobilinogen Ur Leukocyte Esterase Urine WBC (Auto) Urine RBC (Auto) Urine Casts (Auto) U Epithel Cells (Auto) Urine Crystals (Auto) Urine Bacteria (Auto) Ur Random Creatinine U Random Total Protein Ur Random Sodium Ur Random Potassium Ur Random Chloride Urine Creatinine Protein/Creatinin Ratio Random Vancomycin Active Medications Generic Name Dose Route Start Last Admin Trade Name Freq PRN Reason Stop Dose Admin Albuterol/Ipratropium 1 amp 12/02/18 19:38 Duoneb - NEB Q6H PRN SHORT OF BREATH/WHEEZING Aspirin 81 mg 12/03/18 10:00 12/04/18 15:50 Asa - NGT Not Given DAILY IKER Chlorhexidine Gluconate 1 applic 12/02/18 22:00 12/04/18 21:39 Hibiclens For Decolonization - TP 1 applic HS IKER Administration Donepezil HCl 10 mg 12/03/18 22:00 12/04/18 21:38 Aricept - NGT Not Given HS IKER Heparin Sodium (Porcine) 5,000 unit 12/02/18 22:00 12/04/18 21:41 Heparin - SQ 5,000 unit BID IKER Administration Propofol 1,000,000 mcg in 100 mls @ 2.613 mls/hr 12/02/18 18:45 12/04/18 19: 00 Diprivan - IVPB 20 mcg/kg/min TITR IKER 10.451 mls/hr Titration Protocol 5 MCG/KG/MIN Piperacillin Sod/Tazobactam 50 mls @ 100 mls/hr 12/04/18 10:30 12/05/18 01:41 Sod 2.25 gm/ Dextrose IVPB 100 mls/hr Q8H-IV IKER Administration Protocol Sodium Chloride 1,000 mls @ 100 mls/hr 12/04/18 12:15 12/04/18 14:37 1/2 Normal Saline IV 100 mls/hr ASDIR IKER Administration Insulin Aspart 1 vial 12/03/18 07:00 12/05/18 06:04 Novolog Vial Sliding Scale - SQ Not Given ACHS [facility] Protocol Memantine 10 mg 12/02/18 22:00 12/04/18 21:39 Namenda - GT Not Given BID IKER Metoprolol Succinate 25 mg 12/03/18 10:00 12/04/18 15:24 Toprol Xl - PO Not Given DAILY IKER Mupirocin 1 applic 12/02/18 22:00 12/04/18 21:39 Bactroban Ointment (For Decolonization) - NS 12/07/18 21:59 1 applic BID IKER Administration Pantoprazole Sodium 40 mg 12/03/18 10:00 12/04/18 12:21 Protonix Iv IVPUSH 40 mg DAILY IKER Administration CBC, BMP 12/05/18 05:15 12/05/18 05:15 ASSESSMENT/PLAN: Mariano Camacho is an 88 y/o male with a PMHx of HTN, HLD, CAD (s/p stent 2010) , LBBB, Alzheimer's disease, CKD, PVD, OA, 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 # LBBB , not changed from 2018 * given Lopressor 5mg once with good effect, continue aspirin, continue home metoprolol 25mg daily * last echo on 10/20/17 showing EF of 35% * repeat echo showing EF 40-45% * daily weight , I&O # Acute hypoxic hypercapnic respiratory failure * intubated, sedated on propfol @ 20 mc/hr * Vent settings rate 18, TV 425, FiO2 35, PEEP 8 * ABG showing respiratory acidosis with non anion gap metabolic acidosis, respiratory component of CO2 retention, metabolic component of likely hyperchloremia from dehydration and chronic renal failure * A-a gradient 534, expected 26, indicating likely PNA or ARDS * maintain o2 sat above 92% * CXR with RUL Consolidation * duonebs q6h prn * will likely need PFTs to assess respiratory function # KATHY in term of sepsis vs AIN or ATN * CR 1.9 on admission, worsening , continue fluids * renal U/S did not show any hydronephrosis or other acute pathology #N/V on admission * given Zofran and Pepcid in ED, Protonix 40 daily * Abdominal CT showing s/p gastrectomy, 1.5cm hypodense nodule in the pancreatic tail, epigastric hernia with nondilated small bowel loop, small umbilical hernia with a small nondilated small bowel loop, bilateral inguinal hernias containing only fat, colonic diverticulosis, nonobstructing renal calculi * - vomiting causes may include transient obstruction from hernias, food poisoning, viral gastritis * HOB elevated, aspiration precautions # severe sepsis in the setting of aspiration pneumonitis/pneumonia * cannot rule out community acquired pneumonia * Dr. Patel consulted, recs appreciated * third day of abx, ceftriaxone and flagyl * cx negative , isolation precautions, hx of MRSA # DM * HgA1c ordered, BGM, ISS Alzheimer's disease Hx of stomach CA (MALT) # dementia on memantine and donepezil #F/E/N * NS @ 100cc/hr * continue to monitor electrolytes and replete as necessary * NPO #PROPHYLAXIS * heparin SQ BID , SCDS * Protonix #CODE * full code #DISPO * continue to monitor in ICU Visit type - Emergency Visit Emergency Visit: Yes ED Registration Date: 12/02/18 Care time: The patient presented to the Emergency Department on the above date and was hospitalized for further evaluation of their emergent condition. - New Patient This patient is new to me today: Yes Date on this admission: 12/05/18 - Critical Care Critical Care patient: Yes Total Critical Care Time (in minutes): 45 Critical Care Statement: The care of this patient involved high complexity decision making to prevent further life threatening deterioration of the patient 's condition and/or to evaluate & treat vital organ system(s) failure or risk of failure. - Discharge Referral Referred to [facility] No ATTENDING PHYSICIAN STATEMENT I saw and evaluated the patient. I reviewed the resident's note and discussed the case with the resident. I agree with the resident's findings and plan as documented. SUBJECTIVE: OBJECTIVE: ASSESSMENT AND PLAN:
[2018-12-05 07:37] LABS: BLOOD UREA NITROGEN 53.9 mg/dL (7-18); CALCIUM 7.8 mg/dL (8.5-10.1); CREATININE 4.2 mg/dL (0.55-1.3); MAGNESIUM 1.8 mg/dL (1.8-2.4); PHOSPHOROUS 4.1 mg/dL (2.5-4.9); POTASSIUM 4.6 mmol/L (3.5-5.1)
--- NOTE | 2018-12-05 08:36 | PN ---
Teaching Attending Note Name of Resident: Arnaud Batista ATTENDING PHYSICIAN STATEMENT I saw and evaluated the patient. I reviewed the resident's note and discussed the case with the resident. I agree with the resident's findings and plan as documented. SUBJECTIVE: unable to obtain, intubated and sedated OBJECTIVE: Last Vital Signs Temp Pulse Resp BP Pulse Ox 37.6 C H 75 19 126/55 L 100 12/05/18 06:00 12/05/18 08:15 12/05/18 08:15 12/05/18 06:00 12/05/18 08:15 Gen: intubated and sedated Pulm: ctab, mechanically ventilated CV: rrr w/o m/r/g Abd: no bowel sounds auscultated, s/nt/nd Ext: trace edema CBC, BMP 12/05/18 05:15 12/05/18 05:15 ASSESSMENT AND PLAN: (1) Acute respiratory failure with hypoxia Assessment/Plan: -secondary to aspiration pneumonia -intubated and sedated -continue treating aspiration pneumonia -wean as tolerated Code(s): J96.01 - ACUTE RESPIRATORY FAILURE WITH HYPOXIA (2) Aspiration pneumonia with sepsis Assessment/Plan: -sepsis present since admission -ID following -antibiotics changed to rocephin and flagyl Code(s): J69.0 - PNEUMONITIS DUE TO INHALATION OF FOOD AND VOMIT (3) Hyperkalemia Assessment/Plan: -resolved Code(s): E87.5 - HYPERKALEMIA (4) Acute kidney injury superimposed on CKD Assessment/Plan: -appreciate nephrology assistance -improving -continue fluid support Code(s): N17.9 - ACUTE KIDNEY FAILURE, UNSPECIFIED; N18.9 - CHRONIC KIDNEY DISEASE, UNSPECIFIED (5) ASHD (arteriosclerotic heart disease) Assessment/Plan: -troponin elevation but decreasing -suspect stress induced Code(s): I25.10 - ATHSCL HEART DISEASE OF [place] CORONARY ARTERY W/O ANG PCTRS (6) CHF (congestive heart failure) Assessment/Plan: -intubated and sedated Code(s): I50.9 - HEART FAILURE, UNSPECIFIED Qualifiers: Heart failure type: systolic Heart failure chronicity: chronic Qualified Code(s): I50.22 - Chronic systolic (congestive) heart failure (7) HTN (hypertension) Assessment/Plan: -improved Code(s): I10 - ESSENTIAL (PRIMARY) HYPERTENSION Qualifiers: Hypertension type: essential hypertension Qualified Code(s): I10 - Essential (primary) hypertension (8) Hyperlipidemia Assessment/Plan: -on pravastatin as an outpatient Code(s): E78.5 - HYPERLIPIDEMIA, UNSPECIFIED Qualifiers: Hyperlipidemia type: mixed hyperlipidemia Qualified Code(s): E78.2 - Mixed hyperlipidemia Problem List - Problems (1) Acute respiratory failure with hypoxia Code(s): J96.01 - ACUTE RESPIRATORY FAILURE WITH HYPOXIA (2) Aspiration pneumonia Code(s): J69.0 - PNEUMONITIS DUE TO INHALATION OF FOOD AND VOMIT (3) Hyperkalemia Code(s): E87.5 - HYPERKALEMIA (4) Acute kidney injury superimposed on CKD Code(s): N17.9 - ACUTE KIDNEY FAILURE, UNSPECIFIED; N18.9 - CHRONIC KIDNEY DISEASE, UNSPECIFIED (5) ASHD (arteriosclerotic heart disease) Code(s): I25.10 - ATHSCL HEART DISEASE OF [place] CORONARY ARTERY W/O ANG PCTRS (6) CHF (congestive heart failure) Code(s): I50.9 - HEART FAILURE, UNSPECIFIED Qualifiers: Heart failure type: systolic Heart failure chronicity: chronic Qualified Code(s): I50.22 - Chronic systolic (congestive) heart failure (7) HTN (hypertension) Code(s): I10 - ESSENTIAL (PRIMARY) HYPERTENSION Qualifiers: Hypertension type: essential hypertension Qualified Code(s): I10 - Essential (primary) hypertension (8) Hyperlipidemia Code(s): E78.5 - HYPERLIPIDEMIA, UNSPECIFIED Qualifiers: Hyperlipidemia type: mixed hyperlipidemia Qualified Code(s): E78.2 - Mixed hyperlipidemia
[2018-12-05] MEDS: metoPROLOL SUCCINATE 25 MG TAB.SR.24H (FP) PO SCH (09:01)
[2018-12-05] MEDS: ASPIRIN 81 MG CHEWABLE TABLETS NGT SCH (09:01)
[2018-12-05] MEDS: MEMANTINE HCL 10 MG TABLET (FP) GT SCH ×2 (09:01→22:16)
--- NOTE | 2018-12-05 09:06 | PN ---
Progress Note (short form) - Note Progress Note: erythema abdomen resolved intubated/sedated Vital Signs Period Temp Pulse Resp BP Sys/Heredia Pulse Ox Last 24 Hr 99.3 F-99.9 F 66-88 12-24 105-136/45-99 100-100 +NGT with green bile cor-rrr lungs decreased at bases abd soft,nt, +BS (diminished)-erythema resolved ext -no edema CBC, BMP 12/05/18 05:15 12/05/18 05:15 Microbiology 12/02/18 18:30 Blood - Peripheral Venous Blood Culture - Preliminary NO GROWTH OBTAINED AFTER 48 HOURS, INCUBATION TO CONTINUE FOR 3 DAYS. 12/02/18 18:31 Blood - Peripheral Venous Blood Culture - Preliminary NO GROWTH OBTAINED AFTER 48 HOURS, INCUBATION TO CONTINUE FOR 3 DAYS. 12/02/18 22:50 Sputum - Endotrachea Suction/Ventilator Gram Stain - Final 12/02/18 22:50 Sputum - Endotrachea Suction/Ventilator Sputum Culture - Preliminary NORMAL RESPIRATORY ALEYDA a/p resp failure aspiration pneumonia ?abdominal wall cellulitis-resolved dwain history of MRSA day #3 antibiotics will switch to rocephin plan 7 days total Problem List - Problems (1) Acute respiratory failure Code(s): J96.00 - ACUTE RESPIRATORY FAILURE, UNSP W HYPOXIA OR HYPERCAPNIA (2) Aspiration pneumonia Code(s): J69.0 - PNEUMONITIS DUE TO INHALATION OF FOOD AND VOMIT (3) Vomiting Code(s): R11.10 - VOMITING, UNSPECIFIED Qualifiers: Vomiting type: unspecified Vomiting Intractability: unspecified Nausea presence: unspecified Qualified Code(s): R11.10 - Vomiting, unspecified (4) MRSA (methicillin resistant Staphylococcus aureus) colonization Code(s): Z22.322 - CARRIER OR SUSPECTED CARRIER OF METHICILLIN RESIS STAPH (5) Acute kidney injury superimposed on CKD Code(s): N17.9 - ACUTE KIDNEY FAILURE, UNSPECIFIED; N18.9 - CHRONIC KIDNEY DISEASE, UNSPECIFIED
[2018-12-05] MEDS: MUPIROCIN 2% TOPICAL OINTMENT FOR DECOLONIZATION NS SCH ×2 (09:18→22:14)
[2018-12-05] MEDS: HEPARIN NA (PORCINE) 5,000 UNITS/ML 1ML VIAL SQ SCH ×2 (09:18→22:15)
[2018-12-05] MEDS: PANTOPRAZOLE SODIUM 40 MG VIAL IVPUSH SCH (09:18)
[2018-12-05] MEDS ORDERED: cefTRIAXone SODIUM 1 GM VIAL ONE (09:42)
[2018-12-05] MEDS: CEFTRIAXONE 1 GM in DEXTROSE 5%-WATER - 50 ML IVPB SCH (09:44)
--- NOTE | 2018-12-05 12:07 | PN ---
Teaching Attending Note Name of Resident: Brendan Chan ATTENDING PHYSICIAN STATEMENT I saw and evaluated the patient. I reviewed the resident's note and discussed the case with the resident. I agree with the resident's findings and plan as documented. SUBJECTIVE: Patient seen and examined in the ICU. Remains intubated and sedated on AC Mode of vent, 35% FiO2. No pressors. No acute events overnight. Intake & Output 12/02/18 12/03/18 12/04/18 12/05/18 23:59 23:59 23:59 23:59 Intake Total 4025 1020 Output Total 400 910 350 Balance -400 3115 670 Weight 192 lb 185 lb 193 lb 3.2 oz 196 lb 6.4 oz Last Vital Signs Temp Pulse Resp BP Pulse Ox 98.9 F 76 24 H 148/62 100 12/05/18 10:00 12/05/18 10:00 12/05/18 11:35 12/05/18 10:00 12/05/18 11:37 Active Medications Albuterol/Ipratropium (Duoneb -) 1 amp NEB Q6H PRN PRN Reason: SHORT OF BREATH/WHEEZING Aspirin (Asa -) 81 mg NGT DAILY [facility] Last Admin: 12/05/18 09:01 Dose: Not Given Chlorhexidine Gluconate (Hibiclens For Decolonization -) 1 applic TP HS [facility] Last Admin: 12/04/18 21:39 Dose: 1 applic Donepezil HCl (Aricept -) 10 mg NGT HS [facility] Last Admin: 12/04/18 21:38 Dose: Not Given Heparin Sodium (Porcine) (Heparin -) 5,000 unit SQ BID [facility] Last Admin: 12/05/18 09:18 Dose: 5,000 unit Propofol (Diprivan -) 1,000,000 mcg in 100 mls @ 2.613 mls/hr IVPB TITR [facility]; Protocol Last Titration: 12/05/18 10:15 Dose: 0 mcg/kg/min, 0 mls/hr Sodium Chloride (1/2 Normal Saline) 1,000 mls @ 100 mls/hr IV ASDIR [facility] Last Admin: 12/04/18 14:37 Dose: 100 mls/hr Ceftriaxone Sodium 1 gm/ (Dextrose) 50 mls @ 200 mls/hr IVPB DAILY [facility]; Protocol Last Admin: 12/05/18 09:44 Dose: 200 mls/hr Metronidazole (Flagyl 500mg Premixed Ivpb -) 500 mg in 100 mls @ 100 mls/hr IVPB Q8H-IV [facility] Last Admin: 12/05/18 09:44 Dose: 100 mls/hr Insulin Aspart (Novolog Vial Sliding Scale -) 1 vial SQ ACHS [facility]; Protocol Last Admin: 12/05/18 11:38 Dose: Not Given Memantine (Namenda -) 10 mg GT BID [facility] Last Admin: 12/05/18 09:01 Dose: Not Given Metoprolol Succinate (Toprol Xl -) 25 mg PO DAILY [facility] Last Admin: 12/05/18 09:01 Dose: Not Given Mupirocin (Bactroban Ointment (For Decolonization) -) 1 applic NS BID [facility] Stop: 12/07/18 21:59 Last Admin: 12/05/18 09:18 Dose: 1 applic Pantoprazole Sodium (Protonix Iv) 40 mg IVPUSH DAILY [facility] Last Admin: 12/05/18 09:18 Dose: 40 mg Constitutional: Yes: Intubated and sedated Eyes: Yes: WNL, Conjunctiva Clear, PERRL HENT: Yes: WNL, Atraumatic, Normocephalic Neck: Yes: WNL, Trachea Midline Cardiovascular: Yes: WNL, Regular Rate and Rhythm Respiratory: Yes: Diminished, Intubated, Mechanically Ventilated, Bilateral Rhonchi Gastrointestinal: Yes: Abdomen, Obese, (+) Bowel Sounds Renal/: Yes: Verdugo Present Breast(s): Yes: WNL Musculoskeletal: Yes: WNL Extremities: Yes: WNL Edema: No Peripheral Pulses WNL: Yes Integumentary: Yes: WNL Neurological: Yes: Sedated ...Motor Strength: Sedated Psychiatric: Yes: Sedated Labs: Laboratory Results - last 24 hr 12/04/18 12/04/18 12/04/18 12:00 12:00 12:00 WBC RBC Hgb Hct MCV MCH MCHC RDW Plt Count MPV Absolute Neuts (auto) Neutrophils % Lymphocytes % Monocytes % Eosinophils % Basophils % Nucleated RBC % Sodium Potassium Chloride Carbon Dioxide Anion Gap BUN Creatinine Est GFR (CKD-EPI)AfAm Est GFR (CKD-EPI)NonAf POC Glucometer Random Glucose Calcium Phosphorus Magnesium Urine Color Yellow Urine Appearance Cloudy Urine pH 5.0 Ur Specific Logan 1.022 Urine Protein 1+ H Urine Glucose (UA) Negative Urine Ketones Trace H Urine Blood 1+ H Urine Nitrite Negative Urine Bilirubin Negative Urine Urobilinogen 1.0 Ur Leukocyte Esterase 1+ H Urine WBC (Auto) 17 Urine RBC (Auto) 9 Urine Casts (Auto) 19 U Epithel Cells (Auto) 10.3 Urine Crystals (Auto) Amorphous urates=1+ Urine Bacteria (Auto) 1.4 Ur Random Creatinine 149.0 U Random Total Protein Ur Random Sodium 66 Ur Random Potassium Ur Random Chloride Urine Creatinine Protein/Creatinin Ratio 12/04/18 12/04/18 12/04/18 12:12 17:15 17:15 WBC RBC Hgb Hct MCV MCH MCHC RDW Plt Count MPV Absolute Neuts (auto) Neutrophils % Lymphocytes % Monocytes % Eosinophils % Basophils % Nucleated RBC % Sodium Potassium Chloride Carbon Dioxide Anion Gap BUN Creatinine Est GFR (CKD-EPI)AfAm Est GFR (CKD-EPI)NonAf POC Glucometer 110 Random Glucose Calcium Phosphorus Magnesium Urine Color Urine Appearance Urine pH Ur Specific Logan Urine Protein Urine Glucose (UA) Urine Ketones Urine Blood Urine Nitrite Urine Bilirubin Urine Urobilinogen Ur Leukocyte Esterase Urine WBC (Auto) Urine RBC (Auto) Urine Casts (Auto) U Epithel Cells (Auto) Urine Crystals (Auto) Urine Bacteria (Auto) Ur Random Creatinine 109.0 U Random Total Protein Ur Random Sodium 67 Ur Random Potassium 27.9 Ur Random Chloride 35 L Urine Creatinine Protein/Creatinin Ratio 12/04/18 12/04/18 12/04/18 17:15 17:15 18:02 WBC RBC Hgb Hct MCV MCH MCHC RDW Plt Count MPV Absolute Neuts (auto) Neutrophils % Lymphocytes % Monocytes % Eosinophils % Basophils % Nucleated RBC % Sodium Potassium Chloride Carbon Dioxide Anion Gap BUN Creatinine Est GFR (CKD-EPI)AfAm Est GFR (CKD-EPI)NonAf POC Glucometer 106 Random Glucose Calcium Phosphorus Magnesium Urine Color Urine Appearance Urine pH Ur Specific Logan Urine Protein Urine Glucose (UA) Urine Ketones Urine Blood Urine Nitrite Urine Bilirubin Urine Urobilinogen Ur Leukocyte Esterase Urine WBC (Auto) Urine RBC (Auto) Urine Casts (Auto) U Epithel Cells (Auto) Urine Crystals (Auto) Urine Bacteria (Auto) Ur Random Creatinine U Random Total Protein 96.1 H Ur Random Sodium 67 Ur Random Potassium Ur Random Chloride Urine Creatinine 109.0 Protein/Creatinin Ratio 0.880 12/04/18 12/05/18 12/05/18 21:44 05:14 05:15 WBC 9.9 RBC 3.45 L Hgb 10.6 L Hct 30.8 L MCV 89.3 MCH 30.8 MCHC 34.5 RDW 14.8 Plt Count 152 MPV 8.5 Absolute Neuts (auto) 8.4 H Neutrophils % 84.3 H Lymphocytes % 8.5 Monocytes % 3.0 L Eosinophils % 4.0 D Basophils % 0.2 Nucleated RBC % 0 Sodium Potassium Chloride Carbon Dioxide Anion Gap BUN Creatinine Est GFR (CKD-EPI)AfAm Est GFR (CKD-EPI)NonAf POC Glucometer 80 109 Random Glucose Calcium Phosphorus Magnesium Urine Color Urine Appearance Urine pH Ur Specific Logan Urine Protein Urine Glucose (UA) Urine Ketones Urine Blood Urine Nitrite Urine Bilirubin Urine Urobilinogen Ur Leukocyte Esterase Urine WBC (Auto) Urine RBC (Auto) Urine Casts (Auto) U Epithel Cells (Auto) Urine Crystals (Auto) Urine Bacteria (Auto) Ur Random Creatinine U Random Total Protein Ur Random Sodium Ur Random Potassium Ur Random Chloride Urine Creatinine Protein/Creatinin Ratio 12/05/18 12/05/18 05:15 11:28 WBC RBC Hgb Hct MCV MCH MCHC RDW Plt Count MPV Absolute Neuts (auto) Neutrophils % Lymphocytes % Monocytes % Eosinophils % Basophils % Nucleated RBC % Sodium 142 Potassium 4.6 Chloride 112 H Carbon Dioxide 19 L Anion Gap 10 BUN 53.9 H Creatinine 4.2 H Est GFR (CKD-EPI)AfAm 13.68 Est GFR (CKD-EPI)NonAf 11.80 POC Glucometer 125 Random Glucose 118 H Calcium 7.8 L Phosphorus 4.1 Magnesium 1.8 Urine Color Urine Appearance Urine pH Ur Specific Logan Urine Protein Urine Glucose (UA) Urine Ketones Urine Blood Urine Nitrite Urine Bilirubin Urine Urobilinogen Ur Leukocyte Esterase Urine WBC (Auto) Urine RBC (Auto) Urine Casts (Auto) U Epithel Cells (Auto) Urine Crystals (Auto) Urine Bacteria (Auto) Ur Random Creatinine U Random Total Protein Ur Random Sodium Ur Random Potassium Ur Random Chloride Urine Creatinine Protein/Creatinin Ratio Problem List - Problems (1) Acute kidney injury superimposed on CKD Code(s): N17.9 - ACUTE KIDNEY FAILURE, UNSPECIFIED; N18.9 - CHRONIC KIDNEY DISEASE, UNSPECIFIED (2) Acute respiratory distress Code(s): R06.03 - ACUTE RESPIRATORY DISTRESS (3) Acute respiratory failure Code(s): J96.00 - ACUTE RESPIRATORY FAILURE, UNSP W HYPOXIA OR HYPERCAPNIA (4) Aspiration pneumonia Code(s): J69.0 - PNEUMONITIS DUE TO INHALATION OF FOOD AND VOMIT (5) Vomiting Code(s): R11.10 - VOMITING, UNSPECIFIED Qualifiers: Vomiting type: unspecified Vomiting Intractability: unspecified Nausea presence: unspecified Qualified Code(s): R11.10 - Vomiting, unspecified (6) MRSA (methicillin resistant Staphylococcus aureus) colonization Code(s): Z22.322 - CARRIER OR SUSPECTED CARRIER OF METHICILLIN RESIS STAPH (7) CHF (congestive heart failure) Code(s): I50.9 - HEART FAILURE, UNSPECIFIED Qualifiers: Heart failure type: systolic Heart failure chronicity: chronic Qualified Code(s): I50.22 - Chronic systolic (congestive) heart failure (8) CKD (chronic kidney disease) Code(s): N18.9 - CHRONIC KIDNEY DISEASE, UNSPECIFIED Qualifiers: Chronic kidney disease stage: stage 3 (moderate) Qualified Code(s): N18.3 - Chronic kidney disease, stage 3 (moderate) (9) HTN (hypertension) Code(s): I10 - ESSENTIAL (PRIMARY) HYPERTENSION Qualifiers: Hypertension type: essential hypertension Qualified Code(s): I10 - Essential (primary) hypertension (10) Hyperlipidemia Code(s): E78.5 - HYPERLIPIDEMIA, UNSPECIFIED Qualifiers: Hyperlipidemia type: mixed hyperlipidemia Qualified Code(s): E78.2 - Mixed hyperlipidemia Assessment/Plan Respiratory failure secondary to aspiration Vomiting HTN HLD CAD CKD PVD OA GERD PLAN: Sedation vacation with Wean trials as tolerated Wean FiO2 as tolerated BD TX F/u CXR ABX coverage per ID Strict I's & O's Trend BUN/Cr Replete e-lytes prn VTE prophylaxis PPI Requires ICU monitoring Dr Rebollar Critical care time spent in reviewing chart, evaluating patient and formulating plan - 36 minutes.
[2018-12-05] MEDS: SODIUM CHLORIDE 0.45% 1,000 ML IV SCH (13:00)
--- NOTE | 2018-12-05 14:44 | PN ---
Progress Note, Physician History of Present Illness: Pt seen and examined at bedside. He remains in the ICU. He remains intubated. - Current Medication List Current Medications: Active Medications Albuterol/Ipratropium (Duoneb -) 1 amp NEB Q6H PRN PRN Reason: SHORT OF BREATH/WHEEZING Aspirin (Asa -) 81 mg NGT DAILY [facility] Last Admin: 12/05/18 09:01 Dose: Not Given Chlorhexidine Gluconate (Hibiclens For Decolonization -) 1 applic TP HS [facility] Last Admin: 12/04/18 21:39 Dose: 1 applic Donepezil HCl (Aricept -) 10 mg NGT HS [facility] Last Admin: 12/04/18 21:38 Dose: Not Given Heparin Sodium (Porcine) (Heparin -) 5,000 unit SQ BID [facility] Last Admin: 12/05/18 09:18 Dose: 5,000 unit Propofol (Diprivan -) 1,000,000 mcg in 100 mls @ 2.613 mls/hr IVPB TITR [facility]; Protocol Last Titration: 12/05/18 10:15 Dose: 0 mcg/kg/min, 0 mls/hr Sodium Chloride (1/2 Normal Saline) 1,000 mls @ 100 mls/hr IV ASDIR [facility] Last Admin: 12/04/18 14:37 Dose: 100 mls/hr Ceftriaxone Sodium 1 gm/ (Dextrose) 50 mls @ 200 mls/hr IVPB DAILY [facility]; Protocol Last Admin: 12/05/18 09:44 Dose: 200 mls/hr Metronidazole (Flagyl 500mg Premixed Ivpb -) 500 mg in 100 mls @ 100 mls/hr IVPB Q8H-IV [facility] Last Admin: 12/05/18 09:44 Dose: 100 mls/hr Insulin Aspart (Novolog Vial Sliding Scale -) 1 vial SQ ACHS [facility]; Protocol Last Admin: 12/05/18 11:38 Dose: Not Given Memantine (Namenda -) 10 mg GT BID [facility] Last Admin: 12/05/18 09:01 Dose: Not Given Metoprolol Succinate (Toprol Xl -) 25 mg PO DAILY [facility] Last Admin: 12/05/18 09:01 Dose: Not Given Mupirocin (Bactroban Ointment (For Decolonization) -) 1 applic NS BID [facility] Stop: 12/07/18 21:59 Last Admin: 12/05/18 09:18 Dose: 1 applic Pantoprazole Sodium (Protonix Iv) 40 mg IVPUSH DAILY [facility] Last Admin: 12/05/18 09:18 Dose: 40 mg - Objective Vital Signs: Vital Signs Temperature 98.9 F 12/05/18 10:00 Pulse Rate 84 12/05/18 12:00 Respiratory Rate 20 12/05/18 13:55 Blood Pressure 162/67 12/05/18 12:00 O2 Sat by Pulse Oximetry (%) 100 12/05/18 11:37 Constitutional: Yes: Calm Eyes: Yes: WNL HENT: Yes: WNL Cardiovascular: Yes: S1, S2 Respiratory: Yes: Intubated, Mechanically Ventilated Gastrointestinal: Yes: Soft Genitourinary: Yes: Verdugo Present Musculoskeletal: Yes: WNL Edema: No Integumentary: Yes: WNL Neurological: Yes: Lethargy Labs: CBC, BMP 12/05/18 05:15 12/05/18 05:15 INR, PTT INR 1.07 (0.83-1.09) 12/03/18 05:40 Problem List - Problems (1) Acute kidney injury superimposed on CKD Code(s): N17.9 - ACUTE KIDNEY FAILURE, UNSPECIFIED; N18.9 - CHRONIC KIDNEY DISEASE, UNSPECIFIED (2) Aspiration pneumonia Code(s): J69.0 - PNEUMONITIS DUE TO INHALATION OF FOOD AND VOMIT (3) Vomiting Code(s): R11.10 - VOMITING, UNSPECIFIED Qualifiers: Vomiting type: unspecified Vomiting Intractability: unspecified Nausea presence: unspecified Qualified Code(s): R11.10 - Vomiting, unspecified Assessment/Plan Current Medications Generic Name Dose Route Start Last Admin Trade Name Freq PRN Reason Stop Dose Admin Albuterol/Ipratropium 1 amp 12/02/18 19:38 Duoneb - NEB Q6H PRN SHORT OF BREATH/WHEEZING Aspirin 81 mg 12/03/18 10:00 12/05/18 09:01 Asa - NGT Not Given DAILY [facility] Chlorhexidine Gluconate 1 applic 12/02/18 22:00 12/04/18 21:39 Hibiclens For Decolonization - TP 1 applic HS [facility] Administration Donepezil HCl 10 mg 12/03/18 22:00 12/04/18 21:38 Aricept - NGT Not Given HS [facility] Heparin Sodium (Porcine) 5,000 unit 12/02/18 22:00 12/05/18 09:18 Heparin - SQ 5,000 unit BID [facility] Administration Propofol 1,000,000 mcg in 100 mls @ 2.613 mls/hr 12/02/18 18:45 12/05/18 10: 15 Diprivan - IVPB 0 mcg/kg/min TITR [facility] 0 mls/hr Titration Protocol 5 MCG/KG/MIN Sodium Chloride 1,000 mls @ 100 mls/hr 12/04/18 12:15 12/04/18 14:37 1/2 Normal Saline IV 100 mls/hr ASDIR [facility] Administration Ceftriaxone Sodium 1 gm/ 50 mls @ 200 mls/hr 12/05/18 10:00 12/05/18 09:44 Dextrose IVPB 200 mls/hr DAILY [facility] Administration Protocol Metronidazole 500 mg in 100 mls @ 100 mls/hr 12/05/18 10:00 12/05/18 09:44 Flagyl 500mg Premixed Ivpb - IVPB 100 mls/hr Q8H-IV [facility] Administration Insulin Aspart 1 vial 12/03/18 07:00 12/05/18 11:38 Novolog Vial Sliding Scale - SQ Not Given ACHS [facility] Protocol Memantine 10 mg 12/02/18 22:00 12/05/18 09:01 Namenda - GT Not Given BID [facility] Metoprolol Succinate 25 mg 12/03/18 10:00 12/05/18 09:01 Toprol Xl - PO Not Given DAILY [facility] Mupirocin 1 applic 12/02/18 22:00 12/05/18 09:18 Bactroban Ointment (For Decolonization) - NS 12/07/18 21:59 1 applic BID [facility] Administration Pantoprazole Sodium 40 mg 12/03/18 10:00 12/05/18 09:18 Protonix Iv IVPUSH 40 mg DAILY [facility] Administration Laboratory Tests 12/05/18 12/05/18 05:15 05:15 ALYSSA M-[place] Pending ALBERTO Screen Pending Impression 1. KATHY 2. acute resp failure 3. HTN 4. gastric cancer 5. dementia 6. HLD 7. CAD 8. PVD 9. PNA 10. sepsis 11. hyperkalemia Plan - renal function is starting to improve - cont with fluids - vent support - renal ultrasound reviewed - KATHY likely from sepsis - monitor urine output
--- NOTE | 2018-12-05 14:45 | PN ---
Physical Exam: SUBJECTIVE: Patient SpO2 from 95% --> 90-91% @ 1420 OBJECTIVE: Scattered rhonchi in anterior lung sorensen; ET tube in place; mild aspirate from NG tube. Vital Signs Period Temp Pulse Resp BP Sys/Ehredia Pulse Ox Last 24 Hr 98.9 F-99.9 F 74-88 18-24 105-162/45-99 100-100 Laboratory Results - last 24 hr 12/04/18 12/04/18 12/04/18 17:15 17:15 17:15 WBC RBC Hgb Hct MCV MCH MCHC RDW Plt Count MPV Absolute Neuts (auto) Neutrophils % Lymphocytes % Monocytes % Eosinophils % Basophils % Nucleated RBC % Sodium Potassium Chloride Carbon Dioxide Anion Gap BUN Creatinine Est GFR (CKD-EPI)AfAm Est GFR (CKD-EPI)NonAf POC Glucometer Random Glucose Calcium Phosphorus Magnesium Ur Random Creatinine 109.0 U Random Total Protein 96.1 H Ur Random Sodium 67 Ur Random Potassium 27.9 Ur Random Chloride 35 L Urine Creatinine 109.0 Protein/Creatinin Ratio 0.880 12/04/18 12/04/18 12/04/18 17:15 18:02 21:44 WBC RBC Hgb Hct MCV MCH MCHC RDW Plt Count MPV Absolute Neuts (auto) Neutrophils % Lymphocytes % Monocytes % Eosinophils % Basophils % Nucleated RBC % Sodium Potassium Chloride Carbon Dioxide Anion Gap BUN Creatinine Est GFR (CKD-EPI)AfAm Est GFR (CKD-EPI)NonAf POC Glucometer 106 80 Random Glucose Calcium Phosphorus Magnesium Ur Random Creatinine U Random Total Protein Ur Random Sodium 67 Ur Random Potassium Ur Random Chloride Urine Creatinine Protein/Creatinin Ratio 12/05/18 12/05/18 12/05/18 05:14 05:15 05:15 WBC 9.9 RBC 3.45 L Hgb 10.6 L Hct 30.8 L MCV 89.3 MCH 30.8 MCHC 34.5 RDW 14.8 Plt Count 152 MPV 8.5 Absolute Neuts (auto) 8.4 H Neutrophils % 84.3 H Lymphocytes % 8.5 Monocytes % 3.0 L Eosinophils % 4.0 D Basophils % 0.2 Nucleated RBC % 0 Sodium 142 Potassium 4.6 Chloride 112 H Carbon Dioxide 19 L Anion Gap 10 BUN 53.9 H Creatinine 4.2 H Est GFR (CKD-EPI)AfAm 13.68 Est GFR (CKD-EPI)NonAf 11.80 POC Glucometer 109 Random Glucose 118 H Calcium 7.8 L Phosphorus 4.1 Magnesium 1.8 Ur Random Creatinine U Random Total Protein Ur Random Sodium Ur Random Potassium Ur Random Chloride Urine Creatinine Protein/Creatinin Ratio 12/05/18 11:28 WBC RBC Hgb Hct MCV MCH MCHC RDW Plt Count MPV Absolute Neuts (auto) Neutrophils % Lymphocytes % Monocytes % Eosinophils % Basophils % Nucleated RBC % Sodium Potassium Chloride Carbon Dioxide Anion Gap BUN Creatinine Est GFR (CKD-EPI)AfAm Est GFR (CKD-EPI)NonAf POC Glucometer 125 Random Glucose Calcium Phosphorus Magnesium Ur Random Creatinine U Random Total Protein Ur Random Sodium Ur Random Potassium Ur Random Chloride Urine Creatinine Protein/Creatinin Ratio Active Medications Generic Name Dose Route Start Last Admin Trade Name Freq PRN Reason Stop Dose Admin Albuterol/Ipratropium 1 amp 12/02/18 19:38 Duoneb - NEB Q6H PRN SHORT OF BREATH/WHEEZING Aspirin 81 mg 12/03/18 10:00 12/05/18 09:01 Asa - NGT Not Given DAILY [facility] Chlorhexidine Gluconate 1 applic 12/02/18 22:00 12/04/18 21:39 Hibiclens For Decolonization - TP 1 applic HS [facility] Administration Donepezil HCl 10 mg 12/03/18 22:00 12/04/18 21:38 Aricept - NGT Not Given HS [facility] Heparin Sodium (Porcine) 5,000 unit 12/02/18 22:00 12/05/18 09:18 Heparin - SQ 5,000 unit BID [facility] Administration Propofol 1,000,000 mcg in 100 mls @ 2.613 mls/hr 12/02/18 18:45 12/05/18 10: 15 Diprivan - IVPB 0 mcg/kg/min TITR [facility] 0 mls/hr Titration Protocol 5 MCG/KG/MIN Sodium Chloride 1,000 mls @ 100 mls/hr 12/04/18 12:15 12/04/18 14:37 1/2 Normal Saline IV 100 mls/hr ASDIR [facility] Administration Ceftriaxone Sodium 1 gm/ 50 mls @ 200 mls/hr 12/05/18 10:00 12/05/18 09:44 Dextrose IVPB 200 mls/hr DAILY [facility] Administration Protocol Metronidazole 500 mg in 100 mls @ 100 mls/hr 12/05/18 10:00 12/05/18 09:44 Flagyl 500mg Premixed Ivpb - IVPB 100 mls/hr Q8H-IV [facility] Administration Insulin Aspart 1 vial 12/03/18 07:00 12/05/18 11:38 Novolog Vial Sliding Scale - SQ Not Given ACHS [facility] Protocol Memantine 10 mg 12/02/18 22:00 12/05/18 09:01 Namenda - GT Not Given BID [facility] Metoprolol Succinate 25 mg 12/03/18 10:00 12/05/18 09:01 Toprol Xl - PO Not Given DAILY [facility] Mupirocin 1 applic 12/02/18 22:00 12/05/18 09:18 Bactroban Ointment (For Decolonization) - NS 12/07/18 21:59 1 applic BID [facility] Administration Pantoprazole Sodium 40 mg 12/03/18 10:00 12/05/18 09:18 Protonix Iv IVPUSH 40 mg DAILY [facility] Administration ASSESSMENT/PLAN: Patient noted to be desaturating from 95-96% to 90-91%; scattered rhonchi on anterior lung sorensen. Will obtain CXR to evaluate for any interval change; consider restarting sedation as per clinical course. ATTENDING PHYSICIAN STATEMENT I saw and evaluated the patient. I reviewed the resident's note and discussed the case with the resident. I agree with the resident's findings and plan as documented. SUBJECTIVE: OBJECTIVE: ASSESSMENT AND PLAN:
--- NOTE | 2018-12-05 14:46 | PN ---
Physical Exam: SUBJECTIVE: Patient seen and examined at the bedside. Remains intubated. Was given sedation vacation and was alert and oriented and able to follow simple commands. Patient was placed on CPAP mode and was able to tolerate for a brief period of time but became diaphoretic and tachypneic and was placed back on AC mode of ventilation. OBJECTIVE: Vital Signs Period Temp Pulse Resp BP Sys/Heredia Pulse Ox Last 24 Hr 98.9 F-99.9 F 74-88 18-24 105-162/45-99 100-100 GENERAL: Intubated on sedation. When off sedation is alert and oriented and able to follow simple commands. HEAD: Normal with no signs of trauma. EYES: PERRL, extraocular movements intact, sclera anicteric, conjunctiva clear. No ptosis. NECK: Trachea midline, full range of motion, supple. LUNGS: Ventilated, mechanical breath sounds. Coarse sounds heard in the R lobe, improved from previous exam. HEART: Regular rate and rhythm, S1, S2 without murmur, rub or gallop. ABDOMEN: Soft, nontender, nondistended, normoactive bowel sounds, no guarding, no rebound, no masses. EXTREMITIES: 1+ pulses, warm, well-perfused, no edema. NEUROLOGICAL: Unable to assess PSYCH: Unable to assess SKIN: Warm, dry, normal turgor, no rashes or lesions noted. Laboratory Results - last 24 hr 12/04/18 12/04/18 12/04/18 17:15 17:15 17:15 WBC RBC Hgb Hct MCV MCH MCHC RDW Plt Count MPV Absolute Neuts (auto) Neutrophils % Lymphocytes % Monocytes % Eosinophils % Basophils % Nucleated RBC % Sodium Potassium Chloride Carbon Dioxide Anion Gap BUN Creatinine Est GFR (CKD-EPI)AfAm Est GFR (CKD-EPI)NonAf POC Glucometer Random Glucose Calcium Phosphorus Magnesium Ur Random Creatinine 109.0 U Random Total Protein 96.1 H Ur Random Sodium 67 Ur Random Potassium 27.9 Ur Random Chloride 35 L Urine Creatinine 109.0 Protein/Creatinin Ratio 0.880 12/04/18 12/04/18 12/04/18 17:15 18:02 21:44 WBC RBC Hgb Hct MCV MCH MCHC RDW Plt Count MPV Absolute Neuts (auto) Neutrophils % Lymphocytes % Monocytes % Eosinophils % Basophils % Nucleated RBC % Sodium Potassium Chloride Carbon Dioxide Anion Gap BUN Creatinine Est GFR (CKD-EPI)AfAm Est GFR (CKD-EPI)NonAf POC Glucometer 106 80 Random Glucose Calcium Phosphorus Magnesium Ur Random Creatinine U Random Total Protein Ur Random Sodium 67 Ur Random Potassium Ur Random Chloride Urine Creatinine Protein/Creatinin Ratio 12/05/18 12/05/18 12/05/18 05:14 05:15 05:15 WBC 9.9 RBC 3.45 L Hgb 10.6 L Hct 30.8 L MCV 89.3 MCH 30.8 MCHC 34.5 RDW 14.8 Plt Count 152 MPV 8.5 Absolute Neuts (auto) 8.4 H Neutrophils % 84.3 H Lymphocytes % 8.5 Monocytes % 3.0 L Eosinophils % 4.0 D Basophils % 0.2 Nucleated RBC % 0 Sodium 142 Potassium 4.6 Chloride 112 H Carbon Dioxide 19 L Anion Gap 10 BUN 53.9 H Creatinine 4.2 H Est GFR (CKD-EPI)AfAm 13.68 Est GFR (CKD-EPI)NonAf 11.80 POC Glucometer 109 Random Glucose 118 H Calcium 7.8 L Phosphorus 4.1 Magnesium 1.8 Ur Random Creatinine U Random Total Protein Ur Random Sodium Ur Random Potassium Ur Random Chloride Urine Creatinine Protein/Creatinin Ratio 12/05/18 11:28 WBC RBC Hgb Hct MCV MCH MCHC RDW Plt Count MPV Absolute Neuts (auto) Neutrophils % Lymphocytes % Monocytes % Eosinophils % Basophils % Nucleated RBC % Sodium Potassium Chloride Carbon Dioxide Anion Gap BUN Creatinine Est GFR (CKD-EPI)AfAm Est GFR (CKD-EPI)NonAf POC Glucometer 125 Random Glucose Calcium Phosphorus Magnesium Ur Random Creatinine U Random Total Protein Ur Random Sodium Ur Random Potassium Ur Random Chloride Urine Creatinine Protein/Creatinin Ratio Active Medications Generic Name Dose Route Start Last Admin Trade Name Freq PRN Reason Stop Dose Admin Albuterol/Ipratropium 1 amp 12/02/18 19:38 Duoneb - NEB Q6H PRN SHORT OF BREATH/WHEEZING Aspirin 81 mg 12/03/18 10:00 12/05/18 09:01 Asa - NGT Not Given DAILY [facility] Chlorhexidine Gluconate 1 applic 12/02/18 22:00 12/04/18 21:39 Hibiclens For Decolonization - TP 1 applic HS [facility] Administration Donepezil HCl 10 mg 12/03/18 22:00 12/04/18 21:38 Aricept - NGT Not Given HS [facility] Heparin Sodium (Porcine) 5,000 unit 12/02/18 22:00 12/05/18 09:18 Heparin - SQ 5,000 unit BID [facility] Administration Propofol 1,000,000 mcg in 100 mls @ 2.613 mls/hr 12/02/18 18:45 12/05/18 10: 15 Diprivan - IVPB 0 mcg/kg/min TITR [facility] 0 mls/hr Titration Protocol 5 MCG/KG/MIN Sodium Chloride 1,000 mls @ 100 mls/hr 12/04/18 12:15 12/04/18 14:37 1/2 Normal Saline IV 100 mls/hr ASDIR [facility] Administration Ceftriaxone Sodium 1 gm/ 50 mls @ 200 mls/hr 12/05/18 10:00 12/05/18 09:44 Dextrose IVPB 200 mls/hr DAILY [facility] Administration Protocol Metronidazole 500 mg in 100 mls @ 100 mls/hr 12/05/18 10:00 12/05/18 09:44 Flagyl 500mg Premixed Ivpb - IVPB 100 mls/hr Q8H-IV [facility] Administration Insulin Aspart 1 vial 12/03/18 07:00 12/05/18 11:38 Novolog Vial Sliding Scale - SQ Not Given ACHS [facility] Protocol Memantine 10 mg 12/02/18 22:00 12/05/18 09:01 Namenda - GT Not Given BID [facility] Metoprolol Succinate 25 mg 12/03/18 10:00 12/05/18 09:01 Toprol Xl - PO Not Given DAILY [facility] Mupirocin 1 applic 12/02/18 22:00 12/05/18 09:18 Bactroban Ointment (For Decolonization) - NS 12/07/18 21:59 1 applic BID [facility] Administration Pantoprazole Sodium 40 mg 12/03/18 10:00 12/05/18 09:18 Protonix Iv IVPUSH 40 mg DAILY [facility] Administration ASSESSMENT/PLAN: Mariano Camacho is an 88 y/o male with a PMHx of HTN, HLD, CAD (s/p stent 2010) , LBBB, Alzheimer's disease, CKD, PVD, OA, 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 Hypoxic Hypercapneic Respiratory Failure 2/2 aspiration with ARDS Possible severe sepsis HTN HLD CAD Alzheimer's disease Hx of stomach CA (MALT) NEUROLOGIC - intubated and sedated - propofol and fentanyl as needed - daily sedation vacations - continue home donepezil and memantine CARDIOLOGY - EKG showing LBBB, which is unchanged from 2018 - tachycardia likely from aspiration and respiratory compromise, continue to monitor - given Lopressor 5mg once with good effect - continue aspirin - continue home metoprolol 25mg daily - last echo on 10/20/17 showing EF of 35% - repeat echo showing EF 40-45% - I+Os RESPIRATORY - intubated - Vent settings rate 18, TV 425, FiO2 35, PEEP 8 - ABG showing respiratory acidosis with non anion gap metabolic acidosis, respiratory component of CO2 retention, metabolic component of likely hyperchloremia from dehydration and chronic renal failure - repeat ABG mildly improved, still with component of respiratory acidosis and retention of CO2 - A-a gradient 534, expected 26, indicating likely PNA or ARDS - keep SpO2 above 92% - original CXR did not show infiltrate - subsequent CXR show endotracheal tube placement and infiltrate in the R upper and lower lobes, likely from aspiration - continue to monitor CXR for development of pneumonitis/pneumonia - duonebs q6h prn - will likely need PFTs to assess respiratory function RENAL - CRE 1.9 on admission - elevation of CRE to 4.9, improved to 4.2, likely KATHY - continue fluids - renal U/S did not show any hydronephrosis or other acute pathology - likely KATHY GASTROINTESTINAL - given Zofran and Pepcid in ED - one dose Protonix now - Protonix 40mg daily - Abdominal CT showing s/p gastrectomy, 1.5cm hypodense nodule in the pancreatic tail, epigastric hernia with nondilated small bowel loop, small umbilical hernia with a small nondilated small bowel loop, bilateral inguinal hernias containing only fat, colonic diverticulosis, nonobstructing renal calculi - vomiting causes may include transient obstruction from hernias, food poisoning , viral gastritis - HOB elevated, aspiration precautions GENITOURINARY - gan in - no acute issues INFECTIOUS DISEASE - qSOFA of 2 for altered mental status and elevated respiratory rate, high risk of in-hospital mortality, admitted to ICU - severe sepsis in the setting of aspiration pneumonitis/pneumonia - cannot rule out community acquired pneumonia - Dr. Patel consulted, recs appreciated - third day of abx - ceftriaxone and flagyl - sputum culture showing no growth - blood cultures showing no growth - urine cultures with no growth - isolation precautions, hx of MRSA ENDOCRINE - elevated glucose on current and prior admissions - HgA1c ordered - BGM - ISS HEMATOLOGY - WBC count resolved - continue to monitor counts MUSCULOSKELETAL - no acute issues PSYCHIATRY - no acute issues F/E/N - NS @ 100cc/hr - continue to monitor electrolytes and replete as necessary - NPO LINES - R midline catheter inserted 12/04 PROPHYLAXIS - heparin 5000 units subq bid - Protonix - SCDs CODE - full code DISPO - continue to monitor in ICU CASE DISCUSSED WITH DR. CAMARENA AND PRIMARY TEAM ERIK PERSON DO - PGY-1 INTERNAL MEDICINE Problem List - Problems (1) Acute respiratory distress Code(s): R06.03 - ACUTE RESPIRATORY DISTRESS (2) Vomiting Code(s): R11.10 - VOMITING, UNSPECIFIED Qualifiers: Vomiting type: unspecified Vomiting Intractability: unspecified Nausea presence: unspecified Qualified Code(s): R11.10 - Vomiting, unspecified (3) CHF (congestive heart failure) Code(s): I50.9 - HEART FAILURE, UNSPECIFIED Qualifiers: Heart failure type: systolic Heart failure chronicity: chronic Qualified Code(s): I50.22 - Chronic systolic (congestive) heart failure (4) CKD (chronic kidney disease) Code(s): N18.9 - CHRONIC KIDNEY DISEASE, UNSPECIFIED Qualifiers: Chronic kidney disease stage: stage 3 (moderate) Qualified Code(s): N18.3 - Chronic kidney disease, stage 3 (moderate) (5) GERD (gastroesophageal reflux disease) Code(s): K21.9 - GASTRO-ESOPHAGEAL REFLUX DISEASE WITHOUT ESOPHAGITIS (6) HTN (hypertension) Code(s): I10 - ESSENTIAL (PRIMARY) HYPERTENSION Qualifiers: Hypertension type: essential hypertension Qualified Code(s): I10 - Essential (primary) hypertension (7) Hyperlipidemia Code(s): E78.5 - HYPERLIPIDEMIA, UNSPECIFIED Qualifiers: Hyperlipidemia type: mixed hyperlipidemia Qualified Code(s): E78.2 - Mixed hyperlipidemia Visit type - Emergency Visit Emergency Visit: No - New Patient This patient is new to me today: No - Critical Care Critical Care patient: Yes Total Critical Care Time (in minutes): 38 Critical Care Statement: The care of this patient involved high complexity decision making to prevent further life threatening deterioration of the patient 's condition and/or to evaluate & treat vital organ system(s) failure or risk of failure.
--- NOTE | 2018-12-05 15:06 | ECHO ---
Name: BEHZAD NICHOLAS Exam:Adult Echocardiogram Study Date: 12/05/2018 12:56 PM Age: 88 yrs Reason For Study: HX OF HEART FAILURE Height: 66 in Weight: 192 lb BSA: 2.0 m2 MMode/2D Measurements & Calculations IVSd: 0.89 cm Ao root diam: 3.1 cm LVIDd: 5.5 cm LVIDs: 4.0 cm LVPWd: 0.88 cm EDV(Teich): 147.3 ml LVOT diam: 2.2 cm ESV(Teich): 68.1 ml Doppler Measurements & Calculations MV E max jose: 118.4 cm/sec Ao V2 max: 160.7 cm/sec MV A max jose: 29.8 cm/sec Ao max P.3 mmHg MV E/A: 4.0 Ao V2 mean: 106.4 cm/sec MV dec time: 0.15 sec Ao mean P.3 mmHg Ao V2 VTI: 22.8 cm JENNYFER(I,D): 2.0 cm2 JENNYFER(V,D): 2.2 cm2 LV V1 max P.7 mmHg MR max jose: 432.9 cm/sec LV V1 mean P.8 mmHg MR max P.0 mmHg LV V1 max: 96.1 cm/sec LV V1 mean: 59.5 cm/sec LV V1 VTI: 12.6 cm SV(LVOT): 46.5 ml TR max jose: 319.9 cm/sec TR max P.1 mmHg Med Peak E' Jose: 7.2 cm/sec Med E/e': 16.4 Lat Peak E' Jose: 15.8 cm/sec Lat E/e': 7.5 Procedure A complete two-dimensional transthoracic echocardiogram was performed (2D, M-mode, Doppler and color flow Doppler). Technically limited study. Left Ventricle The left ventricle is normal in size. Left ventricular systolic function is moderately reduced. Regio nal wall motion abnormality could not be accurately assessed due to poor visualization of endocardial border definition. Burt and apical septum appears severely hypokinetic. Right Ventricle The right ventricle is not well visualized. Atria The left atrial size is normal. Right atrial size is normal. Mitral Valve The mitral valve is normal in structure and function. There is mild mitral regurgitation. Tricuspid Valve The tricuspid valve is not well visualized. Aortic Valve The aortic valve is normal in structure and function. No aortic regurgitation is present. Pulmonic Valve The pulmonic valve is not well visualized. Great Vessels The aortic root is normal size. Pericardium/Pleura There is no pericardial effusion. Interpretation Summary Technically limited study The left ventricle is normal in size. Left ventricular systolic function is moderately reduced. Estimated LVEF 40-45% Regional wall motion abnormality could not be accurately assessed due to poor visualization of endoca rdial border definition. Burt and apical septum appears severely hypokinetic The right ventricle is not well visualized. The left atrial size is normal. Right atrial size is normal. There is mild mitral regurgitation. There is no pericardial effusion. Micky Alcala MD 12/05/2018 03:05 PM
[2018-12-05] MEDS: PROPOFOL 1,000,000 MCG/100 ML VIAL IVPB SCH ×2 (17:33→23:00)
[2018-12-05] MEDS: DONEPEZIL HCL 10 MG TABLET (FP) NGT SCH (22:14)
[2018-12-05] MEDS: CHLORHEXIDINE GLUCONATE 4% CLEANSER FOR DECOLONIZATION TP SCH (22:15)
--- NOTE | 2018-12-06 04:56 | PN ---
Physical Exam: SUBJECTIVE: Patient seen and examined at bed side , no acute events over night , still intubated sedated , on propfol @ 20. no fever was reported OBJECTIVE: Vital Signs Period Temp Pulse Resp BP Sys/Heredia Pulse Ox Last 24 Hr 98.6 F-99.7 F 69-94 18-25 125-162/50-67 96-100 GENERAL: The patient intubated sedated with OG tube and suction HEAD:NC/AT EYES: PERRL, ENT: intubated sedated with OG tube NECK: supple. LUNGS:decrease breath sounds at the bases HEART: Regular rate and rhythm, S1, S2 without murmur, rub or gallop. ABDOMEN: Obese , Soft, nontender, hypoactive BS EXTREMITIES: 2+ pulses, warm, well-perfused, +1 LLE edema. NEUROLOGICAL:intubated sedated Laboratory Results - last 24 hr 12/05/18 12/05/18 12/05/18 05:14 05:15 05:15 WBC 9.9 RBC 3.45 L Hgb 10.6 L Hct 30.8 L MCV 89.3 MCH 30.8 MCHC 34.5 RDW 14.8 Plt Count 152 MPV 8.5 Absolute Neuts (auto) 8.4 H Neutrophils % 84.3 H Lymphocytes % 8.5 Monocytes % 3.0 L Eosinophils % 4.0 D Basophils % 0.2 Nucleated RBC % 0 Sodium 142 Potassium 4.6 Chloride 112 H Carbon Dioxide 19 L Anion Gap 10 BUN 53.9 H Creatinine 4.2 H Est GFR (CKD-EPI)AfAm 13.68 Est GFR (CKD-EPI)NonAf 11.80 POC Glucometer 109 Random Glucose 118 H Calcium 7.8 L Phosphorus 4.1 Magnesium 1.8 12/05/18 12/05/18 12/05/18 11:28 16:30 21:48 WBC RBC Hgb Hct MCV MCH MCHC RDW Plt Count MPV Absolute Neuts (auto) Neutrophils % Lymphocytes % Monocytes % Eosinophils % Basophils % Nucleated RBC % Sodium Potassium Chloride Carbon Dioxide Anion Gap BUN Creatinine Est GFR (CKD-EPI)AfAm Est GFR (CKD-EPI)NonAf POC Glucometer 125 126 119 Random Glucose Calcium Phosphorus Magnesium Active Medications Generic Name Dose Route Start Last Admin Trade Name Freq PRN Reason Stop Dose Admin Albuterol/Ipratropium 1 amp 12/02/18 19:38 Duoneb - NEB Q6H PRN SHORT OF BREATH/WHEEZING Aspirin 81 mg 12/03/18 10:00 12/05/18 09:01 Asa - NGT Not Given DAILY [facility] Chlorhexidine Gluconate 1 applic 12/02/18 22:00 12/05/18 22:15 Hibiclens For Decolonization - TP 1 applic HS [facility] Administration Donepezil HCl 10 mg 12/03/18 22:00 12/05/18 22:14 Aricept - NGT Not Given HS [facility] Heparin Sodium (Porcine) 5,000 unit 12/02/18 22:00 12/05/18 22:15 Heparin - SQ 5,000 unit BID [facility] Administration Propofol 1,000,000 mcg in 100 mls @ 2.613 mls/hr 12/02/18 18:45 12/05/18 23: 00 Diprivan - IVPB 20 mcg/kg/min TITR [facility] 10.451 mls/hr Administration Protocol 5 MCG/KG/MIN Sodium Chloride 1,000 mls @ 100 mls/hr 12/04/18 12:15 12/05/18 13:00 1/2 Normal Saline IV 100 mls/hr ASDIR [facility] Administration Ceftriaxone Sodium 1 gm/ 50 mls @ 200 mls/hr 12/05/18 10:00 12/05/18 09:44 Dextrose IVPB 200 mls/hr DAILY [facility] Administration Protocol Metronidazole 500 mg in 100 mls @ 100 mls/hr 12/05/18 10:00 12/06/18 03:08 Flagyl 500mg Premixed Ivpb - IVPB 100 mls/hr Q8H-IV [facility] Administration Insulin Aspart 1 vial 12/03/18 07:00 12/05/18 22:16 Novolog Vial Sliding Scale - SQ Not Given ACHS [facility] Protocol Memantine 10 mg 12/02/18 22:00 12/05/18 22:16 Namenda - GT Not Given BID [facility] Metoprolol Succinate 25 mg 12/03/18 10:00 12/05/18 09:01 Toprol Xl - PO Not Given DAILY [facility] Mupirocin 1 applic 12/02/18 22:00 12/05/18 22:14 Bactroban Ointment (For Decolonization) - NS 12/07/18 21:59 1 applic BID [facility] Administration Pantoprazole Sodium 40 mg 12/03/18 10:00 12/05/18 09:18 Protonix Iv IVPUSH 40 mg DAILY [facility] Administration CBC, BMP 12/06/18 05:30 12/06/18 05:30 ASSESSMENT/PLAN: Mariano Camacho is an 88 y/o male with a PMHx of HTN, HLD, CAD (s/p stent 2010) , LBBB, Alzheimer's disease, CKD, PVD, OA, 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 # LBBB , not changed from 2018 * continue aspirin, continue home metoprolol 25mg daily * last echo on 10/20/17 showing EF of 35% * repeat echo showing EF 40-45% * daily weight , I&O # Acute hypoxic hypercapnic respiratory failure * intubated, sedated on propfol @ 20 mc/hr * Vent settings rate 18, TV 425, FiO2 35, PEEP 8 * ABG showing respiratory acidosis with non anion gap metabolic acidosis, respiratory component of CO2 retention, metabolic component of likely hyperchloremia from dehydration and chronic renal failure * maintain o2 sat above 92% * CXR with RUL Consolidation * duonebs q6h prn # KATHY in term of sepsis vs AIN or ATN , improving * CR 1.9 on admission, improving , continue fluids * renal U/S did not show any hydronephrosis or other acute pathology #N/V on admission * given Zofran and Pepcid in ED, Protonix 40 daily * Abdominal CT showing s/p gastrectomy, 1.5cm hypodense nodule in the pancreatic tail, epigastric hernia with nondilated small bowel loop, small umbilical hernia with a small nondilated small bowel loop, bilateral inguinal hernias containing only fat, colonic diverticulosis, nonobstructing renal calculi * vomiting causes may include transient obstruction from hernias, food poisoning, viral gastritis * HOB elevated, aspiration precautions # severe sepsis in the setting of aspiration pneumonitis/pneumonia * cannot rule out community acquired pneumonia * Dr. Patel consulted, recs appreciated * third day of abx, ceftriaxone and flagyl * cx negative , isolation precautions, hx of MRSA # DM * HgA1c ordered, BGM, ISS Alzheimer's disease Hx of stomach CA (MALT) # dementia on memantine and donepezil #F/E/N * 1/2 NS @ 65cc/hr * continue to monitor electrolytes and replete as necessary * NPO #PROPHYLAXIS * heparin SQ BID , SCDS * Protonix #CODE * full code #DISPO * continue to monitor in ICU Visit type - Emergency Visit Emergency Visit: Yes ED Registration Date: 12/02/18 Care time: The patient presented to the Emergency Department on the above date and was hospitalized for further evaluation of their emergent condition. - New Patient This patient is new to me today: No - Critical Care Critical Care patient: Yes Total Critical Care Time (in minutes): 45 Critical Care Statement: The care of this patient involved high complexity decision making to prevent further life threatening deterioration of the patient 's condition and/or to evaluate & treat vital organ system(s) failure or risk of failure. ATTENDING PHYSICIAN STATEMENT I saw and evaluated the patient. I reviewed the resident's note and discussed the case with the resident. I agree with the resident's findings and plan as documented. SUBJECTIVE: OBJECTIVE: ASSESSMENT AND PLAN:
[2018-12-06] MEDS: INSULIN SLIDING SCALE (NOVOLOG) 1 VIAL SQ SCH ×4 (06:44→23:20)
[2018-12-06] MEDS: SODIUM CHLORIDE 0.45% 1,000 ML IV SCH ×3 (07:05→14:15)
[2018-12-06 07:29] LABS: HEMATOCRIT 31.6 % (35.4-49); HEMOGLOBIN 10.8 GM/dL (11.7-16.9); MCH 30.4 pg (25.7-33.7); MCHC 34.1 g/dl (32.0-35.9); MEAN CELL VOLUME 89.2 fl (80-96); MEAN PLT VOLUME 8.3 fl (7.5-11.1); PLATELET COUNT 129 K/MM3 (134-434); RBC 3.54 M/mm3 (4.00-5.60); RDW 14.8 % (11.9-15.9); WHITE BLOOD COUNT 6.4 K/mm3 (4.0-10.0)
[2018-12-06 07:50] LABS: BLOOD UREA NITROGEN 54.8 mg/dL (7-18); CALCIUM 7.5 mg/dL (8.5-10.1); CREATININE 3.6 mg/dL (0.55-1.3); MAGNESIUM 1.8 mg/dL (1.8-2.4); PHOSPHOROUS 3.8 mg/dL (2.5-4.9); POTASSIUM 4.3 mmol/L (3.5-5.1)
[2018-12-06] MEDS ORDERED: cefTRIAXone SODIUM 1 GM VIAL ONE (09:20)
[2018-12-06] MEDS ORDERED: DEXTROSE 5%-WATER - 50 ML IVPB ONE (09:21)
[2018-12-06] MEDS: MUPIROCIN 2% TOPICAL OINTMENT FOR DECOLONIZATION NS SCH ×2 (09:24→21:16)
[2018-12-06] MEDS: ASPIRIN 81 MG CHEWABLE TABLETS NGT SCH (09:24)
[2018-12-06] MEDS: metoPROLOL SUCCINATE 25 MG TAB.SR.24H (FP) PO SCH (09:25)
[2018-12-06] MEDS: CEFTRIAXONE 1 GM in DEXTROSE 5%-WATER - 50 ML IVPB SCH (09:25)
[2018-12-06] MEDS: MEMANTINE HCL 10 MG TABLET (FP) GT SCH ×2 (09:26→21:17)
[2018-12-06] MEDS: HEPARIN NA (PORCINE) 5,000 UNITS/ML 1ML VIAL SQ SCH ×2 (09:32→21:16)
[2018-12-06] MEDS: PANTOPRAZOLE SODIUM 40 MG VIAL IVPUSH SCH (09:33)
[2018-12-06 12:06] LABS: ARTERIAL BLD GAS O2 SATURATION 95.3 % (95-98); ARTERIAL BLOOD GAS BASE EXCESS -9.8 meq/l (-2-2); ARTERIAL BLOOD GAS PCO2 32.6 mmHg (35-45); ARTERIAL BLOOD GAS PO2 82.3 mmHg (80-105); ARTERIAL BLOOD GAS pH 7.29 (7.35-7.45)
[2018-12-06 12:10] LABS: ALLENS TEST POSITIVE
--- NOTE | 2018-12-06 12:14 | PN ---
Teaching Attending Note Name of Resident: Brendan Chan ATTENDING PHYSICIAN STATEMENT I saw and evaluated the patient. I reviewed the resident's note and discussed the case with the resident. I agree with the resident's findings and plan as documented. SUBJECTIVE: Patient seen and examined in the ICU. Remains intubated and awake on AC Mode of vent, 35% FiO2. No pressors. No acute events overnight. Did not tolerate CPAP wean this AM, Increased RSBI to 130. Intake & Output 12/03/18 12/04/18 12/05/18 12/06/18 23:59 23:59 23:59 23:59 Intake Total 4025 2968 870 Output Total 153 320 9530 400 Balance -400 3115 1568 470 Weight 185 lb 193 lb 3.2 oz 196 lb 6.4 oz 197 lb Last Vital Signs Temp Pulse Resp BP Pulse Ox 98.7 F 100 H 27 H 147/63 100 12/06/18 10:15 12/06/18 10:00 12/06/18 10:00 12/06/18 10:00 12/06/18 09:45 Active Medications Albuterol/Ipratropium (Duoneb -) 1 amp NEB Q6H PRN PRN Reason: SHORT OF BREATH/WHEEZING Aspirin (Asa -) 81 mg NGT DAILY [facility] Last Admin: 12/06/18 09:24 Dose: Not Given Chlorhexidine Gluconate (Hibiclens For Decolonization -) 1 applic TP HS IKER Last Admin: 12/05/18 22:15 Dose: 1 applic Donepezil HCl (Aricept -) 10 mg NGT HS IKER Last Admin: 12/05/18 22:14 Dose: Not Given Heparin Sodium (Porcine) (Heparin -) 5,000 unit SQ BID I[facility] Last Admin: 12/06/18 09:32 Dose: 5,000 unit Propofol (Diprivan -) 1,000,000 mcg in 100 mls @ 2.613 mls/hr IVPB TITR I[facility]; Protocol Last Titration: 12/06/18 09:50 Dose: 20 mcg/kg/min, 10.451 mls/hr Sodium Chloride (1/2 Normal Saline) 1,000 mls @ 100 mls/hr IV ASDIR I[facility] Last Admin: 12/06/18 07:05 Dose: 100 mls/hr Ceftriaxone Sodium 1 gm/ (Dextrose) 50 mls @ 200 mls/hr IVPB DAILY [facility]; Protocol Last Admin: 12/06/18 09:25 Dose: 200 mls/hr Metronidazole (Flagyl 500mg Premixed Ivpb -) 500 mg in 100 mls @ 100 mls/hr IVPB Q8H-IV I[facility] Last Admin: 12/06/18 09:25 Dose: 100 mls/hr Insulin Aspart (Novolog Vial Sliding Scale -) 1 vial SQ ACHS [facility]; Protocol Last Admin: 12/06/18 11:36 Dose: Not Given Memantine (Namenda -) 10 mg GT BID I[facility] Last Admin: 12/06/18 09:26 Dose: Not Given Metoprolol Succinate (Toprol Xl -) 25 mg PO DAILY IKER Last Admin: 12/06/18 09:25 Dose: Not Given Mupirocin (Bactroban Ointment (For Decolonization) -) 1 applic NS BID [facility] Stop: 12/07/18 21:59 Last Admin: 12/06/18 09:24 Dose: 1 applic Pantoprazole Sodium (Protonix Iv) 40 mg IVPUSH DAILY [facility] Last Admin: 12/06/18 09:33 Dose: 40 mg Constitutional: Yes: Intubated and awake Eyes: Yes: WNL, Conjunctiva Clear, (-) Icterus HENT: Yes: WNL, Atraumatic, Normocephalic Neck: Yes: WNL, Trachea Midline Cardiovascular: Yes: WNL, Regular Rate and Rhythm Respiratory: Yes: Diminished, Intubated, Mechanically Ventilated, Bilateral Rhonchi Gastrointestinal: Yes: Abdomen, Obese, (+) Bowel Sounds Renal/: Yes: Verdugo Present Breast(s): Yes: WNL Musculoskeletal: Yes: WNL Extremities: Yes: WNL Edema: No Peripheral Pulses WNL: Yes Integumentary: Yes: WNL Neurological: Yes: Non-focal ...Motor Strength: moves all extremities Psychiatric: Yes: appropriate Labs: Laboratory Results - last 24 hr 12/05/18 12/05/18 12/06/18 16:30 21:48 05:30 WBC 6.4 RBC 3.54 L Hgb 10.8 L Hct 31.6 L MCV 89.2 MCH 30.4 MCHC 34.1 RDW 14.8 Plt Count 129 L MPV 8.3 Anticoagulation Therapy Puncture Site ABG pH ABG pCO2 at Pt Temp ABG pO2 at Pt Temp ABG HCO3 ABG O2 Sat (Measured) ABG O2 Content ABG Base Excess Tony Test O2 Delivery Device Oxygen Flow Rate Vent Mode Vent Rate Mechanical Rate Pressure Support Vent Sodium Potassium Chloride Carbon Dioxide Anion Gap BUN Creatinine Est GFR (CKD-EPI)AfAm Est GFR (CKD-EPI)NonAf POC Glucometer 126 119 Random Glucose Calcium Phosphorus Magnesium 12/06/18 12/06/18 12/06/18 05:30 05:53 11:55 WBC RBC Hgb Hct MCV MCH MCHC RDW Plt Count MPV Anticoagulation Therapy No Result Required. Puncture Site Right radial ABG pH 7.29 L ABG pCO2 at Pt Temp 32.6 L ABG pO2 at Pt Temp 82.3 ABG HCO3 15.3 L ABG O2 Sat (Measured) 95.3 ABG O2 Content 16.1 ABG Base Excess -9.8 L Tony Test Positive O2 Delivery Device No Result Required. Oxygen Flow Rate Yes Vent Mode No Result Required. Vent Rate No Result Required. Mechanical Rate No Result Required. Pressure Support Vent No Result Required. Sodium 143 Potassium 4.3 Chloride 115 H Carbon Dioxide 19 L Anion Gap 9 BUN 54.8 H Creatinine 3.6 H Est GFR (CKD-EPI)AfAm 16.48 Est GFR (CKD-EPI)NonAf 14.22 POC Glucometer 104 Random Glucose 104 Calcium 7.5 L Phosphorus 3.8 Magnesium 1.8 Problem List - Problems (1) Acute kidney injury superimposed on CKD Code(s): N17.9 - ACUTE KIDNEY FAILURE, UNSPECIFIED; N18.9 - CHRONIC KIDNEY DISEASE, UNSPECIFIED (2) Acute respiratory distress Code(s): R06.03 - ACUTE RESPIRATORY DISTRESS (3) Acute respiratory failure Code(s): J96.00 - ACUTE RESPIRATORY FAILURE, UNSP W HYPOXIA OR HYPERCAPNIA (4) Aspiration pneumonia Code(s): J69.0 - PNEUMONITIS DUE TO INHALATION OF FOOD AND VOMIT (5) Vomiting Code(s): R11.10 - VOMITING, UNSPECIFIED Qualifiers: Vomiting type: unspecified Vomiting Intractability: unspecified Nausea presence: unspecified Qualified Code(s): R11.10 - Vomiting, unspecified (6) MRSA (methicillin resistant Staphylococcus aureus) colonization Code(s): Z22.322 - CARRIER OR SUSPECTED CARRIER OF METHICILLIN RESIS STAPH (7) CHF (congestive heart failure) Code(s): I50.9 - HEART FAILURE, UNSPECIFIED Qualifiers: Heart failure type: systolic Heart failure chronicity: chronic Qualified Code(s): I50.22 - Chronic systolic (congestive) heart failure (8) CKD (chronic kidney disease) Code(s): N18.9 - CHRONIC KIDNEY DISEASE, UNSPECIFIED Qualifiers: Chronic kidney disease stage: stage 3 (moderate) Qualified Code(s): N18.3 - Chronic kidney disease, stage 3 (moderate) (9) HTN (hypertension) Code(s): I10 - ESSENTIAL (PRIMARY) HYPERTENSION Qualifiers: Hypertension type: essential hypertension Qualified Code(s): I10 - Essential (primary) hypertension (10) Hyperlipidemia Code(s): E78.5 - HYPERLIPIDEMIA, UNSPECIFIED Qualifiers: Hyperlipidemia type: mixed hyperlipidemia Qualified Code(s): E78.2 - Mixed hyperlipidemia Assessment/Plan Respiratory failure secondary to aspiration Vomiting HTN HLD CAD CKD PVD OA GERD PLAN: Continued Wean trials as tolerated BD TX F/u CXR ABX coverage per ID Strict I's & O's Trend BUN/Cr Replete e-lytes prn VTE prophylaxis PPI Requires ICU monitoring Dr Rebollar Critical care time spent in reviewing chart, evaluating patient and formulating plan - 36 minutes.
--- NOTE | 2018-12-06 13:35 | PN ---
Progress Note, Physician History of Present Illness: Pt seen and examined at bedside. He remains in the ICU. He remain intubated. - Current Medication List Current Medications: Active Medications Albuterol/Ipratropium (Duoneb -) 1 amp NEB Q6H PRN PRN Reason: SHORT OF BREATH/WHEEZING Aspirin (Asa -) 81 mg NGT DAILY I[facility] Last Admin: 12/06/18 09:24 Dose: Not Given Chlorhexidine Gluconate (Hibiclens For Decolonization -) 1 applic TP HS [facility] Last Admin: 12/05/18 22:15 Dose: 1 applic Donepezil HCl (Aricept -) 10 mg NGT HS [facility] Last Admin: 12/05/18 22:14 Dose: Not Given Heparin Sodium (Porcine) (Heparin -) 5,000 unit SQ BID [facility] Last Admin: 12/06/18 09:32 Dose: 5,000 unit Propofol (Diprivan -) 1,000,000 mcg in 100 mls @ 2.613 mls/hr IVPB TITR [facility]; Protocol Last Titration: 12/06/18 09:50 Dose: 20 mcg/kg/min, 10.451 mls/hr Sodium Chloride (1/2 Normal Saline) 1,000 mls @ 100 mls/hr IV ASDIR [facility] Last Admin: 12/06/18 12:45 Dose: 100 mls/hr Ceftriaxone Sodium 1 gm/ (Dextrose) 50 mls @ 200 mls/hr IVPB DAILY [facility]; Protocol Last Admin: 12/06/18 09:25 Dose: 200 mls/hr Metronidazole (Flagyl 500mg Premixed Ivpb -) 500 mg in 100 mls @ 100 mls/hr IVPB Q8H-IV [facility] Last Admin: 12/06/18 09:25 Dose: 100 mls/hr Insulin Aspart (Novolog Vial Sliding Scale -) 1 vial SQ ACHS I[facility]; Protocol Last Admin: 12/06/18 11:36 Dose: Not Given Memantine (Namenda -) 10 mg GT BID [facility] Last Admin: 12/06/18 09:26 Dose: Not Given Metoprolol Succinate (Toprol Xl -) 25 mg PO DAILY [facility] Last Admin: 12/06/18 09:25 Dose: Not Given Mupirocin (Bactroban Ointment (For Decolonization) -) 1 applic NS BID [facility] Stop: 12/07/18 21:59 Last Admin: 12/06/18 09:24 Dose: 1 applic Pantoprazole Sodium (Protonix Iv) 40 mg IVPUSH DAILY [facility] Last Admin: 12/06/18 09:33 Dose: 40 mg - Objective Vital Signs: Vital Signs Temperature 98.7 F 12/06/18 10:15 Pulse Rate 74 12/06/18 12:00 Respiratory Rate 22 H 12/06/18 12:20 Blood Pressure 127/58 L 12/06/18 12:00 O2 Sat by Pulse Oximetry (%) 100 12/06/18 09:45 Constitutional: Yes: Calm Eyes: Yes: Conjunctiva Clear HENT: Yes: Atraumatic Neck: Yes: Supple Cardiovascular: Yes: S1, S2 Respiratory: Yes: Intubated, Mechanically Ventilated Gastrointestinal: Yes: Soft Genitourinary: Yes: Verdugo Present Musculoskeletal: Yes: Muscle Weakness Edema: LLE: Trace, RLE: Trace Neurological: Yes: Lethargy Labs: CBC, BMP 12/06/18 05:30 12/06/18 05:30 INR, PTT INR 1.07 (0.83-1.09) 12/03/18 05:40 - ....Imaging Chest X-ray: Report Reviewed Problem List - Problems (1) Acute kidney injury superimposed on CKD Code(s): N17.9 - ACUTE KIDNEY FAILURE, UNSPECIFIED; N18.9 - CHRONIC KIDNEY DISEASE, UNSPECIFIED (2) Aspiration pneumonia Code(s): J69.0 - PNEUMONITIS DUE TO INHALATION OF FOOD AND VOMIT (3) Vomiting Code(s): R11.10 - VOMITING, UNSPECIFIED Qualifiers: Vomiting type: unspecified Vomiting Intractability: unspecified Nausea presence: unspecified Qualified Code(s): R11.10 - Vomiting, unspecified Assessment/Plan Current Medications Generic Name Dose Route Start Last Admin Trade Name Freq PRN Reason Stop Dose Admin Albuterol/Ipratropium 1 amp 12/02/18 19:38 Duoneb - NEB Q6H PRN SHORT OF BREATH/WHEEZING Aspirin 81 mg 12/03/18 10:00 12/06/18 09:24 Asa - NGT Not Given DAILY IK[facility] Chlorhexidine Gluconate 1 applic 12/02/18 22:00 12/05/18 22:15 Hibiclens For Decolonization - TP 1 applic HS I[facility]ER Administration Donepezil HCl 10 mg 12/03/18 22:00 12/05/18 22:14 Aricept - NGT Not Given HS IKER Heparin Sodium (Porcine) 5,000 unit 12/02/18 22:00 12/06/18 09:32 Heparin - SQ 5,000 unit BID [facility] Administration Propofol 1,000,000 mcg in 100 mls @ 2.613 mls/hr 12/02/18 18:45 12/06/18 09: 50 Diprivan - IVPB 20 mcg/kg/min TITR IKER 10.451 mls/hr Titration Protocol 5 MCG/KG/MIN Sodium Chloride 1,000 mls @ 100 mls/hr 12/04/18 12:15 12/06/18 12:45 1/2 Normal Saline IV 100 mls/hr ASDIR IKER Administration Ceftriaxone Sodium 1 gm/ 50 mls @ 200 mls/hr 12/05/18 10:00 12/06/18 09:25 Dextrose IVPB 200 mls/hr DAILY [facility] Administration Protocol Metronidazole 500 mg in 100 mls @ 100 mls/hr 12/05/18 10:00 12/06/18 09:25 Flagyl 500mg Premixed Ivpb - IVPB 100 mls/hr Q8H-IV [facility] Administration Insulin Aspart 1 vial 12/03/18 07:00 12/06/18 11:36 Novolog Vial Sliding Scale - SQ Not Given ACHS I[facility] Protocol Memantine 10 mg 12/02/18 22:00 12/06/18 09:26 Namenda - GT Not Given BID IKER Metoprolol Succinate 25 mg 12/03/18 10:00 12/06/18 09:25 Toprol Xl - PO Not Given DAILY I[facility] Mupirocin 1 applic 12/02/18 22:00 12/06/18 09:24 Bactroban Ointment (For Decolonization) - NS 12/07/18 21:59 1 applic BID I[facility] Administration Pantoprazole Sodium 40 mg 12/03/18 10:00 12/06/18 09:33 Protonix Iv IVPUSH 40 mg DAILY I[facility] Administration Impression 1. KATHY 2. acute resp failure 3. HTN 4. gastric cancer 5. dementia 6. HLD 7. CAD 8. PVD 9. PNA 10. sepsis 11. hyperkalemia Plan - renal function is improving - can decrease rate of fluids - repeat labs in am - vent support - KATHY likely from sepsis - monitor urine output
--- NOTE | 2018-12-06 13:42 | PN ---
Progress Note (short form) - Note Progress Note: remains intubated Vital Signs Period Temp Pulse Resp BP Sys/Heredia Pulse Ox Last 24 Hr 97.3 F-99.3 F 22-100 19-65 125-156/50-70 96-100 +NGT cor-rrr lungs decreased bs at bases abd soft,nt ext bilateral pedal erythema CBC, BMP 12/06/18 05:30 12/06/18 05:30 Microbiology 12/02/18 18:30 Blood - Peripheral Venous Blood Culture - Preliminary NO GROWTH OBTAINED AFTER 72 HOURS, INCUBATION TO CONTINUE FOR 2 DAYS. 12/02/18 18:31 Blood - Peripheral Venous Blood Culture - Preliminary NO GROWTH OBTAINED AFTER 72 HOURS, INCUBATION TO CONTINUE FOR 2 DAYS. 12/02/18 22:50 Sputum - Endotrachea Suction/Ventilator Gram Stain - Final 12/02/18 22:50 Sputum - Endotrachea Suction/Ventilator Sputum Culture - Final NORMAL RESPIRATORY ALEYDA 12/03/18 16:45 Urine - Urine Verdugo Urine Culture - Final NO GROWTH OBTAINED a/p resp failure aspiration pneumonia ?abdominal wall cellulitis-resolved dwain history of MRSA day #4 antibiotics continue rocephin/flagyl Problem List - Problems (1) Acute respiratory failure Code(s): J96.00 - ACUTE RESPIRATORY FAILURE, UNSP W HYPOXIA OR HYPERCAPNIA (2) Aspiration pneumonia Code(s): J69.0 - PNEUMONITIS DUE TO INHALATION OF FOOD AND VOMIT (3) Vomiting Code(s): R11.10 - VOMITING, UNSPECIFIED Qualifiers: Vomiting type: unspecified Vomiting Intractability: unspecified Nausea presence: unspecified Qualified Code(s): R11.10 - Vomiting, unspecified (4) MRSA (methicillin resistant Staphylococcus aureus) colonization Code(s): Z22.322 - CARRIER OR SUSPECTED CARRIER OF METHICILLIN RESIS STAPH (5) Acute kidney injury superimposed on CKD Code(s): N17.9 - ACUTE KIDNEY FAILURE, UNSPECIFIED; N18.9 - CHRONIC KIDNEY DISEASE, UNSPECIFIED
--- NOTE | 2018-12-06 14:47 | PN ---
Physical Exam: SUBJECTIVE: Overnight, weaning trial was attempted for patient, and was not able to tolerate it, became tachycardic, tachypneic and diaphoretic, placed back on AC mode. Patient seen and examined at the bedside. Propofol was weaned off and patient became aware, alert, and able to follow simple commands. Weaning trial was attempted and patient was unable to have good respiratory effort and had to be placed back on AC mode. OBJECTIVE: Vital Signs Period Temp Pulse Resp BP Sys/Heredia Pulse Ox Last 24 Hr 97.3 F-99.3 F 22-100 19-65 125-153/50-70 96-100 GENERAL: Intubated on sedation. When off sedation is alert and oriented and able to follow simple commands. HEAD: Normal with no signs of trauma. EYES: PERRL, extraocular movements intact, sclera anicteric, conjunctiva clear. No ptosis. NECK: Trachea midline, full range of motion, supple. LUNGS: Ventilated, mechanical breath sounds. Coarse sounds heard in the R lobe, improved from previous exam. HEART: Regular rate and rhythm, S1, S2 without murmur, rub or gallop. ABDOMEN: Soft, nontender, nondistended, normoactive bowel sounds, no guarding, no rebound, no masses. EXTREMITIES: 1+ pulses, warm, well-perfused, no edema. NEUROLOGICAL: Unable to assess PSYCH: Unable to assess SKIN: Warm, dry, normal turgor, no rashes or lesions noted. Laboratory Results - last 24 hr 12/05/18 12/05/18 12/06/18 16:30 21:48 05:30 WBC 6.4 RBC 3.54 L Hgb 10.8 L Hct 31.6 L MCV 89.2 MCH 30.4 MCHC 34.1 RDW 14.8 Plt Count 129 L MPV 8.3 Anticoagulation Therapy Puncture Site ABG pH ABG pCO2 at Pt Temp ABG pO2 at Pt Temp ABG HCO3 ABG O2 Sat (Measured) ABG O2 Content ABG Base Excess Tony Test O2 Delivery Device Oxygen Flow Rate Vent Mode Vent Rate Mechanical Rate Pressure Support Vent Sodium Potassium Chloride Carbon Dioxide Anion Gap BUN Creatinine Est GFR (CKD-EPI)AfAm Est GFR (CKD-EPI)NonAf POC Glucometer 126 119 Random Glucose Calcium Phosphorus Magnesium 07/30/19 07/30/19 07/30/19 05:30 05:53 11:55 WBC RBC Hgb Hct MCV MCH MCHC RDW Plt Count MPV Anticoagulation Therapy No Result Required. Puncture Site Right radial ABG pH 7.29 L ABG pCO2 at Pt Temp 32.6 L ABG pO2 at Pt Temp 82.3 ABG HCO3 15.3 L ABG O2 Sat (Measured) 95.3 ABG O2 Content 16.1 ABG Base Excess -9.8 L Tony Test Positive O2 Delivery Device No Result Required. Oxygen Flow Rate Yes Vent Mode No Result Required. Vent Rate No Result Required. Mechanical Rate No Result Required. Pressure Support Vent No Result Required. Sodium 143 Potassium 4.3 Chloride 115 H Carbon Dioxide 19 L Anion Gap 9 BUN 54.8 H Creatinine 3.6 H Est GFR (CKD-EPI)AfAm 16.48 Est GFR (CKD-EPI)NonAf 14.22 POC Glucometer 104 Random Glucose 104 Calcium 7.5 L Phosphorus 3.8 Magnesium 1.8 Active Medications Generic Name Dose Route Start Last Admin Trade Name Freq PRN Reason Stop Dose Admin Albuterol/Ipratropium 1 amp 12/02/18 19:38 Duoneb - NEB Q6H PRN SHORT OF BREATH/WHEEZING Aspirin 81 mg 12/03/18 10:00 12/06/18 09:24 Asa - NGT Not Given DAILY I[facility] Chlorhexidine Gluconate 1 applic 12/02/18 22:00 12/05/18 22:15 Hibiclens For Decolonization - TP 1 applic HS I[facility] Administration Donepezil HCl 10 mg 12/03/18 22:00 12/05/18 22:14 Aricept - NGT Not Given HS I[facility] Heparin Sodium (Porcine) 5,000 unit 12/02/18 22:00 12/06/18 09:32 Heparin - SQ 5,000 unit BID [facility] Administration Propofol 1,000,000 mcg in 100 mls @ 2.613 mls/hr 12/02/18 18:45 12/06/18 09: 50 Diprivan - IVPB 20 mcg/kg/min TITR [facility] 10.451 mls/hr Titration Protocol 5 MCG/KG/MIN Ceftriaxone Sodium 1 gm/ 50 mls @ 200 mls/hr 12/05/18 10:00 12/06/18 09:25 Dextrose IVPB 200 mls/hr DAILY [facility] Administration Protocol Metronidazole 500 mg in 100 mls @ 100 mls/hr 12/05/18 10:00 12/06/18 09:25 Flagyl 500mg Premixed Ivpb - IVPB 100 mls/hr Q8H-IV [facility] Administration Sodium Chloride 1,000 mls @ 65 mls/hr 12/06/18 13:36 1/2 Normal Saline IV ASDIR I[facility] Insulin Aspart 1 vial 12/03/18 07:00 12/06/18 11:36 Novolog Vial Sliding Scale - SQ Not Given ACHS [facility] Protocol Memantine 10 mg 12/02/18 22:00 12/06/18 09:26 Namenda - GT Not Given BID [facility] Metoprolol Succinate 25 mg 12/03/18 10:00 12/06/18 09:25 Toprol Xl - PO Not Given DAILY [facility] Mupirocin 1 applic 12/02/18 22:00 12/06/18 09:24 Bactroban Ointment (For Decolonization) - NS 12/07/18 21:59 1 applic BID [facility] Administration Pantoprazole Sodium 40 mg 12/03/18 10:00 12/06/18 09:33 Protonix Iv IVPUSH 40 mg DAILY [facility] Administration ASSESSMENT/PLAN: Mariano Camacho is an 88 y/o male with a PMHx of HTN, HLD, CAD (s/p stent 2010) , LBBB, Alzheimer's disease, CKD, PVD, OA, 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 Hypoxic Hypercapneic Respiratory Failure 2/2 aspiration with ARDS Possible severe sepsis HTN HLD CAD Alzheimer's disease Hx of stomach CA (MALT) NEUROLOGIC - intubated and sedated - propofol and fentanyl as needed - daily sedation vacations - when off sedation, patient with good mentation and is alert, oriented and follows simple commands - continue home donepezil and memantine CARDIOLOGY - EKG showing LBBB, which is unchanged from 2018 - tachycardia likely from aspiration and respiratory compromise, continue to monitor - given Lopressor 5mg once with good effect - continue aspirin - continue home metoprolol 25mg daily - last echo on 10/20/17 showing EF of 35% - repeat echo showing EF 40-45% - I+Os RESPIRATORY - intubated - Vent settings rate 18, TV 425, FiO2 35, PEEP 8 - ABG showing respiratory acidosis with non anion gap metabolic acidosis, respiratory component of CO2 retention, metabolic component of likely hyperchloremia from dehydration and chronic renal failure - repeat ABG mildly improved, still with component of respiratory acidosis and retention of CO2 - ABG 12/06 showing continued non anion gap metabolic acidosis - A-a gradient 534, expected 26, indicating likely PNA or ARDS - keep SpO2 above 92% - original CXR did not show infiltrate - subsequent CXR show endotracheal tube placement and infiltrate in the R upper and lower lobes, likely from aspiration - continue to monitor CXR for development of pneumonitis/pneumonia - duonebs q6h prn - will likely need PFTs to assess respiratory function - daily wean trials and exercise RENAL - CRE 1.9 on admission - elevated to max of 4.9, today 3.6, likely KATHY, improving - continue fluids - renal U/S did not show any hydronephrosis or other acute pathology - likely KATHY - continue low HCO3 at 19, 2 doses of sodium bicarbonate, continue to monitor GASTROINTESTINAL - given Zofran and Pepcid in ED - one dose Protonix now - Protonix 40mg daily - Abdominal CT showing s/p gastrectomy, 1.5cm hypodense nodule in the pancreatic tail, epigastric hernia with nondilated small bowel loop, small umbilical hernia with a small nondilated small bowel loop, bilateral inguinal hernias containing only fat, colonic diverticulosis, nonobstructing renal calculi - vomiting causes may include transient obstruction from hernias, food poisoning , viral gastritis - HOB elevated, aspiration precautions GENITOURINARY - gan in - no acute issues INFECTIOUS DISEASE - qSOFA of 2 for altered mental status and elevated respiratory rate, high risk of in-hospital mortality, admitted to ICU - severe sepsis in the setting of aspiration pneumonitis/pneumonia - cannot rule out community acquired pneumonia - Dr. Patel consulted, recs appreciated - ceftriaxone and flagyl day 4 - sputum culture showing no growth - blood cultures showing no growth - urine cultures with no growth - isolation precautions, hx of MRSA ENDOCRINE - elevated glucose on current and prior admissions - HgA1c 7.3 - BGM - ISS HEMATOLOGY - WBC count resolved - continue to monitor counts MUSCULOSKELETAL - no acute issues PSYCHIATRY - no acute issues F/E/N - 1/2 NS @65cc/hr - continue to monitor electrolytes and replete as necessary - NPO LINES - R midline catheter inserted 12/04 PROPHYLAXIS - heparin 5000 units subq bid - Protonix - SCDs CODE - full code DISPO - continue to monitor in ICU CASE DISCUSSED WITH DR. CAMARENA AND PRIMARY TEAM ERIK PERSON DO - PGY-1 INTERNAL MEDICINE Problem List - Problems (1) Acute respiratory distress Code(s): R06.03 - ACUTE RESPIRATORY DISTRESS (2) Vomiting Code(s): R11.10 - VOMITING, UNSPECIFIED Qualifiers: Vomiting type: unspecified Vomiting Intractability: unspecified Nausea presence: unspecified Qualified Code(s): R11.10 - Vomiting, unspecified (3) CHF (congestive heart failure) Code(s): I50.9 - HEART FAILURE, UNSPECIFIED Qualifiers: Heart failure type: systolic Heart failure chronicity: chronic Qualified Code(s): I50.22 - Chronic systolic (congestive) heart failure (4) CKD (chronic kidney disease) Code(s): N18.9 - CHRONIC KIDNEY DISEASE, UNSPECIFIED Qualifiers: Chronic kidney disease stage: stage 3 (moderate) Qualified Code(s): N18.3 - Chronic kidney disease, stage 3 (moderate) (5) GERD (gastroesophageal reflux disease) Code(s): K21.9 - GASTRO-ESOPHAGEAL REFLUX DISEASE WITHOUT ESOPHAGITIS (6) HTN (hypertension) Code(s): I10 - ESSENTIAL (PRIMARY) HYPERTENSION Qualifiers: Hypertension type: essential hypertension Qualified Code(s): I10 - Essential (primary) hypertension (7) Hyperlipidemia Code(s): E78.5 - HYPERLIPIDEMIA, UNSPECIFIED Qualifiers: Hyperlipidemia type: mixed hyperlipidemia Qualified Code(s): E78.2 - Mixed hyperlipidemia Visit type - Emergency Visit Emergency Visit: No - New Patient This patient is new to me today: No - Critical Care Critical Care patient: Yes Total Critical Care Time (in minutes): 37 Critical Care Statement: The care of this patient involved high complexity decision making to prevent further life threatening deterioration of the patient 's condition and/or to evaluate & treat vital organ system(s) failure or risk of failure.
[2018-12-06] MEDS: SODIUM BICARBONATE 8.4% 50 MEQ/50 ML VIAL IV SCH (17:05)
--- NOTE | 2018-12-06 18:08 | PN ---
Teaching Attending Note Name of Resident: Arnaud Batista ATTENDING PHYSICIAN STATEMENT I saw and evaluated the patient. I reviewed the resident's note and discussed the case with the resident. I agree with the resident's findings and plan as documented. SUBJECTIVE: unable to obtain, intubated and sedated OBJECTIVE: Last Vital Signs Temp Pulse Resp BP Pulse Ox 36.4 C 70 21 H 125/49 L 100 12/06/18 18:00 12/06/18 18:00 12/06/18 18:00 12/06/18 18:00 12/06/18 09:45 Gen: sedated Pulm: intubated, mechanically ventilated, tachypneic CV: rrr w/o m/r/g Abd: no bowel sounds but s/nt/nd Ext: no c/c/e CBC, BMP 12/06/18 05:30 12/06/18 05:30 ASSESSMENT AND PLAN: (1) Acute respiratory failure with hypoxia Assessment/Plan: -secondary to aspiration pneumonia -intubated and sedated -continue treating aspiration pneumonia Code(s): J96.01 - ACUTE RESPIRATORY FAILURE WITH HYPOXIA (2) Aspiration pneumonia with sepsis Assessment/Plan: -sepsis present since admission -ID following -continue rocephin and flagyl Code(s): J69.0 - PNEUMONITIS DUE TO INHALATION OF FOOD AND VOMIT (3) Hyperkalemia Assessment/Plan: -resolved Code(s): E87.5 - HYPERKALEMIA (4) Acute kidney injury superimposed on CKD Assessment/Plan: -case d/w Dr Taylor -improving -making urine Code(s): N17.9 - ACUTE KIDNEY FAILURE, UNSPECIFIED; N18.9 - CHRONIC KIDNEY DISEASE, UNSPECIFIED (5) ASHD (arteriosclerotic heart disease) Assessment/Plan: -troponin elevation but decreasing -suspect stress induced -ECHO reviewed and unchanged Code(s): I25.10 - ATHSCL HEART DISEASE OF [place] CORONARY ARTERY W/O ANG PCTRS (6) CHF (congestive heart failure) Assessment/Plan: -hydrating -closely monitored -currently intubated and mechanically ventilated Code(s): I50.9 - HEART FAILURE, UNSPECIFIED Qualifiers: Heart failure type: systolic Heart failure chronicity: chronic Qualified Code(s): I50.22 - Chronic systolic (congestive) heart failure (7) HTN (hypertension) Assessment/Plan: -improved Code(s): I10 - ESSENTIAL (PRIMARY) HYPERTENSION Qualifiers: Hypertension type: essential hypertension Qualified Code(s): I10 - Essential (primary) hypertension (8) Hyperlipidemia Assessment/Plan: -on pravastatin as an outpatient Code(s): E78.5 - HYPERLIPIDEMIA, UNSPECIFIED Qualifiers: Hyperlipidemia type: mixed hyperlipidemia Qualified Code(s): E78.2 - Mixed hyperlipidemia (9) Metabolic acidosis -case d/w pulmonary and nephrology -bicarb low and tachypneic -ABG checked and pH of 7.29 -will give 1 amp of bicarbonate -re-evaluate in am 32 minutes spent in critical care of this patient Problem List - Problems (1) Acute respiratory failure with hypoxia Code(s): J96.01 - ACUTE RESPIRATORY FAILURE WITH HYPOXIA (2) Aspiration pneumonia Code(s): J69.0 - PNEUMONITIS DUE TO INHALATION OF FOOD AND VOMIT (3) Hyperkalemia Code(s): E87.5 - HYPERKALEMIA (4) Acute kidney injury superimposed on CKD Code(s): N17.9 - ACUTE KIDNEY FAILURE, UNSPECIFIED; N18.9 - CHRONIC KIDNEY DISEASE, UNSPECIFIED (5) ASHD (arteriosclerotic heart disease) Code(s): I25.10 - ATHSCL HEART DISEASE OF [place] CORONARY ARTERY W/O ANG PCTRS (6) CHF (congestive heart failure) Code(s): I50.9 - HEART FAILURE, UNSPECIFIED Qualifiers: Heart failure type: systolic Heart failure chronicity: chronic Qualified Code(s): I50.22 - Chronic systolic (congestive) heart failure (7) HTN (hypertension) Code(s): I10 - ESSENTIAL (PRIMARY) HYPERTENSION Qualifiers: Hypertension type: essential hypertension Qualified Code(s): I10 - Essential (primary) hypertension (8) Hyperlipidemia Code(s): E78.5 - HYPERLIPIDEMIA, UNSPECIFIED Qualifiers: Hyperlipidemia type: mixed hyperlipidemia Qualified Code(s): E78.2 - Mixed hyperlipidemia
[2018-12-06] MEDS: PROPOFOL 1,000,000 MCG/100 ML VIAL IVPB SCH (21:16)
[2018-12-06] MEDS: DONEPEZIL HCL 10 MG TABLET (FP) NGT SCH (21:16)
[2018-12-06] MEDS: CHLORHEXIDINE GLUCONATE 4% CLEANSER FOR DECOLONIZATION TP SCH (21:17)
[2018-12-07] MEDS: SODIUM BICARBONATE 8.4% 50 MEQ/50 ML VIAL IV SCH (03:45)
[2018-12-07] MEDS: INSULIN SLIDING SCALE (NOVOLOG) 1 VIAL SQ SCH ×4 (06:15→22:01)
[2018-12-07 06:52] LABS: HEMATOCRIT 29.3 % (35.4-49); HEMOGLOBIN 10.1 GM/dL (11.7-16.9); MCH 30.6 pg (25.7-33.7); MCHC 34.5 g/dl (32.0-35.9); MEAN CELL VOLUME 88.5 fl (80-96); MEAN PLT VOLUME 7.7 fl (7.5-11.1); PLATELET COUNT 144 K/MM3 (134-434); RBC 3.31 M/mm3 (4.00-5.60); RDW 14.4 % (11.9-15.9); WHITE BLOOD COUNT 6.3 K/mm3 (4.0-10.0)
[2018-12-07] MEDS: ALBUTEROL SO4 2.5/IPRATROPIUM 0.5 INH SOL 3 ML VIAL.NEB. NEB SCH ×2 (07:10→13:00)
[2018-12-07 07:13] LABS: ARTERIAL BLOOD GAS PO2 75.8 mmHg (80-105); ARTERIAL BLOOD GAS pH 7.35 (7.35-7.45)
[2018-12-07 07:14] LABS: ALLENS TEST POSITIVE; ARTERIAL BLD GAS O2 SATURATION 94.7 % (95-98); ARTERIAL BLOOD GAS BASE EXCESS -7.5 meq/l (-2-2)
[2018-12-07 07:22] LABS: BLOOD UREA NITROGEN 50.3 mg/dL (7-18); CREATININE 2.8 mg/dL (0.55-1.3); MAGNESIUM 2.1 mg/dL (1.8-2.4); PHOSPHOROUS 3.5 mg/dL (2.5-4.9); POTASSIUM 4.2 mmol/L (3.5-5.1)
--- NOTE | 2018-12-07 09:07 | PN ---
Physical Exam: SUBJECTIVE: Patient seen and examined at bed side in ICU , intubated sedated , no fever or chills over night , extubated by ICU after rounds. OBJECTIVE: Vital Signs Period Temp Pulse Resp BP Sys/Heredia Pulse Ox Last 24 Hr 97.2 F-99.3 F 70-100 18-65 125-160/49-70 98-100 GENERAL: The patient intubated sedated with OG tube and suction HEAD:NC/AT EYES: PERRL, ENT: intubated sedated with OG tube NECK: supple. LUNGS:decrease breath sounds at the bases HEART: Regular rate and rhythm, S1, S2 without murmur, rub or gallop. ABDOMEN: Obese , Soft, nontender, hypoactive BS EXTREMITIES: 2+ pulses, warm, well-perfused, +1 LLE edema. NEUROLOGICAL:intubated sedated Laboratory Results - last 24 hr 12/04/18 12/05/18 12/06/18 12:00 05:15 11:55 WBC RBC Hgb Hct MCV MCH MCHC RDW Plt Count MPV Anticoagulation Therapy No Result Required. Puncture Site Right radial ABG pH 7.29 L ABG pCO2 at Pt Temp 32.6 L ABG pO2 at Pt Temp 82.3 ABG HCO3 15.3 L ABG O2 Sat (Measured) 95.3 ABG O2 Content 16.1 ABG Base Excess -9.8 L Tony Test Positive O2 Delivery Device No Result Required. Oxygen Flow Rate Yes Vent Mode No Result Required. Vent Rate No Result Required. Mechanical Rate No Result Required. Pressure Support Vent No Result Required. Sodium Potassium Chloride Carbon Dioxide Anion Gap BUN Creatinine Est GFR (CKD-EPI)AfAm Est GFR (CKD-EPI)NonAf POC Glucometer Random Glucose Calcium Phosphorus Magnesium Urine Eosinophils None seen ALBERTO Screen Negative 12/06/18 12/06/18 12/07/18 17:22 21:25 05:20 WBC 6.3 RBC 3.31 L Hgb 10.1 L Hct 29.3 L MCV 88.5 MCH 30.6 MCHC 34.5 RDW 14.4 Plt Count 144 MPV 7.7 Anticoagulation Therapy Puncture Site ABG pH ABG pCO2 at Pt Temp ABG pO2 at Pt Temp ABG HCO3 ABG O2 Sat (Measured) ABG O2 Content ABG Base Excess Tony Test O2 Delivery Device Oxygen Flow Rate Vent Mode Vent Rate Mechanical Rate Pressure Support Vent Sodium Potassium Chloride Carbon Dioxide Anion Gap BUN Creatinine Est GFR (CKD-EPI)AfAm Est GFR (CKD-EPI)NonAf POC Glucometer 85 88 Random Glucose Calcium Phosphorus Magnesium Urine Eosinophils ALBERTO Screen 12/07/18 12/07/18 12/07/18 05:20 05:34 07:00 WBC RBC Hgb Hct MCV MCH MCHC RDW Plt Count MPV Anticoagulation Therapy No Result Required. Puncture Site Right radial ABG pH 7.35 ABG pCO2 at Pt Temp 31.0 L ABG pO2 at Pt Temp 75.8 L ABG HCO3 16.7 L ABG O2 Sat (Measured) 94.7 L ABG O2 Content 13.6 L ABG Base Excess -7.5 L Tony Test Positive O2 Delivery Device No Result Required. Oxygen Flow Rate Yes Vent Mode No Result Required. Vent Rate No Result Required. Mechanical Rate No Result Required. Pressure Support Vent No Result Required. Sodium 144 Potassium 4.2 Chloride 115 H Carbon Dioxide 20 L Anion Gap 10 BUN 50.3 H Creatinine 2.8 H Est GFR (CKD-EPI)AfAm 22.33 Est GFR (CKD-EPI)NonAf 19.27 POC Glucometer 102 Random Glucose 112 H Calcium 8.0 L Phosphorus 3.5 Magnesium 2.1 Urine Eosinophils ALBERTO Screen Active Medications Generic Name Dose Route Start Last Admin Trade Name Mendezq PRN Reason Stop Dose Admin Albuterol/Ipratropium 1 amp 12/07/18 06:00 Duoneb - NEB Q6H IKER Aspirin 81 mg 12/03/18 10:00 12/06/18 09:24 Asa - NGT Not Given DAILY IKER Chlorhexidine Gluconate 1 applic 12/02/18 22:00 12/06/18 21:17 Hibiclens For Decolonization - TP 1 applic HS IKER Administration Donepezil HCl 10 mg 12/03/18 22:00 12/06/18 21:16 Aricept - NGT Not Given HS IKER Heparin Sodium (Porcine) 5,000 unit 12/02/18 22:00 12/06/18 21:16 Heparin - SQ 5,000 unit BID IKER Administration Propofol 1,000,000 mcg in 100 mls @ 2.613 mls/hr 12/02/18 18:45 12/06/18 21: 16 Diprivan - IVPB 20 mcg/kg/min TITR IKER 10.451 mls/hr Administration Protocol 5 MCG/KG/MIN Ceftriaxone Sodium 1 gm/ 50 mls @ 200 mls/hr 12/05/18 10:00 12/06/18 09:25 Dextrose IVPB 200 mls/hr DAILY IKER Administration Protocol Metronidazole 500 mg in 100 mls @ 100 mls/hr 12/05/18 10:00 12/07/18 02:35 Flagyl 500mg Premixed Ivpb - IVPB 100 mls/hr Q8H-IV IKER Administration Sodium Chloride 1,000 mls @ 65 mls/hr 12/06/18 13:36 12/06/18 14:15 1/2 Normal Saline IV 65 mls/hr ASDIR IKER Administration Insulin Aspart 1 vial 12/03/18 07:00 12/07/18 06:15 Novolog Vial Sliding Scale - SQ Not Given ACHS IKER Protocol Memantine 10 mg 12/02/18 22:00 12/06/18 21:17 Namenda - GT Not Given BID IKER Metoprolol Succinate 25 mg 12/03/18 10:00 12/06/18 09:25 Toprol Xl - PO Not Given DAILY IKER Mupirocin 1 applic 12/02/18 22:00 12/06/18 21:16 Bactroban Ointment (For Decolonization) - NS 12/07/18 21:59 1 applic BID IKER Administration Pantoprazole Sodium 40 mg 12/07/18 10:00 Protonix Iv IVPUSH BID IKER CBC, BMP 12/07/18 05:20 12/07/18 05:20 ASSESSMENT/PLAN: Mariano Camacho is an 88 y/o male with a PMHx of HTN, HLD, CAD (s/p stent 2010) , LBBB, Alzheimer's disease, CKD, PVD, OA, 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 # LBBB , not changed from 2018 * continue aspirin, continue home metoprolol 25mg daily * last echo on 10/20/17 showing EF of 35% * repeat echo showing EF 40-45% * daily weight , I&O # Acute hypoxic hypercapnic respiratory failure * intubated, sedated on propfol @ 20 mc/hr * Vent settings rate 18, TV 425, FiO2 35, PEEP 8 * ABG showing respiratory acidosis with non anion gap metabolic acidosis, respiratory component of CO2 retention, metabolic component of likely hyperchloremia from dehydration and chronic renal failure * maintain o2 sat above 92% * CXR with RUL Consolidation * duonebs q6h prn # KATHY in term of sepsis vs AIN or ATN , improving * CR 1.9 on admission, improving , continue fluids * renal U/S did not show any hydronephrosis or other acute pathology #N/V on admission * given Zofran and Pepcid in ED, Protonix 40 daily * Abdominal CT showing s/p gastrectomy, 1.5cm hypodense nodule in the pancreatic tail, epigastric hernia with nondilated small bowel loop, small umbilical hernia with a small nondilated small bowel loop, bilateral inguinal hernias containing only fat, colonic diverticulosis, nonobstructing renal calculi * vomiting causes may include transient obstruction from hernias, food poisoning, viral gastritis * HOB elevated, aspiration precautions # severe sepsis in the setting of aspiration pneumonitis/pneumonia * cannot rule out community acquired pneumonia * Dr. Patel consulted, recs appreciated * 5th day of abx, ceftriaxone and flagyl continue up to 7 days per ID * cx negative , isolation precautions, hx of MRSA * aspiration precautions # DM * BGM, ISS Alzheimer's disease Hx of stomach CA (MALT) # dementia on memantine and donepezil #F/E/N * 1/2 NS @ 65cc/hr * continue to monitor electrolytes and replete as necessary * NPO #PROPHYLAXIS * heparin SQ BID , SCDS * Protonix #CODE * full code #DISPO * continue to monitor in ICU Visit type - Emergency Visit Emergency Visit: Yes ED Registration Date: 12/02/18 Care time: The patient presented to the Emergency Department on the above date and was hospitalized for further evaluation of their emergent condition. - New Patient This patient is new to me today: No - Critical Care Critical Care patient: Yes Total Critical Care Time (in minutes): 45 Critical Care Statement: The care of this patient involved high complexity decision making to prevent further life threatening deterioration of the patient 's condition and/or to evaluate & treat vital organ system(s) failure or risk of failure. ATTENDING PHYSICIAN STATEMENT I saw and evaluated the patient. I reviewed the resident's note and discussed the case with the resident. I agree with the resident's findings and plan as documented. SUBJECTIVE: OBJECTIVE: ASSESSMENT AND PLAN:
[2018-12-07] MEDS ORDERED: cefTRIAXone SODIUM 1 GM VIAL ONE (09:40)
[2018-12-07] MEDS ORDERED: DEXTROSE 5%-WATER - 50 ML IVPB ONE (09:40)
[2018-12-07] MEDS: PANTOPRAZOLE SODIUM 40 MG VIAL IVPUSH SCH ×2 (09:47→21:53)
[2018-12-07] MEDS: HEPARIN NA (PORCINE) 5,000 UNITS/ML 1ML VIAL SQ SCH ×2 (09:47→21:52)
[2018-12-07] MEDS: CEFTRIAXONE 1 GM in DEXTROSE 5%-WATER - 50 ML IVPB SCH (09:47)
[2018-12-07] MEDS: MUPIROCIN 2% TOPICAL OINTMENT FOR DECOLONIZATION NS SCH (11:11)
[2018-12-07] MEDS: ASPIRIN 81 MG CHEWABLE TABLETS NGT SCH (12:09)
[2018-12-07] MEDS: metoPROLOL SUCCINATE 25 MG TAB.SR.24H (FP) PO SCH (12:09)
[2018-12-07] MEDS: MEMANTINE HCL 10 MG TABLET (FP) GT SCH ×2 (12:09→21:53)
--- NOTE | 2018-12-07 12:20 | PN ---
Progress Note (short form) - Note Progress Note: extubated this am NAD Vital Signs Period Temp Pulse Resp BP Sys/Heredia Pulse Ox Last 24 Hr 97.2 F-99.3 F 70-89 18-27 125-165/49-70 97-100 cor-rrr lungs decreased bs at bases abd soft,nt ext bilateral pedal edema CBC, BMP 12/07/18 05:20 12/07/18 05:20 Microbiology 12/02/18 18:30 Blood - Peripheral Venous Blood Culture - Preliminary NO GROWTH OBTAINED AFTER 96 HOURS, INCUBATION TO CONTINUE FOR 1 DAYS. 12/02/18 18:31 Blood - Peripheral Venous Blood Culture - Preliminary NO GROWTH OBTAINED AFTER 96 HOURS, INCUBATION TO CONTINUE FOR 1 DAYS. 12/02/18 22:50 Sputum - Endotrachea Suction/Ventilator Gram Stain - Final 12/02/18 22:50 Sputum - Endotrachea Suction/Ventilator Sputum Culture - Final NORMAL RESPIRATORY ALEYAD 12/03/18 16:45 Urine - Urine Verdugo Urine Culture - Final NO GROWTH OBTAINED Current Medications Albuterol/Ipratropium (Duoneb -) 1 amp NEB Q6H IKER Last Admin: 12/07/18 07:10 Dose: 1 amp Aspirin (Asa -) 81 mg NGT DAILY IKER Last Admin: 12/07/18 12:09 Dose: Not Given Chlorhexidine Gluconate (Hibiclens For Decolonization -) 1 applic TP HS IKER Last Admin: 12/06/18 21:17 Dose: 1 applic Donepezil HCl (Aricept -) 10 mg NGT HS IKER Last Admin: 12/06/18 21:16 Dose: Not Given Heparin Sodium (Porcine) (Heparin -) 5,000 unit SQ BID IKER Last Admin: 12/07/18 09:47 Dose: 5,000 unit Propofol (Diprivan -) 1,000,000 mcg in 100 mls @ 2.613 mls/hr IVPB TITR IKER; Protocol Last Admin: 12/06/18 21:16 Dose: 20 mcg/kg/min, 10.451 mls/hr Ceftriaxone Sodium 1 gm/ (Dextrose) 50 mls @ 200 mls/hr IVPB DAILY IKER; Protocol Last Admin: 12/07/18 09:47 Dose: 200 mls/hr Metronidazole (Flagyl 500mg Premixed Ivpb -) 500 mg in 100 mls @ 100 mls/hr IVPB Q8H-IV [facility] Last Admin: 12/07/18 09:46 Dose: 100 mls/hr Sodium Chloride (1/2 Normal Saline) 1,000 mls @ 65 mls/hr IV ASDIR [facility] Last Admin: 12/06/18 14:15 Dose: 65 mls/hr Insulin Aspart (Novolog Vial Sliding Scale -) 1 vial SQ ACHS [facility]; Protocol Last Admin: 12/07/18 11:13 Dose: Not Given Memantine (Namenda -) 10 mg GT BID [facility] Last Admin: 12/07/18 12:09 Dose: Not Given Metoprolol Succinate (Toprol Xl -) 25 mg PO DAILY [facility] Last Admin: 12/07/18 12:09 Dose: Not Given Mupirocin (Bactroban Ointment (For Decolonization) -) 1 applic NS BID [facility] Stop: 12/07/18 21:59 Last Admin: 12/07/18 11:11 Dose: 1 applic Pantoprazole Sodium (Protonix Iv) 40 mg IVPUSH BID [facility] Last Admin: 12/07/18 09:47 Dose: 40 mg a/p resp failure aspiration pneumonia dwain history of MRSA day #5 antibiotics continue rocephin/flagyl complete total 7 days of antibiotics please call back if needed Problem List - Problems (1) Acute respiratory failure Code(s): J96.00 - ACUTE RESPIRATORY FAILURE, UNSP W HYPOXIA OR HYPERCAPNIA (2) Aspiration pneumonia Code(s): J69.0 - PNEUMONITIS DUE TO INHALATION OF FOOD AND VOMIT (3) Vomiting Code(s): R11.10 - VOMITING, UNSPECIFIED Qualifiers: Vomiting type: unspecified Vomiting Intractability: unspecified Nausea presence: unspecified Qualified Code(s): R11.10 - Vomiting, unspecified (4) MRSA (methicillin resistant Staphylococcus aureus) colonization Code(s): Z22.322 - CARRIER OR SUSPECTED CARRIER OF METHICILLIN RESIS STAPH (5) Acute kidney injury superimposed on CKD Code(s): N17.9 - ACUTE KIDNEY FAILURE, UNSPECIFIED; N18.9 - CHRONIC KIDNEY DISEASE, UNSPECIFIED
--- NOTE | 2018-12-07 12:54 | PN ---
Progress Note, Physician History of Present Illness: Pt seen and examined at bedside. He is awake and on a weaning trial. - Current Medication List Current Medications: Active Medications Albuterol/Ipratropium (Duoneb -) 1 amp NEB Q6H IKER Last Admin: 12/07/18 07:10 Dose: 1 amp Aspirin (Asa -) 81 mg NGT DAILY IKER Last Admin: 12/07/18 12:09 Dose: Not Given Chlorhexidine Gluconate (Hibiclens For Decolonization -) 1 applic TP HS IKER Last Admin: 12/06/18 21:17 Dose: 1 applic Donepezil HCl (Aricept -) 10 mg NGT HS IKER Last Admin: 12/06/18 21:16 Dose: Not Given Heparin Sodium (Porcine) (Heparin -) 5,000 unit SQ BID IKER Last Admin: 12/07/18 09:47 Dose: 5,000 unit Propofol (Diprivan -) 1,000,000 mcg in 100 mls @ 2.613 mls/hr IVPB TITR IKER; Protocol Last Admin: 12/06/18 21:16 Dose: 20 mcg/kg/min, 10.451 mls/hr Ceftriaxone Sodium 1 gm/ (Dextrose) 50 mls @ 200 mls/hr IVPB DAILY IKER; Protocol Last Admin: 12/07/18 09:47 Dose: 200 mls/hr Metronidazole (Flagyl 500mg Premixed Ivpb -) 500 mg in 100 mls @ 100 mls/hr IVPB Q8H-IV IKER Last Admin: 12/07/18 09:46 Dose: 100 mls/hr Sodium Chloride (1/2 Normal Saline) 1,000 mls @ 65 mls/hr IV ASDIR IKER Last Admin: 12/06/18 14:15 Dose: 65 mls/hr Insulin Aspart (Novolog Vial Sliding Scale -) 1 vial SQ ACHS IKER; Protocol Last Admin: 12/07/18 11:13 Dose: Not Given Memantine (Namenda -) 10 mg GT BID IKER Last Admin: 12/07/18 12:09 Dose: Not Given Metoprolol Succinate (Toprol Xl -) 25 mg PO DAILY IKER Last Admin: 12/07/18 12:09 Dose: Not Given Mupirocin (Bactroban Ointment (For Decolonization) -) 1 applic NS BID IKER Stop: 12/07/18 21:59 Last Admin: 12/07/18 11:11 Dose: 1 applic Pantoprazole Sodium (Protonix Iv) 40 mg IVPUSH BID IKER Last Admin: 12/07/18 09:47 Dose: 40 mg - Objective Vital Signs: Vital Signs Temperature 97.5 F L 12/07/18 10:00 Pulse Rate 84 12/07/18 12:00 Respiratory Rate 29 H 12/07/18 12:00 Blood Pressure 148/59 L 12/07/18 12:00 O2 Sat by Pulse Oximetry (%) 97 12/07/18 11:25 Constitutional: Yes: Calm Eyes: Yes: Conjunctiva Clear HENT: Yes: Atraumatic Neck: Yes: Supple Cardiovascular: Yes: S1, S2 Respiratory: Yes: Mechanically Ventilated Gastrointestinal: Yes: Soft, Abdomen, Obese Genitourinary: Yes: Verdugo Present Musculoskeletal: Yes: WNL Edema: Yes Edema: LLE: Trace, RLE: Trace Integumentary: Yes: WNL Neurological: Yes: Other (awake) Labs: CBC, BMP 12/07/18 05:20 12/07/18 05:20 INR, PTT INR 1.07 (0.83-1.09) 12/03/18 05:40 Problem List - Problems (1) Acute kidney injury superimposed on CKD Code(s): N17.9 - ACUTE KIDNEY FAILURE, UNSPECIFIED; N18.9 - CHRONIC KIDNEY DISEASE, UNSPECIFIED (2) Aspiration pneumonia Code(s): J69.0 - PNEUMONITIS DUE TO INHALATION OF FOOD AND VOMIT (3) Vomiting Code(s): R11.10 - VOMITING, UNSPECIFIED Qualifiers: Vomiting type: unspecified Vomiting Intractability: unspecified Nausea presence: unspecified Qualified Code(s): R11.10 - Vomiting, unspecified Assessment/Plan Current Medications Generic Name Dose Route Start Last Admin Trade Name Freq PRN Reason Stop Dose Admin Albuterol/Ipratropium 1 amp 12/07/18 06:00 12/07/18 07:10 Duoneb - NEB 1 amp Q6H IKER Administration Aspirin 81 mg 12/03/18 10:00 12/07/18 12:09 Asa - NGT Not Given DAILY [facility] Chlorhexidine Gluconate 1 applic 12/02/18 22:00 12/06/18 21:17 Hibiclens For Decolonization - TP 1 applic HS IKER Administration Donepezil HCl 10 mg 12/03/18 22:00 12/06/18 21:16 Aricept - NGT Not Given HS IKER Heparin Sodium (Porcine) 5,000 unit 12/02/18 22:00 12/07/18 09:47 Heparin - SQ 5,000 unit BID IKER Administration Propofol 1,000,000 mcg in 100 mls @ 2.613 mls/hr 12/02/18 18:45 12/06/18 21: 16 Diprivan - IVPB 20 mcg/kg/min TITR IKER 10.451 mls/hr Administration Protocol 5 MCG/KG/MIN Ceftriaxone Sodium 1 gm/ 50 mls @ 200 mls/hr 12/05/18 10:00 12/07/18 09:47 Dextrose IVPB 200 mls/hr DAILY IKER Administration Protocol Metronidazole 500 mg in 100 mls @ 100 mls/hr 12/05/18 10:00 12/07/18 09:46 Flagyl 500mg Premixed Ivpb - IVPB 100 mls/hr Q8H-IV IKER Administration Sodium Chloride 1,000 mls @ 65 mls/hr 12/06/18 13:36 12/06/18 14:15 1/2 Normal Saline IV 65 mls/hr ASDIR IKER Administration Insulin Aspart 1 vial 12/03/18 07:00 12/07/18 11:13 Novolog Vial Sliding Scale - SQ Not Given ACHS IKER Protocol Memantine 10 mg 12/02/18 22:00 12/07/18 12:09 Namenda - GT Not Given BID IKER Metoprolol Succinate 25 mg 12/03/18 10:00 12/07/18 12:09 Toprol Xl - PO Not Given DAILY IKER Mupirocin 1 applic 12/02/18 22:00 12/07/18 11:11 Bactroban Ointment (For Decolonization) - NS 12/07/18 21:59 1 applic BID IKER Administration Pantoprazole Sodium 40 mg 12/07/18 10:00 12/07/18 09:47 Protonix Iv IVPUSH 40 mg BID IKER Administration Impression 1. KATHY 2. acute resp failure 3. HTN 4. gastric cancer 5. dementia 6. HLD 7. CAD 8. PVD 9. PNA 10. sepsis 11. hyperkalemia Plan - renal function continues to improve - decrease fluids further - pt on weaning trial - monitor urine output - vent support - KATHY likely from sepsis
--- NOTE | 2018-12-07 14:02 | CONSULT ---
Consultation: REQUESTING PROVIDER: CONSULT REQUEST: We have been asked to medically evaluate this patient for ( specify). HISTORY OF PRESENT ILLNESS: REVIEW OF SYSTEMS: CONSTITUTIONAL: Absent: fever, chills, diaphoresis, generalized weakness, malaise, loss of appetite, weight change HEENT: Absent: rhinorrhea, nasal congestion, throat pain, throat swelling, difficulty swallowing, mouth swelling, ear pain, eye pain, visual changes CARDIOVASCULAR: Absent: chest pain, syncope, palpitations, irregular heart rate, lightheadedness , peripheral edema RESPIRATORY: Absent: cough, shortness of breath, dyspnea with exertion, orthopnea, wheezing, stridor, hemoptysis GASTROINTESTINAL: Absent: abdominal pain, abdominal distension, nausea, vomiting, diarrhea, constipation, melena, hematochezia GENITOURINARY: Absent: dysuria, frequency, urgency, hesitancy, hematuria, flank pain, genital pain MUSCULOSKELETAL: Absent: myalgia, arthralgia, joint swelling, back pain, neck pain SKIN: Absent: rash, itching, pallor HEMATOLOGIC/IMMUNOLOGIC: Absent: easy bleeding, easy bruising, lymphadenopathy, frequent infections ENDOCRINE: Absent: unexplained weight gain, unexplained weight loss, heat intolerance, cold intolerance NEUROLOGIC: Absent: headache, focal weakness or paresthesias, dizziness, unsteady gait, seizure, mental status changes, bladder or bowel incontinence PSYCHIATRIC: Absent: anxiety, depression, suicidal or homicidal ideation, hallucinations. PHYSICAL EXAMINATION Vital Signs - 24 hr 12/06/18 12/06/18 12/06/18 16:00 16:23 18:00 Temperature 97.6 F Pulse Rate 71 70 Respiratory 19 21 H 21 H Rate Blood Pressure 131/50 L 125/49 L O2 Sat by Pulse Oximetry (%) 12/06/18 12/06/18 12/06/18 20:00 20:12 23:00 Temperature Pulse Rate 70 Respiratory 22 H 18 22 H Rate Blood Pressure 127/51 L O2 Sat by Pulse 100 Oximetry (%) 12/06/18 12/07/18 12/07/18 23:23 00:00 02:00 Temperature 97.2 F L 98.9 F Pulse Rate 70 73 74 Respiratory 20 18 21 H Rate Blood Pressure 135/54 L 137/55 L 145/59 L O2 Sat by Pulse Oximetry (%) 07/31/19 07/31/19 07/31/19 02:11 02:14 03:01 Temperature Pulse Rate 73 72 Respiratory 22 H 18 Rate Blood Pressure 146/56 L O2 Sat by Pulse 98 Oximetry (%) 12/07/18 12/07/18 12/07/18 04:00 04:08 04:38 Temperature Pulse Rate 71 71 Respiratory 18 18 19 Rate Blood Pressure 135/53 L 135/53 L O2 Sat by Pulse Oximetry (%) 12/07/18 12/07/18 12/07/18 06:00 07:12 08:29 Temperature 99 F Pulse Rate 86 73 Respiratory 19 22 H 24 H Rate Blood Pressure 160/70 O2 Sat by Pulse 100 Oximetry (%) 12/07/18 12/07/18 12/07/18 08:34 10:00 11:25 Temperature 99.3 F 97.5 F L Pulse Rate 73 89 77 Respiratory 21 H 27 H Rate Blood Pressure 150/61 165/69 O2 Sat by Pulse 100 97 Oximetry (%) 12/07/18 12:00 Temperature Pulse Rate 84 Respiratory 29 H Rate Blood Pressure 148/59 L O2 Sat by Pulse Oximetry (%) Patient examined post extubation Laboratory Results - last 24 hr 12/04/18 12/05/18 12/06/18 12:00 05:15 17:22 WBC RBC Hgb Hct MCV MCH MCHC RDW Plt Count MPV Anticoagulation Therapy Puncture Site ABG pH ABG pCO2 at Pt Temp ABG pO2 at Pt Temp ABG HCO3 ABG O2 Sat (Measured) ABG O2 Content ABG Base Excess Tony Test O2 Delivery Device Oxygen Flow Rate Vent Mode Vent Rate Mechanical Rate Pressure Support Vent Sodium Potassium Chloride Carbon Dioxide Anion Gap BUN Creatinine Est GFR (CKD-EPI)AfAm Est GFR (CKD-EPI)NonAf POC Glucometer 85 Random Glucose Calcium Phosphorus Magnesium Urine Eosinophils None seen ALBERTO Screen Negative 12/06/18 12/07/18 12/07/18 21:25 05:20 05:20 WBC 6.3 RBC 3.31 L Hgb 10.1 L Hct 29.3 L MCV 88.5 MCH 30.6 MCHC 34.5 RDW 14.4 Plt Count 144 MPV 7.7 Anticoagulation Therapy Puncture Site ABG pH ABG pCO2 at Pt Temp ABG pO2 at Pt Temp ABG HCO3 ABG O2 Sat (Measured) ABG O2 Content ABG Base Excess Tony Test O2 Delivery Device Oxygen Flow Rate Vent Mode Vent Rate Mechanical Rate Pressure Support Vent Sodium 144 Potassium 4.2 Chloride 115 H Carbon Dioxide 20 L Anion Gap 10 BUN 50.3 H Creatinine 2.8 H Est GFR (CKD-EPI)AfAm 22.33 Est GFR (CKD-EPI)NonAf 19.27 POC Glucometer 88 Random Glucose 112 H Calcium 8.0 L Phosphorus 3.5 Magnesium 2.1 Urine Eosinophils ALBERTO Screen 12/07/18 12/07/18 12/07/18 05:34 07:00 11:07 WBC RBC Hgb Hct MCV MCH MCHC RDW Plt Count MPV Anticoagulation Therapy No Result Required. Puncture Site Right radial ABG pH 7.35 ABG pCO2 at Pt Temp 31.0 L ABG pO2 at Pt Temp 75.8 L ABG HCO3 16.7 L ABG O2 Sat (Measured) 94.7 L ABG O2 Content 13.6 L ABG Base Excess -7.5 L Tony Test Positive O2 Delivery Device No Result Required. Oxygen Flow Rate Yes Vent Mode No Result Required. Vent Rate No Result Required. Mechanical Rate No Result Required. Pressure Support Vent No Result Required. Sodium Potassium Chloride Carbon Dioxide Anion Gap BUN Creatinine Est GFR (CKD-EPI)AfAm Est GFR (CKD-EPI)NonAf POC Glucometer 102 125 Random Glucose Calcium Phosphorus Magnesium Urine Eosinophils ALBERTO Screen Active Medications Generic Name Dose Route Start Last Admin Trade Name Freq PRN Reason Stop Dose Admin Albuterol/Ipratropium 1 amp 12/07/18 06:00 12/07/18 07:10 Duoneb - NEB 1 amp Q6H IKER Administration Aspirin 81 mg 12/03/18 10:00 12/07/18 12:09 Asa - NGT Not Given DAILY IKER Chlorhexidine Gluconate 1 applic 12/02/18 22:00 12/06/18 21:17 Hibiclens For Decolonization - TP 1 applic HS IKER Administration Donepezil HCl 10 mg 12/03/18 22:00 12/06/18 21:16 Aricept - NGT Not Given HS IKER Heparin Sodium (Porcine) 5,000 unit 12/02/18 22:00 12/07/18 09:47 Heparin - SQ 5,000 unit BID IKER Administration Propofol 1,000,000 mcg in 100 mls @ 2.613 mls/hr 12/02/18 18:45 12/06/18 21: 16 Diprivan - IVPB 20 mcg/kg/min TITR IKER 10.451 mls/hr Administration Protocol 5 MCG/KG/MIN Ceftriaxone Sodium 1 gm/ 50 mls @ 200 mls/hr 12/05/18 10:00 12/07/18 09:47 Dextrose IVPB 200 mls/hr DAILY IKER Administration Protocol Metronidazole 500 mg in 100 mls @ 100 mls/hr 12/05/18 10:00 12/07/18 09:46 Flagyl 500mg Premixed Ivpb - IVPB 100 mls/hr Q8H-IV IKER Administration Sodium Chloride 1,000 mls @ 65 mls/hr 12/06/18 13:36 12/06/18 14:15 1/2 Normal Saline IV 65 mls/hr ASDIR IKER Administration Insulin Aspart 1 vial 12/03/18 07:00 12/07/18 11:13 Novolog Vial Sliding Scale - SQ Not Given ACHS IKER Protocol Memantine 10 mg 12/02/18 22:00 12/07/18 12:09 Namenda - GT Not Given BID IKER Metoprolol Succinate 25 mg 12/03/18 10:00 12/07/18 12:09 Toprol Xl - PO Not Given DAILY IKER Mupirocin 1 applic 12/02/18 22:00 12/07/18 11:11 Bactroban Ointment (For Decolonization) - NS 12/07/18 21:59 1 applic BID IKER Administration Pantoprazole Sodium 40 mg 12/07/18 10:00 12/07/18 09:47 Protonix Iv IVPUSH 40 mg BID IKER Administration ASSESSMENT/PLAN: Dispo: We will continue to follow the patient. Thank you for this consultative opportunity. ATTENDING PHYSICIAN STATEMENT I saw and evaluated the patient. I reviewed the resident's note and discussed the case with the resident. I agree with the resident's findings and plan as documented. SUBJECTIVE: OBJECTIVE: ASSESSMENT AND PLAN:
--- NOTE | 2018-12-07 14:08 | PN ---
Physical Exam: SUBJECTIVE: Patient seen and examined post extubation. @ bedside. Alert, responds to command, no active medical complaints. OBJECTIVE: Vital Signs Period Temp Pulse Resp BP Sys/Heredia Pulse Ox Last 24 Hr 97.2 F-99.3 F 70-89 18-29 125-165/49-70 97-100 Patient examined post extubation General: Alert, follows commands, venti mask Respiratory: scattered rhonchi, breathing comfortably on venti mask CV: S1, S2 no M/R/G Abdomen: soft, non-tender, (+) bowel sounds Extremity: B/L pitting edema w/some dependent component Laboratory Results - last 24 hr 12/04/18 12/05/18 12/06/18 12:00 05:15 17:22 WBC RBC Hgb Hct MCV MCH MCHC RDW Plt Count MPV Anticoagulation Therapy Puncture Site ABG pH ABG pCO2 at Pt Temp ABG pO2 at Pt Temp ABG HCO3 ABG O2 Sat (Measured) ABG O2 Content ABG Base Excess Tony Test O2 Delivery Device Oxygen Flow Rate Vent Mode Vent Rate Mechanical Rate Pressure Support Vent Sodium Potassium Chloride Carbon Dioxide Anion Gap BUN Creatinine Est GFR (CKD-EPI)AfAm Est GFR (CKD-EPI)NonAf POC Glucometer 85 Random Glucose Calcium Phosphorus Magnesium Urine Eosinophils None seen ALBERTO Screen Negative 12/06/18 12/07/18 12/07/18 21:25 05:20 05:20 WBC 6.3 RBC 3.31 L Hgb 10.1 L Hct 29.3 L MCV 88.5 MCH 30.6 MCHC 34.5 RDW 14.4 Plt Count 144 MPV 7.7 Anticoagulation Therapy Puncture Site ABG pH ABG pCO2 at Pt Temp ABG pO2 at Pt Temp ABG HCO3 ABG O2 Sat (Measured) ABG O2 Content ABG Base Excess Tony Test O2 Delivery Device Oxygen Flow Rate Vent Mode Vent Rate Mechanical Rate Pressure Support Vent Sodium 144 Potassium 4.2 Chloride 115 H Carbon Dioxide 20 L Anion Gap 10 BUN 50.3 H Creatinine 2.8 H Est GFR (CKD-EPI)AfAm 22.33 Est GFR (CKD-EPI)NonAf 19.27 POC Glucometer 88 Random Glucose 112 H Calcium 8.0 L Phosphorus 3.5 Magnesium 2.1 Urine Eosinophils ALBERTO Screen 12/07/18 12/07/18 12/07/18 05:34 07:00 11:07 WBC RBC Hgb Hct MCV MCH MCHC RDW Plt Count MPV Anticoagulation Therapy No Result Required. Puncture Site Right radial ABG pH 7.35 ABG pCO2 at Pt Temp 31.0 L ABG pO2 at Pt Temp 75.8 L ABG HCO3 16.7 L ABG O2 Sat (Measured) 94.7 L ABG O2 Content 13.6 L ABG Base Excess -7.5 L Tony Test Positive O2 Delivery Device No Result Required. Oxygen Flow Rate Yes Vent Mode No Result Required. Vent Rate No Result Required. Mechanical Rate No Result Required. Pressure Support Vent No Result Required. Sodium Potassium Chloride Carbon Dioxide Anion Gap BUN Creatinine Est GFR (CKD-EPI)AfAm Est GFR (CKD-EPI)NonAf POC Glucometer 102 125 Random Glucose Calcium Phosphorus Magnesium Urine Eosinophils ALBERTO Screen Active Medications Generic Name Dose Route Start Last Admin Trade Name Freq PRN Reason Stop Dose Admin Albuterol/Ipratropium 1 amp 12/07/18 06:00 12/07/18 07:10 Duoneb - NEB 1 amp Q6H IKER Administration Aspirin 81 mg 12/03/18 10:00 12/07/18 12:09 Asa - NGT Not Given DAILY IKER Chlorhexidine Gluconate 1 applic 12/02/18 22:00 12/06/18 21:17 Hibiclens For Decolonization - TP 1 applic HS IKER Administration Donepezil HCl 10 mg 12/03/18 22:00 12/06/18 21:16 Aricept - NGT Not Given HS IKER Heparin Sodium (Porcine) 5,000 unit 12/02/18 22:00 12/07/18 09:47 Heparin - SQ 5,000 unit BID IKER Administration Propofol 1,000,000 mcg in 100 mls @ 2.613 mls/hr 12/02/18 18:45 12/06/18 21: 16 Diprivan - IVPB 20 mcg/kg/min TITR IKER 10.451 mls/hr Administration Protocol 5 MCG/KG/MIN Ceftriaxone Sodium 1 gm/ 50 mls @ 200 mls/hr 12/05/18 10:00 12/07/18 09:47 Dextrose IVPB 200 mls/hr DAILY IKER Administration Protocol Metronidazole 500 mg in 100 mls @ 100 mls/hr 12/05/18 10:00 12/07/18 09:46 Flagyl 500mg Premixed Ivpb - IVPB 100 mls/hr Q8H-IV IKER Administration Sodium Chloride 1,000 mls @ 65 mls/hr 12/06/18 13:36 12/06/18 14:15 1/2 Normal Saline IV 65 mls/hr ASDIR IKER Administration Insulin Aspart 1 vial 12/03/18 07:00 12/07/18 11:13 Novolog Vial Sliding Scale - SQ Not Given ACHS ON LICENSE OF [facility] Protocol Memantine 10 mg 12/02/18 22:00 12/07/18 12:09 Namenda - GT Not Given BID IKER Metoprolol Succinate 25 mg 12/03/18 10:00 12/07/18 12:09 Toprol Xl - PO Not Given DAILY IKER Mupirocin 1 applic 12/02/18 22:00 12/07/18 11:11 Bactroban Ointment (For Decolonization) - NS 12/07/18 21:59 1 applic BID IKER Administration Pantoprazole Sodium 40 mg 12/07/18 10:00 12/07/18 09:47 Protonix Iv IVPUSH 40 mg BID IKER Administration ASSESSMENT/PLAN: 88 y/o male with PMHx of HTN, HLD, CAD (s/p stent 2010), LBBB, Alzheimer's disease, CKD, PVD, OA, 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 Hypoxic Hypercapneic Respiratory Failure 2/2 aspiration with ARDS Possible severe sepsis HTN HLD CAD Alzheimer's disease Hx of stomach CA (MALT) NEUROLOGIC - s/p extubation today - awake, alert, follows simple commands - continue home donepezil and memantine CARDIOLOGY - EKG showing LBBB, which is unchanged from 2018 - VSS (tachycardia from yesterday 12/06 resolved s/p Lopressor 5mg x1 with good effect) - continue aspirin - continue home metoprolol 25mg daily - last echo on 10/20/17 showing EF of 35% - repeat echo showing EF 40-45% - I+Os RESPIRATORY - extubated today (12/07) - Post extubation ABG improved since yesterday 7.31/35/75.8/16.7 - ABG (12/06) showing respiratory acidosis with non anion gap metabolic acidosis , respiratory component of CO2 retention, metabolic component of likely hyperchloremia from dehydration and chronic renal failure - repeat ABG mildly improved, still with component of respiratory acidosis and retention of CO2 - keep SpO2 above 92% - original CXR did not show infiltrate - subsequent CXR show endotracheal tube placement and infiltrate in the R upper and lower lobes, likely from aspiration - No interval change on CXR today (12/07) - continue to monitor CXR for development of pneumonitis/pneumonia - duonebs q6h prn RENAL - CRE 1.9 on admission - elevated to max of 4.9, today 2.8, likely KATHY, improving - continue fluids - renal U/S did not show any hydronephrosis or other acute pathology - likely KATHY - continue low HCO3 at 19, 2 doses of sodium bicarbonate, continue to monitor GASTROINTESTINAL - given Zofran and Pepcid in ED - one dose Protonix now - Protonix 40mg daily - Abdominal CT showing s/p gastrectomy, 1.5cm hypodense nodule in the pancreatic tail, epigastric hernia with nondilated small bowel loop, small umbilical hernia with a small nondilated small bowel loop, bilateral inguinal hernias containing only fat, colonic diverticulosis, nonobstructing renal calculi - vomiting causes may include transient obstruction from hernias, food poisoning , viral gastritis - HOB elevated, aspiration precautions GENITOURINARY - gan in - no acute issues INFECTIOUS DISEASE - qSOFA of 2 for altered mental status and elevated respiratory rate, high risk of in-hospital mortality, admitted to ICU - severe sepsis in the setting of aspiration pneumonitis/pneumonia - cannot rule out community acquired pneumonia - Dr. Patel consulted, recs appreciated - ceftriaxone and flagyl day 4 - sputum culture showing no growth - blood cultures showing no growth - urine cultures with no growth - isolation precautions, hx of MRSA ENDOCRINE - elevated glucose on current and prior admissions - HgA1c 7.3 - BGM - ISS HEMATOLOGY - WBC count resolved - continue to monitor counts MUSCULOSKELETAL - no acute issues PSYCHIATRY - no acute issues F/E/N - 05/11 NS @65cc/hr - continue to monitor electrolytes and replete as necessary - NPO LINES - R midline catheter inserted 12/04 PROPHYLAXIS - heparin 5000 units subq bid - Protonix - SCDs CODE - full code DISPO - continue to monitor in ICU for an additional 24-48 hour with planned transfer to [facility]-surgical floors Visit type - Emergency Visit Emergency Visit: No - New Patient This patient is new to me today: Yes Date on this admission: 12/07/18 - Critical Care Critical Care patient: No ATTENDING PHYSICIAN STATEMENT I saw and evaluated the patient. I reviewed the resident's note and discussed the case with the resident. I agree with the resident's findings and plan as documented. SUBJECTIVE: OBJECTIVE: ASSESSMENT AND PLAN:
--- NOTE | 2018-12-07 14:17 | PN ---
Teaching Attending Note Name of Resident: Ramona Izquierdo ATTENDING PHYSICIAN STATEMENT I saw and evaluated the patient. I reviewed the resident's note and discussed the case with the resident. I agree with the resident's findings and plan as documented. SUBJECTIVE: Pt seen and examined in the ICU. Was intubated, awake, following commands, subsequently extubated to ventimask during rounds. OBJECTIVE: Vital Signs Period Temp Pulse Resp BP Sys/Heredia Pulse Ox Last 24 Hr 97.2 F-99.3 F 70-89 18-29 125-165/49-70 97-100 Intake & Output 12/04/18 12/05/18 12/06/18 12/07/18 23:59 23:59 23:59 23:59 Intake Total 4025 2968 2252 1000 Output Total 910 1400 1610 800 Balance 3115 1568 642 200 Weight 87.634 kg 89.086 kg 89.358 kg 89.358 kg Gen: pt extubated Heart: RRR Lung: scattered rhonchi Abd: soft, nontender Ext: no edema CBC, BMP 12/07/18 05:20 12/07/18 05:20 Active Medications Albuterol/Ipratropium (Duoneb -) 1 amp NEB Q6H IKER Last Admin: 12/07/18 07:10 Dose: 1 amp Aspirin (Asa -) 81 mg NGT DAILY IKER Last Admin: 12/07/18 12:09 Dose: Not Given Chlorhexidine Gluconate (Hibiclens For Decolonization -) 1 applic TP HS IKER Last Admin: 12/06/18 21:17 Dose: 1 applic Donepezil HCl (Aricept -) 10 mg NGT HS IKER Last Admin: 12/06/18 21:16 Dose: Not Given Heparin Sodium (Porcine) (Heparin -) 5,000 unit SQ BID IKER Last Admin: 12/07/18 09:47 Dose: 5,000 unit Propofol (Diprivan -) 1,000,000 mcg in 100 mls @ 2.613 mls/hr IVPB TITR IKER; Protocol Last Admin: 12/06/18 21:16 Dose: 20 mcg/kg/min, 10.451 mls/hr Ceftriaxone Sodium 1 gm/ (Dextrose) 50 mls @ 200 mls/hr IVPB DAILY IKER; Protocol Last Admin: 12/07/18 09:47 Dose: 200 mls/hr Metronidazole (Flagyl 500mg Premixed Ivpb -) 500 mg in 100 mls @ 100 mls/hr IVPB Q8H-IV [facility] Last Admin: 12/07/18 09:46 Dose: 100 mls/hr Sodium Chloride (1/2 Normal Saline) 1,000 mls @ 65 mls/hr IV ASDIR [facility] Last Admin: 12/06/18 14:15 Dose: 65 mls/hr Insulin Aspart (Novolog Vial Sliding Scale -) 1 vial SQ ACHS [facility]; Protocol Last Admin: 12/07/18 11:13 Dose: Not Given Memantine (Namenda -) 10 mg GT BID [facility] Last Admin: 12/07/18 12:09 Dose: Not Given Metoprolol Succinate (Toprol Xl -) 25 mg PO DAILY [facility] Last Admin: 12/07/18 12:09 Dose: Not Given Mupirocin (Bactroban Ointment (For Decolonization) -) 1 applic NS BID [facility] Stop: 12/07/18 21:59 Last Admin: 12/07/18 11:11 Dose: 1 applic Pantoprazole Sodium (Protonix Iv) 40 mg IVPUSH BID [facility] Last Admin: 12/07/18 09:47 Dose: 40 mg ASSESSMENT AND PLAN: Acute Hypoxic and Hypercapneic Respiratory Failure Pneumonia likely Aspiration Severe Sepsis Acute on Chronic Renal Failure CAD +Troponins likely Demand Ischemia Lactic Acidosis HTN Hyperlipidemia GERD - pt extubated - continue antibiotics - aspiration precautions - IVF - monitor urine output, creatinine - taper Fio2 to keep Spo2 >90% - DVT prophylaxis - continue ICU monitoring critical care time spent in reviewing chart, evaluating patient and formulating plan 35 min
[2018-12-07] MEDS: SODIUM CHLORIDE 0.45% 1,000 ML IV SCH (16:57)
--- NOTE | 2018-12-07 19:16 | PN ---
Teaching Attending Note Name of Resident: Arnaud Batista ATTENDING PHYSICIAN STATEMENT I saw and evaluated the patient. I reviewed the resident's note and discussed the case with the resident. I agree with the resident's findings and plan as documented with exceptions below. SUBJECTIVE: patient seen and examined, on Venti mask, denies any complaints. OBJECTIVE: Vital Signs Period Temp Pulse Resp BP Sys/Heredia Pulse Ox Last 24 Hr 97.2 F-99.3 F 70-89 18-29 127-165/51-70 97-100 Intake & Output 12/04/18 12/05/18 12/06/18 12/07/18 23:59 23:59 23:59 23:59 Intake Total 4025 2968 2252 1790 Output Total 910 1400 1610 1300 Balance 3115 1568 642 490 Weight 193 lb 3.2 oz 196 lb 6.4 oz 197 lb 197 lb General: sitting in bed, on VM CVS:S1S2 irregular Chest: bibasilar fine rales Abdomen: soft, NT, ND, pos bowel sounds Extremities: no edema Neck: soft, supple, no JVD Home Medications Medication Instructions Recorded Aspirin Coated [Ecotrin -] 81 mg PO DAILY #0 07/19/14 Cholecalciferol (Vitamin D3) 2,000 units PO DAILY 07/19/14 [Vitamin D3] Cyanocobalamin [Vitamin B12 -] 1,000 mcg PO DAILY 07/19/14 Donepezil HCl [Aricept] 10 mg PO DAILY 07/19/14 Folic Acid 1 mg PO DAILY 07/19/14 Memantine HCl [Namenda -] 10 mg PO BID 07/19/14 Metoprolol Succinate [Toprol XL -] 25 mg PO DAILY 07/19/14 Pravastatin Sodium [Pravachol] 40 mg PO DAILY 07/19/14 Ranitidine [Zantac -] 150 mg PO DAILY 07/19/14 Fenofibrate Nanocrystallized 160 mg PO DAILY 10/19/17 [Fenofibrate] Albuterol 2.5/Ipratropium 0.5 1 amp NEB Q6H PRN 7 Days amp 10/22/17 [Duoneb -] Lactobacillus Acidophilus 1 each PO DAILY 12/02/18 [Acidophilus] Burt-3 Fatty Acids/Fish Oil [Fish 1 each PO DAILY 12/02/18 Oil 1,000 mg Capsule] Active Medications Albuterol/Ipratropium (Duoneb -) 1 amp NEB Q6H [facility] Last Admin: 12/07/18 13:00 Dose: 1 amp Aspirin (Asa -) 81 mg NGT DAILY [facility] Last Admin: 12/07/18 12:09 Dose: Not Given Chlorhexidine Gluconate (Hibiclens For Decolonization -) 1 applic TP HS IKER Last Admin: 12/06/18 21:17 Dose: 1 applic Donepezil HCl (Aricept -) 10 mg NGT HS IKER Last Admin: 12/06/18 21:16 Dose: Not Given Heparin Sodium (Porcine) (Heparin -) 5,000 unit SQ BID [facility] Last Admin: 12/07/18 09:47 Dose: 5,000 unit Propofol (Diprivan -) 1,000,000 mcg in 100 mls @ 2.613 mls/hr IVPB TITR [facility]; Protocol Last Titration: 12/07/18 09:11 Dose: 0 mcg/kg/min, 0 mls/hr Ceftriaxone Sodium 1 gm/ (Dextrose) 50 mls @ 200 mls/hr IVPB DAILY [facility]; Protocol Last Admin: 12/07/18 09:47 Dose: 200 mls/hr Metronidazole (Flagyl 500mg Premixed Ivpb -) 500 mg in 100 mls @ 100 mls/hr IVPB Q8H-IV [facility] Last Admin: 12/07/18 17:10 Dose: 100 mls/hr Sodium Chloride (1/2 Normal Saline) 1,000 mls @ 65 mls/hr IV ASDIR [facility] Last Admin: 12/07/18 16:57 Dose: Not Given Insulin Aspart (Novolog Vial Sliding Scale -) 1 vial SQ ACHS [facility]; Protocol Last Admin: 12/07/18 16:57 Dose: Not Given Memantine (Namenda -) 10 mg GT BID [facility] Last Admin: 12/07/18 12:09 Dose: Not Given Metoprolol Succinate (Toprol Xl -) 25 mg PO DAILY [facility] Last Admin: 12/07/18 12:09 Dose: Not Given Mupirocin (Bactroban Ointment (For Decolonization) -) 1 applic NS BID [facility] Stop: 12/07/18 21:59 Last Admin: 12/07/18 11:11 Dose: 1 applic Pantoprazole Sodium (Protonix Iv) 40 mg IVPUSH BID [facility] Last Admin: 12/07/18 09:47 Dose: 40 mg Laboratory Results - last 24 hr 12/04/18 12/05/18 12/06/18 12:00 05:15 21:25 WBC RBC Hgb Hct MCV MCH MCHC RDW Plt Count MPV Anticoagulation Therapy Puncture Site ABG pH ABG pCO2 at Pt Temp ABG pO2 at Pt Temp ABG HCO3 ABG O2 Sat (Measured) ABG O2 Content ABG Base Excess Tony Test O2 Delivery Device Oxygen Flow Rate Vent Mode Vent Rate Mechanical Rate Pressure Support Vent Sodium Potassium Chloride Carbon Dioxide Anion Gap BUN Creatinine Est GFR (CKD-EPI)AfAm Est GFR (CKD-EPI)NonAf POC Glucometer 88 Random Glucose Calcium Phosphorus Magnesium Urine Eosinophils None seen ALBERTO Screen Negative 12/07/18 12/07/18 12/07/18 05:20 05:20 05:34 WBC 6.3 RBC 3.31 L Hgb 10.1 L Hct 29.3 L MCV 88.5 MCH 30.6 MCHC 34.5 RDW 14.4 Plt Count 144 MPV 7.7 Anticoagulation Therapy Puncture Site ABG pH ABG pCO2 at Pt Temp ABG pO2 at Pt Temp ABG HCO3 ABG O2 Sat (Measured) ABG O2 Content ABG Base Excess Tony Test O2 Delivery Device Oxygen Flow Rate Vent Mode Vent Rate Mechanical Rate Pressure Support Vent Sodium 144 Potassium 4.2 Chloride 115 H Carbon Dioxide 20 L Anion Gap 10 BUN 50.3 H Creatinine 2.8 H Est GFR (CKD-EPI)AfAm 22.33 Est GFR (CKD-EPI)NonAf 19.27 POC Glucometer 102 Random Glucose 112 H Calcium 8.0 L Phosphorus 3.5 Magnesium 2.1 Urine Eosinophils ALBERTO Screen 12/07/18 12/07/18 12/07/18 07:00 11:07 16:19 WBC RBC Hgb Hct MCV MCH MCHC RDW Plt Count MPV Anticoagulation Therapy No Result Required. Puncture Site Right radial ABG pH 7.35 ABG pCO2 at Pt Temp 31.0 L ABG pO2 at Pt Temp 75.8 L ABG HCO3 16.7 L ABG O2 Sat (Measured) 94.7 L ABG O2 Content 13.6 L ABG Base Excess -7.5 L Tony Test Positive O2 Delivery Device No Result Required. Oxygen Flow Rate Yes Vent Mode No Result Required. Vent Rate No Result Required. Mechanical Rate No Result Required. Pressure Support Vent No Result Required. Sodium Potassium Chloride Carbon Dioxide Anion Gap BUN Creatinine Est GFR (CKD-EPI)AfAm Est GFR (CKD-EPI)NonAf POC Glucometer 125 102 Random Glucose Calcium Phosphorus Magnesium Urine Eosinophils ALBERTO Screen Microbiology 12/02/18 18:30 Blood - Peripheral Venous Blood Culture - Preliminary NO GROWTH OBTAINED AFTER 96 HOURS, INCUBATION TO CONTINUE FOR 1 DAYS. 12/02/18 18:31 Blood - Peripheral Venous Blood Culture - Preliminary NO GROWTH OBTAINED AFTER 96 HOURS, INCUBATION TO CONTINUE FOR 1 DAYS. 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
[2018-12-07] MEDS: PROPOFOL 1,000,000 MCG/100 ML VIAL IVPB SCH (21:51)
[2018-12-07] MEDS: CHLORHEXIDINE GLUCONATE 4% CLEANSER FOR DECOLONIZATION TP SCH (21:52)
[2018-12-07] MEDS: DONEPEZIL HCL 10 MG TABLET (FP) NGT SCH (21:52)
[2018-12-08] MEDS: ALBUTEROL SO4 2.5/IPRATROPIUM 0.5 INH SOL 3 ML VIAL.NEB. NEB SCH ×6 (00:15→23:15)
[2018-12-08] MEDS: INSULIN SLIDING SCALE (NOVOLOG) 1 VIAL SQ SCH ×4 (06:11→21:59)
[2018-12-08 08:29] LABS: BASO % 0.6 % (0-2.0); EOS % 1.4 % (0-4.5); HEMATOCRIT 32.3 % (35.4-49); HEMOGLOBIN 11.2 GM/dL (11.7-16.9); LYMPH % 10.3 % (8-40); MCH 30.7 pg (25.7-33.7); MCHC 34.8 g/dl (32.0-35.9); MEAN CELL VOLUME 88.1 fl (80-96); MEAN PLT VOLUME 6.9 fl (7.5-11.1); MONO % 7.5 % (3.8-10.2); NEUT % 80.2 % (42.8-82.8); PLATELET COUNT 165 K/MM3 (134-434); RBC 3.66 M/mm3 (4.00-5.60); RDW 14.3 % (11.9-15.9); WHITE BLOOD COUNT 8.8 K/mm3 (4.0-10.0)
[2018-12-08 09:11] LABS: ALBUMIN 2.1 g/dl (3.4-5.0); BILIRUBIN,TOTAL 0.4 mg/dL (0.2-1); BLOOD UREA NITROGEN 47.2 mg/dL (7-18); CALCIUM 8.4 mg/dL (8.5-10.1); CREATININE 2.1 mg/dL (0.55-1.3); PHOSPHOROUS 4.1 mg/dL (2.5-4.9); POTASSIUM 4.2 mmol/L (3.5-5.1); TOT PROT 5.8 g/dl (6.4-8.2)
[2018-12-08] MEDS ORDERED: DEXTROSE 5%-WATER - 50 ML IVPB ONE (10:09)
[2018-12-08] MEDS ORDERED: cefTRIAXone SODIUM 1 GM VIAL ONE (10:09)
[2018-12-08] MEDS: PANTOPRAZOLE SODIUM 40 MG VIAL IVPUSH SCH ×2 (10:13→23:07)
[2018-12-08] MEDS: CEFTRIAXONE 1 GM in DEXTROSE 5%-WATER - 50 ML IVPB SCH (10:13)
[2018-12-08] MEDS: HEPARIN NA (PORCINE) 5,000 UNITS/ML 1ML VIAL SQ SCH ×2 (10:13→21:59)
--- NOTE | 2018-12-08 10:49 | PN ---
Physical Exam: SUBJECTIVE: Patient seen and examined extubated on non re breathable mask 50 % , some cough with congestion ,no fever or chills. OBJECTIVE: Vital Signs Period Temp Pulse Resp BP Sys/Heredia Pulse Ox Last 24 Hr 98.2 F-98.6 F 72-90 20-29 142-165/58-75 97-100 GENERAL: extubated on Non re breathable mask 50 % HEAD:NC/AT EYES: PERRL, NECK: supple. LUNGS:decrease breath sounds at the bases , scattered rhochi HEART: Regular rate and rhythm, S1, S2 without murmur, rub or gallop. ABDOMEN: Obese , Soft, nontender, hypoactive BS EXTREMITIES: 2+ pulses, warm, well-perfused, no edema. NEUROLOGICAL:aox3 , no focal deficit Laboratory Results - last 24 hr 12/07/18 12/07/18 12/07/18 11:07 16:19 21:58 WBC RBC Hgb Hct MCV MCH MCHC RDW Plt Count MPV Absolute Neuts (auto) Neutrophils % Lymphocytes % Monocytes % Eosinophils % Basophils % Nucleated RBC % Sodium Potassium Chloride Carbon Dioxide Anion Gap BUN Creatinine Est GFR (CKD-EPI)AfAm Est GFR (CKD-EPI)NonAf POC Glucometer 125 102 96 Random Glucose Calcium Phosphorus Magnesium Total Bilirubin AST ALT Alkaline Phosphatase Total Protein Albumin 12/08/18 12/08/18 08:15 08:15 WBC 8.8 RBC 3.66 L Hgb 11.2 L Hct 32.3 L MCV 88.1 MCH 30.7 MCHC 34.8 RDW 14.3 Plt Count 165 MPV 6.9 L D Absolute Neuts (auto) 7.0 Neutrophils % 80.2 Lymphocytes % 10.3 D Monocytes % 7.5 D Eosinophils % 1.4 Basophils % 0.6 Nucleated RBC % 0 Sodium 144 Potassium 4.2 Chloride 115 H Carbon Dioxide 18 L Anion Gap 12 BUN 47.2 H Creatinine 2.1 H Est GFR (CKD-EPI)AfAm 31.62 Est GFR (CKD-EPI)NonAf 27.28 POC Glucometer Random Glucose 134 H Calcium 8.4 L Phosphorus 4.1 Magnesium 2.0 Total Bilirubin 0.4 AST 28 ALT 15 Alkaline Phosphatase 41 L Total Protein 5.8 L Albumin 2.1 L Active Medications Generic Name Dose Route Start Last Admin Trade Name Freq PRN Reason Stop Dose Admin Albuterol/Ipratropium 1 amp 07/31/19 06:00 12/08/18 07:00 Duoneb - NEB 1 amp Q6H IKER Administration Aspirin 81 mg 12/03/18 10:00 12/07/18 12:09 Asa - NGT Not Given DAILY I[facility] Chlorhexidine Gluconate 1 applic 12/02/18 22:00 12/07/18 21:52 Hibiclens For Decolonization - TP 1 applic HS IKER Administration Donepezil HCl 10 mg 12/03/18 22:00 12/07/18 21:52 Aricept - NGT Not Given HS IKER Heparin Sodium (Porcine) 5,000 unit 12/02/18 22:00 12/08/18 10:13 Heparin - SQ 5,000 unit BID IKER Administration Ceftriaxone Sodium 1 gm/ 50 mls @ 200 mls/hr 12/05/18 10:00 12/08/18 10:13 Dextrose IVPB 200 mls/hr DAILY [facility] Administration Protocol Metronidazole 500 mg in 100 mls @ 100 mls/hr 12/05/18 10:00 12/08/18 10:13 Flagyl 500mg Premixed Ivpb - IVPB 100 mls/hr Q8H-IV [facility] Administration Sodium Chloride 1,000 mls @ 65 mls/hr 12/06/18 13:36 12/07/18 16:57 1/2 Normal Saline IV Not Given ASDIR [facility] Insulin Aspart 1 vial 12/03/18 07:00 12/08/18 06:11 Novolog Vial Sliding Scale - SQ Not Given ACHS [facility] Protocol Memantine 10 mg 12/02/18 22:00 12/07/18 21:53 Namenda - GT Not Given BID I[facility] Metoprolol Succinate 25 mg 12/03/18 10:00 12/07/18 12:09 Toprol Xl - PO Not Given DAILY [facility] Pantoprazole Sodium 40 mg 12/07/18 10:00 12/08/18 10:13 Protonix Iv IVPUSH 40 mg BID I[facility] Administration CBC, BMP 12/08/18 08:15 12/08/18 08:15 ASSESSMENT/PLAN: Mariano Camacho is an 88 y/o male with a PMHx of HTN, HLD, CAD (s/p stent 2010) , LBBB, Alzheimer's disease, CKD, PVD, OA, 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 # LBBB , not changed from 2018 * continue aspirin, continue home metoprolol 25mg daily * last echo on 10/20/17 showing EF of 35% * repeat echo showing EF 40-45% * daily weight , I&O # Acute hypoxic hypercapnic respiratory failure , improving * extubated * ABG showing respiratory acidosis with non anion gap metabolic acidosis, respiratory component of CO2 retention, metabolic component of likely hyperchloremia from dehydration and chronic renal failure * maintain o2 sat above 92% * CXR with RUL Consolidation * duonebs q6h prn # KATHY in term of sepsis vs AIN or ATN , improving * CR 1.9 on admission, improving , continue fluids * renal U/S did not show any hydronephrosis or other acute pathology * DC gan #N/V on admission * given Zofran and Pepcid in ED, Protonix 40 daily * Abdominal CT showing s/p gastrectomy, 1.5cm hypodense nodule in the pancreatic tail, epigastric hernia with nondilated small bowel loop, small umbilical hernia with a small nondilated small bowel loop, bilateral inguinal hernias containing only fat, colonic diverticulosis, nonobstructing renal calculi * vomiting causes may include transient obstruction from hernias, food poisoning, viral gastritis * HOB elevated, aspiration precautions # severe sepsis in the setting of aspiration pneumonitis/pneumonia * cannot rule out community acquired pneumonia * Dr. Patel consulted, recs appreciated * 6th day of abx, ceftriaxone and flagyl continue up to 7 days per ID * cx negative , isolation precautions, hx of MRSA * aspiration precautions # DM * BGM, ISS Alzheimer's disease Hx of stomach CA (MALT) # dementia on memantine and donepezil #F/E/N * 1/2 NS @ 65cc/hr * continue to monitor electrolytes and replete as necessary * NPO #PROPHYLAXIS * heparin SQ BID , SCDS * Protonix #CODE * full code #DISPO * transfer to [facility] PER ICU team Visit type - Emergency Visit Emergency Visit: Yes ED Registration Date: 12/02/18 Care time: The patient presented to the Emergency Department on the above date and was hospitalized for further evaluation of their emergent condition. - New Patient This patient is new to me today: No - Critical Care Critical Care patient: Yes Total Critical Care Time (in minutes): 45 Critical Care Statement: The care of this patient involved high complexity decision making to prevent further life threatening deterioration of the patient 's condition and/or to evaluate & treat vital organ system(s) failure or risk of failure. ATTENDING PHYSICIAN STATEMENT I saw and evaluated the patient. I reviewed the resident's note and discussed the case with the resident. I agree with the resident's findings and plan as documented. SUBJECTIVE: OBJECTIVE: ASSESSMENT AND PLAN:
[2018-12-08 10:56] LABS: ANISOCYTOSIS 2+; MACROCYTOSIS 0; OVALOCYTE 1+; PLATELET ESTIMATE NORMAL; TEAR DROP CELLS 1+
--- NOTE | 2018-12-08 10:56 | CONSULT ---
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 Pt quickly deteriorated in ER, becoming cyanotic, with dropping 02 sat to high 50's. Was intubated and sedated w propofol gtt and brought to ICU for further mgmt. Extubated to ventimask 12/07. NPO. This is my first consult with this pt. Per pt's son: Pt with h/o Dementia, eats regular food at home with thin liquids, frequently coughs while eating. h/o PNA last year. No prior intubation. h/o mini strokes, therefore not accepted for [facility] study for Alzheimers. History Source: Family Member, Medical Record Limitations to Obtaining History: Clinical Condition, Dementia - Past Medical History [employer]: Yes: Alzheimer's Cardiovascular: Yes: CAD, CHF, HTN, Hyperlipdemia, [place], Other (hyperlipidemia) Gastrointestinal: Yes: Cancer, GERD Renal/: Yes: Renal Inusuff Heme/Onc: Yes: Cancer Infectious Disease: Yes: MRSA Musculoskeletal: Yes: Osteoarthritis - Past Surgical History Past Surgical History: Yes: None - Smoking History Smoking history: Never smoked Have you smoked in the past 12 months: No If you are a former smoker, when did you quit?: Does not remember - Alcohol/Substance Use Hx Alcohol Use: Yes (RARE) - Social History ADL: Family Assistance History of Recent Travel: No History - Admission Reason For Visit: ACUTE RESP DISTRESS - Diagnostics X-ray: Report Reviewed - General Mental Status: Awake and Alert (oriented to Hospital, [place], was Furrier) , Able to Follow Commands, Forgetful, Vague Attention: Intact Ability to Follow Directions: Good Head/Neck Control: WFL - Hearing Hearing: Functional Speech Evaluation - Communication Primary Language: NEPALESE - Speech Production Intelligibility: Yes: Mildly Impaired - Speech Characteristics Voice Loudness: Mildly Soft/Quiet Voice Phonatory-based Quality: Yes: Dysphonia, Vocal Wetness Speech Clarity: < 75% Nasal Resonance: Normal Articulation: Yes: Precise - Language/Auditory Comprehension Follows: Yes: 1 Stage Simple Commands Observation: Able to respond to yes/no queries: Yes, Yes/No Confusion: No, Comprehends Conversational Speech: Yes - Language/Verbal Expression Able to Respond to Simple Queries: Yes: WNL Able to Communicate Wants and Needs: Yes: WNL Functional Communication Status: Yes: WNL - Memory/Perception Short Term Memory: Yes: Moderately Impaired - Swallow Evaluation/Bedside Assessment Current Nutritional Intake: NPO Dentition: Yes: Adequate Facial Symmetry at Rest: Facial Droop Right (slight?) Facial Symmetry on Retraction: Symmetrical Pucker Lips: Normal, Weak Smile: Normal, Weak Lingual Movement: Deviates Left (slight) Lingual Movement Strgth Against Opposition: Reduced Lingual Movement Characteristics: Normal A-P Transit: Impaired Pocketing: Present Bilaterally (mild) Coughing/Throat Clear: Yes (1/3 tsp puree) Recommendations - Speech Evaluation, Impression/Plan Impression: Dysphonia/Dysphagia post extubation x 1 day. Premorbid h/o coughing mealtime.Likely aspirating on puree at present. - Disposition Discharge to: Home with Assist - Dysphagia Impressions/Plan Swallowing Skills: Impaired Dysphagia Impressions: Severe Impairment, Suspect Aspiration *Silent aspiration: cannot be R/O at bedside Recommendations: Modified Barium Swallow - Recommendations Diet Consistency: NPO, Other (NPO including meds. MOUTH CARE. Suction PRN.) Liquids: NPO
[2018-12-08] MEDS: metoPROLOL SUCCINATE 25 MG TAB.SR.24H (FP) PO SCH (12:31)
[2018-12-08] MEDS: MEMANTINE HCL 10 MG TABLET (FP) GT SCH ×2 (12:31→21:59)
[2018-12-08] MEDS: ASPIRIN 81 MG CHEWABLE TABLETS NGT SCH (12:31)
--- NOTE | 2018-12-08 12:39 | PN ---
Physical Exam: SUBJECTIVE: Patient seen and examined at the bedside. Patient transitioned from Venti-mask to NC and tolerating well. No acute complaints of cp, sob, abd pain, n/v, dizziness, lightheadedness, numbness, tingling. States is a bit weak. OBJECTIVE: Vital Signs Period Temp Pulse Resp BP Sys/Heredia Pulse Ox Last 24 Hr 97.5 F-98.6 F 72-90 20-27 142-167/58-75 98-100 GENERAL: Alert and oriented, following commands. HEAD: Normal with no signs of trauma. EYES: PERRL, extraocular movements intact, sclera anicteric, conjunctiva clear. No ptosis. NECK: Trachea midline, full range of motion, supple. LUNGS: Upper airway congestion. Minor crackles heard throughout. Secretions found in the upper airway HEART: Regular rate and rhythm, S1, S2 without murmur, rub or gallop. ABDOMEN: Soft, nontender, nondistended, normoactive bowel sounds, no guarding, no rebound, no masses. EXTREMITIES: 1+ pulses, warm, well-perfused, no edema. NEUROLOGICAL: CN II-XII intact, normal muscle strength PSYCH: Normal mood and affect. SKIN: Warm, dry, normal turgor, no rashes or lesions noted. Laboratory Results - last 24 hr 12/07/18 12/07/18 12/08/18 16:19 21:58 08:15 WBC 8.8 RBC 3.66 L Hgb 11.2 L Hct 32.3 L MCV 88.1 MCH 30.7 MCHC 34.8 RDW 14.3 Plt Count 165 MPV 6.9 L D Absolute Neuts (auto) 7.0 Neutrophils % 80.2 Neutrophils % (Manual) 65.9 Band Neutrophils % 2.2 Lymphocytes % 10.3 D Lymphocytes % (Manual) 9.9 Monocytes % 7.5 D Monocytes % (Manual) 9 Eosinophils % 1.4 Eosinophils % (Manual) 4.4 Basophils % 0.6 Basophils % (Manual) 1.1 Myelocytes % (Man) 0 Promyelocytes % (Man) 0 Blast Cells % (Manual) 0 Nucleated RBC % 0 Metamyelocytes 0 Hypochromia 0 Platelet Estimate Normal Polychromasia 0 Poikilocytosis 2+ Anisocytosis 2+ Microcytosis 1+ Macrocytosis 0 Spherocytes 1+ Tear Drop Cells 1+ Ovalocytes 1+ [place] Cells 2+ Sodium Potassium Chloride Carbon Dioxide Anion Gap BUN Creatinine Est GFR (CKD-EPI)AfAm Est GFR (CKD-EPI)NonAf POC Glucometer 102 96 Random Glucose Calcium Phosphorus Magnesium Total Bilirubin AST ALT Alkaline Phosphatase Total Protein Albumin 12/08/18 08:15 WBC RBC Hgb Hct MCV MCH MCHC RDW Plt Count MPV Absolute Neuts (auto) Neutrophils % Neutrophils % (Manual) Band Neutrophils % Lymphocytes % Lymphocytes % (Manual) Monocytes % Monocytes % (Manual) Eosinophils % Eosinophils % (Manual) Basophils % Basophils % (Manual) Myelocytes % (Man) Promyelocytes % (Man) Blast Cells % (Manual) Nucleated RBC % Metamyelocytes Hypochromia Platelet Estimate Polychromasia Poikilocytosis Anisocytosis Microcytosis Macrocytosis Spherocytes Tear Drop Cells Ovalocytes [place] Cells Sodium 144 Potassium 4.2 Chloride 115 H Carbon Dioxide 18 L Anion Gap 12 BUN 47.2 H Creatinine 2.1 H Est GFR (CKD-EPI)AfAm 31.62 Est GFR (CKD-EPI)NonAf 27.28 POC Glucometer Random Glucose 134 H Calcium 8.4 L Phosphorus 4.1 Magnesium 2.0 Total Bilirubin 0.4 AST 28 ALT 15 Alkaline Phosphatase 41 L Total Protein 5.8 L Albumin 2.1 L Active Medications Generic Name Dose Route Start Last Admin Trade Name Freq PRN Reason Stop Dose Admin Albuterol/Ipratropium 1 amp 12/07/18 06:00 12/08/18 11:32 Duoneb - NEB 1 amp Q6H [facility] Administration Aspirin 81 mg 12/03/18 10:00 12/08/18 12:31 Asa - NGT Not Given DAILY [facility] Chlorhexidine Gluconate 1 applic 12/02/18 22:00 12/07/18 21:52 Hibiclens For Decolonization - TP 1 applic HS [facility] Administration Donepezil HCl 10 mg 12/03/18 22:00 12/07/18 21:52 Aricept - NGT Not Given HS [facility] Heparin Sodium (Porcine) 5,000 unit 12/02/18 22:00 12/08/18 10:13 Heparin - SQ 5,000 unit BID [facility] Administration Ceftriaxone Sodium 1 gm/ 50 mls @ 200 mls/hr 12/05/18 10:00 12/08/18 10:13 Dextrose IVPB 200 mls/hr DAILY [facility] Administration Protocol Metronidazole 500 mg in 100 mls @ 100 mls/hr 12/05/18 10:00 12/08/18 10:13 Flagyl 500mg Premixed Ivpb - IVPB 100 mls/hr Q8H-IV [facility] Administration Sodium Chloride 1,000 mls @ 65 mls/hr 12/06/18 13:36 12/07/18 16:57 1/2 Normal Saline IV Not Given ASDIR [facility] Insulin Aspart 1 vial 12/03/18 07:00 12/08/18 06:11 Novolog Vial Sliding Scale - SQ Not Given ACHS [facility] Protocol Memantine 10 mg 12/02/18 22:00 12/08/18 12:31 Namenda - GT Not Given BID [facility] Metoprolol Succinate 25 mg 12/03/18 10:00 12/08/18 12:31 Toprol Xl - PO Not Given DAILY [facility] Pantoprazole Sodium 40 mg 12/07/18 10:00 12/08/18 10:13 Protonix Iv IVPUSH 40 mg BID [facility] Administration ASSESSMENT/PLAN: Mariano Camacho is an 88 y/o male with PMHx of HTN, HLD, CAD (s/p stent 2010), LBBB, Alzheimer's disease, CKD, PVD, OA, 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 Hypoxic Hypercapneic Respiratory Failure 2/2 aspiration with ARDS Possible severe sepsis HTN HLD CAD Alzheimer's disease Hx of stomach CA (MALT) NEUROLOGIC - awake, alert, follows simple commands - continue home donepezil and memantine CARDIOLOGY - EKG showing LBBB, which is unchanged from 2018 - continue aspirin - continue home metoprolol 25mg daily - last echo on 10/20/17 showing EF of 35% - repeat echo showing EF 40-45% - I+Os RESPIRATORY - extubated today (12/07) - Post extubation ABG improved since yesterday 7.31/35/75.8/16.7 - ABG (12/06) showing respiratory acidosis with non anion gap metabolic acidosis , respiratory component of CO2 retention, metabolic component of likely hyperchloremia from dehydration and chronic renal failure - repeat ABG mildly improved, still with component of respiratory acidosis and retention of CO2 - keep SpO2 above 92% - duonebs q6h - increaed secretions, continue suctioning to clear airway, encourage expectoration RENAL - CRE 1.9 on admission - elevated to max of 4.9, today 2.1, likely KATHY, improving - continue fluids - renal U/S did not show any hydronephrosis or other acute pathology - low HCO3 at 18, was given 2 doses of sodium bicarbonate GASTROINTESTINAL - given Zofran and Pepcid in ED - one dose Protonix now - Protonix 40mg daily - Abdominal CT showing s/p gastrectomy, 1.5cm hypodense nodule in the pancreatic tail, epigastric hernia with nondilated small bowel loop, small umbilical hernia with a small nondilated small bowel loop, bilateral inguinal hernias containing only fat, colonic diverticulosis, nonobstructing renal calculi - vomiting causes may include transient obstruction from hernias, food poisoning , viral gastritis - HOB elevated, aspiration precautions - modified barium swallow, has risk of aspiration as per speech/swallow GENITOURINARY - gan in - no acute issues INFECTIOUS DISEASE - qSOFA of 2 for altered mental status and elevated respiratory rate, high risk of in-hospital mortality, admitted to ICU - severe sepsis in the setting of aspiration pneumonitis/pneumonia - cannot rule out community acquired pneumonia - Dr. Patel consulted, recs appreciated - ceftriaxone and flagyl day 6 - sputum culture showing no growth - blood cultures showing no growth - urine cultures with no growth - isolation precautions, hx of MRSA ENDOCRINE - elevated glucose on current and prior admissions - HgA1c 7.3 - BGM - ISS HEMATOLOGY - WBC count resolved - continue to monitor counts MUSCULOSKELETAL - no acute issues PSYCHIATRY - no acute issues F/E/N - 05/11 NS @65cc/hr - continue to monitor electrolytes and replete as necessary - NPO LINES - R midline catheter inserted 12/04 PROPHYLAXIS - heparin 5000 units subq bid - Protonix - SCDs CODE - full code DISPO - stable for transfer to telemetry Problem List - Problems (1) Acute respiratory distress Code(s): R06.03 - ACUTE RESPIRATORY DISTRESS (2) Vomiting Code(s): R11.10 - VOMITING, UNSPECIFIED Qualifiers: Vomiting type: unspecified Vomiting Intractability: unspecified Nausea presence: unspecified Qualified Code(s): R11.10 - Vomiting, unspecified (3) CHF (congestive heart failure) Code(s): I50.9 - HEART FAILURE, UNSPECIFIED Qualifiers: Heart failure type: systolic Heart failure chronicity: chronic Qualified Code(s): I50.22 - Chronic systolic (congestive) heart failure (4) CKD (chronic kidney disease) Code(s): N18.9 - CHRONIC KIDNEY DISEASE, UNSPECIFIED Qualifiers: Chronic kidney disease stage: stage 3 (moderate) Qualified Code(s): N18.3 - Chronic kidney disease, stage 3 (moderate) (5) GERD (gastroesophageal reflux disease) Code(s): K21.9 - GASTRO-ESOPHAGEAL REFLUX DISEASE WITHOUT ESOPHAGITIS (6) HTN (hypertension) Code(s): I10 - ESSENTIAL (PRIMARY) HYPERTENSION Qualifiers: Hypertension type: essential hypertension Qualified Code(s): I10 - Essential (primary) hypertension (7) Hyperlipidemia Code(s): E78.5 - HYPERLIPIDEMIA, UNSPECIFIED Qualifiers: Hyperlipidemia type: mixed hyperlipidemia Qualified Code(s): E78.2 - Mixed hyperlipidemia Visit type - Emergency Visit Emergency Visit: No - New Patient This patient is new to me today: No - Critical Care Critical Care patient: No
[2018-12-08] MEDS: SODIUM CHLORIDE 0.45% 1,000 ML IV SCH (14:00)
--- NOTE | 2018-12-08 14:35 | PN ---
Teaching Attending Note Name of Resident: Brendan Chan ATTENDING PHYSICIAN STATEMENT I saw and evaluated the patient. I reviewed the resident's note and discussed the case with the resident. I agree with the resident's findings and plan as documented. SUBJECTIVE: Patient seen and examined in the ICU. Extubated on VM O2. No pressors. Congested cough noted. Awake and alert. Intake & Output 12/05/18 12/06/18 12/07/18 12/08/18 23:59 23:59 23:59 23:59 Intake Total 2968 2252 1790 620 Output Total 1400 1610 1800 2000 Balance 1568 642 -10 -2660 Weight 196 lb 6.4 oz 197 lb 197 lb 198 lb 6.4 oz Last Vital Signs Temp Pulse Resp BP Pulse Ox 97.5 F L 94 H 21 H 143/92 100 12/08/18 10:00 12/08/18 12:00 12/08/18 12:00 12/08/18 12:00 12/08/18 08:07 Active Medications Albuterol/Ipratropium (Duoneb -) 1 amp NEB Q6H [facility] Last Admin: 12/08/18 11:32 Dose: 1 amp Aspirin (Asa -) 81 mg NGT DAILY [facility] Last Admin: 12/08/18 12:31 Dose: Not Given Chlorhexidine Gluconate (Hibiclens For Decolonization -) 1 applic TP HS [facility] Last Admin: 12/07/18 21:52 Dose: 1 applic Donepezil HCl (Aricept -) 10 mg NGT HS [facility] Last Admin: 12/07/18 21:52 Dose: Not Given Heparin Sodium (Porcine) (Heparin -) 5,000 unit SQ BID [facility] Last Admin: 12/08/18 10:13 Dose: 5,000 unit Ceftriaxone Sodium 1 gm/ (Dextrose) 50 mls @ 200 mls/hr IVPB DAILY [facility]; Protocol Last Admin: 12/08/18 10:13 Dose: 200 mls/hr Metronidazole (Flagyl 500mg Premixed Ivpb -) 500 mg in 100 mls @ 100 mls/hr IVPB Q8H-IV [facility] Last Admin: 12/08/18 10:13 Dose: 100 mls/hr Sodium Chloride (1/2 Normal Saline) 1,000 mls @ 65 mls/hr IV ASDIR [facility] Last Admin: 12/07/18 16:57 Dose: Not Given Insulin Aspart (Novolog Vial Sliding Scale -) 1 vial SQ ACHS [facility]; Protocol Last Admin: 12/08/18 12:40 Dose: Not Given Memantine (Namenda -) 10 mg GT BID [facility] Last Admin: 12/08/18 12:31 Dose: Not Given Metoprolol Succinate (Toprol Xl -) 25 mg PO DAILY [facility] Last Admin: 12/08/18 12:31 Dose: Not Given Pantoprazole Sodium (Protonix Iv) 40 mg IVPUSH BID [facility] Last Admin: 12/08/18 10:13 Dose: 40 mg Gen: Extubated, awake and alert, congested cough Heart: RRR Lung: scattered rhonchi Abd: soft, nontender Ext: no edema [employer]: non-focal Laboratory Results - last 24 hr 12/07/18 12/07/18 12/08/18 16:19 21:58 08:15 WBC 8.8 RBC 3.66 L Hgb 11.2 L Hct 32.3 L MCV 88.1 MCH 30.7 MCHC 34.8 RDW 14.3 Plt Count 165 MPV 6.9 L D Absolute Neuts (auto) 7.0 Neutrophils % 80.2 Neutrophils % (Manual) 65.9 Band Neutrophils % 2.2 Lymphocytes % 10.3 D Lymphocytes % (Manual) 9.9 Monocytes % 7.5 D Monocytes % (Manual) 9 Eosinophils % 1.4 Eosinophils % (Manual) 4.4 Basophils % 0.6 Basophils % (Manual) 1.1 Myelocytes % (Man) 0 Promyelocytes % (Man) 0 Blast Cells % (Manual) 0 Nucleated RBC % 0 Metamyelocytes 0 Hypochromia 0 Platelet Estimate Normal Polychromasia 0 Poikilocytosis 2+ Anisocytosis 2+ Microcytosis 1+ Macrocytosis 0 Spherocytes 1+ [place] Cells 1+ Ovalocytes 1+ [place] Cells 2+ Sodium Potassium Chloride Carbon Dioxide Anion Gap BUN Creatinine Est GFR (CKD-EPI)AfAm Est GFR (CKD-EPI)NonAf POC Glucometer 102 96 Random Glucose Calcium Phosphorus Magnesium Total Bilirubin AST ALT Alkaline Phosphatase Total Protein Albumin 12/08/18 12/08/18 08:15 12:37 WBC RBC Hgb Hct MCV MCH MCHC RDW Plt Count MPV Absolute Neuts (auto) Neutrophils % Neutrophils % (Manual) Band Neutrophils % Lymphocytes % Lymphocytes % (Manual) Monocytes % Monocytes % (Manual) Eosinophils % Eosinophils % (Manual) Basophils % Basophils % (Manual) Myelocytes % (Man) Promyelocytes % (Man) Blast Cells % (Manual) Nucleated RBC % Metamyelocytes Hypochromia Platelet Estimate Polychromasia Poikilocytosis Anisocytosis Microcytosis Macrocytosis Spherocytes Tear Drop Cells Ovalocytes [place] Cells Sodium 144 Potassium 4.2 Chloride 115 H Carbon Dioxide 18 L Anion Gap 12 BUN 47.2 H Creatinine 2.1 H Est GFR (CKD-EPI)AfAm 31.62 Est GFR (CKD-EPI)NonAf 27.28 POC Glucometer 136 Random Glucose 134 H Calcium 8.4 L Phosphorus 4.1 Magnesium 2.0 Total Bilirubin 0.4 AST 28 ALT 15 Alkaline Phosphatase 41 L Total Protein 5.8 L Albumin 2.1 L ASSESSMENT AND PLAN: Acute Hypoxic and Hypercapneic Respiratory Failure Pneumonia likely Aspiration Severe Sepsis Acute on Chronic Renal Failure CAD +Troponins likely Demand Ischemia Lactic Acidosis HTN Hyperlipidemia GERD - Swallow evaluation: risk for aspiration - Wean FiO2 - ABX coverage - Aspiration precautions - IVF - monitor urine output, creatinine - VTE prophylaxis - Cardiac telemetry monitoring Dr Rebollar Critical care time spent in reviewing chart, evaluating patient and formulating plan 35 min
--- NOTE | 2018-12-08 15:05 | PN ---
Progress Note, Physician History of Present Illness: Pt seen and examined at bedside. He is awake and appears comfortable. He is now extubated. - Current Medication List Current Medications: Active Medications Albuterol/Ipratropium (Duoneb -) 1 amp NEB Q6H [facility] Last Admin: 12/08/18 11:32 Dose: 1 amp Aspirin (Asa -) 81 mg NGT DAILY [facility] Last Admin: 12/08/18 12:31 Dose: Not Given Chlorhexidine Gluconate (Hibiclens For Decolonization -) 1 applic TP HS [facility] Last Admin: 12/07/18 21:52 Dose: 1 applic Donepezil HCl (Aricept -) 10 mg NGT HS [facility] Last Admin: 12/07/18 21:52 Dose: Not Given Heparin Sodium (Porcine) (Heparin -) 5,000 unit SQ BID [facility] Last Admin: 12/08/18 10:13 Dose: 5,000 unit Ceftriaxone Sodium 1 gm/ (Dextrose) 50 mls @ 200 mls/hr IVPB DAILY [facility]; Protocol Last Admin: 12/08/18 10:13 Dose: 200 mls/hr Metronidazole (Flagyl 500mg Premixed Ivpb -) 500 mg in 100 mls @ 100 mls/hr IVPB Q8H-IV [facility] Last Admin: 12/08/18 10:13 Dose: 100 mls/hr Sodium Chloride (1/2 Normal Saline) 1,000 mls @ 65 mls/hr IV ASDIR [facility] Last Admin: 12/07/18 16:57 Dose: Not Given Insulin Aspart (Novolog Vial Sliding Scale -) 1 vial SQ ACHS [facility]; Protocol Last Admin: 12/08/18 12:40 Dose: Not Given Memantine (Namenda -) 10 mg GT BID [facility] Last Admin: 12/08/18 12:31 Dose: Not Given Metoprolol Succinate (Toprol Xl -) 25 mg PO DAILY [facility] Last Admin: 12/08/18 12:31 Dose: Not Given Pantoprazole Sodium (Protonix Iv) 40 mg IVPUSH BID [facility] Last Admin: 12/08/18 10:13 Dose: 40 mg - Objective Vital Signs: Vital Signs Temperature 98.7 F 12/08/18 14:00 Pulse Rate 78 12/08/18 14:00 Respiratory Rate 22 H 12/08/18 14:00 Blood Pressure 135/58 L 12/08/18 14:00 O2 Sat by Pulse Oximetry (%) 100 12/08/18 08:07 Constitutional: Yes: Calm Eyes: Yes: Conjunctiva Clear HENT: Yes: Atraumatic Cardiovascular: Yes: S1, S2 Respiratory: Yes: CTA Bilaterally Gastrointestinal: Yes: Soft Genitourinary: Yes: Gan Present Musculoskeletal: Yes: Muscle Weakness Edema: Yes Edema: LLE: Trace, RLE: Trace Neurological: Yes: Oriented Psychiatric: Yes: Oriented Labs: CBC, BMP 12/08/18 08:15 12/08/18 08:15 INR, PTT INR 1.07 (0.83-1.09) 12/03/18 05:40 Problem List - Problems (1) Acute kidney injury superimposed on CKD Code(s): N17.9 - ACUTE KIDNEY FAILURE, UNSPECIFIED; N18.9 - CHRONIC KIDNEY DISEASE, UNSPECIFIED (2) Aspiration pneumonia Code(s): J69.0 - PNEUMONITIS DUE TO INHALATION OF FOOD AND VOMIT (3) Vomiting Code(s): R11.10 - VOMITING, UNSPECIFIED Qualifiers: Vomiting type: unspecified Vomiting Intractability: unspecified Nausea presence: unspecified Qualified Code(s): R11.10 - Vomiting, unspecified Assessment/Plan Current Medications Generic Name Dose Route Start Last Admin Trade Name Freq PRN Reason Stop Dose Admin Albuterol/Ipratropium 1 amp 12/07/18 06:00 12/08/18 11:32 Duoneb - NEB 1 amp Q6H IK[facility] Administration Aspirin 81 mg 12/03/18 10:00 12/08/18 12:31 Asa - NGT Not Given DAILY [facility] Chlorhexidine Gluconate 1 applic 12/02/18 22:00 12/07/18 21:52 Hibiclens For Decolonization - TP 1 applic HS [facility] Administration Donepezil HCl 10 mg 12/03/18 22:00 12/07/18 21:52 Aricept - NGT Not Given HS [facility] Heparin Sodium (Porcine) 5,000 unit 12/02/18 22:00 12/08/18 10:13 Heparin - SQ 5,000 unit BID [facility] Administration Ceftriaxone Sodium 1 gm/ 50 mls @ 200 mls/hr 12/05/18 10:00 12/08/18 10:13 Dextrose IVPB 200 mls/hr DAILY [facility] Administration Protocol Metronidazole 500 mg in 100 mls @ 100 mls/hr 12/05/18 10:00 12/08/18 10:13 Flagyl 500mg Premixed Ivpb - IVPB 100 mls/hr Q8H-IV [facility] Administration Sodium Chloride 1,000 mls @ 65 mls/hr 12/06/18 13:36 12/07/18 16:57 1/2 Normal Saline IV Not Given ASDIR I[facility] Insulin Aspart 1 vial 12/03/18 07:00 12/08/18 12:40 Novolog Vial Sliding Scale - SQ Not Given ACHS [facility] Protocol Memantine 10 mg 12/02/18 22:00 12/08/18 12:31 Namenda - GT Not Given BID [facility] Metoprolol Succinate 25 mg 12/03/18 10:00 12/08/18 12:31 Toprol Xl - PO Not Given DAILY [facility] Pantoprazole Sodium 40 mg 12/07/18 10:00 12/08/18 10:13 Protonix Iv IVPUSH 40 mg BID [facility] Administration Impression 1. KATHY 2. acute resp failure 3. HTN 4. gastric cancer 5. dementia 6. HLD 7. CAD 8. PVD 9. PNA 10. sepsis 11. hyperkalemia Plan - renal function improving - likely resolving atn - can d/c gan - cont fluids while NPO - avoid nsaids - avoid nephrotoxins
--- NOTE | 2018-12-08 16:31 | PN ---
Teaching Attending Note Name of Resident: Arnaud Batista ATTENDING PHYSICIAN STATEMENT I saw and evaluated the patient. I reviewed the resident's note and discussed the case with the resident. I agree with the resident's findings and plan as documented with exceptions below. SUBJECTIVE: Patient seen and examined, awake on nasal canula. Denies any pain or dyspnea. OBJECTIVE: Vital Signs Period Temp Pulse Resp BP Sys/Heredia Pulse Ox Last 24 Hr 97.5 F-98.7 F 73-94 20-27 134-167/55-92 98-100 Intake & Output 12/05/18 12/06/18 12/07/18 12/08/18 23:59 23:59 23:59 23:59 Intake Total 2968 2252 1790 620 Output Total 1400 1610 1800 2800 Balance 1568 362 -10 -2180 Weight 196 lb 6.4 oz 197 lb 197 lb 198 lb 6.4 oz General: sitting in bed no acute distress Neck: soft, supple, no JVD Chest: coarse scattered rales, decreased air entry Abdomen: soft, obese, NT Extremities: no edema HEENT: PERRL Home Medications Medication Instructions Recorded Aspirin Coated [Ecotrin -] 81 mg PO DAILY #0 07/19/14 Cholecalciferol (Vitamin D3) 2,000 units PO DAILY 07/19/14 [Vitamin D3] Cyanocobalamin [Vitamin B12 -] 1,000 mcg PO DAILY 07/19/14 Donepezil HCl [Aricept] 10 mg PO DAILY 07/19/14 Folic Acid 1 mg PO DAILY 07/19/14 Memantine HCl [Namenda -] 10 mg PO BID 07/19/14 Metoprolol Succinate [Toprol XL -] 25 mg PO DAILY 07/19/14 Pravastatin Sodium [Pravachol] 40 mg PO DAILY 07/19/14 Ranitidine [Zantac -] 150 mg PO DAILY 07/19/14 Fenofibrate Nanocrystallized 160 mg PO DAILY 10/19/17 [Fenofibrate] Albuterol 2.5/Ipratropium 0.5 1 amp NEB Q6H PRN 7 Days amp 10/22/17 [Duoneb -] Lactobacillus Acidophilus 1 each PO DAILY 12/02/18 [Acidophilus] [place]-3 Fatty Acids/Fish Oil [Fish 1 each PO DAILY 12/02/18 Oil 1,000 mg Capsule] Active Medications Albuterol/Ipratropium (Duoneb -) 1 amp NEB Q6H IKER Last Admin: 12/08/18 11:32 Dose: 1 amp Aspirin (Asa -) 81 mg NGT DAILY IKER Last Admin: 12/08/18 12:31 Dose: Not Given Chlorhexidine Gluconate (Hibiclens For Decolonization -) 1 applic TP HS IKER Last Admin: 12/07/18 21:52 Dose: 1 applic Donepezil HCl (Aricept -) 10 mg NGT HS IKER Last Admin: 12/07/18 21:52 Dose: Not Given Heparin Sodium (Porcine) (Heparin -) 5,000 unit SQ BID IKER Last Admin: 12/08/18 10:13 Dose: 5,000 unit Ceftriaxone Sodium 1 gm/ (Dextrose) 50 mls @ 200 mls/hr IVPB DAILY [facility]; Protocol Last Admin: 12/08/18 10:13 Dose: 200 mls/hr Metronidazole (Flagyl 500mg Premixed Ivpb -) 500 mg in 100 mls @ 100 mls/hr IVPB Q8H-IV IKER Last Admin: 12/08/18 10:13 Dose: 100 mls/hr Sodium Chloride (1/2 Normal Saline) 1,000 mls @ 65 mls/hr IV ASDIR IKER Last Admin: 12/07/18 16:57 Dose: Not Given Insulin Aspart (Novolog Vial Sliding Scale -) 1 vial SQ ACHS IKER; Protocol Last Admin: 12/08/18 12:40 Dose: Not Given Memantine (Namenda -) 10 mg GT BID [facility] Last Admin: 12/08/18 12:31 Dose: Not Given Metoprolol Succinate (Toprol Xl -) 25 mg PO DAILY [facility] Last Admin: 12/08/18 12:31 Dose: Not Given Pantoprazole Sodium (Protonix Iv) 40 mg IVPUSH BID [facility] Last Admin: 12/08/18 10:13 Dose: 40 mg Laboratory Results - last 24 hr 12/07/18 12/08/18 12/08/18 21:58 08:15 08:15 WBC 8.8 RBC 3.66 L Hgb 11.2 L Hct 32.3 L MCV 88.1 MCH 30.7 MCHC 34.8 RDW 14.3 Plt Count 165 MPV 6.9 L D Absolute Neuts (auto) 7.0 Neutrophils % 80.2 Neutrophils % (Manual) 65.9 Band Neutrophils % 2.2 Lymphocytes % 10.3 D Lymphocytes % (Manual) 9.9 Monocytes % 7.5 D Monocytes % (Manual) 9 Eosinophils % 1.4 Eosinophils % (Manual) 4.4 Basophils % 0.6 Basophils % (Manual) 1.1 Myelocytes % (Man) 0 Promyelocytes % (Man) 0 Blast Cells % (Manual) 0 Nucleated RBC % 0 Metamyelocytes 0 Hypochromia 0 Platelet Estimate Normal Polychromasia 0 Poikilocytosis 2+ Anisocytosis 2+ Microcytosis 1+ Macrocytosis 0 Spherocytes 1+ Tear Drop Cells 1+ Ovalocytes 1+ Joya Cells 2+ Sodium 144 Potassium 4.2 Chloride 115 H Carbon Dioxide 18 L Anion Gap 12 BUN 47.2 H Creatinine 2.1 H Est GFR (CKD-EPI)AfAm 31.62 Est GFR (CKD-EPI)NonAf 27.28 POC Glucometer 96 Random Glucose 134 H Calcium 8.4 L Phosphorus 4.1 Magnesium 2.0 Total Bilirubin 0.4 AST 28 ALT 15 Alkaline Phosphatase 41 L Total Protein 5.8 L Albumin 2.1 L 12/08/18 12:37 WBC RBC Hgb Hct MCV MCH MCHC RDW Plt Count MPV Absolute Neuts (auto) Neutrophils % Neutrophils % (Manual) Band Neutrophils % Lymphocytes % Lymphocytes % (Manual) Monocytes % Monocytes % (Manual) Eosinophils % Eosinophils % (Manual) Basophils % Basophils % (Manual) Myelocytes % (Man) Promyelocytes % (Man) Blast Cells % (Manual) Nucleated RBC % Metamyelocytes Hypochromia Platelet Estimate Polychromasia Poikilocytosis Anisocytosis Microcytosis Macrocytosis Spherocytes Tear Drop Cells Ovalocytes Joya Cells Sodium Potassium Chloride Carbon Dioxide Anion Gap BUN Creatinine Est GFR (CKD-EPI)AfAm Est GFR (CKD-EPI)NonAf POC Glucometer 136 Random Glucose Calcium Phosphorus Magnesium Total Bilirubin AST ALT Alkaline Phosphatase Total Protein Albumin Microbiology 12/02/18 18:30 Blood - Peripheral Venous Blood Culture - Final NO GROWTH AFTER 5 DAYS INCUBATION 12/02/18 18:31 Blood - Peripheral Venous Blood Culture - Final NO GROWTH AFTER 5 DAYS INCUBATION 12/02/18 22:50 Sputum - Endotrachea Suction/Ventilator Gram Stain - Final 12/02/18 22:50 Sputum - Endotrachea Suction/Ventilator Sputum Culture - Final NORMAL RESPIRATORY ALEYDA 12/03/18 16:45 Urine - Urine Gan Urine Culture - Final NO GROWTH OBTAINED 2D echo results reviewed ASSESSMENT AND PLAN: 88 yom with PMHx of alzheimer's dementia, HTN, HLD, CAD, known LBBB, CKD, PVD, OA, stomach CA s/p resection, GERD, hx R Gluteal stage 3 ulcer (w hx MRSA), admitting with vomiting and respiratory failure Acute Hypoxic and Hypercapneic Respiratory Failure BRIANDA Pneumonia likely Aspiration Severe Sepsis Acute on Chronic Renal Failure CAD +Troponins likely Demand Ischemia, type II NSTEMI Lactic Acidosis HTN Hyperlipidemia GERD Plan: Extubated. Oxygenating well, still with coarse secretions. Aggressive suctioning, chest PT, standing and prn nebs. Ceftriaxone/Flagyl day 6. Aspiration precautions. Speech/swallow evaluation noted, reassess in 24 hours. Renal input noted. D/c gan. IVF while NPO. ISS. Metoprolol/ASA, troponin, 2D echo noted. Cardiology consult. DVTPPX heparin Dispo agree with transfer to telemetry total critical care time spent 36 min.
[2018-12-08] MEDS ORDERED: SODIUM CHLORIDE 0.45% 1,000 ML IV SCH (17:42)
[2018-12-08] MEDS: DONEPEZIL HCL 10 MG TABLET (FP) NGT SCH (21:58)
[2018-12-09] MEDS: ALBUTEROL SO4 2.5/IPRATROPIUM 0.5 INH SOL 3 ML VIAL.NEB. NEB SCH ×2 (06:41→11:15)
[2018-12-09] MEDS: INSULIN SLIDING SCALE (NOVOLOG) 1 VIAL SQ SCH ×4 (06:56→22:20)
--- NOTE | 2018-12-09 07:08 | PN ---
Physical Exam: SUBJECTIVE: Patient seen and examined at bed side , up in bed on 4 L NC, with some dry cough and upper respiratory congestion ,denies any fever or chest pain ,still NPO OBJECTIVE: Vital Signs Period Temp Pulse Resp BP Sys/Heredia Pulse Ox Last 24 Hr 97.5 F-98.7 F 74-94 20-27 134-167/55-92 94-100 GENERAL: extubated ,on 4 L o2 NC HEAD:NC/AT EYES: PERRL, NECK: supple. LUNGS:decrease breath sounds at the bases , upper respiratory congestions HEART: Regular rate and rhythm, S1, S2 without murmur, rub or gallop. ABDOMEN: Obese , Soft, nontender, hypoactive BS EXTREMITIES: 2+ pulses, warm, well-perfused, no edema. NEUROLOGICAL:aox3 , no focal deficit Laboratory Results - last 24 hr 12/05/18 12/08/18 12/08/18 05:15 08:15 08:15 WBC 8.8 RBC 3.66 L Hgb 11.2 L Hct 32.3 L MCV 88.1 MCH 30.7 MCHC 34.8 RDW 14.3 Plt Count 165 MPV 6.9 L D Absolute Neuts (auto) 7.0 Neutrophils % 80.2 Neutrophils % (Manual) 65.9 Band Neutrophils % 2.2 Lymphocytes % 10.3 D Lymphocytes % (Manual) 9.9 Monocytes % 7.5 D Monocytes % (Manual) 9 Eosinophils % 1.4 Eosinophils % (Manual) 4.4 Basophils % 0.6 Basophils % (Manual) 1.1 Myelocytes % (Man) 0 Promyelocytes % (Man) 0 Blast Cells % (Manual) 0 Nucleated RBC % 0 Metamyelocytes 0 Hypochromia 0 Platelet Estimate Normal Polychromasia 0 Poikilocytosis 2+ Anisocytosis 2+ Microcytosis 1+ Macrocytosis 0 Spherocytes 1+ Tear Drop Cells 1+ Ovalocytes 1+ Douglas Cells 2+ Sodium 144 Potassium 4.2 Chloride 115 H Carbon Dioxide 18 L Anion Gap 12 BUN 47.2 H Creatinine 2.1 H Est GFR (CKD-EPI)AfAm 31.62 Est GFR (CKD-EPI)NonAf 27.28 POC Glucometer Random Glucose 134 H Calcium 8.4 L Phosphorus 4.1 Magnesium 2.0 Total Bilirubin 0.4 AST 28 ALT 15 Alkaline Phosphatase 41 L Total Protein 5.8 L Total Protein (PEP) 4.9 L Albumin 2.1 L Albumin (PEP) 2.4 L Globulin 2.5 Albumin/Globulin Ratio 1.0 Beta Globulins 0.5 L ALYSSA M-Linwood Not observed 12/08/18 12/08/18 12/08/18 12:37 16:55 21:57 WBC RBC Hgb Hct MCV MCH MCHC RDW Plt Count MPV Absolute Neuts (auto) Neutrophils % Neutrophils % (Manual) Band Neutrophils % Lymphocytes % Lymphocytes % (Manual) Monocytes % Monocytes % (Manual) Eosinophils % Eosinophils % (Manual) Basophils % Basophils % (Manual) Myelocytes % (Man) Promyelocytes % (Man) Blast Cells % (Manual) Nucleated RBC % Metamyelocytes Hypochromia Platelet Estimate Polychromasia Poikilocytosis Anisocytosis Microcytosis Macrocytosis Spherocytes Tear Drop Cells Ovalocytes Joya Cells Sodium Potassium Chloride Carbon Dioxide Anion Gap BUN Creatinine Est GFR (CKD-EPI)AfAm Est GFR (CKD-EPI)NonAf POC Glucometer 136 114 129 Random Glucose Calcium Phosphorus Magnesium Total Bilirubin AST ALT Alkaline Phosphatase Total Protein Total Protein (PEP) Albumin Albumin (PEP) Globulin Albumin/Globulin Ratio Beta Globulins ALYSSA M-Linwood 12/09/18 05:43 WBC RBC Hgb Hct MCV MCH MCHC RDW Plt Count MPV Absolute Neuts (auto) Neutrophils % Neutrophils % (Manual) Band Neutrophils % Lymphocytes % Lymphocytes % (Manual) Monocytes % Monocytes % (Manual) Eosinophils % Eosinophils % (Manual) Basophils % Basophils % (Manual) Myelocytes % (Man) Promyelocytes % (Man) Blast Cells % (Manual) Nucleated RBC % Metamyelocytes Hypochromia Platelet Estimate Polychromasia Poikilocytosis Anisocytosis Microcytosis Macrocytosis Spherocytes Tear Drop Cells Ovalocytes Joya Cells Sodium Potassium Chloride Carbon Dioxide Anion Gap BUN Creatinine Est GFR (CKD-EPI)AfAm Est GFR (CKD-EPI)NonAf POC Glucometer 119 Random Glucose Calcium Phosphorus Magnesium Total Bilirubin AST ALT Alkaline Phosphatase Total Protein Total Protein (PEP) Albumin Albumin (PEP) Globulin Albumin/Globulin Ratio Beta Globulins ALYSSA M-Linwood Active Medications Generic Name Dose Route Start Last Admin Trade Name Freq PRN Reason Stop Dose Admin Albuterol/Ipratropium 1 amp 12/08/18 18:00 12/09/18 06:41 Duoneb - NEB 1 amp Q6H IKER Administration Aspirin 81 mg 12/09/18 10:00 Asa - NGT DAILY IKER Donepezil HCl 10 mg 12/08/18 22:00 12/08/18 21:58 Aricept - NGT 10 mg HS IKER Administration Heparin Sodium (Porcine) 5,000 unit 12/08/18 22:00 12/08/18 21:59 Heparin - SQ 5,000 unit BID IKER Administration Ceftriaxone Sodium 1 gm/ 50 mls @ 100 mls/hr 12/09/18 10:00 Dextrose IVPB DAILY IKER Protocol Metronidazole 500 mg in 100 mls @ 100 mls/hr 12/08/18 18:00 12/09/18 03:00 Flagyl 500mg Premixed Ivpb - IVPB 100 mls/hr Q8H-IV IKER Administration Sodium Chloride 1,000 mls @ 65 mls/hr 12/08/18 17:42 12/08/18 17:56 1/2 Normal Saline IV 65 mls/hr ASDIR IKER Administration Insulin Aspart 1 vial 12/08/18 22:00 12/09/18 06:56 Novolog Vial Sliding Scale - SQ Not Given ACHS IKER Protocol Memantine 10 mg 12/08/18 22:00 12/08/18 21:59 Namenda - GT 10 mg BID IKER Administration Metoprolol Succinate 25 mg 12/09/18 10:00 Toprol Xl - PO DAILY IKER Pantoprazole Sodium 40 mg 12/08/18 22:00 12/08/18 23:07 Protonix Iv IVPUSH 40 mg BID IKER Administration CBC, BMP 12/09/18 09:12 12/09/18 09:12 ASSESSMENT/PLAN: Mariano Camacho is an 88 y/o male with a PMHx of HTN, HLD, CAD (s/p stent 2010) , LBBB, Alzheimer's disease, CKD, PVD, OA, 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 # LBBB , not changed from 2018 * continue aspirin, continue home metoprolol 25mg daily * last echo on 10/20/17 showing EF of 35% * repeat echo showing EF 40-45% * daily weight , I&O # Acute hypoxic hypercapnic respiratory failure , improving * extubated on 4 L o2 NC * ABG showing respiratory acidosis with non anion gap metabolic acidosis, respiratory component of CO2 retention, metabolic component of likely hyperchloremia from dehydration and chronic renal failure * maintain o2 sat above 92% * CXR with RUL Consolidation * duonebs q6h prn # KATHY in term of sepsis vs AIN or ATN , improving * CR 1.9 on admission, improving , continue fluids * renal U/S did not show any hydronephrosis or other acute pathology * DC gan #N/V on admission * given Zofran and Pepcid in ED, Protonix 40 daily * Abdominal CT showing s/p gastrectomy, 1.5cm hypodense nodule in the pancreatic tail, epigastric hernia with nondilated small bowel loop, small umbilical hernia with a small nondilated small bowel loop, bilateral inguinal hernias containing only fat, colonic diverticulosis, nonobstructing renal calculi * vomiting causes may include transient obstruction from hernias, food poisoning, viral gastritis * HOB elevated, aspiration precautions * speech and swallow evaluation recommend cont NPO and re evaluated in 48 hours as is ashley risk for aspiration * Will assess for NG feedings as secretions/respiratory status improve. # severe sepsis in the setting of aspiration pneumonitis/pneumonia, resolved * cannot rule out community acquired pneumonia * Dr. Patel consulted, recs appreciated * 7th day of abx, ceftriaxone and flagyl continue up to 7 days per ID * cx negative , isolation precautions, hx of MRSA * aspiration precautions # DM * BGM, ISS Alzheimer's disease Hx of stomach CA (MALT) # dementia on memantine and donepezil #F/E/N * D5 1/3 NS @ 75cc/hr * continue to monitor electrolytes and replete as necessary * NPO #PROPHYLAXIS * heparin SQ BID , SCDS * Protonix #CODE * full code #DISPO * monitor in Tele Visit type - Emergency Visit Emergency Visit: Yes ED Registration Date: 12/02/18 Care time: The patient presented to the Emergency Department on the above date and was hospitalized for further evaluation of their emergent condition. - New Patient This patient is new to me today: No - Critical Care Critical Care patient: No - Discharge Referral Referred to [facility] Med P.C.: No ATTENDING PHYSICIAN STATEMENT I saw and evaluated the patient. I reviewed the resident's note and discussed the case with the resident. I agree with the resident's findings and plan as documented. SUBJECTIVE: OBJECTIVE: ASSESSMENT AND PLAN:
--- NOTE | 2018-12-09 08:48 | CON.CARD ---
Consult Consult Specialty:: Cardiology Referred by:: Dr. Juarez Reason for Consultation:: + TnI - History of Present Illness Chief Complaint: Nausea and vomiting History of Present Illness: 88M w/ CAD, ischemic CM, chronic systolic CHF, prior ACS/NSTEMI w/ BMS LAD 2010 , chronic LBBB, CKD was admitted last week w/ nausea/ vomiting and aspiration PNA/ hypoxic respiratory failure, intubated. Acute on chronic renal failure. In that setting, was found for have a mildly + TnI that remained essentially flat. Denies CP, palps. No recent exertional angina. Denies palps. Was extubated and transferred to telemetry. 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 - Alcohol/Substance Use Hx Alcohol Use: Yes (RARE) - Smoking History Smoking history: Never smoked Have you smoked in the past 12 months: No If you are a former smoker, when did you quit?: Does not remember - Social History Usual Living Arrangement: With Spouse ADL: Family Assistance History of Recent Travel: No Home Medications - Allergies Allergies/Adverse Reactions: Allergies Allergy/AdvReac Type Severity Reaction Status Date / Time No Known Allergies Allergy Verified 12/02/18 13:16 - Home Medications Home Medications: Ambulatory Orders Aspirin Coated [Ecotrin -] 81 mg PO DAILY #0 07/19/14 Cholecalciferol (Vitamin D3) [Vitamin D3] 2,000 units PO DAILY 07/19/14 Cyanocobalamin [Vitamin B12 -] 1,000 mcg PO DAILY 07/19/14 Donepezil HCl [Aricept] 10 mg PO DAILY 07/19/14 Folic Acid 1 mg PO DAILY 07/19/14 Memantine HCl [Namenda -] 10 mg PO BID 07/19/14 Metoprolol Succinate [Toprol XL -] 25 mg PO DAILY 07/19/14 Pravastatin Sodium [Pravachol] 40 mg PO DAILY 07/19/14 Ranitidine [Zantac -] 150 mg PO DAILY 07/19/14 Fenofibrate Nanocrystallized [Fenofibrate] 160 mg PO DAILY 10/19/17 Albuterol 2.5/Ipratropium 0.5 [Duoneb -] 1 amp NEB Q6H PRN 7 Days amp 10/22/17 Lactobacillus Acidophilus [Acidophilus] 1 each PO DAILY 12/02/18 [place]-3 Fatty Acids/Fish Oil [Fish Oil 1,000 mg Capsule] 1 each PO DAILY Family Disease History - Family Disease History Family Disease History: Heart Disease: Brother, CA: Sister Review of Systems - Review of Systems Constitutional: reports: No Symptoms Eyes: reports: No Symptoms Cardiovascular: reports: No Symptoms Respiratory: reports: SOB (chronic) Gastrointestinal: reports: Vomiting Neurological: reports: No Symptoms Endocrine: reports: No Symptoms Hematology/Lymphatic: reports: No Symptoms Psychiatric: reports: No Symptoms - Risk Factors Known Risk Factors: Yes: Prior MA /Emb Stroke Vital Signs: Vital Signs Temperature 98.3 F 12/09/18 06:00 Pulse Rate 74 12/09/18 06:00 Respiratory Rate 20 12/09/18 06:00 Blood Pressure 140/70 12/09/18 06:00 O2 Sat by Pulse Oximetry (%) 94 L 12/08/18 21:00 Constitutional: Yes: No Distress Eyes: Yes: Conjunctiva Clear, EOM Intact HENT: Yes: Atraumatic Respiratory: Yes: Other (decreased breath sounds b/l, no active wheezing.) Gastrointestinal: Yes: Soft (NT) Cardiovascular: Yes: Regular Rate and Rhythm JVD: No Carotid Bruit: No PMI: Non-Displaced Heart Sounds: Yes: S1, S2 (RRR, no M/R.G) Edema: Yes Edema: LLE: 2+, RLE: 2+ Neurological: Yes: Alert, Oriented - Other Data Labs, Other Data: CBC, BMP 12/08/18 08:15 12/08/18 08:15 INR, PTT INR 1.07 (0.83-1.09) 12/03/18 05:40 Laboratory Tests 12/02/18 12/02/18 12/03/18 15:48 22:50 05:40 WBC Hgb Plt Count ABG pH ABG pCO2 at Pt Temp ABG pO2 at Pt Temp Sodium Potassium BUN Creatinine Creatine Kinase 72 Troponin I < 0.02 0.80 H* 1.58 H* ALBERTO Screen 12/04/18 12/05/18 12/06/18 07:56 05:15 11:55 WBC Hgb Plt Count ABG pH 7.29 L ABG pCO2 at Pt Temp 32.6 L ABG pO2 at Pt Temp 82.3 Sodium Potassium BUN Creatinine Creatine Kinase Troponin I 1.14 H* ALBERTO Screen Negative 12/08/18 12/08/18 08:15 08:15 WBC 8.8 Hgb 11.2 L Plt Count 165 ABG pH ABG pCO2 at Pt Temp ABG pO2 at Pt Temp Sodium 144 Potassium 4.2 BUN 47.2 H Creatinine 2.1 H Creatine Kinase Troponin I ALBERTO Screen Echo: Report Reviewed, Other (EF 40-45%, apical and apical septum HK) Imaging - Results Chest X-ray: Image Reviewed Cat Scan: Report Reviewed EKG: Image Reviewed Assessment/Plan Data: Echo 10/2017: tds, "no definitive statements can be made about findings due to extremely poor acoustic windows". nl lv size. Severely decreased LV sys fn. Global with possible anteroapical septal AK. RV not seen. 1+ ar. MV/TV not well visualized. chest ct 10/2017: vascular u/s 10/2017: no dvt, bilaterally Echo 09/2016: nl lv size. Septum is akinetic. No rwma in inferior, inferolateral or lateral wall, other ordoñez not well seen. Overall ejection fraction is probably mildly, vs [id number] reduced--estimated at 45% vs 40-45%. nl rv/valves. MUGA 08/23: EF 51% MIBI 07/22: 4:30min, probably + STs; large area mid-AW/septum/apex scar with small P.I.I.; moder decr EF with mild global HK and sev HK vs AK of mid-AW// apex; mild LVE, no TID [facility] (revelo) 05/20: thrombotic subtotal occl pLAD (BMS), 70-80% ramus, diffuse 30- 50% RCA, EF 35% (anterolat AK, lateral/posterolat HK) IMP: 1. Acute respiratory failure secondary to aspiration PNA, now extubated. 2. CAD s/p prior MA, PCI LAD 2010, w/ ischemic CM and chronic systolic CHF (EF chronically b/t 40-45%) 3. Acute on chronic renal failure, resolved. 4. + TnI secondary to type II MA, demand ischemia in setting of above. 5. Chronic LBBB 6. H/o gastric cancer REC: 1. Cont ASA/ beta jesus. Not on EDELMIRA/ARB due to CKD w/ and recent acute renal failure. 2. 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 3. Currently appears euvolemic, would hod on Lasix for now. 4. Continue Abx as per ID. 5. DVT prophylaxis. GI prophylaxis w/ PPI. 6. Renal following, renal fx improved.
[2018-12-09 09:33] LABS: HEMATOCRIT 31.5 % (35.4-49); HEMOGLOBIN 10.7 GM/dL (11.7-16.9); MEAN CELL VOLUME 88.3 fl (80-96); MEAN PLT VOLUME 7.1 fl (7.5-11.1); PLATELET COUNT 176 K/MM3 (134-434); RBC 3.56 M/mm3 (4.00-5.60); RDW 14.3 % (11.9-15.9); WHITE BLOOD COUNT 6.6 K/mm3 (4.0-10.0)
[2018-12-09] MEDS ORDERED: cefTRIAXone SODIUM 1 GM VIAL ONE (09:34)
[2018-12-09] MEDS: CEFTRIAXONE 1 GM in DEXTROSE 5%-WATER - 50 ML IVPB SCH (09:40)
[2018-12-09] MEDS: HEPARIN NA (PORCINE) 5,000 UNITS/ML 1ML VIAL SQ SCH ×2 (09:40→22:18)
[2018-12-09] MEDS: PANTOPRAZOLE SODIUM 40 MG VIAL IVPUSH SCH ×2 (09:40→22:20)
[2018-12-09 09:53] LABS: BLOOD UREA NITROGEN 44.8 mg/dL (7-18); CALCIUM 8.4 mg/dL (8.5-10.1); CREATININE 1.9 mg/dL (0.55-1.3); PHOSPHOROUS 3.5 mg/dL (2.5-4.9); POTASSIUM 3.9 mmol/L (3.5-5.1)
[2018-12-09] MEDS: ASPIRIN 81 MG CHEWABLE TABLETS NGT SCH (10:07)
[2018-12-09] MEDS: MEMANTINE HCL 10 MG TABLET (FP) GT SCH ×3 (10:07→22:29)
[2018-12-09] MEDS: metoPROLOL SUCCINATE 25 MG TAB.SR.24H (FP) PO SCH (10:07)
--- NOTE | 2018-12-09 12:02 | PN ---
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 Voice improving, still dysphonic. Pt is NPO. Reviewed case with PMD and pt's . For MBS today, to r/o aspiration/stasis and for possible initiation of PO trials.
--- NOTE | 2018-12-09 13:44 | PN ---
Teaching Attending Note Name of Resident: Arnaud Batista ATTENDING PHYSICIAN STATEMENT I saw and evaluated the patient. I reviewed the resident's note and discussed the case with the resident. I agree with the resident's findings and plan as documented with exceptions below. SUBJECTIVE: Patient seen and examined. awake, trying to get up with PT. weak but better, no complaints. OBJECTIVE: Vital Signs Period Temp Pulse Resp BP Sys/Heredia Pulse Ox Last 24 Hr 98 F-98.7 F 74-82 20-23 134-143/55-76 94 Intake & Output 12/06/18 12/07/18 12/08/18 12/09/18 23:59 23:59 23:59 23:59 Intake Total 2252 1790 1420 Output Total 1610 1800 2875 Balance 642 -10 -1452 Weight 197 lb 197 lb 198 lb 6.4 oz 194 lb General: sitting at edge of bed, no respiratory distress Neck: soft, supple, no JVD Chest: bilateral scattered coarse rales, no wheezing, pos air entry Abdomen:soft, NT, ND Extremities: trace pedal edema Home Medications Medication Instructions Recorded Aspirin Coated [Ecotrin -] 81 mg PO DAILY #0 07/19/14 Cholecalciferol (Vitamin D3) 2,000 units PO DAILY 07/19/14 [Vitamin D3] Cyanocobalamin [Vitamin B12 -] 1,000 mcg PO DAILY 07/19/14 Donepezil HCl [Aricept] 10 mg PO DAILY 07/19/14 Folic Acid 1 mg PO DAILY 07/19/14 Memantine HCl [Namenda -] 10 mg PO BID 07/19/14 Metoprolol Succinate [Toprol XL -] 25 mg PO DAILY 07/19/14 Pravastatin Sodium [Pravachol] 40 mg PO DAILY 07/19/14 Ranitidine [Zantac -] 150 mg PO DAILY 07/19/14 Fenofibrate Nanocrystallized 160 mg PO DAILY 10/19/17 [Fenofibrate] Albuterol 2.5/Ipratropium 0.5 1 amp NEB Q6H PRN 7 Days amp 10/22/17 [Duoneb -] Lactobacillus Acidophilus 1 each PO DAILY 12/02/18 [Acidophilus] [place]-3 Fatty Acids/Fish Oil [Fish 1 each PO DAILY 12/02/18 Oil 1,000 mg Capsule] Active Medications Albuterol/Ipratropium (Duoneb -) 1 amp NEB Q6H [facility] Last Admin: 12/09/18 06:41 Dose: 1 amp Aspirin (Asa -) 81 mg NGT DAILY [facility] Last Admin: 12/09/18 10:07 Dose: Not Given Donepezil HCl (Aricept -) 10 mg NGT HS [facility] Last Admin: 12/08/18 21:58 Dose: 10 mg Heparin Sodium (Porcine) (Heparin -) 5,000 unit SQ BID [facility] Last Admin: 12/09/18 09:40 Dose: 5,000 unit Ceftriaxone Sodium 1 gm/ (Dextrose) 50 mls @ 100 mls/hr IVPB DAILY [facility]; Protocol Last Admin: 12/09/18 09:40 Dose: 100 mls/hr Metronidazole (Flagyl 500mg Premixed Ivpb -) 500 mg in 100 mls @ 100 mls/hr IVPB Q8H-IV [facility] Last Admin: 12/09/18 09:40 Dose: 100 mls/hr Sodium Chloride (1/2 Normal Saline) 1,000 mls @ 65 mls/hr IV ASDIR [facility] Last Admin: 12/08/18 17:56 Dose: 65 mls/hr Insulin Aspart (Novolog Vial Sliding Scale -) 1 vial SQ ACHS [facility]; Protocol Last Admin: 12/09/18 12:14 Dose: Not Given Memantine (Namenda -) 10 mg GT BID [facility] Last Admin: 12/09/18 10:07 Dose: Not Given Metoprolol Succinate (Toprol Xl -) 25 mg PO DAILY [facility] Last Admin: 12/09/18 10:07 Dose: Not Given Pantoprazole Sodium (Protonix Iv) 40 mg IVPUSH BID [facility] Last Admin: 12/09/18 09:40 Dose: 40 mg Laboratory Results - last 24 hr 12/05/18 12/08/18 12/08/18 05:15 16:55 21:57 WBC RBC Hgb Hct MCV MCH MCHC RDW Plt Count MPV Sodium Potassium Chloride Carbon Dioxide Anion Gap BUN Creatinine Est GFR (CKD-EPI)AfAm Est GFR (CKD-EPI)NonAf POC Glucometer 114 129 Random Glucose Calcium Phosphorus Magnesium Total Protein (PEP) 4.9 L Albumin (PEP) 2.4 L Globulin 2.5 Albumin/Globulin Ratio 1.0 Beta Globulins 0.5 L ALYSSA M-Linwood Not observed 12/09/18 12/09/18 12/09/18 05:43 09:12 09:12 WBC 6.6 RBC 3.56 L Hgb 10.7 L Hct 31.5 L MCV 88.3 MCH 30.0 MCHC 34.0 RDW 14.3 Plt Count 176 MPV 7.1 L Sodium 145 Potassium 3.9 Chloride 113 H Carbon Dioxide 23 Anion Gap 10 BUN 44.8 H Creatinine 1.9 H Est GFR (CKD-EPI)AfAm 35.69 Est GFR (CKD-EPI)NonAf 30.79 POC Glucometer 119 Random Glucose 135 H Calcium 8.4 L Phosphorus 3.5 Magnesium 2.0 Total Protein (PEP) Albumin (PEP) Globulin Albumin/Globulin Ratio Beta Globulins ALYSSA M-Linwood 12/09/18 12:10 WBC RBC Hgb Hct MCV MCH MCHC RDW Plt Count MPV Sodium Potassium Chloride Carbon Dioxide Anion Gap BUN Creatinine Est GFR (CKD-EPI)AfAm Est GFR (CKD-EPI)NonAf POC Glucometer 130 Random Glucose Calcium Phosphorus Magnesium Total Protein (PEP) Albumin (PEP) Globulin Albumin/Globulin Ratio Beta Globulins ALYSSA M-Linwood Microbiology 12/02/18 18:30 Blood - Peripheral Venous Blood Culture - Final NO GROWTH AFTER 5 DAYS INCUBATION 12/02/18 18:31 Blood - Peripheral Venous Blood Culture - Final NO GROWTH AFTER 5 DAYS INCUBATION 12/02/18 22:50 Sputum - Endotrachea Suction/Ventilator Gram Stain - Final 12/02/18 22:50 Sputum - Endotrachea Suction/Ventilator Sputum Culture - Final NORMAL RESPIRATORY ALEYDA 12/03/18 16:45 Urine - Urine Verdugo Urine Culture - Final NO GROWTH OBTAINED ASSESSMENT AND PLAN: 88 yom with PMHx of alzheimer's dementia, HTN, HLD, CAD, known LBBB, CKD, PVD, OA, stomach CA s/p resection, GERD, hx R Gluteal stage 3 ulcer (w hx MRSA), admitting with vomiting and respiratory failure Acute Hypoxic and Hypercapneic Respiratory Failure BRIANDA Pneumonia likely Aspiration Severe Sepsis Acute on Chronic Renal Failure CAD +Troponins likely Demand Ischemia, type II NSTEMI Lactic Acidosis HTN Hyperlipidemia GERD Plan: Extubated. Oxygenating well, still with coarse secretions. Aggressive suctioning, chest PT, standing and prn nebs. Ceftriaxone/Flagyl day 7. Speech/swallow eval noted, MBS noted, Aspiration on puree, NPO for now. Will assess for NG feedings as secretions/respiratory status improve. Repeat MBS in 48-72 hours. Per family, long standing h/o of coughing/choking with food. Renal input noted. Verdugo d/son. IVF while NPO. ISS. Metoprolol/ASA, troponin, 2D echo noted. Cardiology input noted. DVTPPX heparin Dispo pending clinical improvement. Anticipate SNF when improved.
--- NOTE | 2018-12-09 13:56 | PN ---
Progress Note (short form) - Note Progress Note: NAD on NC O2. Some dry cough. No fever. No acute events overnight. Intake & Output 12/06/18 12/07/18 12/08/18 12/09/18 23:59 23:59 23:59 23:59 Intake Total 2252 1790 1420 Output Total 1610 1800 2875 Balance Weight 197 lb 197 lb 198 lb 6.4 oz 194 lb Last Vital Signs Temp Pulse Resp BP Pulse Ox 98 F 80 20 142/76 94 L 12/09/18 09:00 12/09/18 09:00 12/09/18 09:00 12/09/18 09:00 12/08/18 21:00 Active Medications Albuterol/Ipratropium (Duoneb -) 1 amp NEB Q6H [facility] Last Admin: 12/09/18 06:41 Dose: 1 amp Aspirin (Asa -) 81 mg NGT DAILY [facility] Last Admin: 12/09/18 10:07 Dose: Not Given Donepezil HCl (Aricept -) 10 mg NGT HS [facility] Last Admin: 12/08/18 21:58 Dose: 10 mg Heparin Sodium (Porcine) (Heparin -) 5,000 unit SQ BID [facility] Last Admin: 12/09/18 09:40 Dose: 5,000 unit Ceftriaxone Sodium 1 gm/ (Dextrose) 50 mls @ 100 mls/hr IVPB DAILY [facility]; Protocol Last Admin: 12/09/18 09:40 Dose: 100 mls/hr Metronidazole (Flagyl 500mg Premixed Ivpb -) 500 mg in 100 mls @ 100 mls/hr IVPB Q8H-IV [facility] Last Admin: 12/09/18 09:40 Dose: 100 mls/hr Sodium Chloride (1/2 Normal Saline) 1,000 mls @ 65 mls/hr IV ASDIR [facility] Last Admin: 12/08/18 17:56 Dose: 65 mls/hr Insulin Aspart (Novolog Vial Sliding Scale -) 1 vial SQ ACHS [facility]; Protocol Last Admin: 12/09/18 12:14 Dose: Not Given Memantine (Namenda -) 10 mg GT BID [facility] Last Admin: 12/09/18 10:07 Dose: Not Given Metoprolol Succinate (Toprol Xl -) 25 mg PO DAILY [facility] Last Admin: 12/09/18 10:07 Dose: Not Given Pantoprazole Sodium (Protonix Iv) 40 mg IVPUSH BID [facility] Last Admin: 12/09/18 09:40 Dose: 40 mg Gen: awake and alert, NAD on NC O2 Heart: RRR Lung: scattered rhonchi Abd: soft, nontender Ext: no edema [employer]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 Laboratory Results - last 24 hr 12/05/18 12/08/18 12/08/18 05:15 16:55 21:57 WBC RBC Hgb Hct MCV MCH MCHC RDW Plt Count MPV Sodium Potassium Chloride Carbon Dioxide Anion Gap BUN Creatinine Est GFR (CKD-EPI)AfAm Est GFR (CKD-EPI)NonAf POC Glucometer 114 129 Random Glucose Calcium Phosphorus Magnesium Total Protein (PEP) 4.9 L Albumin (PEP) 2.4 L Globulin 2.5 Albumin/Globulin Ratio 1.0 Beta Globulins 0.5 L ALYSSA M-Linwood Not observed 12/09/18 12/09/18 12/09/18 05:43 09:12 09:12 WBC 6.6 RBC 3.56 L Hgb 10.7 L Hct 31.5 L MCV 88.3 MCH 30.0 MCHC 34.0 RDW 14.3 Plt Count 176 MPV 7.1 L Sodium 145 Potassium 3.9 Chloride 113 H Carbon Dioxide 23 Anion Gap 10 BUN 44.8 H Creatinine 1.9 H Est GFR (CKD-EPI)AfAm 35.69 Est GFR (CKD-EPI)NonAf 30.79 POC Glucometer 119 Random Glucose 135 H Calcium 8.4 L Phosphorus 3.5 Magnesium 2.0 Total Protein (PEP) Albumin (PEP) Globulin Albumin/Globulin Ratio Beta Globulins ALYSSA M-Linwood 12/09/18 12:10 WBC RBC Hgb Hct MCV MCH MCHC RDW Plt Count MPV Sodium Potassium Chloride Carbon Dioxide Anion Gap BUN Creatinine Est GFR (CKD-EPI)AfAm Est GFR (CKD-EPI)NonAf POC Glucometer 130 Random Glucose Calcium Phosphorus Magnesium Total Protein (PEP) Albumin (PEP) Globulin Albumin/Globulin Ratio Beta Globulins ALYSSA M-Linwood ASSESSMENT AND PLAN: Acute Hypoxic and Hypercapneic Respiratory Failure Pneumonia likely Aspiration Severe Sepsis Acute on Chronic Renal Failure CAD +Troponins likely Demand Ischemia Lactic Acidosis HTN Hyperlipidemia GERD - Swallow evaluation noted - NC O2 as needed - ABX - Aspiration precautions - monitor urine output, creatinine - VTE prophylaxis Dr Rebollar
--- NOTE | 2018-12-09 14:27 | PN ---
Progress Note, Physician History of Present Illness: Pt seen and examined at bedside. He is awake and alert. He is still NPO. - Current Medication List Current Medications: Active Medications Albuterol/Ipratropium (Duoneb -) 1 amp NEB Q6H [facility] Last Admin: 12/09/18 11:15 Dose: 1 amp Aspirin (Asa -) 81 mg NGT DAILY [facility] Last Admin: 12/09/18 10:07 Dose: Not Given Donepezil HCl (Aricept -) 10 mg NGT HS [facility] Last Admin: 12/08/18 21:58 Dose: 10 mg Heparin Sodium (Porcine) (Heparin -) 5,000 unit SQ BID [facility] Last Admin: 12/09/18 09:40 Dose: 5,000 unit Ceftriaxone Sodium 1 gm/ (Dextrose) 50 mls @ 100 mls/hr IVPB DAILY [facility]; Protocol Last Admin: 12/09/18 09:40 Dose: 100 mls/hr Metronidazole (Flagyl 500mg Premixed Ivpb -) 500 mg in 100 mls @ 100 mls/hr IVPB Q8H-IV [facility] Last Admin: 12/09/18 09:40 Dose: 100 mls/hr Sodium Chloride (1/2 Normal Saline) 1,000 mls @ 65 mls/hr IV ASDIR [facility] Last Admin: 12/08/18 17:56 Dose: 65 mls/hr Insulin Aspart (Novolog Vial Sliding Scale -) 1 vial SQ ACHS [facility]; Protocol Last Admin: 12/09/18 12:14 Dose: Not Given Memantine (Namenda -) 10 mg GT BID [facility] Last Admin: 12/09/18 10:07 Dose: Not Given Metoprolol Succinate (Toprol Xl -) 25 mg PO DAILY [facility] Last Admin: 12/09/18 10:07 Dose: Not Given Pantoprazole Sodium (Protonix Iv) 40 mg IVPUSH BID [facility] Last Admin: 12/09/18 09:40 Dose: 40 mg - Objective Vital Signs: Vital Signs Temperature 98 F 12/09/18 09:00 Pulse Rate 80 12/09/18 09:00 Respiratory Rate 20 12/09/18 09:00 Blood Pressure 142/76 12/09/18 09:00 O2 Sat by Pulse Oximetry (%) 94 L 12/08/18 21:00 Constitutional: Yes: Calm Eyes: Yes: Conjunctiva Clear HENT: Yes: Atraumatic Neck: Yes: Supple Cardiovascular: Yes: S1, S2 Respiratory: Yes: CTA Bilaterally Gastrointestinal: Yes: Soft Genitourinary: Yes: Incontinence Musculoskeletal: Yes: WNL Edema: LLE: Trace, RLE: Trace Integumentary: Yes: WNL Neurological: Yes: Confusion Labs: CBC, BMP 12/09/18 09:12 12/09/18 09:12 INR, PTT INR 1.07 (0.83-1.09) 12/03/18 05:40 Problem List - Problems (1) Acute kidney injury superimposed on CKD Code(s): N17.9 - ACUTE KIDNEY FAILURE, UNSPECIFIED; N18.9 - CHRONIC KIDNEY DISEASE, UNSPECIFIED (2) Aspiration pneumonia Code(s): J69.0 - PNEUMONITIS DUE TO INHALATION OF FOOD AND VOMIT (3) Vomiting Code(s): R11.10 - VOMITING, UNSPECIFIED Qualifiers: Vomiting type: unspecified Vomiting Intractability: unspecified Nausea presence: unspecified Qualified Code(s): R11.10 - Vomiting, unspecified Assessment/Plan Current Medications Generic Name Dose Route Start Last Admin Trade Name Freq PRN Reason Stop Dose Admin Albuterol/Ipratropium 1 amp 12/08/18 18:00 12/09/18 11:15 Duoneb - NEB 1 amp Q6H [facility] Administration Aspirin 81 mg 12/09/18 10:00 12/09/18 10:07 Asa - NGT Not Given DAILY [facility] Donepezil HCl 10 mg 12/08/18 22:00 12/08/18 21:58 Aricept - NGT 10 mg HS [facility] Administration Heparin Sodium (Porcine) 5,000 unit 12/08/18 22:00 12/09/18 09:40 Heparin - SQ 5,000 unit BID [facility] Administration Ceftriaxone Sodium 1 gm/ 50 mls @ 100 mls/hr 12/09/18 10:00 12/09/18 09:40 Dextrose IVPB 100 mls/hr DAILY [facility] Administration Protocol Metronidazole 500 mg in 100 mls @ 100 mls/hr 12/08/18 18:00 12/09/18 09:40 Flagyl 500mg Premixed Ivpb - IVPB 100 mls/hr Q8H-IV [facility] Administration Sodium Chloride 1,000 mls @ 65 mls/hr 12/08/18 17:42 12/08/18 17:56 1/2 Normal Saline IV 65 mls/hr ASDIR [facility] Administration Insulin Aspart 1 vial 12/08/18 22:00 12/09/18 12:14 Novolog Vial Sliding Scale - SQ Not Given ACHS [facility] Protocol Memantine 10 mg 12/08/18 22:00 12/09/18 10:07 Namenda - GT Not Given BID [facility] Metoprolol Succinate 25 mg 12/09/18 10:00 12/09/18 10:07 Toprol Xl - PO Not Given DAILY [facility] Pantoprazole Sodium 40 mg 12/08/18 22:00 12/09/18 09:40 Protonix Iv IVPUSH 40 mg BID [facility] Administration Impression 1. KATHY 2. acute resp failure 3. HTN 4. gastric cancer 5. dementia 6. HLD 7. CAD 8. PVD 9. PNA 10. sepsis 11. hyperkalemia Plan - will start d5 1/3 saline as he is npo - follow speech and swallow - renal function is improving - likely resolving atn - monitor volume status - he tolerated voiding trial - avoid nsaids - avoid nephrotoxins
[2018-12-09] MEDS ORDERED: DEXTROSE 5%-1/3 NS - 500 ML IV SCH (14:30)
[2018-12-09] MEDS ORDERED: ALBUTEROL SO4 2.5/IPRATROPIUM 0.5 INH SOL 3 ML VIAL.NEB. NEB SCH (18:00)
[2018-12-09] MEDS: DONEPEZIL HCL 10 MG TABLET (FP) NGT SCH ×2 (22:18→22:28)
[2018-12-10] MEDS: INSULIN SLIDING SCALE (NOVOLOG) 1 VIAL SQ SCH ×4 (06:37→22:26)
[2018-12-10] MEDS: ALBUTEROL SO4 2.5/IPRATROPIUM 0.5 INH SOL 3 ML VIAL.NEB. NEB SCH ×4 (07:25→21:10)
[2018-12-10] MEDS: ASPIRIN 81 MG CHEWABLE TABLETS NGT SCH (09:33)
[2018-12-10] MEDS: MEMANTINE HCL 10 MG TABLET (FP) GT SCH ×2 (09:33→22:25)
[2018-12-10] MEDS: metoPROLOL SUCCINATE 25 MG TAB.SR.24H (FP) PO SCH (09:34)
--- NOTE | 2018-12-10 10:30 | PN ---
Progress Note, Physician History of Present Illness: No CV complaints Tele: NSR with PVCs - Current Medication List Current Medications: Active Medications Albuterol/Ipratropium (Duoneb -) 1 amp NEB RQID [facility] Last Admin: 12/10/18 07:25 Dose: 1 amp Aspirin (Asa -) 81 mg NGT DAILY [facility] Last Admin: 12/10/18 09:33 Dose: Not Given Donepezil HCl (Aricept -) 10 mg NGT HS [facility] Last Admin: 12/09/18 22:28 Dose: Not Given Heparin Sodium (Porcine) (Heparin -) 5,000 unit SQ BID [facility] Last Admin: 12/09/18 22:18 Dose: 5,000 unit Ceftriaxone Sodium 1 gm/ (Dextrose) 50 mls @ 100 mls/hr IVPB DAILY [facility]; Protocol Last Admin: 12/09/18 09:40 Dose: 100 mls/hr Metronidazole (Flagyl 500mg Premixed Ivpb -) 500 mg in 100 mls @ 100 mls/hr IVPB Q8H-IV [facility] Last Admin: 12/10/18 01:31 Dose: 100 mls/hr Dextrose/Sodium Chloride (D5-1/3ns -) 500 mls @ 75 mls/hr IV ASDIR [facility] Last Admin: 12/09/18 17:30 Dose: 75 mls/hr Insulin Aspart (Novolog Vial Sliding Scale -) 1 vial SQ ACHS [facility]; Protocol Last Admin: 12/10/18 06:37 Dose: Not Given Memantine (Namenda -) 10 mg GT BID [facility] Last Admin: 12/10/18 09:33 Dose: Not Given Metoprolol Succinate (Toprol Xl -) 25 mg PO DAILY [facility] Last Admin: 12/10/18 09:34 Dose: Not Given Pantoprazole Sodium (Protonix Iv) 40 mg IVPUSH BID [facility] Last Admin: 12/09/18 22:20 Dose: 40 mg - Objective Vital Signs: Vital Signs Temperature 98.9 F 12/10/18 06:00 Pulse Rate 103 H 12/10/18 06:00 Respiratory Rate 20 12/10/18 06:00 Blood Pressure 176/86 H 12/10/18 06:00 O2 Sat by Pulse Oximetry (%) 91 L 12/09/18 21:00 Constitutional: Yes: No Distress Eyes: Yes: WNL Cardiovascular: Yes: Regular Rate and Rhythm Respiratory: Yes: Regular Edema: No Labs: CBC, BMP 12/09/18 09:12 12/09/18 09:12 INR, PTT INR 1.07 (0.83-1.09) 12/03/18 05:40 Assessment/Plan IMP: 1. Acute respiratory failure secondary to aspiration PNA, now extubated on tele. 2. CAD s/p prior SD, PCI LAD 2010, w/ ischemic CM and chronic systolic CHF (EF chronically b/t 40-45%) 3. Acute on chronic renal failure, resolved sCreat 1.9 4. + TnI secondary to type II SD, demand ischemia in setting of above. 5. Chronic LBBB 6. H/o gastric cancer REC: 1. Cont ASA/ beta jesus. Not on EDELMIRA/ARB due to CKD w/ and recent acute renal failure but may resume shortly is creat stable as his BP is elevated. 2. No clear indication for high dose statin 3. Currently appears euvolemic, would continue to hold on Lasix for now. 4. Continue Abx as per ID. 5. DVT prophylaxis. GI prophylaxis w/ PPI. 6. Renal following, renal fx improved. 7. HTN - will start Amlodipine 5mg and titrate
[2018-12-10] MEDS ORDERED: amLODIPine BESYLATE 5 MG TABLET (FP) PO SCH (10:45)
[2018-12-10] MEDS ORDERED: cefTRIAXone SODIUM 1 GM VIAL ONE (10:45)
[2018-12-10] MEDS ORDERED: DEXTROSE 5%-WATER - 50 ML IVPB ONE (10:46)
[2018-12-10] MEDS: CEFTRIAXONE 1 GM in DEXTROSE 5%-WATER - 50 ML IVPB SCH (11:00)
[2018-12-10] MEDS: HEPARIN NA (PORCINE) 5,000 UNITS/ML 1ML VIAL SQ SCH ×2 (11:02→22:25)
--- NOTE | 2018-12-10 11:08 | PN ---
Progress Note (short form) - Note Progress Note: RENAL Pt is awake and alert has no complaints says he has an injury from climbing a mountain appear comfortable Last Vital Signs Temp Pulse Resp BP Pulse Ox 98.9 F 103 H 20 176/86 H 91 L 12/10/18 06:00 12/10/18 06:00 12/10/18 06:00 12/10/18 06:00 12/09/18 21:00 Lungs decreased breath sounds cvs s1s2 rr abd soft ext +edema neuro a+ox3 CBC, BMP 12/09/18 09:12 12/09/18 09:12 Current Medications Generic Name Dose Route Start Last Admin Trade Name Jared PRN Reason Stop Dose Admin Albuterol/Ipratropium 1 amp 12/09/18 23:09 12/10/18 07:25 Duoneb - NEB 1 amp RQID [facility] Administration Amlodipine Besylate 5 mg 12/10/18 10:45 Norvasc - PO DAILY [facility] Aspirin 81 mg 12/09/18 10:00 12/10/18 09:33 Asa - NGT Not Given DAILY [facility] Donepezil HCl 10 mg 12/08/18 22:00 12/09/18 22:28 Aricept - NGT Not Given HS [facility] Heparin Sodium (Porcine) 5,000 unit 12/08/18 22:00 12/09/18 22:18 Heparin - SQ 5,000 unit BID [facility] Administration Ceftriaxone Sodium 1 gm/ 50 mls @ 100 mls/hr 12/09/18 10:00 12/09/18 09:40 Dextrose IVPB 100 mls/hr DAILY [facility] Administration Protocol Metronidazole 500 mg in 100 mls @ 100 mls/hr 12/08/18 18:00 12/10/18 01:31 Flagyl 500mg Premixed Ivpb - IVPB 100 mls/hr Q8H-IV [facility] Administration Dextrose/Sodium Chloride 500 mls @ 75 mls/hr 12/09/18 14:30 12/09/18 17:30 D5-1/3ns - IV 75 mls/hr ASDIR [facility] Administration Insulin Aspart 1 vial 12/08/18 22:00 12/10/18 06:37 Novolog Vial Sliding Scale - SQ Not Given ACHS [facility] Protocol Memantine 10 mg 12/08/18 22:00 12/10/18 09:33 Namenda - GT Not Given BID [facility] Metoprolol Succinate 25 mg 12/09/18 10:00 12/10/18 09:34 Toprol Xl - PO Not Given DAILY [facility] Pantoprazole Sodium 40 mg 12/08/18 22:00 12/09/18 22:20 Protonix Iv IVPUSH 40 mg BID [facility] Administration Impression 1. KATHY 2. acute resp failure 3. HTN 4. gastric cancer 5. dementia 6. HLD 7. CAD 8. PVD 9. PNA 10. sepsis 11. hyperkalemia Plan - for peg given npo - avoid nsaids - avoid nephrotoxins - consider clinimix if prolonged npo status -can switch to d5 1/2 ns MV
[2018-12-10] MEDS ORDERED: DEXTROSE 5%-0.45% SALINE 1,000 ML IV SCH (11:15)
[2018-12-10] MEDS: PANTOPRAZOLE SODIUM 40 MG VIAL IVPUSH SCH ×2 (12:08→22:26)
[2018-12-10] MEDS: amLODIPine BESYLATE 5 MG TABLET (FP) PO SCH ×2 (12:43→17:45)
--- NOTE | 2018-12-10 12:49 | PN ---
Physical Exam: SUBJECTIVE: Patient seen and examined, no complaints or pain, overall well. OBJECTIVE: Vital Signs Period Temp Pulse Resp BP Sys/Heredia Pulse Ox Last 24 Hr 97.3 F-98.9 F 82-121 18-22 136-176/70-86 91 Intake & Output 12/07/18 12/08/18 12/09/18 12/10/18 23:59 23:59 23:59 23:59 Intake Total 1790 1420 925 Output Total 1800 2875 Balance -10 -1455 925 Weight 197 lb 198 lb 6.4 oz 194 lb 198 lb GENERAL: sitting in bed in no acute distress Chest; improved coarse rales, decreased air entry all over Abdomen:soft, obese, NT Extremities: 1+ pedal and bilateral hand/forearm edema with ecchymosis Neck: soft, supple, limited exam given habitus Psych: forgetful, co-operative Laboratory Results - last 24 hr 12/09/18 12/09/18 12/10/18 17:08 21:44 06:31 POC Glucometer 121 121 139 12/10/18 12:28 POC Glucometer 151 Active Medications Generic Name Dose Route Start Last Admin Trade Name Freq PRN Reason Stop Dose Admin Albuterol/Ipratropium 1 amp 12/09/18 23:09 12/10/18 11:26 Duoneb - NEB 1 amp RQID [facility] Administration Amlodipine Besylate 5 mg 12/10/18 10:45 12/10/18 12:43 Norvasc - PO Not Given DAILY [facility] Aspirin 81 mg 12/09/18 10:00 12/10/18 09:33 Asa - NGT Not Given DAILY [facility] Donepezil HCl 10 mg 12/08/18 22:00 12/09/18 22:28 Aricept - NGT Not Given HS [facility] Heparin Sodium (Porcine) 5,000 unit 12/08/18 22:00 12/10/18 11:02 Heparin - SQ 5,000 unit BID [facility] Administration Ceftriaxone Sodium 1 gm/ 50 mls @ 100 mls/hr 12/09/18 10:00 12/10/18 11:00 Dextrose IVPB 100 mls/hr DAILY [facility] Administration Protocol Metronidazole 500 mg in 100 mls @ 100 mls/hr 12/08/18 18:00 12/10/18 11:02 Flagyl 500mg Premixed Ivpb - IVPB 100 mls/hr Q8H-IV [facility] Administration Dextrose/Sodium Chloride 1,000 mls @ 75 mls/hr 12/10/18 11:15 12/10/18 12:08 D5-1/2ns - IV 75 mls/hr ASDIR [facility] Administration Insulin Aspart 1 vial 12/08/18 22:00 12/10/18 12:30 Novolog Vial Sliding Scale - SQ Not Given ACHS [facility] Protocol Memantine 10 mg 12/08/18 22:00 12/10/18 09:33 Namenda - GT Not Given BID [facility] Metoprolol Succinate 25 mg 12/09/18 10:00 12/10/18 09:34 Toprol Xl - PO Not Given DAILY [facility] Pantoprazole Sodium 40 mg 12/08/18 22:00 12/10/18 12:08 Protonix Iv IVPUSH 40 mg BID [facility] Administration Microbiology 12/02/18 18:30 Blood - Peripheral Venous Blood Culture - Final NO GROWTH AFTER 5 DAYS INCUBATION 12/02/18 18:31 Blood - Peripheral Venous Blood Culture - Final NO GROWTH AFTER 5 DAYS INCUBATION 12/02/18 22:50 Sputum - Endotrachea Suction/Ventilator Gram Stain - Final 12/02/18 22:50 Sputum - Endotrachea Suction/Ventilator Sputum Culture - Final NORMAL RESPIRATORY ALEYDA 12/03/18 16:45 Urine - Urine Verdugo Urine Culture - Final NO GROWTH OBTAINED CXR from 12/09 images and results reviewed ASSESSMENT/PLAN: 88 yom with PMHx of alzheimer's dementia, HTN, HLD, CAD, known LBBB, CKD, PVD, OA, stomach CA s/p resection, GERD, 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 Oxygenating well, still with coarse secretions. Aggressive suctioning, chest PT, standing and prn nebs. Ceftriaxone/Flagyl day 8. Speech/swallow eval noted, MBS noted, Aspiration on puree, NPO for now. Start NG feeds as tolerated per nutrition recommendations as might assist in improved outcome on repeat MBS, discussed with nursing. Repeat MBS in 48-72 hours. Per family, long standing h/o of coughing/choking with food. Palliative care input to address goals of care/feeding tube. Renal input noted. Verdugo d/son. IVF noted. Progressive swelling, will attempt to dc IVF once on tube feeds. lasix prn. ISS. Metoprolol/ASA, troponin, 2D echo noted. Cardiology input noted. DVTPPX heparin Dispo pending clinical improvement. Anticipate SNF when improved. Discussed with nursing. Visit type - Emergency Visit Emergency Visit: Yes ED Registration Date: 12/02/18 Care time: The patient presented to the Emergency Department on the above date and was hospitalized for further evaluation of their emergent condition. - New Patient This patient is new to me today: No - Critical Care Critical Care patient: No - Discharge Referral Referred to [facility] Med P.C.: No
--- NOTE | 2018-12-10 15:41 | PN ---
Progress Note (short form) - Note Progress Note: PULMONARY States breathing is improving. Less cough. No fevers or chills. Vital Signs Period Temp Pulse Resp BP Sys/Heredia Pulse Ox Last 24 Hr 97.3 F-98.9 F 91-121 18-20 136-176/74-86 91 Gen: NAD at rest Heart: RRR Lung: decreased breath sounds at the bases Abd: soft, nontender Ext: no edema CBC, BMP 12/09/18 09:12 12/09/18 09:12 Active Medications Albuterol/Ipratropium (Duoneb -) 1 amp NEB RQID [facility] Last Admin: 12/10/18 11:26 Dose: 1 amp Amlodipine Besylate (Norvasc -) 5 mg PO DAILY [facility] Last Admin: 12/10/18 12:43 Dose: Not Given Aspirin (Asa -) 81 mg NGT DAILY [facility] Last Admin: 12/10/18 09:33 Dose: Not Given Donepezil HCl (Aricept -) 10 mg NGT HS [facility] Last Admin: 12/09/18 22:28 Dose: Not Given Heparin Sodium (Porcine) (Heparin -) 5,000 unit SQ BID [facility] Last Admin: 12/10/18 11:02 Dose: 5,000 unit Ceftriaxone Sodium 1 gm/ (Dextrose) 50 mls @ 100 mls/hr IVPB DAILY [facility]; Protocol Last Admin: 12/10/18 11:00 Dose: 100 mls/hr Metronidazole (Flagyl 500mg Premixed Ivpb -) 500 mg in 100 mls @ 100 mls/hr IVPB Q8H-IV [facility] Last Admin: 12/10/18 11:02 Dose: 100 mls/hr Dextrose/Sodium Chloride (D5-1/2ns -) 1,000 mls @ 75 mls/hr IV ASDIR [facility] Last Admin: 12/10/18 12:08 Dose: 75 mls/hr Insulin Aspart (Novolog Vial Sliding Scale -) 1 vial SQ ACHS [facility]; Protocol Last Admin: 12/10/18 12:30 Dose: Not Given Memantine (Namenda -) 10 mg GT BID [facility] Last Admin: 12/10/18 09:33 Dose: Not Given Metoprolol Succinate (Toprol Xl -) 25 mg PO DAILY [facility] Last Admin: 12/10/18 09:34 Dose: Not Given Pantoprazole Sodium (Protonix Iv) 40 mg IVPUSH BID [facility] Last Admin: 12/10/18 12:08 Dose: 40 mg A/P Acute Hypoxic and Hypercapneic Respiratory Failure improving Pneumonia likely Aspiration Severe Sepsis resolving Acute on Chronic Renal Failure CAD +Troponins likely Demand Ischemia Lactic Acidosis HTN Hyperlipidemia GERD - continue antibiotics - aspiration precautions - IVF - monitor urine output, creatinine - taper Fio2 to keep Spo2 >90% - DVT prophylaxis
[2018-12-10] MEDS: MINERAL OIL/PET HY-PHL TOPICAL OINTMENT 454 GM JAR TP SCH ×2 (16:04→22:25)
[2018-12-10] MEDS ORDERED: MINERAL OIL/PET HY-PHL TOPICAL OINTMENT 454 GM JAR TP SCH (22:00)
[2018-12-10] MEDS: DONEPEZIL HCL 10 MG TABLET (FP) NGT SCH (22:25)
[2018-12-11] MEDS: INSULIN SLIDING SCALE (NOVOLOG) 1 VIAL SQ SCH ×4 (06:01→21:34)
[2018-12-11 08:14] LABS: BASO % 0.5 % (0-2.0); EOS % 5.4 % (0-4.5); HEMATOCRIT 38.6 % (35.4-49); HEMOGLOBIN 13.2 GM/dL (11.7-16.9); LYMPH % 10.7 % (8-40); MCH 30.3 pg (25.7-33.7); MCHC 34.2 g/dl (32.0-35.9); MEAN CELL VOLUME 88.6 fl (80-96); MEAN PLT VOLUME 7.2 fl (7.5-11.1); MONO % 5.7 % (3.8-10.2); NEUT % 77.7 % (42.8-82.8); PLATELET COUNT 263 K/MM3 (134-434); RBC 4.35 M/mm3 (4.00-5.60); RDW 14.3 % (11.9-15.9); WHITE BLOOD COUNT 7.5 K/mm3 (4.0-10.0)
[2018-12-11 08:38] LABS: CREATININE 1.6 mg/dL (0.55-1.3); MAGNESIUM 2.1 mg/dL (1.8-2.4); PHOSPHOROUS 2.4 mg/dL (2.5-4.9)
[2018-12-11] MEDS: ALBUTEROL SO4 2.5/IPRATROPIUM 0.5 INH SOL 3 ML VIAL.NEB. NEB SCH ×4 (08:46→20:03)
[2018-12-11] MEDS ORDERED: cefTRIAXone SODIUM 1 GM VIAL ONE ×2 (08:51→10:38)
[2018-12-11] MEDS ORDERED: DEXTROSE 5%-WATER - 100 ML IVPB ONE (08:51)
[2018-12-11] MEDS: CEFTRIAXONE 1 GM in DEXTROSE 5%-WATER - 50 ML IVPB SCH (09:08)
--- NOTE | 2018-12-11 09:48 | PN ---
Progress Note (short form) - Note Progress Note: RENAL Pt is asleep, comfortable Last Vital Signs Temp Pulse Resp BP Pulse Ox 98.5 F 96 H 20 164/81 96 12/11/18 06:00 12/11/18 06:00 12/11/18 06:00 12/11/18 06:00 12/10/18 21:00 Lungs decreased breath sounds cvs s1s2 rr abd soft ext +edema neuro a+ox3 CBC, BMP 12/11/18 07:50 12/11/18 07:50 Current Medications Generic Name Dose Route Start Last Admin Trade Name Freq PRN Reason Stop Dose Admin Albuterol/Ipratropium 1 amp 12/09/18 23:09 12/11/18 08:46 Duoneb - NEB 1 amp RQID [facility] Administration Amlodipine Besylate 5 mg 12/10/18 10:45 12/10/18 17:45 Norvasc - PO 5 mg DAILY [facility] Administration Aspirin 81 mg 12/09/18 10:00 12/10/18 09:33 Asa - NGT Not Given DAILY [facility] Donepezil HCl 10 mg 12/08/18 22:00 12/10/18 22:25 Aricept - NGT Not Given HS [facility] Emollient Ointment 1 applic 12/10/18 17:45 12/10/18 22:25 Aquaphor - TP 1 applic BID [facility] Administration Heparin Sodium (Porcine) 5,000 unit 12/08/18 22:00 12/10/18 22:25 Heparin - SQ 5,000 unit BID [facility] Administration Ceftriaxone Sodium 1 gm/ 50 mls @ 100 mls/hr 12/09/18 10:00 12/11/18 09:08 Dextrose IVPB 100 mls/hr DAILY [facility] Administration Protocol Metronidazole 500 mg in 100 mls @ 100 mls/hr 12/08/18 18:00 12/11/18 01:19 Flagyl 500mg Premixed Ivpb - IVPB 100 mls/hr Q8H-IV [facility] Administration Dextrose/Sodium Chloride 1,000 mls @ 75 mls/hr 12/10/18 11:15 12/10/18 12:08 D5-1/2ns - IV 75 mls/hr ASD[facility] Administration Insulin Aspart 1 vial 12/08/18 22:00 12/11/18 06:01 Novolog Vial Sliding Scale - SQ Not Given ACHS [facility] Protocol Memantine 10 mg 12/08/18 22:00 12/10/18 22:25 Namenda - GT Not Given BID [facility] Metoprolol Succinate 25 mg 12/09/18 10:00 12/10/18 09:34 Toprol Xl - PO Not Given DAILY [facility] Pantoprazole Sodium 40 mg 12/08/18 22:00 12/10/18 22:26 Protonix Iv IVPUSH 40 mg BID [facility] Administration Impression 1. KATHY 2. acute resp failure 3. HTN 4. gastric cancer 5. dementia 6. HLD 7. CAD 8. PVD 9. PNA 10. sepsis 11. hyperkalemia Plan - for peg given npo - avoid nsaids - avoid nephrotoxins - consider clinimix if prolonged npo status - reduce fluids, given edema -can try a thiazide diuretic if able to take PO, for his edema (ie metolazone 2.5 mg) MV
[2018-12-11] MEDS: DEXTROSE 5%-0.45% SALINE 1,000 ML IV SCH ×2 (09:50→10:43)
[2018-12-11 10:28] LABS: ANISOCYTOSIS 0; MACROCYTOSIS 0; PLATELET ESTIMATE NORMAL
[2018-12-11] MEDS ORDERED: DEXTROSE 5%-WATER - 50 ML IVPB ONE (10:38)
--- NOTE | 2018-12-11 10:40 | PN ---
Progress Note, Physician History of Present Illness: No CV complaints Tele: ST - Current Medication List Current Medications: Active Medications Albuterol/Ipratropium (Duoneb -) 1 amp NEB RQID [facility] Last Admin: 12/11/18 08:46 Dose: 1 amp Amlodipine Besylate (Norvasc -) 5 mg PO DAILY [facility] Last Admin: 12/10/18 17:45 Dose: 5 mg Aspirin (Asa -) 81 mg NGT DAILY [facility] Last Admin: 12/10/18 09:33 Dose: Not Given Donepezil HCl (Aricept -) 10 mg NGT HS [facility] Last Admin: 12/10/18 22:25 Dose: Not Given Emollient Ointment (Aquaphor -) 1 applic TP BID [facility] Last Admin: 12/10/18 22:25 Dose: 1 applic Heparin Sodium (Porcine) (Heparin -) 5,000 unit SQ BID [facility] Last Admin: 12/10/18 22:25 Dose: 5,000 unit Ceftriaxone Sodium 1 gm/ (Dextrose) 50 mls @ 100 mls/hr IVPB DAILY [facility]; Protocol Last Admin: 12/11/18 09:08 Dose: 100 mls/hr Metronidazole (Flagyl 500mg Premixed Ivpb -) 500 mg in 100 mls @ 100 mls/hr IVPB Q8H-IV [facility] Last Admin: 12/11/18 01:19 Dose: 100 mls/hr Dextrose/Sodium Chloride (D5-1/2ns -) 1,000 mls @ 50 mls/hr IV ASDIR [facility] Insulin Aspart (Novolog Vial Sliding Scale -) 1 vial SQ ACHS [facility]; Protocol Last Admin: 12/11/18 06:01 Dose: Not Given Memantine (Namenda -) 10 mg GT BID [facility] Last Admin: 12/10/18 22:25 Dose: Not Given Metoprolol Succinate (Toprol Xl -) 25 mg PO DAILY [facility] Last Admin: 12/10/18 09:34 Dose: Not Given Pantoprazole Sodium (Protonix Iv) 40 mg IVPUSH BID [facility] Last Admin: 12/10/18 22:26 Dose: 40 mg - Objective Vital Signs: Vital Signs Temperature 98.5 F 12/11/18 06:00 Pulse Rate 96 H 12/11/18 06:00 Respiratory Rate 20 12/11/18 06:00 Blood Pressure 164/81 12/11/18 06:00 O2 Sat by Pulse Oximetry (%) 96 12/10/18 21:00 Constitutional: Yes: No Distress Cardiovascular: Yes: Regular Rate and Rhythm Respiratory: Yes: CTA Bilaterally Edema: No Labs: CBC, BMP 12/11/18 07:50 12/11/18 07:50 INR, PTT INR 1.07 (0.83-1.09) 12/03/18 05:40 Assessment/Plan IMP: 1. Acute respiratory failure secondary to aspiration PNA, now extubated on tele. 2. CAD s/p prior VT, PCI LAD 2010, w/ ischemic CM and chronic systolic CHF (EF chronically b/t 40-45%) 3. Acute on chronic renal failure, resolved sCreat 1.9 4. + TnI secondary to type II VT, demand ischemia in setting of above. 5. Chronic LBBB 6. H/o gastric cancer REC: 1. Cont ASA/ beta jesus. Not on EDELMIRA/ARB due to CKD w/ and recent acute renal failure but may resume shortly is creat stable as his BP is elevated. 2. No clear indication for high dose statin 3. Currently appears euvolemic, would continue to hold on Lasix for now. 4. Continue Abx as per ID. 5. DVT prophylaxis. GI prophylaxis w/ PPI. 6. Renal following, renal fx improved. 7. HTN - Started on Amlodipine 5mg 12/10. Will increase to 10mg today
[2018-12-11] MEDS: PANTOPRAZOLE SODIUM 40 MG VIAL IVPUSH SCH ×2 (10:43→21:25)
[2018-12-11] MEDS: MINERAL OIL/PET HY-PHL TOPICAL OINTMENT 454 GM JAR TP SCH ×2 (10:44→21:25)
[2018-12-11] MEDS: ASPIRIN 81 MG CHEWABLE TABLETS NGT SCH (10:44)
[2018-12-11] MEDS: MEMANTINE HCL 10 MG TABLET (FP) GT SCH ×2 (10:45→21:23)
[2018-12-11] MEDS: HEPARIN NA (PORCINE) 5,000 UNITS/ML 1ML VIAL SQ SCH ×2 (10:45→21:25)
[2018-12-11] MEDS: metoPROLOL SUCCINATE 25 MG TAB.SR.24H (FP) PO SCH (10:45)
[2018-12-11] MEDS ORDERED: amLODIPine BESYLATE 10 MG TABLET (FP) PO SCH (10:45)
[2018-12-11] MEDS: amLODIPine BESYLATE 5 MG TABLET (FP) PO SCH (10:45)
--- NOTE | 2018-12-11 11:21 | PN ---
Physical Exam: SUBJECTIVE: Patient seen and examined, no complaints. OBJECTIVE: Vital Signs Period Temp Pulse Resp BP Sys/Heredia Pulse Ox Last 24 Hr 98.0 F-98.5 F 89-97 20-20 150-177/78-84 96 Intake & Output 12/08/18 12/09/18 12/10/18 12/11/18 23:59 23:59 23:59 23:59 Intake Total 1420 1025 400 Output Total 2875 Balance -1455 1025 400 Weight 198 lb 6.4 oz 194 lb 198 lb GENERAL: sitting in bed, some use of accessory muscles Neck: soft, supple Chest: scattered coarse rales, Abdomen:soft, obese, NT Extremities; 1+ pedal and bilateral hands/forearm edema, ecchymosis CVS:S1S2 irregular Telemetry: NSR, PACs, ?[facility] Laboratory Results - last 24 hr 12/10/18 12/10/18 12/10/18 12:28 17:35 22:15 WBC RBC Hgb Hct MCV MCH MCHC RDW Plt Count MPV Absolute Neuts (auto) Neutrophils % Neutrophils % (Manual) Band Neutrophils % Lymphocytes % Lymphocytes % (Manual) Monocytes % Monocytes % (Manual) Eosinophils % Eosinophils % (Manual) Basophils % Basophils % (Manual) Myelocytes % (Man) Promyelocytes % (Man) Blast Cells % (Manual) Nucleated RBC % Metamyelocytes Hypochromia Platelet Estimate Polychromasia Poikilocytosis Anisocytosis Microcytosis Macrocytosis Sodium Potassium Chloride Carbon Dioxide Anion Gap BUN Creatinine Est GFR (CKD-EPI)AfAm Est GFR (CKD-EPI)NonAf POC Glucometer 151 147 150 Random Glucose Calcium Phosphorus Magnesium 12/11/18 12/11/18 12/11/18 05:54 07:50 07:50 WBC 7.5 RBC 4.35 Hgb 13.2 Hct 38.6 D MCV 88.6 MCH 30.3 MCHC 34.2 RDW 14.3 Plt Count 263 D MPV 7.2 L Absolute Neuts (auto) 5.8 Neutrophils % 77.7 Neutrophils % (Manual) 74.7 Band Neutrophils % 0.0 Lymphocytes % 10.7 Lymphocytes % (Manual) 8.1 Monocytes % 5.7 Monocytes % (Manual) 7 Eosinophils % 5.4 H D Eosinophils % (Manual) 3.0 Basophils % 0.5 Basophils % (Manual) 0.0 Myelocytes % (Man) 1 D Promyelocytes % (Man) 0 Blast Cells % (Manual) 0 Nucleated RBC % 0 Metamyelocytes 5 H D Hypochromia 0 Platelet Estimate Normal Polychromasia 0 Poikilocytosis 0 Anisocytosis 0 Microcytosis 0 Macrocytosis 0 Sodium 147 H Potassium 4.0 Chloride 114 H Carbon Dioxide 24 Anion Gap 9 BUN 35.0 H Creatinine 1.6 H Est GFR (CKD-EPI)AfAm 43.93 Est GFR (CKD-EPI)NonAf 37.90 POC Glucometer 128 Random Glucose 134 H Calcium 9.0 Phosphorus 2.4 L Magnesium 2.1 Active Medications Generic Name Dose Route Start Last Admin Trade Name Freq PRN Reason Stop Dose Admin Albuterol/Ipratropium 1 amp 12/09/18 23:09 12/11/18 08:46 Duoneb - NEB 1 amp RQID [facility] Administration Aspirin 81 mg 12/09/18 10:00 12/11/18 10:44 Asa - NGT Not Given DAILY [facility] Donepezil HCl 10 mg 12/08/18 22:00 12/10/18 22:25 Aricept - NGT Not Given HS [facility] Emollient Ointment 1 applic 12/10/18 17:45 12/11/18 10:44 Aquaphor - TP 1 applic BID [facility] Administration Heparin Sodium (Porcine) 5,000 unit 12/08/18 22:00 12/11/18 10:45 Heparin - SQ 5,000 unit BID [facility] Administration Hydralazine HCl 10 mg 12/11/18 11:15 Apresoline Injection - IVPUSH Q6H [facility] Ceftriaxone Sodium 1 gm/ 50 mls @ 100 mls/hr 12/09/18 10:00 12/11/18 09:08 Dextrose IVPB 100 mls/hr DAILY [facility] Administration Protocol Metronidazole 500 mg in 100 mls @ 100 mls/hr 12/08/18 18:00 12/11/18 10:43 Flagyl 500mg Premixed Ivpb - IVPB 100 mls/hr Q8H-IV [facility] Administration Amino Acids 1,000 mls @ 50 mls/hr 12/11/18 11:00 Clinimix - IV Q12H [facility] Insulin Aspart 1 vial 12/08/18 22:00 12/11/18 06:01 Novolog Vial Sliding Scale - SQ Not Given ACHS [facility] Protocol Memantine 10 mg 12/08/18 22:00 12/11/18 10:45 Namenda - GT Not Given BID [facility] Metoprolol Succinate 25 mg 12/09/18 10:00 12/11/18 10:45 Toprol Xl - PO Not Given DAILY [facility] Pantoprazole Sodium 40 mg 12/08/18 22:00 12/11/18 10:43 Protonix Iv IVPUSH 40 mg BID [facility] Administration ASSESSMENT/PLAN: 88 yom with PMHx of alzheimer's dementia, HTN, HLD, CAD, known LBBB, CKD, PVD, OA, stomach CA s/p resection, GERD, 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 Oxygenating well, still with coarse secretions. Aggressive suctioning, chest PT, standing and prn nebs. Ceftriaxone/Flagyl day 9, continue while NPO. Repeat CXR today. Speech/swallow eval noted, MBS noted, Aspiration on puree, NPO for now. patient and declined NG feeds for now, want to follow up on repeat MBS. Start clinimix. D/c IVF, renal input noted. Verdugo dced. Progressive edema, fluid rate decreased. Lasix prn. ?metolazone. Repeat MBS iin 24 hours Per family, long standing h/o of coughing/choking with food. Palliative care input to address goals of care/feeding tube. ISS. Metoprolol/ASA, troponin, 2D echo noted. Cardiology input noted. DVTPPX heparin Dispo pending clinical improvement. Anticipate SNF when improved. Discussed with nursing. Visit type - Emergency Visit Emergency Visit: Yes ED Registration Date: 12/02/18 Care time: The patient presented to the Emergency Department on the above date and was hospitalized for further evaluation of their emergent condition. - New Patient This patient is new to me today: No - Critical Care Critical Care patient: No - Discharge Referral Referred to [facility] No
[2018-12-11] MEDS: hydrALAZINE HCL 20 MG/ML VIAL IVPUSH SCH ×2 (11:34→17:56)
--- NOTE | 2018-12-11 14:00 | PN ---
Progress Note (short form) - Note Progress Note: PULMONARY States breathing continues to improve. Less cough. No fevers or chills. Vital Signs Period Temp Pulse Resp BP Sys/Heredia Pulse Ox Last 24 Hr 97.6 F-98.5 F 89-97 20-20 150-181/78-92 96-97 Gen: NAD at rest Heart: RRR Lung: decreased breath sounds at the bases Abd: soft, nontender Ext: no edema CBC, BMP 12/11/18 07:50 12/11/18 07:50 Active Medications Albuterol/Ipratropium (Duoneb -) 1 amp NEB RQID [facility] Last Admin: 12/11/18 13:58 Dose: 1 amp Aspirin (Asa -) 81 mg NGT DAILY [facility] Last Admin: 12/11/18 10:44 Dose: Not Given Donepezil HCl (Aricept -) 10 mg NGT HS [facility] Last Admin: 12/10/18 22:25 Dose: Not Given Emollient Ointment (Aquaphor -) 1 applic TP BID [facility] Last Admin: 12/11/18 10:44 Dose: 1 applic Heparin Sodium (Porcine) (Heparin -) 5,000 unit SQ BID [facility] Last Admin: 12/11/18 10:45 Dose: 5,000 unit Hydralazine HCl (Apresoline Injection -) 10 mg IVPUSH Q6H [facility] Last Admin: 12/11/18 11:34 Dose: 10 mg Ceftriaxone Sodium 1 gm/ (Dextrose) 50 mls @ 100 mls/hr IVPB DAILY [facility]; Protocol Last Admin: 12/11/18 09:08 Dose: 100 mls/hr Metronidazole (Flagyl 500mg Premixed Ivpb -) 500 mg in 100 mls @ 100 mls/hr IVPB Q8H-IV [facility] Last Admin: 12/11/18 10:43 Dose: 100 mls/hr Amino Acids (Clinimix -) 1,000 mls @ 50 mls/hr IV Q20H [facility] Insulin Aspart (Novolog Vial Sliding Scale -) 1 vial SQ ACHS [facility]; Protocol Last Admin: 12/11/18 11:59 Dose: Not Given Memantine (Namenda -) 10 mg GT BID [facility] Last Admin: 12/11/18 10:45 Dose: Not Given Metoprolol Succinate (Toprol Xl -) 25 mg PO DAILY [facility] Last Admin: 12/11/18 10:45 Dose: Not Given Pantoprazole Sodium (Protonix Iv) 40 mg IVPUSH BID [facility] Last Admin: 12/11/18 10:43 Dose: 40 mg A/P Acute Hypoxic and Hypercapneic Respiratory Failure improving Pneumonia likely Aspiration Severe Sepsis resolving Acute on Chronic Renal Failure CAD +Troponins likely Demand Ischemia Lactic Acidosis HTN Hyperlipidemia GERD - continue antibiotics - aspiration precautions - IVF - monitor urine output, creatinine - taper Fio2 to keep Spo2 >90% - rehab/PT - DVT prophylaxis
[2018-12-11] MEDS: AMINO ACIDS 4.25%/D5W 1,000 ML IV SCH (14:03)
[2018-12-11] MEDS: DONEPEZIL HCL 10 MG TABLET (FP) NGT SCH (21:23)
[2018-12-12] MEDS: hydrALAZINE HCL 20 MG/ML VIAL IVPUSH SCH ×5 (00:32→23:54)
[2018-12-12] MEDS: INSULIN SLIDING SCALE (NOVOLOG) 1 VIAL SQ SCH ×4 (06:35→21:41)
[2018-12-12] MEDS: AMINO ACIDS 4.25%/D5W 1,000 ML IV SCH (07:00)
[2018-12-12] MEDS: ALBUTEROL SO4 2.5/IPRATROPIUM 0.5 INH SOL 3 ML VIAL.NEB. NEB SCH ×4 (07:30→20:04)
[2018-12-12 09:27] LABS: BASO % 0.5 % (0-2.0); EOS % 1.6 % (0-4.5); HEMATOCRIT 35.6 % (35.4-49); HEMOGLOBIN 12.3 GM/dL (11.7-16.9); MCH 30.5 pg (25.7-33.7); MCHC 34.4 g/dl (32.0-35.9); MEAN CELL VOLUME 88.7 fl (80-96); MEAN PLT VOLUME 7.3 fl (7.5-11.1); MONO % 5.1 % (3.8-10.2); NEUT % 82.8 % (42.8-82.8); PLATELET COUNT 324 K/MM3 (134-434); RBC 4.02 M/mm3 (4.00-5.60); RDW 14.6 % (11.9-15.9); WHITE BLOOD COUNT 10.5 K/mm3 (4.0-10.0)
[2018-12-12 09:46] LABS: ALBUMIN 2.4 g/dl (3.4-5.0); BILIRUBIN,TOTAL 0.3 mg/dL (0.2-1); BLOOD UREA NITROGEN 31.8 mg/dL (7-18); CALCIUM 8.9 mg/dL (8.5-10.1); CREATININE 1.5 mg/dL (0.55-1.3); MAGNESIUM 1.8 mg/dL (1.8-2.4); PHOSPHOROUS 2.2 mg/dL (2.5-4.9); POTASSIUM 3.7 mmol/L (3.5-5.1); TOT PROT 6.4 g/dl (6.4-8.2)
--- NOTE | 2018-12-12 10:28 | PN ---
Progress Note, Physician Chief Complaint: resp failure History of Present Illness: for swallow study today. denies sob, orthopnea. coughing small amts of phlegm no cp no palpitations, leg swelling no cigs - Current Medication List Current Medications: Active Medications Albuterol/Ipratropium (Duoneb -) 1 amp NEB RQID [facility] Last Admin: 12/12/18 07:30 Dose: 1 amp Aspirin (Asa -) 81 mg NGT DAILY [facility] Last Admin: 12/11/18 10:44 Dose: Not Given Donepezil HCl (Aricept -) 10 mg NGT HS [facility] Last Admin: 12/11/18 21:23 Dose: Not Given Emollient Ointment (Aquaphor -) 1 applic TP BID [facility] Last Admin: 12/11/18 21:25 Dose: 1 applic Heparin Sodium (Porcine) (Heparin -) 5,000 unit SQ BID [facility] Last Admin: 12/11/18 21:25 Dose: 5,000 unit Hydralazine HCl (Apresoline Injection -) 10 mg IVPUSH Q6H [facility] Last Admin: 12/12/18 06:23 Dose: 10 mg Ceftriaxone Sodium 1 gm/ (Dextrose) 50 mls @ 100 mls/hr IVPB DAILY [facility]; Protocol Last Admin: 12/11/18 09:08 Dose: 100 mls/hr Metronidazole (Flagyl 500mg Premixed Ivpb -) 500 mg in 100 mls @ 100 mls/hr IVPB Q8H-IV [facility] Last Admin: 12/12/18 06:22 Dose: 100 mls/hr Amino Acids (Clinimix -) 1,000 mls @ 50 mls/hr IV Q20H [facility] Last Admin: 12/11/18 14:03 Dose: 50 mls/hr Insulin Aspart (Novolog Vial Sliding Scale -) 1 vial SQ ACHS [facility]; Protocol Last Admin: 12/12/18 06:35 Dose: Not Given Memantine (Namenda -) 10 mg GT BID [facility] Last Admin: 12/11/18 21:23 Dose: Not Given Metoprolol Succinate (Toprol Xl -) 25 mg PO DAILY [facility] Last Admin: 12/11/18 10:45 Dose: Not Given Pantoprazole Sodium (Protonix Iv) 40 mg IVPUSH BID [facility] Last Admin: 12/11/18 21:25 Dose: 40 mg - Objective Vital Signs: Vital Signs Temperature 97.8 F 12/12/18 05:39 Pulse Rate 102 H 12/12/18 05:39 Respiratory Rate 18 12/12/18 05:39 Blood Pressure 155/89 12/12/18 05:39 O2 Sat by Pulse Oximetry (%) 96 12/11/18 20:19 Constitutional: Yes: No Distress, Calm Eyes: No: Sclera Icterus HENT: No: Nasal Congestion Cardiovascular: Yes: Regular Rate and Rhythm, S1, S2, Other (PMI non diplaced). No: JVD (tds exam), Gallop, Murmur Respiratory: Yes: CTA Bilaterally. No: Accessory Muscle Use, Rales, Rhonchi, Wheezes Gastrointestinal: Yes: Normal Bowel Sounds, Soft. No: Tenderness Musculoskeletal: Yes: Other (No kyphosis) Extremities: No: Cold, Cyanosis Edema: No Integumentary: No: Jaundice Neurological: Yes: Alert. No: Seizure Psychiatric: No: Agitated Labs: CBC, BMP 12/12/18 08:56 12/12/18 08:56 INR, PTT INR 1.07 (0.83-1.09) 12/03/18 05:40 Assessment/Plan Echo 10/2017: tds, "no definitive statements can be made about findings due to extremely poor acoustic windows". nl lv size. Severely decreased LV sys fn. Global with possible anteroapical septal AK. RV not seen. 1+ ar. MV/TV not well visualized. MUGA 08/23: EF 51% Echo 09/2016: nl lv size. Septum is akinetic. No rwma in inferior, inferolateral or lateral wall, other ordñoez not well seen. Overall ejection fraction is probably mildly, vs akfh-[id number] reduced--estimated at 45% vs 40-45%. nl rv/valves. MIBI 07/22: 4:30min, probably + STs; large area mid-AW/septum/apex scar with small P.I.I.; moder decr EF with mild global HK and sev HK vs AK of mid-AW// apex; mild LVE, no TID LH (north branch) 05/20: thrombotic subtotal occl pLAD (BMS), 70-80% ramus, diffuse 30- 50% RCA, EF 35% (anterolat AK, lateral/posterolat HK) teele: NSR with BBBB; 10 beat WCT likely NSVT IMP: 1. Acute respiratory failure secondary to aspiration PNA, now extubated on tele. 2. CAD s/p prior SC, PCI LAD 2010, w/ ischemic CM and chronic systolic CHF (EF chronically b/t 40-45%) 3. Acute on chronic renal failure, improved 4. + TnI secondary to type II SC, demand ischemia in setting of above. 5. Chronic LBBB 6. H/o gastric cancer 7. NSVTach REC: 1. ASA, metoprolol on hold while NPO--consider change metoprolol to carvedilol once enteral access is achieved (if bp remains hi, bunny in light of low EF) 2. defer EDELMIRA/ARB due to CKD, currently not taking PO, advanced dementia makes benefits of this med questionable in the intermediate-term 3. Currently appears euvolemic, would continue to hold on Lasix for now. 4. Continue Abx as per ID. 5. DVT prophylaxis. GI prophylaxis w/ PPI. 6. Renal following, renal fx improved. 7. HTN - Started on hydralazine IV on 12/11 (pt NPO)--BP reasonable this AM, continue same and observe trend 8. replete K and Mag aggressively (> 4 and 2) given low EF, NSVT
--- NOTE | 2018-12-12 10:29 | PN ---
Physical Exam: SUBJECTIVE: Patient seen and examined at bed side no acute events over night reports some dry cough, still npo for MBS today OBJECTIVE: Vital Signs Period Temp Pulse Resp BP Sys/Heredia Pulse Ox Last 24 Hr 97.8 F-98.7 F 99-105 18-18 155-175/89-99 96-97 GENERAL: extubated ,on 4 L o2 NC HEAD:NC/AT EYES: PERRL, NECK: supple. LUNGS:decrease breath sounds at the bases , upper respiratory congestions HEART: Regular rate and rhythm, S1, S2 without murmur, rub or gallop. ABDOMEN: Obese , Soft, nontender, hypoactive BS EXTREMITIES: 2+ pulses, warm, well-perfused, +1 LE edema. NEUROLOGICAL:aox3 , no focal deficit Laboratory Results - last 24 hr 12/11/18 12/11/18 12/11/18 07:50 11:58 16:51 WBC RBC Hgb Hct MCV MCH MCHC RDW Plt Count MPV Absolute Neuts (auto) Neutrophils % Neutrophils % (Manual) 74.7 Band Neutrophils % 0.0 Lymphocytes % Lymphocytes % (Manual) 8.1 Monocytes % Monocytes % (Manual) 7 Eosinophils % Eosinophils % (Manual) 3.0 Basophils % Basophils % (Manual) 0.0 Myelocytes % (Man) 1 D Promyelocytes % (Man) 0 Blast Cells % (Manual) 0 Nucleated RBC % 0 Metamyelocytes 5 H D Hypochromia 0 Platelet Estimate Normal Polychromasia 0 Poikilocytosis 0 Anisocytosis 0 Microcytosis 0 Macrocytosis 0 Sodium Potassium Chloride Carbon Dioxide Anion Gap BUN Creatinine Est GFR (CKD-EPI)AfAm Est GFR (CKD-EPI)NonAf POC Glucometer 135 139 Random Glucose Calcium Phosphorus Magnesium Total Bilirubin AST ALT Alkaline Phosphatase Total Protein Albumin 12/11/18 12/12/18 12/12/18 21:29 05:12 08:56 WBC 10.5 H RBC 4.02 Hgb 12.3 Hct 35.6 MCV 88.7 MCH 30.5 MCHC 34.4 RDW 14.6 Plt Count 324 D MPV 7.3 L Absolute Neuts (auto) 8.7 H Neutrophils % 82.8 Neutrophils % (Manual) Band Neutrophils % Lymphocytes % 10.0 Lymphocytes % (Manual) Monocytes % 5.1 Monocytes % (Manual) Eosinophils % 1.6 Eosinophils % (Manual) Basophils % 0.5 Basophils % (Manual) Myelocytes % (Man) Promyelocytes % (Man) Blast Cells % (Manual) Nucleated RBC % 0 Metamyelocytes Hypochromia Platelet Estimate Polychromasia Poikilocytosis Anisocytosis Microcytosis Macrocytosis Sodium Potassium Chloride Carbon Dioxide Anion Gap BUN Creatinine Est GFR (CKD-EPI)AfAm Est GFR (CKD-EPI)NonAf POC Glucometer 132 159 Random Glucose Calcium Phosphorus Magnesium Total Bilirubin AST ALT Alkaline Phosphatase Total Protein Albumin 12/12/18 08:56 WBC RBC Hgb Hct MCV MCH MCHC RDW Plt Count MPV Absolute Neuts (auto) Neutrophils % Neutrophils % (Manual) Band Neutrophils % Lymphocytes % Lymphocytes % (Manual) Monocytes % Monocytes % (Manual) Eosinophils % Eosinophils % (Manual) Basophils % Basophils % (Manual) Myelocytes % (Man) Promyelocytes % (Man) Blast Cells % (Manual) Nucleated RBC % Metamyelocytes Hypochromia Platelet Estimate Polychromasia Poikilocytosis Anisocytosis Microcytosis Macrocytosis Sodium 145 Potassium 3.7 Chloride 114 H Carbon Dioxide 22 Anion Gap 9 BUN 31.8 H Creatinine 1.5 H Est GFR (CKD-EPI)AfAm 47.49 Est GFR (CKD-EPI)NonAf 40.98 POC Glucometer Random Glucose 184 H Calcium 8.9 Phosphorus 2.2 L Magnesium 1.8 Total Bilirubin 0.3 AST 30 ALT 19 Alkaline Phosphatase 43 L Total Protein 6.4 Albumin 2.4 L Active Medications Generic Name Dose Route Start Last Admin Trade Name Freq PRN Reason Stop Dose Admin Albuterol/Ipratropium 1 amp 12/09/18 23:09 12/12/18 07:30 Duoneb - NEB 1 amp RQID [facility] Administration Aspirin 81 mg 12/09/18 10:00 12/11/18 10:44 Asa - NGT Not Given DAILY I[facility] Donepezil HCl 10 mg 12/08/18 22:00 12/11/18 21:23 Aricept - NGT Not Given HS IK[facility] Emollient Ointment 1 applic 12/10/18 17:45 12/11/18 21:25 Aquaphor - TP 1 applic BID I[facility] Administration Heparin Sodium (Porcine) 5,000 unit 12/08/18 22:00 12/11/18 21:25 Heparin - SQ 5,000 unit BID IKER Administration Hydralazine HCl 10 mg 12/11/18 12:00 12/12/18 06:23 Apresoline Injection - IVPUSH 10 mg Q6H IKER Administration Ceftriaxone Sodium 1 gm/ 50 mls @ 100 mls/hr 12/09/18 10:00 12/11/18 09:08 Dextrose IVPB 100 mls/hr DAILY I[facility] Administration Protocol Metronidazole 500 mg in 100 mls @ 100 mls/hr 12/08/18 18:00 12/12/18 06:22 Flagyl 500mg Premixed Ivpb - IVPB 100 mls/hr Q8H-IV [facility] Administration Amino Acids 1,000 mls @ 50 mls/hr 12/11/18 11:00 12/11/18 14:03 Clinimix - IV 50 mls/hr Q20H [facility] Administration Insulin Aspart 1 vial 12/08/18 22:00 12/12/18 06:35 Novolog Vial Sliding Scale - SQ Not Given ACHS I[facility] Protocol Memantine 10 mg 12/08/18 22:00 12/11/18 21:23 Namenda - GT Not Given BID [facility] Metoprolol Succinate 25 mg 12/09/18 10:00 12/11/18 10:45 Toprol Xl - PO Not Given DAILY I[facility] Pantoprazole Sodium 40 mg 12/08/18 22:00 12/11/18 21:25 Protonix Iv IVPUSH 40 mg BID IK[facility] Administration CBC, BMP 12/12/18 08:56 12/12/18 08:56 ASSESSMENT/PLAN: Mariano Camacho is an 88 y/o male with a PMHx of HTN, HLD, CAD (s/p stent 2010) , LBBB, Alzheimer's disease, CKD, PVD, OA, 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 # Dysphagia Differential includes peptic stricture vs esophageal neoplasm, less likely motility disordered , MBS today the contrast did not pass to the stomach , will repeat CXr in am and depends on that he might benifit from EGD , * Head of bed elevation * aspiration precautions * start on clinimix * NPO # LBBB , not changed from 2017 * continue aspirin, continue home metoprolol 25mg daily * last echo on 10/20/17 showing EF of 35% * repeat echo showing EF 40-45% * daily weight , I&O # Acute hypoxic hypercapnic respiratory failure , improving * extubated on 4 L o2 NC * ABG showing respiratory acidosis with non anion gap metabolic acidosis, respiratory component of CO2 retention, metabolic component of likely hyperchloremia from dehydration and chronic renal failure * maintain o2 sat above 92% * CXR with RUL Consolidation * duonebs q6h prn # KATHY in term of sepsis vs AIN or ATN , improving close to his base line * CR 1.9 on admission, improving Cr 1.5 today , monitor off fluids * renal U/S did not show any hydronephrosis or other acute pathology * DC gan * hold lasix for now #N/V on admission * given Zofran and Pepcid in ED, Protonix 40 daily * Abdominal CT showing s/p gastrectomy, 1.5cm hypodense nodule in the pancreatic tail, epigastric hernia with nondilated small bowel loop, small umbilical hernia with a small nondilated small bowel loop, bilateral inguinal hernias containing only fat, colonic diverticulosis, nonobstructing renal calculi * vomiting causes may include transient obstruction from hernias, food poisoning, viral gastritis * HOB elevated, aspiration precautions * speech and swallow evaluation recommend cont NPO as is ashley risk for aspiration # HTN Started on Hydralizine on 12/11 as pt npo , hold on Metorolol and ASA per cardiology while NPO # severe sepsis in the setting of aspiration pneumonitis/pneumonia, resolved * cannot rule out community acquired pneumonia * Dr. Patel consulted, recs appreciated * 7th day of abx, ceftriaxone and flagyl continue up to 7 days per ID * cx negative , isolation precautions, hx of MRSA * aspiration precautions # DM * BGM, ISS Alzheimer's disease Hx of stomach CA (MALT) # dementia on memantine and donepezil #F/E/N * off fluids , start clinimix * continue to monitor electrolytes and replete as necessary * NPO #PROPHYLAXIS * heparin SQ BID , SCDS * Protonix #CODE * full code #DISPO * monitor in Tele Visit type - Emergency Visit Emergency Visit: Yes ED Registration Date: 12/02/18 Care time: The patient presented to the Emergency Department on the above date and was hospitalized for further evaluation of their emergent condition. - New Patient This patient is new to me today: No - Critical Care Critical Care patient: No ATTENDING PHYSICIAN STATEMENT I saw and evaluated the patient. I reviewed the resident's note and discussed the case with the resident. I agree with the resident's findings and plan as documented. SUBJECTIVE: OBJECTIVE: ASSESSMENT AND PLAN:
[2018-12-12] MEDS ORDERED: DEXTROSE 5%-WATER - 50 ML IVPB ONE (10:52)
[2018-12-12] MEDS ORDERED: cefTRIAXone SODIUM 1 GM VIAL ONE (10:52)
[2018-12-12] MEDS: CEFTRIAXONE 1 GM in DEXTROSE 5%-WATER - 50 ML IVPB SCH (11:01)
[2018-12-12] MEDS: MINERAL OIL/PET HY-PHL TOPICAL OINTMENT 454 GM JAR TP SCH ×2 (11:02→21:59)
[2018-12-12] MEDS: HEPARIN NA (PORCINE) 5,000 UNITS/ML 1ML VIAL SQ SCH ×2 (11:02→21:37)
[2018-12-12] MEDS: ASPIRIN 81 MG CHEWABLE TABLETS NGT SCH (11:02)
[2018-12-12] MEDS: metoPROLOL SUCCINATE 25 MG TAB.SR.24H (FP) PO SCH (11:03)
[2018-12-12] MEDS: MEMANTINE HCL 10 MG TABLET (FP) GT SCH ×2 (11:03→21:58)
[2018-12-12] MEDS: PANTOPRAZOLE SODIUM 40 MG VIAL IVPUSH SCH ×2 (11:03→21:37)
--- NOTE | 2018-12-12 11:15 | PN ---
Progress Note, RESEARCH SPEC - Note Progress Note: Voice is much stronger. Suggest: repeat MBS to hopefully initiate PO trials.
--- NOTE | 2018-12-12 11:21 | PN ---
Teaching Attending Note Name of Resident: Arnaud Batista ATTENDING PHYSICIAN STATEMENT I saw and evaluated the patient. I reviewed the resident's note and discussed the case with the resident. I agree with the resident's findings and plan as documented with exceptions below. SUBJECTIVE: Patient seen and examined. Overall feels weak but no complaints. OBJECTIVE: Vital Signs Period Temp Pulse Resp BP Sys/Heredia Pulse Ox Last 24 Hr 97.8 F-98.9 F 99-105 18-18 144-175/76-99 96-97 Intake & Output 12/09/18 12/10/18 12/11/18 12/12/18 23:59 23:59 23:59 23:59 Intake Total 1025 1450 300 Balance 1025 1450 300 Weight 194 lb 198 lb 190 lb GENERAL: sitting in bed, some use of accessory muscles Neck: soft, supple Chest: scattered coarse rales, improved air entry Abdomen:soft, obese, NT Extremities; 1+ pedal and bilateral hands/forearm edema, ecchymosis CVS:S1S2 irregular Home Medications Medication Instructions Recorded Aspirin Coated [Ecotrin -] 81 mg PO DAILY #0 07/19/14 Cholecalciferol (Vitamin D3) 2,000 units PO DAILY 07/19/14 [Vitamin D3] Cyanocobalamin [Vitamin B12 -] 1,000 mcg PO DAILY 07/19/14 Donepezil HCl [Aricept] 10 mg PO DAILY 07/19/14 Folic Acid 1 mg PO DAILY 07/19/14 Memantine HCl [Namenda -] 10 mg PO BID 07/19/14 Metoprolol Succinate [Toprol XL -] 25 mg PO DAILY 07/19/14 Pravastatin Sodium [Pravachol] 40 mg PO DAILY 07/19/14 Ranitidine [Zantac -] 150 mg PO DAILY 07/19/14 Fenofibrate Nanocrystallized 160 mg PO DAILY 10/19/17 [Fenofibrate] Albuterol 2.5/Ipratropium 0.5 1 amp NEB Q6H PRN 7 Days amp 10/22/17 [Duoneb -] Lactobacillus Acidophilus 1 each PO DAILY 12/02/18 [Acidophilus] [place]-3 Fatty Acids/Fish Oil [Fish 1 each PO DAILY 12/02/18 Oil 1,000 mg Capsule] Active Medications Albuterol/Ipratropium (Duoneb -) 1 amp NEB RQID [facility] Last Admin: 12/12/18 07:30 Dose: 1 amp Aspirin (Asa -) 81 mg NGT DAILY [facility] Last Admin: 12/12/18 11:02 Dose: Not Given Donepezil HCl (Aricept -) 10 mg NGT HS [facility] Last Admin: 12/11/18 21:23 Dose: Not Given Emollient Ointment (Aquaphor -) 1 applic TP BID [facility] Last Admin: 12/12/18 11:02 Dose: 1 applic Heparin Sodium (Porcine) (Heparin -) 5,000 unit SQ BID [facility] Last Admin: 12/12/18 11:02 Dose: 5,000 unit Hydralazine HCl (Apresoline Injection -) 10 mg IVPUSH Q6H [facility] Last Admin: 12/12/18 06:23 Dose: 10 mg Ceftriaxone Sodium 1 gm/ (Dextrose) 50 mls @ 100 mls/hr IVPB DAILY [facility]; Protocol Last Admin: 12/12/18 11:01 Dose: 100 mls/hr Metronidazole (Flagyl 500mg Premixed Ivpb -) 500 mg in 100 mls @ 100 mls/hr IVPB Q8H-IV [facility] Last Admin: 12/12/18 11:02 Dose: 100 mls/hr Amino Acids (Clinimix -) 1,000 mls @ 50 mls/hr IV Q20H [facility] Last Admin: 12/12/18 07:00 Dose: 50 mls/hr Insulin Aspart (Novolog Vial Sliding Scale -) 1 vial SQ ACHS IKER; Protocol Last Admin: 12/12/18 06:35 Dose: Not Given Memantine (Namenda -) 10 mg GT BID [facility] Last Admin: 12/12/18 11:03 Dose: Not Given Metoprolol Succinate (Toprol Xl -) 25 mg PO DAILY [facility] Last Admin: 12/12/18 11:03 Dose: Not Given Pantoprazole Sodium (Protonix Iv) 40 mg IVPUSH BID [facility] Last Admin: 12/12/18 11:03 Dose: 40 mg Laboratory Results - last 24 hr 12/11/18 12/11/18 12/11/18 11:58 16:51 21:29 WBC RBC Hgb Hct MCV MCH MCHC RDW Plt Count MPV Absolute Neuts (auto) Neutrophils % Lymphocytes % Monocytes % Eosinophils % Basophils % Nucleated RBC % Sodium Potassium Chloride Carbon Dioxide Anion Gap BUN Creatinine Est GFR (CKD-EPI)AfAm Est GFR (CKD-EPI)NonAf POC Glucometer 135 139 132 Random Glucose Calcium Phosphorus Magnesium Total Bilirubin AST ALT Alkaline Phosphatase Total Protein Albumin 12/12/18 12/12/18 12/12/18 05:12 08:56 08:56 WBC 10.5 H RBC 4.02 Hgb 12.3 Hct 35.6 MCV 88.7 MCH 30.5 MCHC 34.4 RDW 14.6 Plt Count 324 D MPV 7.3 L Absolute Neuts (auto) 8.7 H Neutrophils % 82.8 Lymphocytes % 10.0 Monocytes % 5.1 Eosinophils % 1.6 Basophils % 0.5 Nucleated RBC % 0 Sodium 145 Potassium 3.7 Chloride 114 H Carbon Dioxide 22 Anion Gap 9 BUN 31.8 H Creatinine 1.5 H Est GFR (CKD-EPI)AfAm 47.49 Est GFR (CKD-EPI)NonAf 40.98 POC Glucometer 159 Random Glucose 184 H Calcium 8.9 Phosphorus 2.2 L Magnesium 1.8 Total Bilirubin 0.3 AST 30 ALT 19 Alkaline Phosphatase 43 L Total Protein 6.4 Albumin 2.4 L Microbiology 12/02/18 18:30 Blood - Peripheral Venous Blood Culture - Final NO GROWTH AFTER 5 DAYS INCUBATION 12/02/18 18:31 Blood - Peripheral Venous Blood Culture - Final NO GROWTH AFTER 5 DAYS INCUBATION 12/02/18 22:50 Sputum - Endotrachea Suction/Ventilator Gram Stain - Final 12/02/18 22:50 Sputum - Endotrachea Suction/Ventilator Sputum Culture - Final NORMAL RESPIRATORY ALEYDA 12/03/18 16:45 Urine - Urine Verdugo Urine Culture - Final NO GROWTH OBTAINED ASSESSMENT AND PLAN: 88 yom with PMHx of alzheimer's dementia, HTN, HLD, CAD, known LBBB, CKD, PVD, OA, stomach CA s/p resection, GERD, 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 Oxygenating well, still with coarse secretions. Aggressive suctioning, chest PT, standing and prn nebs. Ceftriaxone/Flagyl day 10, continue while NPO. Repeat CXR 8/4 noted. patient/ declined NG feeds over the weekend. Discussed with speech/swallow, for repeat MBS today. Continue clinimix. off IVF, renal input noted. Verdugo dced. Progressive edema, fluid rate decreased. Lasix prn. ?metolazone. Palliative care input if fails MBS ISS. Metoprolol/ASA, troponin, 2D echo noted. Cardiology input noted. DVTPPX heparin Dispo pending clinical improvement. Anticipate SNF when improved. PT eval and OOB. Discussed with nursing.
--- NOTE | 2018-12-12 12:03 | PN ---
Progress Note (short form) - Note Progress Note: NAD on NC O2. Generalized malaise. Some dry cough. No fever. No acute events overnight. Intake & Output 12/09/18 12/10/18 12/11/18 12/12/18 23:59 23:59 23:59 23:59 Intake Total 1025 1450 300 Balance 1025 1450 300 Weight 194 lb 198 lb 190 lb Last Vital Signs Temp Pulse Resp BP Pulse Ox 98.9 F 99 H 18 144/76 96 12/12/18 10:00 12/12/18 10:00 12/12/18 10:00 12/12/18 10:00 12/12/18 10:39 Active Medications Albuterol/Ipratropium (Duoneb -) 1 amp NEB RQID [facility] Last Admin: 12/12/18 11:20 Dose: 1 amp Aspirin (Asa -) 81 mg NGT DAILY [facility] Last Admin: 12/12/18 11:02 Dose: Not Given Donepezil HCl (Aricept -) 10 mg NGT HS [facility] Last Admin: 12/11/18 21:23 Dose: Not Given Emollient Ointment (Aquaphor -) 1 applic TP BID [facility] Last Admin: 12/12/18 11:02 Dose: 1 applic Heparin Sodium (Porcine) (Heparin -) 5,000 unit SQ BID [facility] Last Admin: 12/12/18 11:02 Dose: 5,000 unit Hydralazine HCl (Apresoline Injection -) 10 mg IVPUSH Q6H [facility] Last Admin: 12/12/18 06:23 Dose: 10 mg Ceftriaxone Sodium 1 gm/ (Dextrose) 50 mls @ 100 mls/hr IVPB DAILY [facility]; Protocol Last Admin: 12/12/18 11:01 Dose: 100 mls/hr Metronidazole (Flagyl 500mg Premixed Ivpb -) 500 mg in 100 mls @ 100 mls/hr IVPB Q8H-IV [facility] Last Admin: 12/12/18 11:02 Dose: 100 mls/hr Amino Acids (Clinimix -) 1,000 mls @ 50 mls/hr IV Q20H [facility] Last Admin: 12/12/18 07:00 Dose: 50 mls/hr Insulin Aspart (Novolog Vial Sliding Scale -) 1 vial SQ ACHS [facility]; Protocol Last Admin: 12/12/18 06:35 Dose: Not Given Memantine (Namenda -) 10 mg GT BID [facility] Last Admin: 12/12/18 11:03 Dose: Not Given Metoprolol Succinate (Toprol Xl -) 25 mg PO DAILY [facility] Last Admin: 12/12/18 11:03 Dose: Not Given Pantoprazole Sodium (Protonix Iv) 40 mg IVPUSH BID [facility] Last Admin: 12/12/18 11:03 Dose: 40 mg Gen: awake and alert, NAD on NC O2 Heart: RRR Lung: scattered rhonchi Abd: soft, nontender Ext: no edema MANAGER UNION: non-focal Laboratory Results - last 24 hr 12/11/18 12/11/18 12/12/18 16:51 21:29 05:12 WBC RBC Hgb Hct MCV MCH MCHC RDW Plt Count MPV Absolute Neuts (auto) Neutrophils % Lymphocytes % Monocytes % Eosinophils % Basophils % Nucleated RBC % Sodium Potassium Chloride Carbon Dioxide Anion Gap BUN Creatinine Est GFR (CKD-EPI)AfAm Est GFR (CKD-EPI)NonAf POC Glucometer 139 132 159 Random Glucose Calcium Phosphorus Magnesium Total Bilirubin AST ALT Alkaline Phosphatase Total Protein Albumin 12/12/18 12/12/18 12/12/18 08:56 08:56 11:49 WBC 10.5 H RBC 4.02 Hgb 12.3 Hct 35.6 MCV 88.7 MCH 30.5 MCHC 34.4 RDW 14.6 Plt Count 324 D MPV 7.3 L Absolute Neuts (auto) 8.7 H Neutrophils % 82.8 Lymphocytes % 10.0 Monocytes % 5.1 Eosinophils % 1.6 Basophils % 0.5 Nucleated RBC % 0 Sodium 145 Potassium 3.7 Chloride 114 H Carbon Dioxide 22 Anion Gap 9 BUN 31.8 H Creatinine 1.5 H Est GFR (CKD-EPI)AfAm 47.49 Est GFR (CKD-EPI)NonAf 40.98 POC Glucometer 167 Random Glucose 184 H Calcium 8.9 Phosphorus 2.2 L Magnesium 1.8 Total Bilirubin 0.3 AST 30 ALT 19 Alkaline Phosphatase 43 L Total Protein 6.4 Albumin 2.4 L ASSESSMENT AND PLAN: Acute Hypoxic and Hypercapneic Respiratory Failure Pneumonia likely Aspiration Severe Sepsis Acute on Chronic Renal Failure CAD +Troponins likely Demand Ischemia Lactic Acidosis HTN Hyperlipidemia GERD - Swallow evaluation ongoing - NC O2 as needed - ABX - Aspiration precautions - monitor urine output, creatinine - VTE prophylaxis Dr Rebollar
[2018-12-12] MEDS ORDERED: MAGNESIUM SULF 50% (8.12 MEQ/2 ML-1 GM VIAL) IVPB ONE (12:04)
[2018-12-12] MEDS ORDERED: KCL 10 MEQ IVPB 10 MEQ/100 ML INFUS.BAG IVPB SCH (12:15)
[2018-12-12 13:40] LABS: ANISOCYTOSIS 1+; MACROCYTOSIS 0; PLATELET ESTIMATE NORMAL
--- NOTE | 2018-12-12 16:03 | CON.GI ---
Consult Consult Specialty:: GI Referred by:: Medicine Reason for Consultation:: esophageal obstruction - History of Present Illness Chief Complaint: N/V History of Present Illness: 88M with PMHx of alzheimer's dementia, HTN, HLD, CAD, known LBBB, CKD, PVD, OA, stomach CA s/p resection, GERD, hx R Gluteal stage 3 ulcer (w hx MRSA) admitted for N/V, s/p likely aspiration s/p intubation for hypoxic respiratory failure and MICU stay. Treated for aspiration PNA, extubated, now on floor. GI asked to consult regarding possible esophageal obstruction seen on MBS. After 5 minute exam, barium remained in the esophagus with no runoff into stomach. Subsequent CXR still demonstrated contrast in the esophagus without passage into stomach. Patient denies dysphagia/odynophagia. Denies abdominal pain. , Patsy, at the bedside, states that pt had no issues with swallowing prior to this hospitalization. - History Source History Provided By: Patient, Significant Other, Caregiver Limitations to Obtaining History: Dementia - Past Medical History RN RADIATION: Yes: Alzheimer's Cardio/Vascular: Yes: CAD, CHF, HTN, Hyperlipdemia, [place], Other (hyperlipidemia) Gastrointestinal: Yes: Cancer, GERD Renal/: Yes: Renal Inusuff Infectious Disease: Yes: MRSA Musculoskeletal: Yes: Osteoarthritis - Past Surgical History Additional Surgical History: open Intestinal resect 2/2 gastric CA. - Alcohol/Substance Use Hx Alcohol Use: Yes (RARE) - Smoking History Smoking history: Never smoked Have you smoked in the past 12 months: No If you are a former smoker, when did you quit?: Does not remember - Social History Usual Living Arrangement: With Spouse ADL: Family Assistance History of Recent Travel: No Home Medications - Allergies Allergies/Adverse Reactions: Allergies Allergy/AdvReac Type Severity Reaction Status Date / Time No Known Allergies Allergy Verified 12/02/18 13:16 - Home Medications Home Medications: Ambulatory Orders Aspirin Coated [Ecotrin -] 81 mg PO DAILY #0 07/19/14 Cholecalciferol (Vitamin D3) [Vitamin D3] 2,000 units PO DAILY 07/19/14 Cyanocobalamin [Vitamin B12 -] 1,000 mcg PO DAILY 07/19/14 Donepezil HCl [Aricept] 10 mg PO DAILY 07/19/14 Folic Acid 1 mg PO DAILY 07/19/14 Memantine HCl [Namenda -] 10 mg PO BID 07/19/14 Metoprolol Succinate [Toprol XL -] 25 mg PO DAILY 07/19/14 Pravastatin Sodium [Pravachol] 40 mg PO DAILY 07/19/14 Ranitidine [Zantac -] 150 mg PO DAILY 07/19/14 Fenofibrate Nanocrystallized [Fenofibrate] 160 mg PO DAILY 10/19/17 Albuterol 2.5/Ipratropium 0.5 [Duoneb -] 1 amp NEB Q6H PRN 7 Days amp 10/22/17 Lactobacillus Acidophilus [Acidophilus] 1 each PO DAILY 12/02/18 [place]-3 Fatty Acids/Fish Oil [Fish Oil 1,000 mg Capsule] 1 each PO DAILY Family Disease History - Family Disease History Family Disease History: Heart Disease: Brother, CA: Sister Review of Systems Unable to obtain ROS, reason: dementia Physical Exam-GI Vital Signs: Vital Signs Temperature 98.9 F 12/12/18 10:00 Pulse Rate 99 H 12/12/18 10:00 Respiratory Rate 18 12/12/18 10:00 Blood Pressure 144/76 12/12/18 10:00 O2 Sat by Pulse Oximetry (%) 96 12/12/18 10:39 Constitutional: Yes: Well Nourished, No Distress Eyes: Yes: Conjunctiva Clear Cardiovascular: Yes: Regular Rate and Rhythm Respiratory: Yes: Regular, CTA Bilaterally ...Palpate: Yes: Soft. No: Tenderness ...Rectal Exam: Yes: Deferred Musculoskeletal: Yes: Muscle Weakness Edema: Yes Neurological: Yes: Alert, Oriented Labs: CBC, BMP 12/12/18 08:56 12/12/18 08:56 INR, PTT INR 1.07 (0.83-1.09) 12/03/18 05:40 Imaging - Results Chest X-ray: Report Reviewed, Image Reviewed Other: Report Reviewed (MBS images and report reviewed), Image Reviewed Assessment/Plan Possible esophageal obstruction as no contrast passing from esophagus to stomach on MBS, and still not on CXR. Differential includes peptic stricture vs esophageal neoplasm, less likely motility d/o Aspiration precautions - HOB should be elevated at all times Would get another upright CXR tomorrow to see if contrast has cleared esophagus and passed into stomach; if so, can then plan for endoscopy to further assess. Discussed with at bedside in detail.
--- NOTE | 2018-12-12 19:35 | PN ---
Progress Note (short form) - Note Progress Note: RENAL Pt is asleep, comfortable Last Vital Signs Temp Pulse Resp BP Pulse Ox 97.5 F L 108 H 20 130/91 96 12/12/18 18:00 12/12/18 18:00 12/12/18 18:00 12/12/18 18:00 12/12/18 10:39 Lungs decreased breath sounds cvs s1s2 rr abd soft ext +edema neuro asleep CBC, BMP 12/12/18 08:56 12/12/18 08:56 Current Medications Generic Name Dose Route Start Last Admin Trade Name Freq PRN Reason Stop Dose Admin Albuterol/Ipratropium 1 amp 12/09/18 23:09 12/12/18 16:36 Duoneb - NEB 1 amp RQID [facility] Administration Aspirin 81 mg 12/09/18 10:00 12/12/18 11:02 Asa - NGT Not Given DAILY [facility] Donepezil HCl 10 mg 12/08/18 22:00 12/11/18 21:23 Aricept - NGT Not Given HS [facility] Emollient Ointment 1 applic 12/10/18 17:45 12/12/18 11:02 Aquaphor - TP 1 applic BID [facility] Administration Heparin Sodium (Porcine) 5,000 unit 12/08/18 22:00 12/12/18 11:02 Heparin - SQ 5,000 unit BID [facility] Administration Hydralazine HCl 10 mg 12/11/18 12:00 12/12/18 17:09 Apresoline Injection - IVPUSH 10 mg Q6H [facility] Administration Ceftriaxone Sodium 1 gm/ 50 mls @ 100 mls/hr 12/09/18 10:00 12/12/18 11:01 Dextrose IVPB 100 mls/hr DAILY [facility] Administration Protocol Metronidazole 500 mg in 100 mls @ 100 mls/hr 12/08/18 18:00 12/12/18 17:09 Flagyl 500mg Premixed Ivpb - IVPB 100 mls/hr Q8H-IV [facility] Administration Amino Acids 1,000 mls @ 50 mls/hr 12/11/18 11:00 12/12/18 07:00 Clinimix - IV 50 mls/hr Q20H [facility] Administration Insulin Aspart 1 vial 12/08/18 22:00 12/12/18 16:51 Novolog Vial Sliding Scale - SQ Not Given ACHS [facility] Protocol Memantine 10 mg 12/08/18 22:00 12/12/18 11:03 Namenda - GT Not Given BID [facility] Metoprolol Succinate 25 mg 12/09/18 10:00 12/12/18 11:03 Toprol Xl - PO Not Given DAILY [facility] Pantoprazole Sodium 40 mg 12/08/18 22:00 12/12/18 11:03 Protonix Iv IVPUSH 40 mg BID [facility] Administration Impression 1. KATHY 2. acute resp failure 3. HTN 4. gastric cancer 5. dementia 6. HLD 7. CAD 8. PVD 9. PNA 10. sepsis 11. hyperkalemia 12. possible esophageal stricture Plan - for peg given npo- ?GT - avoid nsaids - avoid nephrotoxins - now on clinimix - can give lasix for edema and if sodium starts to rise give d5w - Gi Note reviewed MV
[2018-12-12] MEDS: DONEPEZIL HCL 10 MG TABLET (FP) NGT SCH (21:48)
[2018-12-13] MEDS: AMINO ACIDS 4.25%/D5W 1,000 ML IV SCH ×3 (03:10→23:00)
[2018-12-13] MEDS: hydrALAZINE HCL 20 MG/ML VIAL IVPUSH SCH ×3 (05:49→18:21)
[2018-12-13] MEDS: INSULIN SLIDING SCALE (NOVOLOG) 1 VIAL SQ SCH ×4 (06:30→21:57)
[2018-12-13 07:28] LABS: ALBUMIN 2.2 g/dl (3.4-5.0); BILIRUBIN,TOTAL 0.4 mg/dL (0.2-1); BLOOD UREA NITROGEN 38.2 mg/dL (7-18); CALCIUM 8.2 mg/dL (8.5-10.1); CREATININE 1.5 mg/dL (0.55-1.3); POTASSIUM 3.4 mmol/L (3.5-5.1); TOT PROT 5.8 g/dl (6.4-8.2)
[2018-12-13] MEDS: ALBUTEROL SO4 2.5/IPRATROPIUM 0.5 INH SOL 3 ML VIAL.NEB. NEB SCH ×4 (09:44→20:00)
[2018-12-13] MEDS ORDERED: PT OWN MED DRAWER 7, Y5N ONE (10:43)
[2018-12-13] MEDS ORDERED: cefTRIAXone SODIUM 1 GM VIAL ONE (10:43)
[2018-12-13] MEDS ORDERED: DEXTROSE 5%-WATER - 50 ML IVPB ONE (10:44)
[2018-12-13] MEDS: CEFTRIAXONE 1 GM in DEXTROSE 5%-WATER - 50 ML IVPB SCH (10:48)
[2018-12-13] MEDS: PANTOPRAZOLE SODIUM 40 MG VIAL IVPUSH SCH ×2 (10:56→21:56)
[2018-12-13] MEDS: MINERAL OIL/PET HY-PHL TOPICAL OINTMENT 454 GM JAR TP SCH ×2 (10:58→22:01)
[2018-12-13] MEDS: HEPARIN NA (PORCINE) 5,000 UNITS/ML 1ML VIAL SQ SCH ×2 (10:58→21:56)
--- NOTE | 2018-12-13 11:43 | PN ---
Physical Exam: SUBJECTIVE: Patient seen and examined, reports dyspnea, no other complaints. OBJECTIVE: Vital Signs Period Temp Pulse Resp BP Sys/Heredia Pulse Ox Last 24 Hr 97.5 F-98.8 F 97-108 19-20 130-152/64-91 95 Intake & Output 12/10/18 12/11/18 12/12/18 12/13/18 23:59 23:59 23:59 23:59 Intake Total 1025 1450 1050 700 Balance 1025 1450 1050 700 Weight 198 lb 190 lb 192 lb 6.4 oz GENERAL: sitting in bed, some use of accessory muscles Neck: soft, supple Chest: scattered bilateral coarse rales Abdomen:soft, obese, NT Extremities; 1+ pedal and bilateral hands/forearm edema, ecchymosis CVS:S1S2 irregular Laboratory Results - last 24 hr 12/12/18 12/12/18 12/12/18 08:56 11:49 16:34 Neutrophils % (Manual) 77.5 Band Neutrophils % 3.1 Lymphocytes % (Manual) 9.2 Monocytes % (Manual) 4 Eosinophils % (Manual) 3.0 Basophils % (Manual) 0.0 Myelocytes % (Man) 3 H D Promyelocytes % (Man) 0 Blast Cells % (Manual) 0 Metamyelocytes 0 D Hypochromia 0 Platelet Estimate Normal Polychromasia 0 Poikilocytosis 0 Anisocytosis 1+ Microcytosis 1+ Macrocytosis 0 Sodium Potassium Chloride Carbon Dioxide Anion Gap BUN Creatinine Est GFR (CKD-EPI)AfAm Est GFR (CKD-EPI)NonAf POC Glucometer 167 148 Random Glucose Calcium Total Bilirubin AST ALT Alkaline Phosphatase Total Protein Albumin 12/12/18 12/13/18 12/13/18 21:40 05:10 05:23 Neutrophils % (Manual) Band Neutrophils % Lymphocytes % (Manual) Monocytes % (Manual) Eosinophils % (Manual) Basophils % (Manual) Myelocytes % (Man) Promyelocytes % (Man) Blast Cells % (Manual) Metamyelocytes Hypochromia Platelet Estimate Polychromasia Poikilocytosis Anisocytosis Microcytosis Macrocytosis Sodium 148 H Potassium 3.4 L Chloride 117 H Carbon Dioxide 20 L Anion Gap 11 BUN 38.2 H Creatinine 1.5 H Est GFR (CKD-EPI)AfAm 47.49 Est GFR (CKD-EPI)NonAf 40.98 POC Glucometer 177 155 Random Glucose 171 H Calcium 8.2 L Total Bilirubin 0.4 AST 23 ALT 14 Alkaline Phosphatase 37 L Total Protein 5.8 L Albumin 2.2 L Active Medications Generic Name Dose Route Start Last Admin Trade Name Jared PRN Reason Stop Dose Admin Albuterol/Ipratropium 1 amp 12/09/18 23:09 12/13/18 09:44 Duoneb - NEB 1 amp RQID [facility] Administration Aspirin 81 mg 12/09/18 10:00 12/12/18 11:02 Asa - NGT Not Given DAILY [facility] Donepezil HCl 10 mg 12/08/18 22:00 12/12/18 21:48 Aricept - NGT Not Given HS [facility] Emollient Ointment 1 applic 12/10/18 17:45 12/13/18 10:58 Aquaphor - TP 1 applic BID [facility] Administration Furosemide 20 mg 12/13/18 11:42 Lasix Injection - IVPUSH 12/13/18 11:43 ONCE ONE Heparin Sodium (Porcine) 5,000 unit 12/08/18 22:00 12/13/18 10:58 Heparin - SQ 5,000 unit BID [facility] Administration Hydralazine HCl 10 mg 12/11/18 12:00 12/13/18 05:49 Apresoline Injection - IVPUSH 10 mg Q6H [facility] Administration Ceftriaxone Sodium 1 gm/ 50 mls @ 100 mls/hr 12/09/18 10:00 12/13/18 10:48 Dextrose IVPB 100 mls/hr DAILY [facility] Administration Protocol Metronidazole 500 mg in 100 mls @ 100 mls/hr 12/08/18 18:00 12/13/18 10:48 Flagyl 500mg Premixed Ivpb - IVPB 100 mls/hr Q8H-IV [facility] Administration Amino Acids 1,000 mls @ 50 mls/hr 12/11/18 11:00 12/13/18 03:10 Clinimix - IV Not Given Q20H [facility] Insulin Aspart 1 vial 12/08/18 22:00 12/13/18 06:30 Novolog Vial Sliding Scale - SQ 2 units ACHS I[facility] Administration Protocol Memantine 10 mg 12/08/18 22:00 12/12/18 21:58 Namenda - GT Not Given BID [facility] Metoprolol Succinate 25 mg 12/09/18 10:00 12/12/18 11:03 Toprol Xl - PO Not Given DAILY [facility] Pantoprazole Sodium 40 mg 12/08/18 22:00 12/13/18 10:56 Protonix Iv IVPUSH 40 mg BID [facility] Administration ASSESSMENT/PLAN: 88 yom with PMHx of alzheimer's dementia, HTN, HLD, CAD, known LBBB, CKD, PVD, OA, stomach CA s/p resection, GERD, 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 More dyspneic today, Still with coarse secretions. Aggressive suctioning, chest PT, standing and prn nebs. Ceftriaxone/Flagyl day 11, concerns for ongoing aspiration, continue while NPO. Repeat MBS noted, contrast failed to pass beyond esophagus, ?stricture vs Mass. GI input noted. CXR/Abdominal xray today with passage of contrast. Follow up with GI for EGD. Strict NPO with aspiration precautions for now Clinimx. Discussed with Dr. Taylor, worsening rales and edema, trial with lasix 20 mg IV x1. Palliative care input to address goals of care including feeding tube etc. ISS. Metoprolol/ASA, troponin, 2D echo noted. Cardiology input noted. DVTPPX heparin Dispo pending clinical improvement. Anticipate SNF when improved. PT eval and OOB. Discussed with nursing. Visit type - Emergency Visit Emergency Visit: Yes ED Registration Date: 12/02/18 Care time: The patient presented to the Emergency Department on the above date and was hospitalized for further evaluation of their emergent condition. - New Patient This patient is new to me today: No - Critical Care Critical Care patient: No - Discharge Referral Referred to [facility] Med P.C.: No
[2018-12-13] MEDS ORDERED: FUROSEMIDE 40 MG/4 ML INJECTABLE VIAL IVPUSH ONE (11:45)
[2018-12-13 12:04] LABS: N-TERMINAL BNP 21447.4 pg/ml (5-450)
--- NOTE | 2018-12-13 12:09 | PN ---
Progress Note, GENERAL ENGINEER - Note Progress Note: CXR/Abd xray today-Contrast no longer noted in esophagus. MBS reviewed with staff. Appreciate GI input. Plan is for esophageal evaluation/EGD before PO trials initiated.
[2018-12-13] MEDS: metoPROLOL SUCCINATE 25 MG TAB.SR.24H (FP) PO SCH (12:22)
[2018-12-13] MEDS: MEMANTINE HCL 10 MG TABLET (FP) GT SCH ×2 (12:22→21:56)
[2018-12-13] MEDS: ASPIRIN 81 MG CHEWABLE TABLETS NGT SCH (12:22)
--- NOTE | 2018-12-13 12:57 | PN ---
Progress Note (short form) - Note Progress Note: NAD on NC O2. Some dry cough. No fever. No acute events overnight. Intake & Output 12/10/18 12/11/18 12/12/18 12/13/18 23:59 23:59 23:59 23:59 Intake Total 1025 1450 1050 700 Balance 1025 1450 1050 700 Weight 198 lb 190 lb 192 lb 6.4 oz Last Vital Signs Temp Pulse Resp BP Pulse Ox 97.6 F 104 H 19 145/72 95 12/13/18 09:00 12/13/18 09:00 12/13/18 09:00 12/13/18 09:00 12/12/18 21:00 Active Medications Albuterol/Ipratropium (Duoneb -) 1 amp NEB RQID [facility] Last Admin: 12/13/18 09:44 Dose: 1 amp Aspirin (Asa -) 81 mg NGT DAILY [facility] Last Admin: 12/13/18 12:22 Dose: Not Given Donepezil HCl (Aricept -) 10 mg NGT HS [facility] Last Admin: 12/12/18 21:48 Dose: Not Given Emollient Ointment (Aquaphor -) 1 applic TP BID [facility] Last Admin: 12/13/18 10:58 Dose: 1 applic Heparin Sodium (Porcine) (Heparin -) 5,000 unit SQ BID [facility] Last Admin: 12/13/18 10:58 Dose: 5,000 unit Hydralazine HCl (Apresoline Injection -) 10 mg IVPUSH Q6H [facility] Last Admin: 12/13/18 05:49 Dose: 10 mg Ceftriaxone Sodium 1 gm/ (Dextrose) 50 mls @ 100 mls/hr IVPB DAILY I[facility]; Protocol Last Admin: 12/13/18 10:48 Dose: 100 mls/hr Metronidazole (Flagyl 500mg Premixed Ivpb -) 500 mg in 100 mls @ 100 mls/hr IVPB Q8H-IV [facility] Last Admin: 12/13/18 10:48 Dose: 100 mls/hr Amino Acids (Clinimix -) 1,000 mls @ 50 mls/hr IV Q20H [facility] Last Admin: 12/13/18 03:10 Dose: Not Given Insulin Aspart (Novolog Vial Sliding Scale -) 1 vial SQ ACHS [facility]; Protocol Last Admin: 12/13/18 12:19 Dose: Not Given Memantine (Namenda -) 10 mg GT BID [facility] Last Admin: 12/13/18 12:22 Dose: Not Given Metoprolol Succinate (Toprol Xl -) 25 mg PO DAILY [facility] Last Admin: 12/13/18 12:22 Dose: Not Given Pantoprazole Sodium (Protonix Iv) 40 mg IVPUSH BID [facility] Last Admin: 12/13/18 10:56 Dose: 40 mg Gen: awake and alert, NAD on NC O2 Heart: RRR Lung: scattered rhonchi Abd: soft, nontender Ext: no edema [employer]ARM [employer]ON[employer]ATOR: non-focal Laboratory Results - last 24 hr 12/12/18 12/12/18 12/12/18 08:56 16:34 21:40 Neutrophils % (Manual) 77.5 Band Neutrophils % 3.1 Lymphocytes % (Manual) 9.2 Monocytes % (Manual) 4 Eosinophils % (Manual) 3.0 Basophils % (Manual) 0.0 Myelocytes % (Man) 3 H D Promyelocytes % (Man) 0 Blast Cells % (Manual) 0 Metamyelocytes 0 D Hypochromia 0 Platelet Estimate Normal Polychromasia 0 Poikilocytosis 0 Anisocytosis 1+ Microcytosis 1+ Macrocytosis 0 Sodium Potassium Chloride Carbon Dioxide Anion Gap BUN Creatinine Est GFR (CKD-EPI)AfAm Est GFR (CKD-EPI)NonAf POC Glucometer 148 177 Random Glucose Calcium Total Bilirubin AST ALT Alkaline Phosphatase B-Natriuretic Peptide Total Protein Albumin 12/13/18 12/13/18 12/13/18 05:10 05:23 12:12 Neutrophils % (Manual) Band Neutrophils % Lymphocytes % (Manual) Monocytes % (Manual) Eosinophils % (Manual) Basophils % (Manual) Myelocytes % (Man) Promyelocytes % (Man) Blast Cells % (Manual) Metamyelocytes Hypochromia Platelet Estimate Polychromasia Poikilocytosis Anisocytosis Microcytosis Macrocytosis Sodium 148 H Potassium 3.4 L Chloride 117 H Carbon Dioxide 20 L Anion Gap 11 BUN 38.2 H Creatinine 1.5 H Est GFR (CKD-EPI)AfAm 47.49 Est GFR (CKD-EPI)NonAf 40.98 POC Glucometer 155 137 Random Glucose 171 H Calcium 8.2 L Total Bilirubin 0.4 AST 23 ALT 14 Alkaline Phosphatase 37 L B-Natriuretic Peptide 06655.4 H Total Protein 5.8 L Albumin 2.2 L ASSESSMENT AND PLAN: Acute Hypoxic and Hypercapneic Respiratory Failure Pneumonia likely Aspiration Severe Sepsis Acute on Chronic Renal Failure CAD +Troponins likely Demand Ischemia Lactic Acidosis HTN Hyperlipidemia GERD - Swallow evaluation ongoing for possible Endoscopy - NC O2 as needed - ABX - Aspiration precautions - monitor urine output, creatinine - VTE prophylaxis Dr Rebollar
--- NOTE | 2018-12-13 14:18 | PROC ---
Central Line Insertion - Procedure Note MIDLINE PERIPHERAL VENOUS CATHETER PLACEMENT TIME OUT performed prior to this procedure with verbal confirmation of correct patient identity, correct side, agreement of the procedure, correct patient position, availability of necessary equipment. The consent form is complete and accurate. Risk of possible infection and bleeding have been discussed with the patient. Safety precautions based on patient history or medication use has been addressed. Indication: Poor Venous Access Consent on Chart: Yes Central Line: Other (Double Lumen Midline catheter) Position: Supine Area prepped with Chlorhexidine solution then draped using sterile barrier protection. Anesthesia: Lidocaine 1% Technique used: Seldinger Ultrasound Guided Assistance: Yes Site: Left cephalic vein Dark venous non-pulsatile flow noted from hub of needle. The catheter was introduced. Guide wire removed intact. Each port aspirated then flushed with sterile normal saline and capped. Line secured to skin with silk suture. Biopatch placed around base of line. Sterile occlusive dressing applied. No complications. Patient tolerated the procedure well.
--- NOTE | 2018-12-13 15:32 | PN ---
Progress Note, Physician History of Present Illness: Pt seen and examined at bedside. He is awake and appears comfortable. - Current Medication List Current Medications: Active Medications Albuterol/Ipratropium (Duoneb -) 1 amp NEB RQID [facility] Last Admin: 12/13/18 09:44 Dose: 1 amp Aspirin (Asa -) 81 mg NGT DAILY [facility] Last Admin: 12/13/18 12:22 Dose: Not Given Donepezil HCl (Aricept -) 10 mg NGT HS [facility] Last Admin: 12/12/18 21:48 Dose: Not Given Emollient Ointment (Aquaphor -) 1 applic TP BID [facility] Last Admin: 12/13/18 10:58 Dose: 1 applic Heparin Sodium (Porcine) (Heparin -) 5,000 unit SQ BID [facility] Last Admin: 12/13/18 10:58 Dose: 5,000 unit Hydralazine HCl (Apresoline Injection -) 10 mg IVPUSH Q6H [facility] Last Admin: 12/13/18 13:00 Dose: 10 mg Ceftriaxone Sodium 1 gm/ (Dextrose) 50 mls @ 100 mls/hr IVPB DAILY [facility]; Protocol Last Admin: 12/13/18 10:48 Dose: 100 mls/hr Metronidazole (Flagyl 500mg Premixed Ivpb -) 500 mg in 100 mls @ 100 mls/hr IVPB Q8H-IV [facility] Last Admin: 12/13/18 10:48 Dose: 100 mls/hr Amino Acids (Clinimix -) 1,000 mls @ 50 mls/hr IV Q20H [facility] Last Admin: 12/13/18 14:58 Dose: 50 mls/hr Potassium Chloride (Potassium Chloride 10 Meq Premix Ivpb -) 10 meq in 100 mls @ 100 mls/hr IVPB Q60M [facility] Stop: 12/13/18 17:29 Insulin Aspart (Novolog Vial Sliding Scale -) 1 vial SQ ACHS [facility]; Protocol Last Admin: 12/13/18 12:19 Dose: Not Given Memantine (Namenda -) 10 mg GT BID [facility] Last Admin: 12/13/18 12:22 Dose: Not Given Metoprolol Succinate (Toprol Xl -) 25 mg PO DAILY [facility] Last Admin: 12/13/18 12:22 Dose: Not Given Pantoprazole Sodium (Protonix Iv) 40 mg IVPUSH BID [facility] Last Admin: 12/13/18 10:56 Dose: 40 mg - Objective Vital Signs: Vital Signs Temperature 97.6 F 12/13/18 09:00 Pulse Rate 104 H 12/13/18 09:00 Respiratory Rate 12/13/18 09:00 Blood Pressure 145/72 12/13/18 09:00 O2 Sat by Pulse Oximetry (%) 95 12/13/18 09:00 Constitutional: Yes: Calm Eyes: Yes: Conjunctiva Clear HENT: Yes: Atraumatic Neck: Yes: Supple Cardiovascular: Yes: S1, S2 Respiratory: Yes: CTA Bilaterally Gastrointestinal: Yes: Soft Genitourinary: Yes: Incontinence Musculoskeletal: Yes: Muscle Weakness Edema: Yes Edema: LLE: 1+, RLE: 1+ Neurological: Yes: Confusion Labs: CBC, BMP 12/12/18 08:56 12/13/18 05:10 INR, PTT INR 1.07 (0.83-1.09) 12/03/18 05:40 Problem List - Problems (1) Acute kidney injury superimposed on CKD Code(s): N17.9 - ACUTE KIDNEY FAILURE, UNSPECIFIED; N18.9 - CHRONIC KIDNEY DISEASE, UNSPECIFIED (2) Aspiration pneumonia Code(s): J69.0 - PNEUMONITIS DUE TO INHALATION OF FOOD AND VOMIT (3) Vomiting Code(s): R11.10 - VOMITING, UNSPECIFIED Qualifiers: Vomiting type: unspecified Vomiting Intractability: unspecified Nausea presence: unspecified Qualified Code(s): R11.10 - Vomiting, unspecified Assessment/Plan Current Medications Generic Name Dose Route Start Last Admin Trade Name Jared PRN Reason Stop Dose Admin Albuterol/Ipratropium 1 amp 12/09/18 23:09 12/13/18 09:44 Duoneb - NEB 1 amp RQID [facility] Administration Aspirin 81 mg 12/09/18 10:00 12/13/18 12:22 Asa - NGT Not Given DAILY [facility] Donepezil HCl 10 mg 12/08/18 22:00 12/12/18 21:48 Aricept - NGT Not Given HS [facility] Emollient Ointment 1 applic 12/10/18 17:45 12/13/18 10:58 Aquaphor - TP 1 applic BID [facility] Administration Heparin Sodium (Porcine) 5,000 unit 12/08/18 22:00 12/13/18 10:58 Heparin - SQ 5,000 unit BID [facility] Administration Hydralazine HCl 10 mg 12/11/18 12:00 12/13/18 13:00 Apresoline Injection - IVPUSH 10 mg Q6H [facility] Administration Ceftriaxone Sodium 1 gm/ 50 mls @ 100 mls/hr 12/09/18 10:00 12/13/18 10:48 Dextrose IVPB 100 mls/hr DAILY [facility] Administration Protocol Metronidazole 500 mg in 100 mls @ 100 mls/hr 12/08/18 18:00 12/13/18 10:48 Flagyl 500mg Premixed Ivpb - IVPB 100 mls/hr Q8H-IV [facility] Administration Amino Acids 1,000 mls @ 50 mls/hr 12/11/18 11:00 12/13/18 14:58 Clinimix - IV 50 mls/hr Q20H [facility] Administration Potassium Chloride 10 meq in 100 mls @ 100 mls/hr 12/13/18 15:30 Potassium Chloride 10 Meq Premix Ivpb - IVPB 12/13/18 17:29 Q60M [facility] Insulin Aspart 1 vial 12/08/18 22:00 12/13/18 12:19 Novolog Vial Sliding Scale - SQ Not Given ACHS [facility] Protocol Memantine 10 mg 12/08/18 22:00 12/13/18 12:22 Namenda - GT Not Given BID [facility] Metoprolol Succinate 25 mg 12/09/18 10:00 12/13/18 12:22 Toprol Xl - PO Not Given DAILY [facility] Pantoprazole Sodium 40 mg 12/08/18 22:00 12/13/18 10:56 Protonix Iv IVPUSH 40 mg BID [facility] Administration Impression 1. KATHY 2. acute resp failure 3. HTN 4. gastric cancer 5. dementia 6. HLD 7. CAD 8. PVD 9. PNA 10. sepsis 11. hyperkalemia Plan - replace potassium - cont clinimix as he is NPO - agree with dose of lasix - check mag level - swallow eval in progress - avoid nsaids - avoid nephrotoxins
--- NOTE | 2018-12-13 15:39 | PN ---
Progress Note, Physician Chief Complaint: feeling well Denie CP or SOB TELE: Sinus, IVCD. PVCs - Current Medication List Current Medications: Active Medications Albuterol/Ipratropium (Duoneb -) 1 amp NEB RQID [facility] Last Admin: 12/13/18 09:44 Dose: 1 amp Aspirin (Asa -) 81 mg NGT DAILY [facility] Last Admin: 12/13/18 12:22 Dose: Not Given Donepezil HCl (Aricept -) 10 mg NGT HS [facility] Last Admin: 12/12/18 21:48 Dose: Not Given Emollient Ointment (Aquaphor -) 1 applic TP BID [facility] Last Admin: 12/13/18 10:58 Dose: 1 applic Heparin Sodium (Porcine) (Heparin -) 5,000 unit SQ BID [facility] Last Admin: 12/13/18 10:58 Dose: 5,000 unit Hydralazine HCl (Apresoline Injection -) 10 mg IVPUSH Q6H [facility] Last Admin: 12/13/18 13:00 Dose: 10 mg Ceftriaxone Sodium 1 gm/ (Dextrose) 50 mls @ 100 mls/hr IVPB DAILY [facility]; Protocol Last Admin: 12/13/18 10:48 Dose: 100 mls/hr Metronidazole (Flagyl 500mg Premixed Ivpb -) 500 mg in 100 mls @ 100 mls/hr IVPB Q8H-IV [facility] Last Admin: 12/13/18 10:48 Dose: 100 mls/hr Amino Acids (Clinimix -) 1,000 mls @ 50 mls/hr IV Q20H [facility] Last Admin: 12/13/18 14:58 Dose: 50 mls/hr Potassium Chloride (Potassium Chloride 10 Meq Premix Ivpb -) 10 meq in 100 mls @ 100 mls/hr IVPB Q60M [facility] Stop: 12/13/18 17:29 Insulin Aspart (Novolog Vial Sliding Scale -) 1 vial SQ ACHS [facility]; Protocol Last Admin: 12/13/18 12:19 Dose: Not Given Memantine (Namenda -) 10 mg GT BID [facility] Last Admin: 12/13/18 12:22 Dose: Not Given Metoprolol Succinate (Toprol Xl -) 25 mg PO DAILY [facility] Last Admin: 12/13/18 12:22 Dose: Not Given Pantoprazole Sodium (Protonix Iv) 40 mg IVPUSH BID [facility] Last Admin: 12/13/18 10:56 Dose: 40 mg - Objective Vital Signs: Vital Signs Temperature 97.6 F 12/13/18 09:00 Pulse Rate 104 H 12/13/18 09:00 Respiratory Rate 12/13/18 09:00 Blood Pressure 145/72 12/13/18 09:00 O2 Sat by Pulse Oximetry (%) 95 12/13/18 09:00 Constitutional: Yes: No Distress, Calm Eyes: Yes: Conjunctiva Clear Cardiovascular: Yes: Regular Rate and Rhythm Respiratory: Yes: Rhonchi, Other (no active wheezing.) Gastrointestinal: Yes: Soft (NT) Edema: No Neurological: Yes: Alert Labs: CBC, BMP 12/12/18 08:56 12/13/18 05:10 INR, PTT INR 1.07 (0.83-1.09) 12/03/18 05:40 Laboratory Tests 12/12/18 12/13/18 08:56 05:10 WBC 10.5 H Hgb 12.3 Hct 35.6 Plt Count 324 D Sodium 148 H Potassium 3.4 L BUN 38.2 H Creatinine 1.5 H Assessment/Plan Assessment/Plan Echo 10/2017: tds, "no definitive statements can be made about findings due to extremely poor acoustic windows". nl lv size. Severely decreased LV sys fn. Global with possible anteroapical septal AK. RV not seen. 1+ ar. MV/TV not well visualized. MUGA 08/23: EF 51% Echo 09/2016: nl lv size. Septum is akinetic. No rwma in inferior, inferolateral or lateral wall, other ordoñez not well seen. Overall ejection fraction is probably mildly, vs [id number] reduced--estimated at 45% vs 40-45%. nl rv/valves. MIBI 07/22: 4:30min, probably + STs; large area mid-AW/septum/apex scar with small P.I.I.; moder decr EF with mild global HK and sev HK vs AK of mid-AW// apex; mild LVE, no TID [facility] ([place]) 05/20: thrombotic subtotal occl pLAD (BMS), 70-80% ramus, diffuse 30- 50% RCA, EF 35% (anterolat AK, lateral/posterolat HK) IMP: 1. Acute respiratory failure secondary to aspiration PNA, now extubated on tele. 2. CAD s/p prior AR, PCI LAD 2010, w/ ischemic CM and chronic systolic CHF (EF chronically b/t 40-45%) 3. Acute on chronic renal failure, improved 4. + TnI secondary to type II AR, demand ischemia in setting of above. 5. Chronic LBBB 6. H/o gastric cancer 7. NSVTach REC: 1. ASA, metoprolol resumed. 2. defer EDELMIRA/ARB due to CKD, advanced dementia makes benefits of this med questionable in the intermediate-term 3. Currently appears euvolemic, would continue to hold on Lasix for now. 4. Continue Abx as per ID. 5. DVT prophylaxis. GI prophylaxis w/ PPI. 6. Renal following, renal fx improved. 7. HTN -reasonably controlled. 8. replete K and Mag aggressively (> 4 and 2) given low EF, NSVT
[2018-12-13] MEDS: KCL 10 MEQ IVPB 10 MEQ/100 ML INFUS.BAG IVPB SCH ×2 (16:35→17:00)
--- NOTE | 2018-12-13 17:26 | PN.GI ---
GI Progress Note Subjective: No acute events Repeat AXR revealed passage of contrast from esophagus into stomach - Objective Vital Signs: Vital Signs Temperature 97.6 F 12/13/18 09:00 Pulse Rate 104 H 12/13/18 09:00 Respiratory Rate 19 12/13/18 09:00 Blood Pressure 145/72 12/13/18 09:00 O2 Sat by Pulse Oximetry (%) 95 12/13/18 09:00 Constitutional: Calm Eyes: No: Sclera Icterus Cardiovascular: Yes: Regular Rate and Rhythm. No: Murmur Respiratory: Yes: Diminished (at bases bilaterally) Gastrointestinal Inspection: No: Distention ...Auscultate: Yes: Normoactive Bowel Sounds ...Palpate: Yes: Soft. No: Tenderness Edema: No (No LE edema) Labs: CBC, BMP 12/12/18 08:56 12/13/18 05:10 INR, PTT INR 1.07 (0.83-1.09) 12/03/18 05:40 Problem List - Problems (1) Abnormal barium swallow Assessment/Plan: Discussed plan for EGD to exclude distal esophageal pathology (stricture, mass lesion) that could be contributing to aspiration by contributing to pooling of esophageal content. Discussed potential risks of the procedure (+/- Dilation) like but not limited to bleeding, perforation requiring surgery to repair, infection, sedation medication effects all of which could be potentially life threatening. Both Mr. Camacho and his have agreed to the procedure. NPO after midnight, AM Heparin held. Patient still on ASA 81mg once daily. This would need to be held with repeat EGD if a significant esophageal stricture was found given potential risk for prolonged bleeding from dilation. Code(s): R93.3 - ABNORMAL FINDINGS ON DX IMAGING OF PRT DIGESTIVE TRACT
[2018-12-13] MEDS: DONEPEZIL HCL 10 MG TABLET (FP) NGT SCH (21:56)
[2018-12-14] MEDS: hydrALAZINE HCL 20 MG/ML VIAL IVPUSH SCH ×4 (00:07→18:10)
[2018-12-14] MEDS: INSULIN SLIDING SCALE (NOVOLOG) 1 VIAL SQ SCH ×4 (06:18→21:36)
--- NOTE | 2018-12-14 07:55 | PN ---
Physical Exam: SUBJECTIVE: Patient seen and examined at bed side ,on clinimix , NPO since mid night for EGD today , denies any fever, chills, No chest pain , breathing is better on 4 L NC. OBJECTIVE: Vital Signs Period Temp Pulse Resp BP Sys/Heredia Pulse Ox Last 24 Hr 97.6 F-98.1 F 103-110 19-20 125-164/71-84 95-96 GENERAL: extubated ,on 4 L o2 NC HEAD:NC/AT EYES: PERRL, NECK: supple. LUNGS:decrease breath sounds at the bases , upper respiratory congestions HEART: Regular rate and rhythm, S1, S2 without murmur, rub or gallop. ABDOMEN: Obese , Soft, nontender, hypoactive BS EXTREMITIES: 2+ pulses, warm, well-perfused, +1 LE edema. NEUROLOGICAL:aox3 , no focal deficit Laboratory Results - last 24 hr 12/13/18 12/13/18 12/13/18 05:10 12:12 16:57 Sodium 148 H Potassium 3.4 L Chloride 117 H Carbon Dioxide 20 L Anion Gap 11 BUN 38.2 H Creatinine 1.5 H Est GFR (CKD-EPI)AfAm 47.49 Est GFR (CKD-EPI)NonAf 40.98 POC Glucometer 137 161 Random Glucose 171 H Calcium 8.2 L Total Bilirubin 0.4 AST 23 ALT 14 Alkaline Phosphatase 37 L B-Natriuretic Peptide 19840.4 H Total Protein 5.8 L Albumin 2.2 L 12/13/18 12/14/18 21:14 05:41 Sodium Potassium Chloride Carbon Dioxide Anion Gap BUN Creatinine Est GFR (CKD-EPI)AfAm Est GFR (CKD-EPI)NonAf POC Glucometer 159 146 Random Glucose Calcium Total Bilirubin AST ALT Alkaline Phosphatase B-Natriuretic Peptide Total Protein Albumin Active Medications Generic Name Dose Route Start Last Admin Trade Name Freq PRN Reason Stop Dose Admin Albuterol/Ipratropium 1 amp 12/09/18 23:09 12/13/18 20:00 Duoneb - NEB 1 amp RQID [facility] Administration Aspirin 81 mg 12/09/18 10:00 12/13/18 12:22 Asa - NGT Not Given DAILY [facility] Donepezil HCl 10 mg 12/08/18 22:00 12/13/18 21:56 Aricept - NGT Not Given HS [facility] Emollient Ointment 1 applic 12/10/18 17:45 12/13/18 22:01 Aquaphor - TP 1 applic BID [facility] Administration Heparin Sodium (Porcine) 5,000 unit 12/08/18 22:00 12/13/18 21:56 Heparin - SQ 5,000 unit BID [facility] Administration Hydralazine HCl 10 mg 12/11/18 12:00 12/14/18 06:17 Apresoline Injection - IVPUSH 10 mg Q6H [facility] Administration Ceftriaxone Sodium 1 gm/ 50 mls @ 100 mls/hr 12/09/18 10:00 12/13/18 10:48 Dextrose IVPB 100 mls/hr DAILY [facility] Administration Protocol Metronidazole 500 mg in 100 mls @ 100 mls/hr 12/08/18 18:00 12/14/18 01:18 Flagyl 500mg Premixed Ivpb - IVPB 100 mls/hr Q8H-IV [facility] Administration Amino Acids 1,000 mls @ 50 mls/hr 12/11/18 11:00 12/13/18 23:00 Clinimix - IV Not Given Q20H [facility] Insulin Aspart 1 vial 12/08/18 22:00 12/14/18 06:18 Novolog Vial Sliding Scale - SQ Not Given ACHS [facility] Protocol Memantine 10 mg 12/08/18 22:00 12/13/18 21:56 Namenda - GT Not Given BID [facility] Metoprolol Succinate 25 mg 12/09/18 10:00 12/13/18 12:22 Toprol Xl - PO Not Given DAILY [facility] Pantoprazole Sodium 40 mg 12/08/18 22:00 12/13/18 21:56 Protonix Iv IVPUSH 40 mg BID [facility] Administration CBC, BMP 12/14/18 09:40 12/14/18 09:40 ASSESSMENT/PLAN: Mariano Camacho is an 88 y/o male with a PMHx of HTN, HLD, CAD (s/p stent 2010) , LBBB, Alzheimer's disease, CKD, PVD, OA, 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 # LBBB , not changed from 2018 , Derian I * continue aspirin, continue home metoprolol 25mg daily * last echo on 10/20/17 showing EF of 35% * repeat echo showing EF 40-45% * daily weight , I&O # Acute hypoxic hypercapnic respiratory failure , improving * extubated on 4 L o2 NC * ABG showing respiratory acidosis with non anion gap metabolic acidosis, respiratory component of CO2 retention, metabolic component of likely hyperchloremia from dehydration and chronic renal failure * maintain o2 sat above 92% * CXR with RUL Consolidation * duonebs q6h prn # KATHY in term of sepsis vs AIN or ATN , improving close to his base line * CR 1.9 on admission, improving Cr 1.5 today , monitor off fluids * renal U/S did not show any hydronephrosis or other acute pathology * DC gan * hold lasix for now * cont clinimix #N/V on admission * given Zofran and Pepcid in ED, Protonix 40 daily * Abdominal CT showing s/p gastrectomy, 1.5cm hypodense nodule in the pancreatic tail, epigastric hernia with nondilated small bowel loop, small umbilical hernia with a small nondilated small bowel loop, bilateral inguinal hernias containing only fat, colonic diverticulosis, nonobstructing renal calculi * vomiting causes may include transient obstruction from hernias, food poisoning, viral gastritis * HOB elevated, aspiration precautions * speech and swallow evaluation recommend cont NPO as is ashley risk for aspiration # HTN Started on Hydralizine on 12/11 as pt npo , hold on Metorolol and ASA per cardiology while NPO # severe sepsis in the setting of aspiration pneumonitis/pneumonia, resolved * cannot rule out community acquired pneumonia * Dr. Patel consulted, recs appreciated * ceftriaxone and flagyl continue up to 7 days per ID , completed * cx negative , isolation precautions, hx of MRSA * aspiration precautions # DM * BGM, ISS Alzheimer's disease Hx of stomach CA (MALT) # dementia on memantine and donepezil #F/E/N * off fluids , start clinimix * continue to monitor electrolytes and replete as necessary * NPO for EGD #PROPHYLAXIS * heparin SQ BID , SCDS * Protonix #CODE * full code #DISPO * monitor in Tele Visit type - Emergency Visit Emergency Visit: Yes ED Registration Date: 12/02/18 Care time: The patient presented to the Emergency Department on the above date and was hospitalized for further evaluation of their emergent condition. - New Patient This patient is new to me today: No - Critical Care Critical Care patient: No ATTENDING PHYSICIAN STATEMENT I saw and evaluated the patient. I reviewed the resident's note and discussed the case with the resident. I agree with the resident's findings and plan as documented. SUBJECTIVE: OBJECTIVE: ASSESSMENT AND PLAN:
[2018-12-14] MEDS: ALBUTEROL SO4 2.5/IPRATROPIUM 0.5 INH SOL 3 ML VIAL.NEB. NEB SCH ×4 (08:20→20:09)
[2018-12-14] MEDS ORDERED: cefTRIAXone SODIUM 1 GM VIAL ONE (08:45)
[2018-12-14] MEDS ORDERED: DEXTROSE 5%-WATER - 50 ML IVPB ONE (08:46)
[2018-12-14] MEDS: CEFTRIAXONE 1 GM in DEXTROSE 5%-WATER - 50 ML IVPB SCH (09:07)
[2018-12-14] MEDS: metoPROLOL SUCCINATE 25 MG TAB.SR.24H (FP) PO SCH (09:08)
[2018-12-14] MEDS: ASPIRIN 81 MG CHEWABLE TABLETS NGT SCH (09:08)
[2018-12-14] MEDS: PANTOPRAZOLE SODIUM 40 MG VIAL IVPUSH SCH ×2 (09:08→21:34)
[2018-12-14] MEDS: MEMANTINE HCL 10 MG TABLET (FP) GT SCH ×2 (09:08→21:37)
[2018-12-14] MEDS: MINERAL OIL/PET HY-PHL TOPICAL OINTMENT 454 GM JAR TP SCH ×2 (09:09→21:37)
[2018-12-14 10:08] LABS: BASO % 0.4 % (0-2.0); EOS % 2.3 % (0-4.5); HEMATOCRIT 32.5 % (35.4-49); LYMPH % 7.6 % (8-40); MCH 29.9 pg (25.7-33.7); MCHC 33.8 g/dl (32.0-35.9); MEAN CELL VOLUME 88.7 fl (80-96); MONO % 4.7 % (3.8-10.2); PLATELET COUNT 290 K/MM3 (134-434); RBC 3.66 M/mm3 (4.00-5.60); RDW 14.7 % (11.9-15.9); WHITE BLOOD COUNT 12.7 K/mm3 (4.0-10.0)
[2018-12-14 10:36] LABS: ALBUMIN 2.3 g/dl (3.4-5.0); BILIRUBIN,TOTAL 0.5 mg/dL (0.2-1); BLOOD UREA NITROGEN 40.4 mg/dL (7-18); CALCIUM 8.6 mg/dL (8.5-10.1); CREATININE 1.5 mg/dL (0.55-1.3); MAGNESIUM 1.9 mg/dL (1.8-2.4); PHOSPHOROUS 2.3 mg/dL (2.5-4.9); POTASSIUM 3.5 mmol/L (3.5-5.1)
--- NOTE | 2018-12-14 11:48 | PN ---
Progress Note (short form) - Note Progress Note: NAD on NC O2. Some dry cough. No fever. No acute events overnight. Intake & Output 12/11/18 12/12/18 12/13/18 12/14/18 23:59 23:59 23:59 23:59 Intake Total 1450 1050 1600 900 Balance 1450 1050 1600 900 Weight 190 lb 192 lb 6.4 oz 191 lb 12.8 oz Last Vital Signs Temp Pulse Resp BP Pulse Ox 98.6 F 100 H 17 105/88 98 12/14/18 11:03 12/14/18 11:33 12/14/18 11:33 12/14/18 11:33 12/14/18 11:33 Active Medications Albuterol/Ipratropium (Duoneb -) 1 amp NEB RQID [facility] Last Admin: 12/14/18 08:20 Dose: 1 amp Aspirin (Asa -) 81 mg NGT DAILY [facility] Last Admin: 12/14/18 09:08 Dose: Not Given Donepezil HCl (Aricept -) 10 mg NGT HS [facility] Last Admin: 12/13/18 21:56 Dose: Not Given Emollient Ointment (Aquaphor -) 1 applic TP BID [facility] Last Admin: 12/14/18 09:09 Dose: 1 applic Heparin Sodium (Porcine) (Heparin -) 5,000 unit SQ BID [facility] Last Admin: 12/13/18 21:56 Dose: 5,000 unit Hydralazine HCl (Apresoline Injection -) 10 mg IVPUSH Q6H [facility] Last Admin: 12/14/18 06:17 Dose: 10 mg Ceftriaxone Sodium 1 gm/ (Dextrose) 50 mls @ 100 mls/hr IVPB DAILY [facility]; Protocol Last Admin: 12/14/18 09:07 Dose: 100 mls/hr Metronidazole (Flagyl 500mg Premixed Ivpb -) 500 mg in 100 mls @ 100 mls/hr IVPB Q8H-IV [facility] Last Admin: 12/14/18 09:08 Dose: 100 mls/hr Amino Acids (Clinimix -) 1,000 mls @ 50 mls/hr IV Q20H [facility] Last Admin: 12/13/18 23:00 Dose: Not Given Insulin Aspart (Novolog Vial Sliding Scale -) 1 vial SQ ACHS [facility]; Protocol Last Admin: 12/14/18 06:18 Dose: Not Given Memantine (Namenda -) 10 mg GT BID [facility] Last Admin: 12/14/18 09:08 Dose: Not Given Metoprolol Succinate (Toprol Xl -) 25 mg PO DAILY [facility] Last Admin: 12/14/18 09:08 Dose: Not Given Pantoprazole Sodium (Protonix Iv) 40 mg IVPUSH BID [facility] Last Admin: 12/14/18 09:08 Dose: 40 mg Gen: awake and alert but confused, NAD on NC O2 Heart: RRR Lung: scattered rhonchi Abd: soft, nontender Ext: no edema [employer]: non-focal Laboratory Results - last 24 hr 12/13/18 12/13/18 12/13/18 05:10 12:12 16:57 WBC RBC Hgb Hct MCV MCH MCHC RDW Plt Count MPV Absolute Neuts (auto) Neutrophils % Lymphocytes % Monocytes % Eosinophils % Basophils % Nucleated RBC % Sodium Potassium Chloride Carbon Dioxide Anion Gap BUN Creatinine Est GFR (CKD-EPI)AfAm Est GFR (CKD-EPI)NonAf POC Glucometer 137 161 Random Glucose Calcium Phosphorus Magnesium Total Bilirubin AST ALT Alkaline Phosphatase B-Natriuretic Peptide 17172.4 H Total Protein Albumin 12/13/18 12/14/18 12/14/18 21:14 05:41 09:40 WBC 12.7 H RBC 3.66 L Hgb 11.0 L Hct 32.5 L MCV 88.7 MCH 29.9 MCHC 33.8 RDW 14.7 Plt Count 290 MPV 8.0 Absolute Neuts (auto) 10.8 H Neutrophils % 85.0 H Lymphocytes % 7.6 L D Monocytes % 4.7 Eosinophils % 2.3 Basophils % 0.4 Nucleated RBC % 0 Sodium Potassium Chloride Carbon Dioxide Anion Gap BUN Creatinine Est GFR (CKD-EPI)AfAm Est GFR (CKD-EPI)NonAf POC Glucometer 159 146 Random Glucose Calcium Phosphorus Magnesium Total Bilirubin AST ALT Alkaline Phosphatase B-Natriuretic Peptide Total Protein Albumin 12/14/18 09:40 WBC RBC Hgb Hct MCV MCH MCHC RDW Plt Count MPV Absolute Neuts (auto) Neutrophils % Lymphocytes % Monocytes % Eosinophils % Basophils % Nucleated RBC % Sodium 146 H Potassium 3.5 Chloride 116 H Carbon Dioxide 19 L Anion Gap 10 BUN 40.4 H Creatinine 1.5 H Est GFR (CKD-EPI)AfAm 47.49 Est GFR (CKD-EPI)NonAf 40.98 POC Glucometer Random Glucose 177 H Calcium 8.6 Phosphorus 2.3 L Magnesium 1.9 Total Bilirubin 0.5 AST 28 ALT 16 Alkaline Phosphatase 39 L B-Natriuretic Peptide Total Protein 6.0 L Albumin 2.3 L ASSESSMENT AND PLAN: Acute Hypoxic and Hypercapneic Respiratory Failure Pneumonia likely Aspiration Severe Sepsis Acute on Chronic Renal Failure CAD +Troponins likely Demand Ischemia Lactic Acidosis HTN Hyperlipidemia GERD - Swallow evaluation ongoing for possible Endoscopy. There is no absolute Pulmonary contraindication. - NC O2 as needed - ABX - Aspiration precautions - monitor urine output, creatinine - VTE prophylaxis Dr Rebollar
--- NOTE | 2018-12-14 12:12 | PN ---
Progress Note, Physician History of Present Illness: Pt seen and examined at bedside. He is awake and appears comfortable. - Current Medication List Current Medications: Active Medications Albuterol/Ipratropium (Duoneb -) 1 amp NEB RQID [facility] Last Admin: 12/14/18 08:20 Dose: 1 amp Aspirin (Asa -) 81 mg NGT DAILY [facility] Last Admin: 12/14/18 09:08 Dose: Not Given Donepezil HCl (Aricept -) 10 mg NGT HS [facility] Last Admin: 12/13/18 21:56 Dose: Not Given Emollient Ointment (Aquaphor -) 1 applic TP BID [facility] Last Admin: 12/14/18 09:09 Dose: 1 applic Heparin Sodium (Porcine) (Heparin -) 5,000 unit SQ BID [facility] Last Admin: 12/13/18 21:56 Dose: 5,000 unit Hydralazine HCl (Apresoline Injection -) 10 mg IVPUSH Q6H [facility] Last Admin: 12/14/18 06:17 Dose: 10 mg Ceftriaxone Sodium 1 gm/ (Dextrose) 50 mls @ 100 mls/hr IVPB DAILY [facility]; Protocol Last Admin: 12/14/18 09:07 Dose: 100 mls/hr Metronidazole (Flagyl 500mg Premixed Ivpb -) 500 mg in 100 mls @ 100 mls/hr IVPB Q8H-IV [facility] Last Admin: 12/14/18 09:08 Dose: 100 mls/hr Amino Acids (Clinimix -) 1,000 mls @ 50 mls/hr IV Q20H [facility] Last Admin: 12/13/18 23:00 Dose: Not Given Insulin Aspart (Novolog Vial Sliding Scale -) 1 vial SQ ACHS [facility]; Protocol Last Admin: 12/14/18 06:18 Dose: Not Given Memantine (Namenda -) 10 mg GT BID [facility] Last Admin: 12/14/18 09:08 Dose: Not Given Metoprolol Succinate (Toprol Xl -) 25 mg PO DAILY [facility] Last Admin: 12/14/18 09:08 Dose: Not Given Pantoprazole Sodium (Protonix Iv) 40 mg IVPUSH BID [facility] Last Admin: 12/14/18 09:08 Dose: 40 mg - Objective Vital Signs: Vital Signs Temperature 98.6 F 12/14/18 11:40 Pulse Rate 100 H 12/14/18 11:40 Respiratory Rate 20 12/14/18 11:40 Blood Pressure 130/81 12/14/18 11:40 O2 Sat by Pulse Oximetry (%) 99 12/14/18 11:40 Constitutional: Yes: Calm Eyes: Yes: Conjunctiva Clear HENT: Yes: Atraumatic Neck: Yes: Supple Cardiovascular: Yes: S1, S2 Respiratory: Yes: CTA Bilaterally Gastrointestinal: Yes: Normal Bowel Sounds, Soft Genitourinary: Yes: Incontinence Musculoskeletal: Yes: Muscle Weakness Edema: No Neurological: Yes: Confusion Psychiatric: Yes: Oriented Labs: CBC, BMP 12/14/18 09:40 12/14/18 09:40 INR, PTT INR 1.07 (0.83-1.09) 12/03/18 05:40 Problem List - Problems (1) Acute kidney injury superimposed on CKD Code(s): N17.9 - ACUTE KIDNEY FAILURE, UNSPECIFIED; N18.9 - CHRONIC KIDNEY DISEASE, UNSPECIFIED (2) Aspiration pneumonia Code(s): J69.0 - PNEUMONITIS DUE TO INHALATION OF FOOD AND VOMIT (3) Vomiting Code(s): R11.10 - VOMITING, UNSPECIFIED Qualifiers: Vomiting type: unspecified Vomiting Intractability: unspecified Nausea presence: unspecified Qualified Code(s): R11.10 - Vomiting, unspecified Assessment/Plan Current Medications Generic Name Dose Route Start Last Admin Trade Name Freq PRN Reason Stop Dose Admin Albuterol/Ipratropium 1 amp 12/09/18 23:09 12/14/18 08:20 Duoneb - NEB 1 amp RQID [facility] Administration Aspirin 81 mg 12/09/18 10:00 12/14/18 09:08 Asa - NGT Not Given DAILY [facility] Donepezil HCl 10 mg 12/08/18 22:00 12/13/18 21:56 Aricept - NGT Not Given HS [facility] Emollient Ointment 1 applic 12/10/18 17:45 12/14/18 09:09 Aquaphor - TP 1 applic BID [facility] Administration Heparin Sodium (Porcine) 5,000 unit 12/08/18 22:00 12/13/18 21:56 Heparin - SQ 5,000 unit BID [facility] Administration Hydralazine HCl 10 mg 12/11/18 12:00 12/14/18 06:17 Apresoline Injection - IVPUSH 10 mg Q6H [facility] Administration Ceftriaxone Sodium 1 gm/ 50 mls @ 100 mls/hr 12/09/18 10:00 12/14/18 09:07 Dextrose IVPB 100 mls/hr DAILY [facility] Administration Protocol Metronidazole 500 mg in 100 mls @ 100 mls/hr 12/08/18 18:00 12/14/18 09:08 Flagyl 500mg Premixed Ivpb - IVPB 100 mls/hr Q8H-IV [facility] Administration Amino Acids 1,000 mls @ 50 mls/hr 12/11/18 11:00 12/13/18 23:00 Clinimix - IV Not Given Q20H [facility] Insulin Aspart 1 vial 12/08/18 22:00 12/14/18 06:18 Novolog Vial Sliding Scale - SQ Not Given ACHS [facility] Protocol Memantine 10 mg 12/08/18 22:00 12/14/18 09:08 Namenda - GT Not Given BID [facility] Metoprolol Succinate 25 mg 12/09/18 10:00 12/14/18 09:08 Toprol Xl - PO Not Given DAILY [facility] Pantoprazole Sodium 40 mg 12/08/18 22:00 12/14/18 09:08 Protonix Iv IVPUSH 40 mg BID [facility] Administration Laboratory Tests 12/14/18 09:40 Phosphorus 2.3 L Magnesium 1.9 Impression 1. KATHY 2. acute resp failure 3. HTN 4. gastric cancer 5. dementia 6. HLD 7. CAD 8. PVD 9. PNA 10. sepsis 11. hyperkalemia Plan - cont clinimix - repeat labs in am - follow GI report - replace phos - replace potassium - swallow eval in progress - avoid nsaids - avoid nephrotoxins
[2018-12-14] MEDS ORDERED: POTASSIUM PHOSPHATE 20 MM in DEXTROSE 5%-WATER - 250 ML IVPB ONE (13:00)
[2018-12-14 13:20] LABS: ANISOCYTOSIS 0; MACROCYTOSIS 0; PLATELET ESTIMATE NORMAL
--- NOTE | 2018-12-14 13:22 | PN ---
Progress Note (short form) - Note Progress Note: GI Procedure NOte: Please see EGD report. Mariano had dysphagia due to an esophageal meat impaction stemming form a Schatzki ring which I dilated. Await esophagram to see whether I dilated it adequately enough to feed him. Discussed findings with Mariano and his .
--- NOTE | 2018-12-14 15:13 | PN ---
Progress Note, DECK SPECIALIST - Note Progress Note: Appreciate GI w/u- EGD-esophageal meat impaction stemming form a Schatzki ring which was dilated. UGI-No residual Barium in Esophagus and no aspiration. Case reviewed with pt's . Quite pleased with EGD findings! Suggest trial of Puree/nectar thick liquids HOB elevated, Slow intake, Monitor for cough, congestion.
--- NOTE | 2018-12-14 16:56 | PN ---
Progress Note (short form) - Note Progress Note: s: not communicating much, appears comfortable TELE: Sinus Current Medications Generic Name Dose Route Start Last Admin Trade Name Jared PRN Reason Stop Dose Admin Albuterol/Ipratropium 1 amp 12/09/18 23:09 12/14/18 12:30 Duoneb - NEB 1 amp RQID [facility] Administration Aspirin 81 mg 12/09/18 10:00 12/14/18 09:08 Asa - NGT Not Given DAILY [facility] Donepezil HCl 10 mg 12/08/18 22:00 12/13/18 21:56 Aricept - NGT Not Given HS [facility] Emollient Ointment 1 applic 12/10/18 17:45 12/14/18 09:09 Aquaphor - TP 1 applic BID [facility] Administration Heparin Sodium (Porcine) 5,000 unit 12/08/18 22:00 12/13/18 21:56 Heparin - SQ 5,000 unit BID [facility] Administration Hydralazine HCl 10 mg 12/11/18 12:00 12/14/18 15:31 Apresoline Injection - IVPUSH 10 mg Q6H [facility] Administration Ceftriaxone Sodium 1 gm/ 50 mls @ 100 mls/hr 12/09/18 10:00 12/14/18 09:07 Dextrose IVPB 100 mls/hr DAILY [facility] Administration Protocol Metronidazole 500 mg in 100 mls @ 100 mls/hr 12/08/18 18:00 12/14/18 09:08 Flagyl 500mg Premixed Ivpb - IVPB 100 mls/hr Q8H-IV [facility] Administration Amino Acids 1,000 mls @ 50 mls/hr 12/11/18 11:00 12/13/18 23:00 Clinimix - IV Not Given Q20H [facility] Potassium Phosphate 20 mm/ 256.6667 mls @ 42.77 mls/hr 12/14/18 13:00 15:31 Dextrose IVPB 12/14/18 19:00 42.77 mls/hr ONCE ONE Administration 20 MM/6 HR Insulin Aspart 1 vial 12/08/18 22:00 12/14/18 12:00 Novolog Vial Sliding Scale - SQ Not Given ACHS [facility] Protocol Memantine 10 mg 12/08/18 22:00 12/14/18 09:08 Namenda - GT Not Given BID [facility] Metoprolol Succinate 25 mg 12/09/18 10:00 12/14/18 09:08 Toprol Xl - PO Not Given DAILY [facility] Pantoprazole Sodium 40 mg 12/08/18 22:00 12/14/18 09:08 Protonix Iv IVPUSH 40 mg BID [facility] Administration - Objective Vital Signs: Vital Signs Period Temp Pulse Resp BP Sys/Heredia Pulse Ox Last 24 Hr 97.4 F-98.6 F 100-110 16-22 105-164/60-88 96-99 Constitutional: Yes: No Distress, Calm Eyes: Yes: Conjunctiva Clear Cardiovascular: Yes: Regular Rate and Rhythm Respiratory: Yes: Rhonchi, Other (no active wheezing.) Gastrointestinal: Yes: Soft (NT) Edema: No no jaundice diaphoresis Neurological: Yes: Alert Labs: CBC, BMP 12/14/18 09:40 12/14/18 09:40 Assessment/Plan Assessment/Plan Echo 10/2017: tds, "no definitive statements can be made about findings due to extremely poor acoustic windows". nl lv size. Severely decreased LV sys fn. Global with possible anteroapical septal AK. RV not seen. 1+ ar. MV/TV not well visualized. MUGA 08/23: EF 51% Echo 09/2016: nl lv size. Septum is akinetic. No rwma in inferior, inferolateral or lateral wall, other ordoñez not well seen. Overall ejection fraction is probably mildly, vs [id number] reduced--estimated at 45% vs 40-45%. nl rv/valves. MIBI 07/22: 4:30min, probably + STs; large area mid-AW/septum/apex scar with small P.I.I.; moder decr EF with mild global HK and sev HK vs AK of mid-AW// apex; mild LVE, no TID LH ([place]) 05/20: thrombotic subtotal occl pLAD (BMS), 70-80% ramus, diffuse 30- 50% RCA, EF 35% (anterolat AK, lateral/posterolat HK) IMP: 1. Acute respiratory failure secondary to aspiration PNA, now extubated on tele. 2. CAD s/p prior MO, PCI LAD 2010, w/ ischemic CM and chronic systolic CHF (EF chronically b/t 40-45%) 3. Acute on chronic renal failure, improved 4. + TnI secondary to type II MO, demand ischemia in setting of above. 5. Chronic LBBB 6. H/o gastric cancer 7. NSVTach REC: 1. ASA, metoprolol resumed. 2. defer EDELMIRA/ARB due to CKD, advanced dementia makes benefits of this med questionable in the intermediate-term 3. Currently appears euvolemic, would continue to hold on Lasix for now. 4. Continue Abx as per ID. 5. DVT prophylaxis. GI prophylaxis w/ PPI. 6. Renal following, renal fx improved. 7. HTN -reasonably controlled. 8. replete K and Mag aggressively (> 4 and 2) given low EF, NSVT
--- NOTE | 2018-12-14 17:04 | PN ---
Teaching Attending Note Name of Resident: Arnaud Batista ATTENDING PHYSICIAN STATEMENT I saw and evaluated the patient. I reviewed the resident's note and discussed the case with the resident. I agree with the resident's findings and plan as documented. SUBJECTIVE: Mr Camacho says he feels fine today. No cp, sob, n/v. Feels tired after the procedures OBJECTIVE: Last Vital Signs Temp Pulse Resp BP Pulse Ox 37.0 C 110 H 20 141/70 99 12/14/18 11:40 12/14/18 14:02 12/14/18 11:40 12/14/18 14:02 12/14/18 11:40 Gen: nad Pulm: ctab w/o w/r/r, on NC CV: rrr w/o m/r/g Abd: +bs, s/nt/nd Ext: no c/c/e CBC, BMP 12/14/18 09:40 12/14/18 09:40 ASSESSMENT AND PLAN: (1) Acute respiratory failure with hypoxia Assessment/Plan: -resolved Code(s): J96.01 - ACUTE RESPIRATORY FAILURE WITH HYPOXIA (2) Aspiration pneumonia with sepsis Assessment/Plan: -continue rocephin and flagyl -now that food bolus treated, will monitor and plan to stop soon Code(s): J69.0 - PNEUMONITIS DUE TO INHALATION OF FOOD AND VOMIT (3) Hyperkalemia Assessment/Plan: -resolved Code(s): E87.5 - HYPERKALEMIA (4) Acute kidney injury superimposed on CKD Assessment/Plan: -appreciate nephrology assistance -continue clinimix -electrolyte replacement Code(s): N17.9 - ACUTE KIDNEY FAILURE, UNSPECIFIED; N18.9 - CHRONIC KIDNEY DISEASE, UNSPECIFIED (5) ASHD (arteriosclerotic heart disease) Assessment/Plan: -cardiology following -continue medical management Code(s): I25.10 - ATHSCL HEART DISEASE OF [place] CORONARY ARTERY W/O ANG PCTRS (6) CHF (congestive heart failure) Assessment/Plan: -not in exacerbation Code(s): I50.9 - HEART FAILURE, UNSPECIFIED Qualifiers: Heart failure type: systolic Heart failure chronicity: chronic Qualified Code(s): I50.22 - Chronic systolic (congestive) heart failure (7) HTN (hypertension) Assessment/Plan: -controlled Code(s): I10 - ESSENTIAL (PRIMARY) HYPERTENSION Qualifiers: Hypertension type: essential hypertension Qualified Code(s): I10 - Essential (primary) hypertension (8) Hyperlipidemia Assessment/Plan: -on pravastatin as an outpatient Code(s): E78.5 - HYPERLIPIDEMIA, UNSPECIFIED Qualifiers: Hyperlipidemia type: mixed hyperlipidemia Qualified Code(s): E78.2 - Mixed hyperlipidemia (9) Food bolus -GI following -s/p EGD -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 -monitor to see if can feed Problem List - Problems (1) Acute respiratory failure with hypoxia Code(s): J96.01 - ACUTE RESPIRATORY FAILURE WITH HYPOXIA (2) Aspiration pneumonia Code(s): J69.0 - PNEUMONITIS DUE TO INHALATION OF FOOD AND VOMIT (3) Hyperkalemia Code(s): E87.5 - HYPERKALEMIA (4) Acute kidney injury superimposed on CKD Code(s): N17.9 - ACUTE KIDNEY FAILURE, UNSPECIFIED; N18.9 - CHRONIC KIDNEY DISEASE, UNSPECIFIED (5) ASHD (arteriosclerotic heart disease) Code(s): I25.10 - ATHSCL HEART DISEASE OF [place] CORONARY ARTERY W/O ANG PCTRS (6) CHF (congestive heart failure) Code(s): I50.9 - HEART FAILURE, UNSPECIFIED Qualifiers: Heart failure type: systolic Heart failure chronicity: chronic Qualified Code(s): I50.22 - Chronic systolic (congestive) heart failure (7) HTN (hypertension) Code(s): I10 - ESSENTIAL (PRIMARY) HYPERTENSION Qualifiers: Hypertension type: essential hypertension Qualified Code(s): I10 - Essential (primary) hypertension (8) Hyperlipidemia Code(s): E78.5 - HYPERLIPIDEMIA, UNSPECIFIED Qualifiers: Hyperlipidemia type: mixed hyperlipidemia Qualified Code(s): E78.2 - Mixed hyperlipidemia
[2018-12-14] MEDS: AMINO ACIDS 4.25%/D5W 1,000 ML IV SCH (18:32)
[2018-12-14] MEDS ORDERED: PT OWN MED DRAWER 7, Y5N ONE (19:22)
[2018-12-14] MEDS: HEPARIN NA (PORCINE) 5,000 UNITS/ML 1ML VIAL SQ SCH (21:33)
[2018-12-14] MEDS: DONEPEZIL HCL 10 MG TABLET (FP) NGT SCH (21:37)
[2018-12-15] MEDS: hydrALAZINE HCL 20 MG/ML VIAL IVPUSH SCH ×4 (00:14→18:48)
[2018-12-15] MEDS: INSULIN SLIDING SCALE (NOVOLOG) 1 VIAL SQ SCH ×4 (06:20→22:25)
[2018-12-15 08:32] LABS: ALBUMIN 2.5 g/dl (3.4-5.0); BILIRUBIN,TOTAL 0.6 mg/dL (0.2-1); BLOOD UREA NITROGEN 37.7 mg/dL (7-18); CALCIUM 8.6 mg/dL (8.5-10.1); CREATININE 1.6 mg/dL (0.55-1.3); MAGNESIUM 1.9 mg/dL (1.8-2.4); POTASSIUM 3.5 mmol/L (3.5-5.1); TOT PROT 6.5 g/dl (6.4-8.2)
[2018-12-15] MEDS: ALBUTEROL SO4 2.5/IPRATROPIUM 0.5 INH SOL 3 ML VIAL.NEB. NEB SCH ×4 (09:18→20:23)
[2018-12-15] MEDS: MEMANTINE HCL 10 MG TABLET (FP) GT SCH ×2 (10:00→22:22)
[2018-12-15] MEDS: ASPIRIN 81 MG CHEWABLE TABLETS NGT SCH (10:00)
[2018-12-15] MEDS: metoPROLOL SUCCINATE 25 MG TAB.SR.24H (FP) PO SCH (10:00)
[2018-12-15] MEDS ORDERED: DEXTROSE 5%-WATER - 50 ML IVPB ONE (10:14)
[2018-12-15] MEDS ORDERED: cefTRIAXone SODIUM 1 GM VIAL ONE (10:14)
[2018-12-15] MEDS: MINERAL OIL/PET HY-PHL TOPICAL OINTMENT 454 GM JAR TP SCH ×2 (10:35→22:25)
[2018-12-15] MEDS: CEFTRIAXONE 1 GM in DEXTROSE 5%-WATER - 50 ML IVPB SCH (10:35)
[2018-12-15] MEDS: PANTOPRAZOLE SODIUM 40 MG VIAL IVPUSH SCH ×2 (10:35→22:25)
[2018-12-15] MEDS: HEPARIN NA (PORCINE) 5,000 UNITS/ML 1ML VIAL SQ SCH ×2 (10:36→22:21)
[2018-12-15 10:45] LABS: BASO % 0.7 % (0-2.0); EOS % 1.9 % (0-4.5); HEMATOCRIT 32.2 % (35.4-49); LYMPH % 10.3 % (8-40); MCH 30.5 pg (25.7-33.7); MCHC 34.1 g/dl (32.0-35.9); MEAN CELL VOLUME 89.6 fl (80-96); MEAN PLT VOLUME 7.5 fl (7.5-11.1); MONO % 6.6 % (3.8-10.2); NEUT % 80.5 % (42.8-82.8); PLATELET COUNT 315 K/MM3 (134-434); WHITE BLOOD COUNT 11.5 K/mm3 (4.0-10.0)
--- NOTE | 2018-12-15 10:51 | PN ---
Progress Note (short form) - Note Progress Note: NAD on NC O2. Malaise. Some dry cough. No fever. Intake & Output 12/12/18 12/13/18 12/14/18 12/15/18 23:59 23:59 23:59 23:59 Intake Total 1050 1600 900 800 Balance 1050 1600 900 800 Weight 190 lb 192 lb 6.4 oz 191 lb 12.8 oz 196 lb 2 oz Last Vital Signs Temp Pulse Resp BP Pulse Ox 98.4 F 101 H 22 H 117/57 L 97 12/15/18 08:49 12/15/18 08:49 12/15/18 09:00 12/15/18 08:49 12/15/18 09:00 Active Medications Albuterol/Ipratropium (Duoneb -) 1 amp NEB RQID [facility] Last Admin: 12/15/18 09:18 Dose: 1 amp Aspirin (Asa -) 81 mg NGT DAILY [facility] Last Admin: 12/14/18 09:08 Dose: Not Given Donepezil HCl (Aricept -) 10 mg NGT HS [facility] Last Admin: 12/14/18 21:37 Dose: Not Given Emollient Ointment (Aquaphor -) 1 applic TP BID [facility] Last Admin: 12/15/18 10:35 Dose: 1 applic Heparin Sodium (Porcine) (Heparin -) 5,000 unit SQ BID [facility] Last Admin: 12/15/18 10:36 Dose: 5,000 unit Hydralazine HCl (Apresoline Injection -) 10 mg IVPUSH Q6H [facility] Last Admin: 12/15/18 05:43 Dose: 10 mg Ceftriaxone Sodium 1 gm/ (Dextrose) 50 mls @ 100 mls/hr IVPB DAILY [facility]; Protocol Last Admin: 12/15/18 10:35 Dose: 100 mls/hr Metronidazole (Flagyl 500mg Premixed Ivpb -) 500 mg in 100 mls @ 100 mls/hr IVPB Q8H-IV [facility] Last Admin: 12/15/18 10:35 Dose: 100 mls/hr Amino Acids (Clinimix -) 1,000 mls @ 50 mls/hr IV Q20H [facility] Last Admin: 12/14/18 18:32 Dose: 50 mls/hr Insulin Aspart (Novolog Vial Sliding Scale -) 1 vial SQ ACHS [facility]; Protocol Last Admin: 12/15/18 06:20 Dose: 2 units Memantine (Namenda -) 10 mg GT BID [facility] Last Admin: 12/14/18 21:37 Dose: Not Given Metoprolol Succinate (Toprol Xl -) 25 mg PO DAILY [facility] Last Admin: 12/14/18 09:08 Dose: Not Given Pantoprazole Sodium (Protonix Iv) 40 mg IVPUSH BID [facility] Last Admin: 12/15/18 10:35 Dose: 40 mg Gen: awake and alert, NAD on NC O2 Heart: RRR Lung: scattered rhonchi Abd: soft, nontender Ext: no edema REAM CUTTER: non-focal Laboratory Results - last 24 hr 12/14/18 12/14/18 12/14/18 09:40 12:04 17:05 WBC Corrected WBC (auto) RBC Hgb Hct MCV MCH MCHC RDW Plt Count MPV Absolute Neuts (auto) Neutrophils % Neutrophils % (Manual) 82.0 Band Neutrophils % 0.0 Lymphocytes % Lymphocytes % (Manual) 6.0 L D Monocytes % Monocytes % (Manual) 8 D Eosinophils % Eosinophils % (Manual) 2.0 Basophils % Basophils % (Manual) 0.0 Myelocytes % (Man) 1 D Promyelocytes % (Man) 0 Blast Cells % (Manual) 0 Nucleated RBC % Metamyelocytes 1 D Hypochromia 0 Platelet Estimate Normal Platelet Comment Polychromasia 0 Poikilocytosis 0 Anisocytosis 0 Microcytosis 0 Macrocytosis 0 Sodium Potassium Chloride Carbon Dioxide Anion Gap BUN Creatinine Est GFR (CKD-EPI)AfAm Est GFR (CKD-EPI)NonAf POC Glucometer 159 165 Random Glucose Calcium Phosphorus Magnesium Total Bilirubin AST ALT Alkaline Phosphatase Total Protein Albumin 12/14/18 12/15/18 12/15/18 21:27 06:04 07:30 WBC Cancelled Corrected WBC (auto) Cancelled RBC Cancelled Hgb Cancelled Hct Cancelled MCV Cancelled MCH Cancelled MCHC Cancelled RDW Cancelled Plt Count Cancelled MPV Cancelled Absolute Neuts (auto) Cancelled Neutrophils % Cancelled Neutrophils % (Manual) Band Neutrophils % Lymphocytes % Cancelled Lymphocytes % (Manual) Monocytes % Cancelled Monocytes % (Manual) Eosinophils % Cancelled Eosinophils % (Manual) Basophils % Cancelled Basophils % (Manual) Myelocytes % (Man) Promyelocytes % (Man) Blast Cells % (Manual) Nucleated RBC % Cancelled Metamyelocytes Hypochromia Platelet Estimate Cancelled Platelet Comment Cancelled Polychromasia Poikilocytosis Anisocytosis Microcytosis Macrocytosis Sodium Potassium Chloride Carbon Dioxide Anion Gap BUN Creatinine Est GFR (CKD-EPI)AfAm Est GFR (CKD-EPI)NonAf POC Glucometer 151 166 Random Glucose Calcium Phosphorus Magnesium Total Bilirubin AST ALT Alkaline Phosphatase Total Protein Albumin 12/15/18 07:30 WBC Corrected WBC (auto) RBC Hgb Hct MCV MCH MCHC RDW Plt Count MPV Absolute Neuts (auto) Neutrophils % Neutrophils % (Manual) Band Neutrophils % Lymphocytes % Lymphocytes % (Manual) Monocytes % Monocytes % (Manual) Eosinophils % Eosinophils % (Manual) Basophils % Basophils % (Manual) Myelocytes % (Man) Promyelocytes % (Man) Blast Cells % (Manual) Nucleated RBC % Metamyelocytes Hypochromia Platelet Estimate Platelet Comment Polychromasia Poikilocytosis Anisocytosis Microcytosis Macrocytosis Sodium 144 Potassium 3.5 Chloride 115 H Carbon Dioxide 20 L Anion Gap 9 BUN 37.7 H Creatinine 1.6 H Est GFR (CKD-EPI)AfAm 43.93 Est GFR (CKD-EPI)NonAf 37.90 POC Glucometer Random Glucose 157 H Calcium 8.6 Phosphorus 3.0 Magnesium 1.9 Total Bilirubin 0.6 AST 30 ALT 20 Alkaline Phosphatase 45 Total Protein 6.5 Albumin 2.5 L ASSESSMENT AND PLAN: Acute Hypoxic and Hypercapneic Respiratory Failure Pneumonia likely Aspiration Severe Sepsis Acute on Chronic Renal Failure CAD +Troponins likely Demand Ischemia Lactic Acidosis HTN Hyperlipidemia GERD Food impaction - Swallow evaluation ongoing - NC O2 as needed - ABX - BD TX - Aspiration precautions - monitor urine output, creatinine - VTE prophylaxis Dr Rebollar
--- NOTE | 2018-12-15 11:08 | PN ---
Progress Note (short form) - Note Progress Note: s: no cp sob palps dizzy TELE: Sinus Current Medications Generic Name Dose Route Start Last Admin Trade Name Jared PRN Reason Stop Dose Admin Albuterol/Ipratropium 1 amp 12/09/18 23:09 12/15/18 09:18 Duoneb - NEB 1 amp RQID [facility] Administration Aspirin 81 mg 12/09/18 10:00 12/14/18 09:08 Asa - NGT Not Given DAILY [facility] Donepezil HCl 10 mg 12/08/18 22:00 12/14/18 21:37 Aricept - NGT Not Given HS [facility] Emollient Ointment 1 applic 12/10/18 17:45 12/15/18 10:35 Aquaphor - TP 1 applic BID [facility] Administration Heparin Sodium (Porcine) 5,000 unit 12/08/18 22:00 12/15/18 10:36 Heparin - SQ 5,000 unit BID [facility] Administration Hydralazine HCl 10 mg 12/11/18 12:00 12/15/18 05:43 Apresoline Injection - IVPUSH 10 mg Q6H [facility] Administration Ceftriaxone Sodium 1 gm/ 50 mls @ 100 mls/hr 12/09/18 10:00 12/15/18 10:35 Dextrose IVPB 100 mls/hr DAILY [facility] Administration Protocol Metronidazole 500 mg in 100 mls @ 100 mls/hr 12/08/18 18:00 12/15/18 10:35 Flagyl 500mg Premixed Ivpb - IVPB 100 mls/hr Q8H-IV [facility] Administration Amino Acids 1,000 mls @ 50 mls/hr 12/11/18 11:00 12/14/18 18:32 Clinimix - IV 50 mls/hr Q20H [facility] Administration Insulin Aspart 1 vial 12/08/18 22:00 12/15/18 06:20 Novolog Vial Sliding Scale - SQ 2 units ACHS [facility] Administration Protocol Memantine 10 mg 12/08/18 22:00 12/14/18 21:37 Namenda - GT Not Given BID [facility] Metoprolol Succinate 25 mg 12/09/18 10:00 12/14/18 09:08 Toprol Xl - PO Not Given DAILY [facility] Pantoprazole Sodium 40 mg 12/08/18 22:00 12/15/18 10:35 Protonix Iv IVPUSH 40 mg BID [facility] Administration Vital Signs Period Temp Pulse Resp BP Sys/Heredia Pulse Ox Last 24 Hr 97.7 F-99.0 F 100-118 17-22 105-141/57-88 94-99 Constitutional: Yes: No Distress, Calm Eyes: Yes: Conjunctiva Clear Cardiovascular: Yes: Regular Rate and Rhythm Respiratory: Yes: Rhonchi, Other (no active wheezing.) Gastrointestinal: Yes: Soft (NT) Edema: No no jaundice diaphoresis Neurological: Yes: Alert Labs: CBC, BMP 12/15/18 10:15 12/15/18 07:30 Assessment/Plan Echo 10/2017: tds, "no definitive statements can be made about findings due to extremely poor acoustic windows". nl lv size. Severely decreased LV sys fn. Global with possible anteroapical septal AK. RV not seen. 1+ ar. MV/TV not well visualized. MUGA 08/23: EF 51% Echo 09/2016: nl lv size. Septum is akinetic. No rwma in inferior, inferolateral or lateral wall, other ordoñez not well seen. Overall ejection fraction is probably mildly, vs [id number] reduced--estimated at 45% vs 40-45%. nl rv/valves. MIBI 07/22: 4:30min, probably + STs; large area mid-AW/septum/apex scar with small P.I.I.; moder decr EF with mild global HK and sev HK vs AK of mid-AW// apex; mild LVE, no TID [facility] 05/20: thrombotic subtotal occl pLAD (BMS), 70-80% ramus, diffuse 30- 50% RCA, EF 35% (anterolat AK, lateral/posterolat HK) IMP: 1. Acute respiratory failure secondary to aspiration PNA, now extubated on tele. 2. CAD s/p prior IA, PCI LAD 2010, w/ ischemic CM and chronic systolic CHF (EF chronically b/t 40-45%) 3. Acute on chronic renal failure, improved 4. + TnI secondary to type II IA, demand ischemia in setting of above. 5. Chronic LBBB 6. H/o gastric cancer 7. NSVTach REC: 1. ASA, metoprolol resumed. 2. defer EDELMIRA/ARB due to CKD, advanced dementia makes benefits of this med questionable in the intermediate-term 3. Currently appears euvolemic, would continue to hold on Lasix for now. 4. Continue Abx as per ID. 5. DVT prophylaxis. GI prophylaxis w/ PPI. 6. Renal following, renal fx improved. 7. HTN -reasonably controlled. 8. replete K and Mag prn (> 4 and 2) given low EF, NSVT can dc tele
--- NOTE | 2018-12-15 11:52 | PN ---
Progress Note, VOLCANOLOGIST - Note Progress Note: Thick soup attempted by nursing yesterday, with responsive cough. PO held. Pt seen bedside, coughing intermittently. Pt's reports that she gave him a little thin water. I educated Mrs Camacho with a picture of swallowing anatomy.I explained that Mariano is at high risk of aspiration, especially on thin liquids. She seemed to understand. I reviewed this with pt's nurse. Hi was told this earlier. suspect has memory deficits as well. All food/ liquid removed from room. Swallowing reassessed. Overtly, delayed swallow with fair tolerance of purred trial. Silent aspiration can not be r/o at bedside and pt still coughing with and without PO trials. Pt only accepted 3 tsp, then said "No more". Pt's baseline reportedly is good appetite, eats throughout the day and coughs/ chokes while eating-per pt's son. Selected Entries 12/15/18 12/15/18 12/15/18 02:00 06:00 08:49 Temperature 99.0 F 97.7 F 98.4 F Laboratory Tests 12/14/18 12/15/18 09:40 07:30 WBC 12.7 H Cancelled Tongue with white coating on lateral regions of his tongue. Provide mouth care. r/o thrush? IMP: Persistent aspiration risk? more with liquids than solids suspected REC:Mouth care. r/o oral thrush- Not noted on EGD. magic cup. 1/2 tsp at a time, seated fully upright, chin to neutral or tucked position Monitor tolerance. NPO if responsive cough No PO liquid intake. Repeat MBS tmw, if difficulty persists, to determine goals of care. Pt is a full code.
--- NOTE | 2018-12-15 11:55 | PN ---
Physical Exam: SUBJECTIVE: Patient seen and examined aspirated with 2 spoon of apple juice, reports chronic aspiration sta 95 % on 4 L nC no chest pain no diarrhea OBJECTIVE: Vital Signs Period Temp Pulse Resp BP Sys/Hered[place] Pulse Ox Last 24 Hr 97.7 F-99.0 F 101-118 20-22 117-141/57-80 94-97 GENERAL: extubated ,on 4 L o2 NC HEAD:NC/AT EYES: PERRL, NECK: supple. LUNGS:decrease breath sounds at the bases , upper respiratory congestions HEART: Regular rate and rhythm, S1, S2 without murmur, rub or gallop. ABDOMEN: Obese , Soft, nontender, hypoactive BS EXTREMITIES: 2+ pulses, warm, well-perfused, +1 LE edema. NEUROLOGICAL:aox3 , no focal deficit Laboratory Results - last 24 hr 12/14/18 12/14/18 12/14/18 09:40 12:04 17:05 WBC Corrected WBC (auto) RBC Hgb Hct MCV MCH MCHC RDW Plt Count MPV Absolute Neuts (auto) Neutrophils % Neutrophils % (Manual) 82.0 Band Neutrophils % 0.0 Lymphocytes % Lymphocytes % (Manual) 6.0 L D Monocytes % Monocytes % (Manual) 8 D Eosinophils % Eosinophils % (Manual) 2.0 Basophils % Basophils % (Manual) 0.0 Myelocytes % (Man) 1 D Promyelocytes % (Man) 0 Blast Cells % (Manual) 0 Nucleated RBC % Metamyelocytes 1 D Hypochromia 0 Platelet Estimate Normal Platelet Comment Polychromasia 0 Poikilocytosis 0 Anisocytosis 0 Microcytosis 0 Macrocytosis 0 Sodium Potassium Chloride Carbon Dioxide Anion Gap BUN Creatinine Est GFR (CKD-EPI)AfAm Est GFR (CKD-EPI)NonAf POC Glucometer 159 165 Random Glucose Calcium Phosphorus Magnesium Total Bilirubin AST ALT Alkaline Phosphatase Total Protein Albumin 12/14/18 12/15/18 12/15/18 21:27 06:04 07:30 WBC Cancelled Corrected WBC (auto) Cancelled RBC Cancelled Hgb Cancelled Hct Cancelled MCV Cancelled MCH Cancelled MCHC Cancelled RDW Cancelled Plt Count Cancelled MPV Cancelled Absolute Neuts (auto) Cancelled Neutrophils % Cancelled Neutrophils % (Manual) Band Neutrophils % Lymphocytes % Cancelled Lymphocytes % (Manual) Monocytes % Cancelled Monocytes % (Manual) Eosinophils % Cancelled Eosinophils % (Manual) Basophils % Cancelled Basophils % (Manual) Myelocytes % (Man) Promyelocytes % (Man) Blast Cells % (Manual) Nucleated RBC % Cancelled Metamyelocytes Hypochromia Platelet Estimate Cancelled Platelet Comment Cancelled Polychromasia Poikilocytosis Anisocytosis Microcytosis Macrocytosis Sodium Potassium Chloride Carbon Dioxide Anion Gap BUN Creatinine Est GFR (CKD-EPI)AfAm Est GFR (CKD-EPI)NonAf POC Glucometer 151 166 Random Glucose Calcium Phosphorus Magnesium Total Bilirubin AST ALT Alkaline Phosphatase Total Protein Albumin 12/15/18 12/15/18 07:30 10:15 WBC 11.5 H Corrected WBC (auto) RBC 3.60 L Hgb 11.0 L Hct 32.2 L MCV 89.6 MCH 30.5 MCHC 34.1 RDW 15.0 Plt Count 315 MPV 7.5 Absolute Neuts (auto) 9.2 H Neutrophils % 80.5 Neutrophils % (Manual) Band Neutrophils % Lymphocytes % 10.3 D Lymphocytes % (Manual) Monocytes % 6.6 Monocytes % (Manual) Eosinophils % 1.9 Eosinophils % (Manual) Basophils % 0.7 Basophils % (Manual) Myelocytes % (Man) Promyelocytes % (Man) Blast Cells % (Manual) Nucleated RBC % 0 Metamyelocytes Hypochromia Platelet Estimate Platelet Comment Polychromasia Poikilocytosis Anisocytosis Microcytosis Macrocytosis Sodium 144 Potassium 3.5 Chloride 115 H Carbon Dioxide 20 L Anion Gap 9 BUN 37.7 H Creatinine 1.6 H Est GFR (CKD-EPI)AfAm 43.93 Est GFR (CKD-EPI)NonAf 37.90 POC Glucometer Random Glucose 157 H Calcium 8.6 Phosphorus 3.0 Magnesium 1.9 Total Bilirubin 0.6 AST 30 ALT 20 Alkaline Phosphatase 45 Total Protein 6.5 Albumin 2.5 L Active Medications Generic Name Dose Route Start Last Admin Trade Name Freq PRN Reason Stop Dose Admin Albuterol/Ipratropium 1 amp 12/09/18 23:09 12/15/18 09:18 Duoneb - NEB 1 amp RQID [facility] Administration Aspirin 81 mg 12/09/18 10:00 12/14/18 09:08 Asa - NGT Not Given DAILY [facility] Donepezil HCl 10 mg 12/08/18 22:00 12/14/18 21:37 Aricept - NGT Not Given HS [facility] Emollient Ointment 1 applic 12/10/18 17:45 12/15/18 10:35 Aquaphor - TP 1 applic BID [facility] Administration Heparin Sodium (Porcine) 5,000 unit 12/08/18 22:00 12/15/18 10:36 Heparin - SQ 5,000 unit BID [facility] Administration Hydralazine HCl 10 mg 12/11/18 12:00 12/15/18 05:43 Apresoline Injection - IVPUSH 10 mg Q6H [facility] Administration Ceftriaxone Sodium 1 gm/ 50 mls @ 100 mls/hr 12/09/18 10:00 12/15/18 10:35 Dextrose IVPB 100 mls/hr DAILY [facility] Administration Protocol Metronidazole 500 mg in 100 mls @ 100 mls/hr 12/08/18 18:00 12/15/18 10:35 Flagyl 500mg Premixed Ivpb - IVPB 100 mls/hr Q8H-IV [facility] Administration Amino Acids 1,000 mls @ 50 mls/hr 12/11/18 11:00 12/14/18 18:32 Clinimix - IV 50 mls/hr Q20H [facility] Administration Insulin Aspart 1 vial 12/08/18 22:00 12/15/18 06:20 Novolog Vial Sliding Scale - SQ 2 units ACHS [facility] Administration Protocol Memantine 10 mg 12/08/18 22:00 12/14/18 21:37 Namenda - GT Not Given BID [facility] Metoprolol Succinate 25 mg 12/09/18 10:00 12/14/18 09:08 Toprol Xl - PO Not Given DAILY [facility] Pantoprazole Sodium 40 mg 12/08/18 22:00 12/15/18 10:35 Protonix Iv IVPUSH 40 mg BID [facility] Administration CBC, BMP 12/15/18 10:15 12/15/18 07:30 ASSESSMENT/PLAN: Mariano Camacho is an 88 y/o male with a PMHx of HTN, HLD, CAD (s/p stent 2010) , LBBB, Alzheimer's disease, CKD, PVD, OA, 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 # Dysphagia Differential includes peptic stricture vs esophageal neoplasm, less likely motility disordered , MBS today the contrast did not pass to the stomach , will repeat CXr in am and depends on that he might benifit from EGD , * Head of bed elevation * aspiration precautions * start on clinimix * puree diet with thick liquid , will dc if response with coughing * S.P EGD with schatzcki ring and esophageal meat impaction , S/P Dilation will do Barium swallow to evaluate the dilation and possibility for feeding. # LBBB , not changed from 2018 , MObitz I * continue aspirin, continue home metoprolol 25mg daily * last echo on 10/20/17 showing EF of 35% * repeat echo showing EF 40-45% * daily weight , I&O # Acute hypoxic hypercapnic respiratory failure , improving * extubated on 4 L o2 NC * ABG showing respiratory acidosis with non anion gap metabolic acidosis, respiratory component of CO2 retention, metabolic component of likely hyperchloremia from dehydration and chronic renal failure * maintain o2 sat above 92% * CXR with RUL Consolidation * duonebs q6h prn # KATHY in term of sepsis vs AIN or ATN , improving close to his base line * CR 1.9 on admission, improving Cr 1.5 today , monitor off fluids * renal U/S did not show any hydronephrosis or other acute pathology * DC gan * hold lasix for now * cont clinimix #N/V on admission * given Zofran and Pepcid in ED, Protonix 40 daily * Abdominal CT showing s/p gastrectomy, 1.5cm hypodense nodule in the pancreatic tail, epigastric hernia with nondilated small bowel loop, small umbilical hernia with a small nondilated small bowel loop, bilateral inguinal hernias containing only fat, colonic diverticulosis, nonobstructing renal calculi * vomiting causes may include transient obstruction from hernias, food poisoning, viral gastritis * HOB elevated, aspiration precautions * speech and swallow evaluation recommend cont NPO as is ashley risk for aspiration # HTN Started on Hydralizine on 12/11 as pt npo , hold on Metorolol and ASA per cardiology while NPO # severe sepsis in the setting of aspiration pneumonitis/pneumonia, resolved * cannot rule out community acquired pneumonia * Dr. Patel consulted, recs appreciated * ceftriaxone and flagyl continue up to 7 days per ID , completed * cx negative , isolation precautions, hx of MRSA * aspiration precautions # DM * BGM, ISS Alzheimer's disease Hx of stomach CA (MALT) # dementia on memantine and donepezil #F/E/N * off fluids , cont clinimix * continue to monitor electrolytes and replete as necessary * puree thick for tonight pending Swallow re eval #PROPHYLAXIS * heparin SQ BID , SCDS * Protonix #CODE * full code #DISPO * monitor in Tele Visit type - Emergency Visit Emergency Visit: Yes ED Registration Date: 12/02/18 Care time: The patient presented to the Emergency Department on the above date and was hospitalized for further evaluation of their emergent condition. - New Patient This patient is new to me today: No - Critical Care Critical Care patient: No ATTENDING PHYSICIAN STATEMENT I saw and evaluated the patient. I reviewed the resident's note and discussed the case with the resident. I agree with the resident's findings and plan as documented. SUBJECTIVE: OBJECTIVE: ASSESSMENT AND PLAN:
--- NOTE | 2018-12-15 12:24 | PN ---
Progress Note, Physician History of Present Illness: Pt seen and examined at bedside. He is awake and appears comfortable. He denies shortness of breath. - Current Medication List Current Medications: Active Medications Albuterol/Ipratropium (Duoneb -) 1 amp NEB RQID [facility] Last Admin: 12/15/18 12:11 Dose: 1 amp Aspirin (Asa -) 81 mg NGT DAILY [facility] Last Admin: 12/14/18 09:08 Dose: Not Given Donepezil HCl (Aricept -) 10 mg NGT HS [facility] Last Admin: 12/14/18 21:37 Dose: Not Given Emollient Ointment (Aquaphor -) 1 applic TP BID [facility] Last Admin: 12/15/18 10:35 Dose: 1 applic Heparin Sodium (Porcine) (Heparin -) 5,000 unit SQ BID [facility] Last Admin: 12/15/18 10:36 Dose: 5,000 unit Hydralazine HCl (Apresoline Injection -) 10 mg IVPUSH Q6H [facility] Last Admin: 12/15/18 05:43 Dose: 10 mg Ceftriaxone Sodium 1 gm/ (Dextrose) 50 mls @ 100 mls/hr IVPB DAILY [facility]; Protocol Last Admin: 12/15/18 10:35 Dose: 100 mls/hr Metronidazole (Flagyl 500mg Premixed Ivpb -) 500 mg in 100 mls @ 100 mls/hr IVPB Q8H-IV [facility] Last Admin: 12/15/18 10:35 Dose: 100 mls/hr Amino Acids (Clinimix -) 1,000 mls @ 50 mls/hr IV Q20H [facility] Last Admin: 12/14/18 18:32 Dose: 50 mls/hr Insulin Aspart (Novolog Vial Sliding Scale -) 1 vial SQ ACHS [facility]; Protocol Last Admin: 12/15/18 06:20 Dose: 2 units Memantine (Namenda -) 10 mg GT BID [facility] Last Admin: 12/14/18 21:37 Dose: Not Given Metoprolol Succinate (Toprol Xl -) 25 mg PO DAILY [facility] Last Admin: 12/14/18 09:08 Dose: Not Given Pantoprazole Sodium (Protonix Iv) 40 mg IVPUSH BID [facility] Last Admin: 12/15/18 10:35 Dose: 40 mg - Objective Vital Signs: Vital Signs Temperature 98.4 F 12/15/18 08:49 Pulse Rate 101 H 12/15/18 08:49 Respiratory Rate 22 H 12/15/18 09:00 Blood Pressure 117/57 L 12/15/18 08:49 O2 Sat by Pulse Oximetry (%) 97 12/15/18 09:00 Constitutional: Yes: Calm Eyes: Yes: Conjunctiva Clear HENT: Yes: Atraumatic Neck: Yes: Supple Cardiovascular: Yes: S1, S2 Respiratory: Yes: On Nasal O2 Gastrointestinal: Yes: Soft Genitourinary: Yes: Incontinence Musculoskeletal: Yes: WNL Edema: No Neurological: Yes: Oriented Labs: CBC, BMP 12/15/18 10:15 12/15/18 07:30 INR, PTT INR 1.07 (0.83-1.09) 12/03/18 05:40 Problem List - Problems (1) Acute kidney injury superimposed on CKD Code(s): N17.9 - ACUTE KIDNEY FAILURE, UNSPECIFIED; N18.9 - CHRONIC KIDNEY DISEASE, UNSPECIFIED (2) Aspiration pneumonia Code(s): J69.0 - PNEUMONITIS DUE TO INHALATION OF FOOD AND VOMIT (3) Vomiting Code(s): R11.10 - VOMITING, UNSPECIFIED Qualifiers: Vomiting type: unspecified Vomiting Intractability: unspecified Nausea presence: unspecified Qualified Code(s): R11.10 - Vomiting, unspecified Assessment/Plan Current Medications Generic Name Dose Route Start Last Admin Trade Name Freq PRN Reason Stop Dose Admin Albuterol/Ipratropium 1 amp 12/09/18 23:09 12/15/18 12:11 Duoneb - NEB 1 amp RQID [facility] Administration Aspirin 81 mg 12/09/18 10:00 12/14/18 09:08 Asa - NGT Not Given DAILY [facility] Donepezil HCl 10 mg 12/08/18 22:00 12/14/18 21:37 Aricept - NGT Not Given HS [facility] Emollient Ointment 1 applic 12/10/18 17:45 12/15/18 10:35 Aquaphor - TP 1 applic BID [facility] Administration Heparin Sodium (Porcine) 5,000 unit 12/08/18 22:00 12/15/18 10:36 Heparin - SQ 5,000 unit BID [facility] Administration Hydralazine HCl 10 mg 12/11/18 12:00 12/15/18 05:43 Apresoline Injection - IVPUSH 10 mg Q6H [facility] Administration Ceftriaxone Sodium 1 gm/ 50 mls @ 100 mls/hr 12/09/18 10:00 12/15/18 10:35 Dextrose IVPB 100 mls/hr DAILY [facility] Administration Protocol Metronidazole 500 mg in 100 mls @ 100 mls/hr 12/08/18 18:00 12/15/18 10:35 Flagyl 500mg Premixed Ivpb - IVPB 100 mls/hr Q8H-IV [facility] Administration Amino Acids 1,000 mls @ 50 mls/hr 12/11/18 11:00 12/14/18 18:32 Clinimix - IV 50 mls/hr Q20H [facility] Administration Insulin Aspart 1 vial 12/08/18 22:00 12/15/18 06:20 Novolog Vial Sliding Scale - SQ 2 units ACHS [facility] Administration Protocol Memantine 10 mg 12/08/18 22:00 12/14/18 21:37 Namenda - GT Not Given BID [facility] Metoprolol Succinate 25 mg 12/09/18 10:00 12/14/18 09:08 Toprol Xl - PO Not Given DAILY [facility] Pantoprazole Sodium 40 mg 12/08/18 22:00 12/15/18 10:35 Protonix Iv IVPUSH 40 mg BID [facility] Administration Impression 1. KATHY 2. acute resp failure 3. HTN 4. gastric cancer 5. dementia 6. HLD 7. CAD 8. PVD 9. PNA 10. sepsis 11. hyperkalemia Plan - swallow eval in progress - stop clinimix if he tolerates diet - monitor renal function - volume status stable - discussed with family - avoid nsaids - avoid nephrotoxins
[2018-12-15 12:56] LABS: ANISOCYTOSIS 0; MACROCYTOSIS 0; PLATELET ESTIMATE NORMAL
--- NOTE | 2018-12-15 15:26 | CON.GI ---
Consult Consult Specialty:: GI for Reason for Consultation:: esophageal obstruction - History of Present Illness History of Present Illness: 88 y/o male with PMHx of dementia, ?hx of stomach ca s/p partial gastrectomy and GERD. Admitted with n/v and aspiration s/p intubation and treatment for aspiration PNA. No contrast into stomach subsequent CXR. EGD done 12/14 with showed meat impaction in the esophagus stemming form a Schatzki ring which he dilated. Seen by speech pathologist , UGI revealed no residual barium in the esophagus and no aspiration. 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 - Alcohol/Substance Use Hx Alcohol Use: Yes (RARE) - Smoking History Smoking history: Never smoked Have you smoked in the past 12 months: No If you are a former smoker, when did you quit?: Does not remember - Social History Usual Living Arrangement: With Spouse ADL: Family Assistance History of Recent Travel: No Home Medications - Allergies Allergies/Adverse Reactions: Allergies Allergy/AdvReac Type Severity Reaction Status Date / Time No Known Allergies Allergy Verified 12/02/18 13:16 - Home Medications Home Medications: Ambulatory Orders Aspirin Coated [Ecotrin -] 81 mg PO DAILY #0 07/19/14 Cholecalciferol (Vitamin D3) [Vitamin D3] 2,000 units PO DAILY 07/19/14 Cyanocobalamin [Vitamin B12 -] 1,000 mcg PO DAILY 07/19/14 Donepezil HCl [Aricept] 10 mg PO DAILY 07/19/14 Folic Acid 1 mg PO DAILY 07/19/14 Memantine HCl [Namenda -] 10 mg PO BID 07/19/14 Metoprolol Succinate [Toprol XL -] 25 mg PO DAILY 07/19/14 Pravastatin Sodium [Pravachol] 40 mg PO DAILY 07/19/14 Ranitidine [Zantac -] 150 mg PO DAILY 07/19/14 Fenofibrate Nanocrystallized [Fenofibrate] 160 mg PO DAILY 10/19/17 Albuterol 2.5/Ipratropium 0.5 [Duoneb -] 1 amp NEB Q6H PRN 7 Days amp 10/22/17 Lactobacillus Acidophilus [Acidophilus] 1 each PO DAILY 12/02/18 [place]-3 Fatty Acids/Fish Oil [Fish Oil 1,000 mg Capsule] 1 each PO DAILY Family Disease History - Family Disease History Family Disease History: Heart Disease: Brother, CA: Sister Physical Exam-GI Vital Signs: Vital Signs Temperature 98.4 F 12/15/18 08:49 Pulse Rate 101 H 12/15/18 08:49 Respiratory Rate 22 H 12/15/18 09:00 Blood Pressure 117/57 L 12/15/18 08:49 O2 Sat by Pulse Oximetry (%) 97 12/15/18 09:00 Labs: CBC, BMP 12/15/18 10:15 12/15/18 07:30 INR, PTT INR 1.07 (0.83-1.09) 12/03/18 05:40
[2018-12-15] MEDS: AMINO ACIDS 4.25%/D5W 1,000 ML IV SCH (16:00)
--- NOTE | 2018-12-15 17:21 | PN ---
Teaching Attending Note Name of Resident: Arnaud Batista ATTENDING PHYSICIAN STATEMENT I saw and evaluated the patient. I reviewed the resident's note and discussed the case with the resident. I agree with the resident's findings and plan as documented. SUBJECTIVE: Mr Camacho says he feels fine today. No cp, sob, n/v. OBJECTIVE: Last Vital Signs Temp Pulse Resp BP Pulse Ox 36.7 C 112 H 22 H 139/52 L 97 12/15/18 14:00 12/15/18 14:00 12/15/18 09:00 12/15/18 14:00 12/15/18 09:00 Gen: nad Pulm: ctab w/o w/r/r CV: rrr w/o m/r/g Abd: +bs, s/nt/nd Ext: no c/c/e CBC, BMP 12/15/18 10:15 12/15/18 07:30 ASSESSMENT AND PLAN: (1) Acute respiratory failure with hypoxia Assessment/Plan: -resolved Code(s): J96.01 - ACUTE RESPIRATORY FAILURE WITH HYPOXIA (2) Aspiration pneumonia with sepsis Assessment/Plan: -continue rocephin and flagyl -will finish full course then stop -suspect patient has chronic aspiration on top of Schatzky's ring -case d/w Ginny Shipman and will trial diet -will d/w Dr Alfonso about patient normal status, may need to have GOC conversation Code(s): J69.0 - PNEUMONITIS DUE TO INHALATION OF FOOD AND VOMIT (3) Hyperkalemia Assessment/Plan: -resolved Code(s): E87.5 - HYPERKALEMIA (4) Acute kidney injury superimposed on CKD Assessment/Plan: -appreciate nephrology assistance -continue clinimix Code(s): N17.9 - ACUTE KIDNEY FAILURE, UNSPECIFIED; N18.9 - CHRONIC KIDNEY DISEASE, UNSPECIFIED (5) ASHD (arteriosclerotic heart disease) Assessment/Plan: -cardiology following -continue medical management Code(s): I25.10 - ATHSCL HEART DISEASE OF [place] CORONARY ARTERY W/O ANG PCTRS (6) CHF (congestive heart failure) Assessment/Plan: -not in exacerbation Code(s): I50.9 - HEART FAILURE, UNSPECIFIED Qualifiers: Heart failure type: systolic Heart failure chronicity: chronic Qualified Code(s): I50.22 - Chronic systolic (congestive) heart failure (7) HTN (hypertension) Assessment/Plan: -controlled Code(s): I10 - ESSENTIAL (PRIMARY) HYPERTENSION Qualifiers: Hypertension type: essential hypertension Qualified Code(s): I10 - Essential (primary) hypertension (8) Hyperlipidemia Assessment/Plan: -on pravastatin as an outpatient Code(s): E78.5 - HYPERLIPIDEMIA, UNSPECIFIED Qualifiers: Hyperlipidemia type: mixed hyperlipidemia Qualified Code(s): E78.2 - Mixed hyperlipidemia (9) Food bolus -GI following -s/p EGD -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 -as above Problem List - Problems (1) Acute respiratory failure with hypoxia Code(s): J96.01 - ACUTE RESPIRATORY FAILURE WITH HYPOXIA (2) Aspiration pneumonia Code(s): J69.0 - PNEUMONITIS DUE TO INHALATION OF FOOD AND VOMIT (3) Hyperkalemia Code(s): E87.5 - HYPERKALEMIA (4) Acute kidney injury superimposed on CKD Code(s): N17.9 - ACUTE KIDNEY FAILURE, UNSPECIFIED; N18.9 - CHRONIC KIDNEY DISEASE, UNSPECIFIED (5) ASHD (arteriosclerotic heart disease) Code(s): I25.10 - ATHSCL HEART DISEASE OF [place] CORONARY ARTERY W/O ANG PCTRS (6) CHF (congestive heart failure) Code(s): I50.9 - HEART FAILURE, UNSPECIFIED Qualifiers: Heart failure type: systolic Heart failure chronicity: chronic Qualified Code(s): I50.22 - Chronic systolic (congestive) heart failure (7) HTN (hypertension) Code(s): I10 - ESSENTIAL (PRIMARY) HYPERTENSION Qualifiers: Hypertension type: essential hypertension Qualified Code(s): I10 - Essential (primary) hypertension (8) Hyperlipidemia Code(s): E78.5 - HYPERLIPIDEMIA, UNSPECIFIED Qualifiers: Hyperlipidemia type: mixed hyperlipidemia Qualified Code(s): E78.2 - Mixed hyperlipidemia
--- NOTE | 2018-12-15 18:01 | PATH ---
Surgical Pathology Report Patient Name: BEHZAD NICHOLAS [facility]. Rec. #: [id number] /Age/Gender: 1930 (Age: 88) / M Account: [id number] Location: 4 W TELEMETRY U Taken: 12/14/2018 Received: 12/14/2018 Reported: 12/15/2018 Physicians: Peter Oneill M.D. Specimen(s) Received SCHATZKI'S RING Clinical History Rule out aspiration Postoperative diagnosis: Schatzki's ring, esophageal food impaction, hiatal hernia, Bilroth gastrectomy Final Diagnosis SCHATZKI'S RING, BIOPSY: SQUAMOUS MUCOSA WITH MODERATE TO SEVERE BASAL CELL HYPERPLASIA AND PATCHY ACUTE ESOPHAGITIS. PAS FUNGAL STAIN SHOWS RARE FUNGAL FORMS. Comment: Suggest clinical and endoscopic correlation. Electronically Signed Lala Doyle M.D. Gross Description Received in formalin, labeled "biopsy Schatzki's ring" is a romero, irregular portion of soft tissue measuring 0.6 cm. in greatest dimension. The specimen is submitted in toto in one cassette. /12/14/2018 [facility]12/14/2018
[2018-12-15] MEDS: DONEPEZIL HCL 10 MG TABLET (FP) NGT SCH (22:22)
[2018-12-16] MEDS: hydrALAZINE HCL 20 MG/ML VIAL IVPUSH SCH ×4 (01:20→17:00)
[2018-12-16] MEDS: INSULIN SLIDING SCALE (NOVOLOG) 1 VIAL SQ SCH ×4 (06:14→23:13)
[2018-12-16] MEDS: ALBUTEROL SO4 2.5/IPRATROPIUM 0.5 INH SOL 3 ML VIAL.NEB. NEB SCH ×4 (07:30→20:41)
[2018-12-16 09:01] LABS: BASO % 1.3 % (0-2.0); EOS % 1.5 % (0-4.5); HEMATOCRIT 30.4 % (35.4-49); HEMOGLOBIN 10.4 GM/dL (11.7-16.9); LYMPH % 10.6 % (8-40); MCH 30.5 pg (25.7-33.7); MCHC 34.3 g/dl (32.0-35.9); MEAN CELL VOLUME 88.8 fl (80-96); MEAN PLT VOLUME 7.4 fl (7.5-11.1); MONO % 6.9 % (3.8-10.2); NEUT % 79.7 % (42.8-82.8); PLATELET COUNT 297 K/MM3 (134-434); RBC 3.42 M/mm3 (4.00-5.60); RDW 14.9 % (11.9-15.9); WHITE BLOOD COUNT 10.4 K/mm3 (4.0-10.0)
--- NOTE | 2018-12-16 09:20 | PN ---
Progress Note, Physician Chief Complaint: seen and examined. Denies CP, SOB. History of Present Illness: TELE: ST, 100bpm, PVCs. short run NSVT - Current Medication List Current Medications: Active Medications Albuterol/Ipratropium (Duoneb -) 1 amp NEB RQID [facility] Last Admin: 12/16/18 07:30 Dose: 1 amp Aspirin (Asa -) 81 mg NGT DAILY [facility] Last Admin: 12/15/18 10:00 Dose: Not Given Donepezil HCl (Aricept -) 10 mg NGT HS [facility] Last Admin: 12/15/18 22:22 Dose: 10 mg Emollient Ointment (Aquaphor -) 1 applic TP BID [facility] Last Admin: 12/15/18 22:25 Dose: 1 applic Heparin Sodium (Porcine) (Heparin -) 5,000 unit SQ BID [facility] Last Admin: 12/15/18 22:21 Dose: 5,000 unit Hydralazine HCl (Apresoline Injection -) 10 mg IVPUSH Q6H [facility] Last Admin: 12/16/18 05:28 Dose: 10 mg Ceftriaxone Sodium 1 gm/ (Dextrose) 50 mls @ 100 mls/hr IVPB DAILY [facility]; Protocol Last Admin: 12/15/18 10:35 Dose: 100 mls/hr Metronidazole (Flagyl 500mg Premixed Ivpb -) 500 mg in 100 mls @ 100 mls/hr IVPB Q8H-IV [facility] Last Admin: 12/16/18 01:31 Dose: 100 mls/hr Amino Acids (Clinimix -) 1,000 mls @ 50 mls/hr IV Q20H [facility] Last Admin: 12/15/18 16:00 Dose: 50 mls/hr Insulin Aspart (Novolog Vial Sliding Scale -) 1 vial SQ ACHS [facility]; Protocol Last Admin: 12/16/18 06:14 Dose: Not Given Memantine (Namenda -) 10 mg GT BID [facility] Last Admin: 12/15/18 22:22 Dose: 10 mg Metoprolol Succinate (Toprol Xl -) 25 mg PO DAILY [facility] Last Admin: 12/15/18 10:00 Dose: Not Given Pantoprazole Sodium (Protonix Iv) 40 mg IVPUSH BID [facility] Last Admin: 12/15/18 22:25 Dose: 40 mg - Objective Vital Signs: Vital Signs Temperature 98.5 F 12/16/18 06:00 Pulse Rate 104 H 12/16/18 06:00 Respiratory Rate 20 12/16/18 06:00 Blood Pressure 142/71 12/16/18 06:00 O2 Sat by Pulse Oximetry (%) 95 12/15/18 22:00 Constitutional: Yes: Calm Cardiovascular: Yes: Regular Rate and Rhythm Respiratory: Yes: Other (decreased breath sounds, no active wheezing.) Gastrointestinal: Yes: Soft (NT), Abdomen, Obese Edema: No Neurological: Yes: Alert, Oriented ...Motor Strength: WNL Labs: CBC, BMP 12/16/18 08:40 INR, PTT INR 1.07 (0.83-1.09) 12/03/18 05:40 Laboratory Tests 12/15/18 12/16/18 12/16/18 07:30 08:40 08:40 WBC 10.4 H Hgb 10.4 L Plt Count 297 Sodium Pending Potassium Pending BUN 37.7 H Creatinine 1.6 H Pending Est GFR (CKD-EPI)AfAm Pending Assessment/Plan Assessment/Plan Echo 10/2017: tds, "no definitive statements can be made about findings due to extremely poor acoustic windows". nl lv size. Severely decreased LV sys fn. Global with possible anteroapical septal AK. RV not seen. 1+ ar. MV/TV not well visualized. MUGA 08/23: EF 51% Echo 09/2016: nl lv size. Septum is akinetic. No rwma in inferior, inferolateral or lateral wall, other ordoñez not well seen. Overall ejection fraction is probably mildly, vs [id number] reduced--estimated at 45% vs 40-45%. nl rv/valves. MIBI 07/22: 4:30min, probably + STs; large area mid-AW/septum/apex scar with small P.I.I.; moder decr EF with mild global HK and sev HK vs AK of mid-AW// apex; mild LVE, no TID [facility] ([facility]) 05/20: thrombotic subtotal occl pLAD (BMS), 70-80% ramus, diffuse 30- 50% RCA, EF 35% (anterolat AK, lateral/posterolat HK) IMP: 1. Acute respiratory failure secondary to aspiration PNA, now extubated on tele. 2. CAD s/p prior AR, PCI LAD 2010, w/ ischemic CM and chronic systolic CHF (EF chronically b/t 40-45%) 3. Acute on chronic renal failure, improved 4. + TnI secondary to type II AR, demand ischemia in setting of above. 5. Chronic LBBB 6. H/o gastric cancer 7. NSVTach REC: 1. ASA, metoprolol resumed. 2. defer EDELMIRA/ARB due to CKD, advanced dementia makes benefits of this med questionable in the intermediate-term 3. Currently appears euvolemic, would continue to hold on Lasix for now. 4. Continue Abx as per ID. 5. DVT prophylaxis. GI prophylaxis w/ PPI. 6. Renal following, renal fx improved. 7. HTN -reasonably controlled. 8. Keep K and Mg repleted. can dc tele
[2018-12-16 09:36] LABS: ALBUMIN 2.2 g/dl (3.4-5.0); BILIRUBIN,TOTAL 0.7 mg/dL (0.2-1); BLOOD UREA NITROGEN 41.4 mg/dL (7-18); CALCIUM 8.1 mg/dL (8.5-10.1); CREATININE 1.6 mg/dL (0.55-1.3); MAGNESIUM 1.7 mg/dL (1.8-2.4); PHOSPHOROUS 2.6 mg/dL (2.5-4.9); POTASSIUM 3.4 mmol/L (3.5-5.1)
[2018-12-16] MEDS ORDERED: cefTRIAXone SODIUM 1 GM VIAL ONE (10:09)
[2018-12-16] MEDS ORDERED: DEXTROSE 5%-WATER - 50 ML IVPB ONE (10:09)
--- NOTE | 2018-12-16 10:23 | PN ---
Physical Exam: SUBJECTIVE: Patient seen and examined at bed side still coughing with minimal feeding no fever or chills, reported , breathing improving slowly on NC . OBJECTIVE: Vital Signs Period Temp Pulse Resp BP Sys/Heredia Pulse Ox Last 24 Hr 97.7 F-98.5 F 104-113 18-20 136-142/52-77 95 GENERAL: extubated ,on 3 L o2 NC HEAD:NC/AT EYES: PERRL, NECK: supple. LUNGS:decrease breath sounds at the bases , upper respiratory congestions HEART: Regular rate and rhythm, S1, S2 without murmur, rub or gallop. ABDOMEN: Obese , Soft, nontender, hypoactive BS EXTREMITIES: 2+ pulses, warm, well-perfused, no edema. NEUROLOGICAL:aox3 , no focal deficit Laboratory Results - last 24 hr 12/15/18 12/15/18 12/15/18 10:15 11:59 18:22 WBC 11.5 H RBC 3.60 L Hgb 11.0 L Hct 32.2 L MCV 89.6 MCH 30.5 MCHC 34.1 RDW 15.0 Plt Count 315 MPV 7.5 Absolute Neuts (auto) 9.2 H Neutrophils % 80.5 Neutrophils % (Manual) 86.6 H Band Neutrophils % 0.0 Lymphocytes % 10.3 D Lymphocytes % (Manual) 7.2 L Monocytes % 6.6 Monocytes % (Manual) 6 Eosinophils % 1.9 Eosinophils % (Manual) 0.0 D Basophils % 0.7 Basophils % (Manual) 0.0 Myelocytes % (Man) 0 D Promyelocytes % (Man) 0 Blast Cells % (Manual) 0 Nucleated RBC % 0 Metamyelocytes 0 D Hypochromia 0 Platelet Estimate Normal Polychromasia 0 Poikilocytosis 0 Anisocytosis 0 Microcytosis 0 Macrocytosis 0 Sodium Potassium Chloride Carbon Dioxide Anion Gap BUN Creatinine Est GFR (CKD-EPI)AfAm Est GFR (CKD-EPI)NonAf POC Glucometer 169 162 Random Glucose Calcium Phosphorus Magnesium Total Bilirubin AST ALT Alkaline Phosphatase Total Protein Albumin 12/15/18 12/16/18 12/16/18 22:24 05:27 08:40 WBC 10.4 H RBC 3.42 L Hgb 10.4 L Hct 30.4 L MCV 88.8 MCH 30.5 MCHC 34.3 RDW 14.9 Plt Count 297 MPV 7.4 L Absolute Neuts (auto) 8.3 H Neutrophils % 79.7 Neutrophils % (Manual) Band Neutrophils % Lymphocytes % 10.6 Lymphocytes % (Manual) Monocytes % 6.9 Monocytes % (Manual) Eosinophils % 1.5 Eosinophils % (Manual) Basophils % 1.3 Basophils % (Manual) Myelocytes % (Man) Promyelocytes % (Man) Blast Cells % (Manual) Nucleated RBC % 0 Metamyelocytes Hypochromia Platelet Estimate Polychromasia Poikilocytosis Anisocytosis Microcytosis Macrocytosis Sodium Potassium Chloride Carbon Dioxide Anion Gap BUN Creatinine Est GFR (CKD-EPI)AfAm Est GFR (CKD-EPI)NonAf POC Glucometer 179 150 Random Glucose Calcium Phosphorus Magnesium Total Bilirubin AST ALT Alkaline Phosphatase Total Protein Albumin 12/16/18 08:40 WBC RBC Hgb Hct MCV MCH MCHC RDW Plt Count MPV Absolute Neuts (auto) Neutrophils % Neutrophils % (Manual) Band Neutrophils % Lymphocytes % Lymphocytes % (Manual) Monocytes % Monocytes % (Manual) Eosinophils % Eosinophils % (Manual) Basophils % Basophils % (Manual) Myelocytes % (Man) Promyelocytes % (Man) Blast Cells % (Manual) Nucleated RBC % Metamyelocytes Hypochromia Platelet Estimate Polychromasia Poikilocytosis Anisocytosis Microcytosis Macrocytosis Sodium 146 H Potassium 3.4 L Chloride 116 H Carbon Dioxide 19 L Anion Gap 11 BUN 41.4 H Creatinine 1.6 H Est GFR (CKD-EPI)AfAm 43.93 Est GFR (CKD-EPI)NonAf 37.90 POC Glucometer Random Glucose 175 H Calcium 8.1 L Phosphorus 2.6 Magnesium 1.7 L Total Bilirubin 0.7 AST 20 ALT 15 Alkaline Phosphatase 40 L Total Protein 6.0 L Albumin 2.2 L Active Medications Generic Name Dose Route Start Last Admin Trade Name Freq PRN Reason Stop Dose Admin Albuterol/Ipratropium 1 amp 12/09/18 23:09 12/16/18 07:30 Duoneb - NEB 1 amp RQID IKER Administration Aspirin 81 mg 12/09/18 10:00 12/15/18 10:00 Asa - NGT Not Given DAILY IKER Donepezil HCl 10 mg 12/08/18 22:00 12/15/18 22:22 Aricept - NGT 10 mg HS IKER Administration Emollient Ointment 1 applic 12/10/18 17:45 12/15/18 22:25 Aquaphor - TP 1 applic BID IKER Administration Heparin Sodium (Porcine) 5,000 unit 12/08/18 22:00 12/15/18 22:21 Heparin - SQ 5,000 unit BID IKER Administration Hydralazine HCl 10 mg 12/11/18 12:00 12/16/18 05:28 Apresoline Injection - IVPUSH 10 mg Q6H IKER Administration Ceftriaxone Sodium 1 gm/ 50 mls @ 100 mls/hr 12/09/18 10:00 12/15/18 10:35 Dextrose IVPB 100 mls/hr DAILY IKER Administration Protocol Metronidazole 500 mg in 100 mls @ 100 mls/hr 12/08/18 18:00 12/16/18 01:31 Flagyl 500mg Premixed Ivpb - IVPB 100 mls/hr Q8H-IV IKER Administration Amino Acids 1,000 mls @ 50 mls/hr 12/11/18 11:00 12/15/18 16:00 Clinimix - IV 50 mls/hr Q20H I[facility]ER Administration Insulin Aspart 1 vial 12/08/18 22:00 12/16/18 06:14 Novolog Vial Sliding Scale - SQ Not Given ACHS I[facility] Protocol Memantine 10 mg 12/08/18 22:00 12/15/18 22:22 Namenda - GT 10 mg BID IKER Administration Metoprolol Succinate 25 mg 12/09/18 10:00 12/15/18 10:00 Toprol Xl - PO Not Given DAILY IKER Pantoprazole Sodium 40 mg 12/08/18 22:00 12/15/18 22:25 Protonix Iv IVPUSH 40 mg BID IKER Administration CBC, BMP 12/16/18 08:40 12/16/18 08:40 ASSESSMENT/PLAN: Mariano Camacho is an 88 y/o male with a PMHx of HTN, HLD, CAD (s/p stent 2010) , LBBB, Alzheimer's disease, CKD, PVD, OA, 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 # Dysphagia 2/2 chatzki ring s.p dilation by Dr Oneill * still coughing with minimal feeding , Ramonita juan recommend :Dys puree, honey thick liquid on tsp only, magic cup, Ensure pudding 1/2 tsp at a time, seated fully upright, chin to neutral or tucked position Monitor tolerance. * Head of bed elevation * aspiration precautions * cont on clinimix * S.P EGD with schatzcki ring and esophageal meat impaction , S/P Dilation * high risk for aspirration , will dc food if continue to cough. * discuss goal of care with the family. # LBBB , not changed from 2018 , Derian I * continue aspirin, continue home metoprolol 25mg daily * last echo on 10/20/17 showing EF of 35% * repeat echo showing EF 40-45% * daily weight , I&O * dc tele transfer to /S # Acute hypoxic hypercapnic respiratory failure , improving * extubated on 3L o2 NC * maintain o2 sat above 92% * CXR with RUL Consolidation * duonebs q6h prn * cont abx as pt is high risk for aspiration # KATHY in term of sepsis vs AIN or ATN , improving close to his base line * CR 1.9 on admission, improving Cr 1.5 today , monitor off fluids * renal U/S did not show any hydronephrosis or other acute pathology * DC gan * hold lasix for now * cont clinimix #N/V on admission due to food bolus , resolved S.P EGD * cont Zofran and Pepcid , Protonix 40 daily * Abdominal CT showing s/p gastrectomy, 1.5cm hypodense nodule in the pancreatic tail, epigastric hernia with nondilated small bowel loop, small umbilical hernia with a small nondilated small bowel loop, bilateral inguinal hernias containing only fat, colonic diverticulosis, nonobstructing renal calculi * vomiting causes may include transient obstruction from hernias, food poisoning, viral gastritis * HOB elevated, aspiration precautions # HTN Started on Hydralizine on 12/11 as pt npo , hold on Metorolol and ASA per cardiology while NPO # severe sepsis in the setting of aspiration pneumonitis/pneumonia, resolved * cannot rule out community acquired pneumonia * Dr. Patel consulted, recs appreciated * ceftriaxone and flagyl continue * cx negative , isolation precautions, hx of MRSA * aspiration precautions # DM * BGM, ISS Alzheimer's disease Hx of stomach CA (MALT) # dementia on memantine and donepezil #F/E/N * off fluids , cont clinimix * continue to monitor electrolytes and replete as necessary * puree thick for tonight pending Swallow re eval #PROPHYLAXIS * heparin SQ BID , SCDS * Protonix #CODE * full code #DISPO * transfer to M/S Visit type - Emergency Visit Emergency Visit: Yes ED Registration Date: 12/02/18 Care time: The patient presented to the Emergency Department on the above date and was hospitalized for further evaluation of their emergent condition. - New Patient This patient is new to me today: No - Critical Care Critical Care patient: No ATTENDING PHYSICIAN STATEMENT I saw and evaluated the patient. I reviewed the resident's note and discussed the case with the resident. I agree with the resident's findings and plan as documented. SUBJECTIVE: OBJECTIVE: ASSESSMENT AND PLAN:
[2018-12-16] MEDS: ASPIRIN 81 MG CHEWABLE TABLETS NGT SCH (10:40)
[2018-12-16] MEDS: HEPARIN NA (PORCINE) 5,000 UNITS/ML 1ML VIAL SQ SCH ×2 (10:40→23:13)
[2018-12-16] MEDS: metoPROLOL SUCCINATE 25 MG TAB.SR.24H (FP) PO SCH (10:41)
[2018-12-16] MEDS: PANTOPRAZOLE SODIUM 40 MG VIAL IVPUSH SCH ×2 (10:41→23:11)
[2018-12-16] MEDS: CEFTRIAXONE 1 GM in DEXTROSE 5%-WATER - 50 ML IVPB SCH (10:41)
[2018-12-16] MEDS: MEMANTINE HCL 10 MG TABLET (FP) GT SCH ×2 (10:41→23:13)
[2018-12-16] MEDS: MINERAL OIL/PET HY-PHL TOPICAL OINTMENT 454 GM JAR TP SCH ×2 (10:42→23:12)
[2018-12-16] MEDS ORDERED: MAGNESIUM SULF 50% (8.12 MEQ/2 ML-1 GM VIAL) IVPB ONE (10:45)
--- NOTE | 2018-12-16 10:50 | PN ---
Progress Note, OXYGRAPH OPERATOR - Note Progress Note: Selected Entries 12/15/18 12/15/18 12/15/18 02:00 06:00 08:49 Temperature 99.0 F 97.7 F 98.4 F 12/15/18 12/15/18 12/15/18 14:00 18:51 22:00 Temperature 98.1 F 97.7 F 98.5 F 12/16/18 12/16/18 02:00 06:00 Temperature 98.4 F 98.5 F Laboratory Tests 12/14/18 12/15/18 12/16/18 09:40 07:30 08:40 WBC 12.7 H Cancelled 10.4 H Diet order is Dys puree/nectar. GUIDE VISITOR reported that he overtly tolerated breakfast , only taking a couple of bites/sips from tray. No cough noted. Upon swallowing reassessment, coughing/audible congestion on 2 sips of nectar thick noted. Suspect aspiration. Case reviewed with PMD. To provide safest PO diet and observe for now. Rec: Dys puree, honey thick liquid on tsp only, magic cup, Ensure pudding 1/2 tsp at a time, seated fully upright, chin to neutral or tucked position Monitor tolerance.
--- NOTE | 2018-12-16 11:06 | PN ---
Teaching Attending Note Name of Resident: Arnaud Batista ATTENDING PHYSICIAN STATEMENT I saw and evaluated the patient. I reviewed the resident's note and discussed the case with the resident. I agree with the resident's findings and plan as documented. SUBJECTIVE: Mr Camacho says he feels fine today. Denies cp, sob, n/v. RN says he was still coughing with his diet OBJECTIVE: Last Vital Signs Temp Pulse Resp BP Pulse Ox 36.3 C L 111 H 20 141/74 100 12/16/18 14:00 12/16/18 14:00 12/16/18 14:00 12/16/18 14:00 12/16/18 09:00 Gen: nad Pulm: ctab w/o w/r/r CV: tachycardia w/o m/r/g Abd: +bs, s/nt/nd Ext: no c/c/e CBC, BMP 12/16/18 08:40 12/16/18 08:40 ASSESSMENT AND PLAN: (1) Acute respiratory failure with hypoxia Assessment/Plan: -resolved Code(s): J96.01 - ACUTE RESPIRATORY FAILURE WITH HYPOXIA (2) Aspiration pneumonia with sepsis Assessment/Plan: -full course of antibiotics today -rocephin discontinued -last dose of flagyl tonight -case d/w Ginny Ramonita -dysphagia puree diet with honey thick liquid on teaspoon and magic cup Code(s): J69.0 - PNEUMONITIS DUE TO INHALATION OF FOOD AND VOMIT (3) Hyperkalemia Assessment/Plan: -resolved Code(s): E87.5 - HYPERKALEMIA (4) Acute kidney injury superimposed on CKD Assessment/Plan: -appreciate nephrology assistance -continue clinimix until tolerating po Code(s): N17.9 - ACUTE KIDNEY FAILURE, UNSPECIFIED; N18.9 - CHRONIC KIDNEY DISEASE, UNSPECIFIED (5) ASHD (arteriosclerotic heart disease) Assessment/Plan: -cardiology following -continue medical management Code(s): I25.10 - ATHSCL HEART DISEASE OF [place] CORONARY ARTERY W/O ANG PCTRS (6) CHF (congestive heart failure) Assessment/Plan: -not in exacerbation Code(s): I50.9 - HEART FAILURE, UNSPECIFIED Qualifiers: Heart failure type: systolic Heart failure chronicity: chronic Qualified Code(s): I50.22 - Chronic systolic (congestive) heart failure (7) HTN (hypertension) Assessment/Plan: -controlled Code(s): I10 - ESSENTIAL (PRIMARY) HYPERTENSION Qualifiers: Hypertension type: essential hypertension Qualified Code(s): I10 - Essential (primary) hypertension (8) Hyperlipidemia Assessment/Plan: -on pravastatin as an outpatient Code(s): E78.5 - HYPERLIPIDEMIA, UNSPECIFIED Qualifiers: Hyperlipidemia type: mixed hyperlipidemia Qualified Code(s): E78.2 - Mixed hyperlipidemia (9) Food bolus -GI following -s/p EGD -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 Can transfer to med/surg today Problem List - Problems (1) Acute respiratory failure with hypoxia Code(s): J96.01 - ACUTE RESPIRATORY FAILURE WITH HYPOXIA (2) Aspiration pneumonia Code(s): J69.0 - PNEUMONITIS DUE TO INHALATION OF FOOD AND VOMIT (3) Hyperkalemia Code(s): E87.5 - HYPERKALEMIA (4) Acute kidney injury superimposed on CKD Code(s): N17.9 - ACUTE KIDNEY FAILURE, UNSPECIFIED; N18.9 - CHRONIC KIDNEY DISEASE, UNSPECIFIED (5) ASHD (arteriosclerotic heart disease) Code(s): I25.10 - ATHSCL HEART DISEASE OF [place] CORONARY ARTERY W/O ANG PCTRS (6) CHF (congestive heart failure) Code(s): I50.9 - HEART FAILURE, UNSPECIFIED Qualifiers: Heart failure type: systolic Heart failure chronicity: chronic Qualified Code(s): I50.22 - Chronic systolic (congestive) heart failure (7) HTN (hypertension) Code(s): I10 - ESSENTIAL (PRIMARY) HYPERTENSION Qualifiers: Hypertension type: essential hypertension Qualified Code(s): I10 - Essential (primary) hypertension (8) Hyperlipidemia Code(s): E78.5 - HYPERLIPIDEMIA, UNSPECIFIED Qualifiers: Hyperlipidemia type: mixed hyperlipidemia Qualified Code(s): E78.2 - Mixed hyperlipidemia
[2018-12-16] MEDS ORDERED: KCL 10 MEQ IVPB 10 MEQ/100 ML INFUS.BAG IVPB SCH (11:15)
--- NOTE | 2018-12-16 13:14 | PN ---
Progress Note, Physician History of Present Illness: Pt seen and examined at bedside. He is awake and appears comfortable. - Current Medication List Current Medications: Active Medications Albuterol/Ipratropium (Duoneb -) 1 amp NEB RQID [facility] Last Admin: 12/16/18 11:30 Dose: 1 amp Aspirin (Asa -) 81 mg NGT DAILY [facility] Last Admin: 12/16/18 10:40 Dose: Not Given Donepezil HCl (Aricept -) 10 mg NGT HS [facility] Last Admin: 12/15/18 22:22 Dose: 10 mg Emollient Ointment (Aquaphor -) 1 applic TP BID [facility] Last Admin: 12/16/18 10:42 Dose: 1 applic Heparin Sodium (Porcine) (Heparin -) 5,000 unit SQ BID [facility] Last Admin: 12/16/18 10:40 Dose: 5,000 unit Hydralazine HCl (Apresoline Injection -) 10 mg IVPUSH Q6H [facility] Last Admin: 12/16/18 05:28 Dose: 10 mg Ceftriaxone Sodium 1 gm/ (Dextrose) 50 mls @ 100 mls/hr IVPB DAILY [facility]; Protocol Last Admin: 12/16/18 10:41 Dose: 100 mls/hr Metronidazole (Flagyl 500mg Premixed Ivpb -) 500 mg in 100 mls @ 100 mls/hr IVPB Q8H-IV [facility] Last Admin: 12/16/18 10:26 Dose: 100 mls/hr Amino Acids (Clinimix -) 1,000 mls @ 50 mls/hr IV Q20H [facility] Last Admin: 12/15/18 16:00 Dose: 50 mls/hr Insulin Aspart (Novolog Vial Sliding Scale -) 1 vial SQ ACHS [facility]; Protocol Last Admin: 12/16/18 06:14 Dose: Not Given Memantine (Namenda -) 10 mg GT BID [facility] Last Admin: 12/16/18 10:41 Dose: Not Given Metoprolol Succinate (Toprol Xl -) 25 mg PO DAILY [facility] Last Admin: 12/16/18 10:41 Dose: Not Given Pantoprazole Sodium (Protonix Iv) 40 mg IVPUSH BID [facility] Last Admin: 12/16/18 10:41 Dose: 40 mg - Objective Vital Signs: Vital Signs Temperature 98.5 F 12/16/18 06:00 Pulse Rate 104 H 12/16/18 06:00 Respiratory Rate 20 12/16/18 10:00 Blood Pressure 134/67 12/16/18 10:00 O2 Sat by Pulse Oximetry (%) 100 12/16/18 09:00 Constitutional: Yes: Calm Eyes: Yes: Conjunctiva Clear HENT: Yes: Atraumatic Neck: Yes: Supple Cardiovascular: Yes: S1, S2 Respiratory: Yes: CTA Bilaterally, On Nasal O2 Gastrointestinal: Yes: Soft Genitourinary: Yes: Incontinence Musculoskeletal: Yes: Muscle Weakness Edema: LLE: Trace, RLE: Trace Integumentary: Yes: WNL Neurological: Yes: Oriented Labs: CBC, BMP 12/16/18 08:40 12/16/18 08:40 INR, PTT INR 1.07 (0.83-1.09) 12/03/18 05:40 Problem List - Problems (1) Acute kidney injury superimposed on CKD Code(s): N17.9 - ACUTE KIDNEY FAILURE, UNSPECIFIED; N18.9 - CHRONIC KIDNEY DISEASE, UNSPECIFIED (2) Aspiration pneumonia Code(s): J69.0 - PNEUMONITIS DUE TO INHALATION OF FOOD AND VOMIT (3) Vomiting Code(s): R11.10 - VOMITING, UNSPECIFIED Qualifiers: Vomiting type: unspecified Vomiting Intractability: unspecified Nausea presence: unspecified Qualified Code(s): R11.10 - Vomiting, unspecified Assessment/Plan Current Medications Generic Name Dose Route Start Last Admin Trade Name Freq PRN Reason Stop Dose Admin Albuterol/Ipratropium 1 amp 12/09/18 23:09 12/16/18 11:30 Duoneb - NEB 1 amp RQID IKER Administration Aspirin 81 mg 12/09/18 10:00 12/16/18 10:40 Asa - NGT Not Given DAILY IKER Donepezil HCl 10 mg 12/08/18 22:00 12/15/18 22:22 Aricept - NGT 10 mg HS IKER Administration Emollient Ointment 1 applic 12/10/18 17:45 12/16/18 10:42 Aquaphor - TP 1 applic BID IKER Administration Heparin Sodium (Porcine) 5,000 unit 12/08/18 22:00 12/16/18 10:40 Heparin - SQ 5,000 unit BID IKER Administration Hydralazine HCl 10 mg 12/11/18 12:00 12/16/18 05:28 Apresoline Injection - IVPUSH 10 mg Q6H IKER Administration Ceftriaxone Sodium 1 gm/ 50 mls @ 100 mls/hr 12/09/18 10:00 12/16/18 10:41 Dextrose IVPB 100 mls/hr DAILY IKER Administration Protocol Metronidazole 500 mg in 100 mls @ 100 mls/hr 12/08/18 18:00 12/16/18 10:26 Flagyl 500mg Premixed Ivpb - IVPB 100 mls/hr Q8H-IV I[facility]ER Administration Amino Acids 1,000 mls @ 50 mls/hr 12/11/18 11:00 12/15/18 16:00 Clinimix - IV 50 mls/hr Q20H IKER Administration Insulin Aspart 1 vial 12/08/18 22:00 12/16/18 06:14 Novolog Vial Sliding Scale - SQ Not Given ACHS IKER Protocol Memantine 10 mg 12/08/18 22:00 12/16/18 10:41 Namenda - GT Not Given BID IKER Metoprolol Succinate 25 mg 12/09/18 10:00 12/16/18 10:41 Toprol Xl - PO Not Given DAILY IKER Pantoprazole Sodium 40 mg 12/08/18 22:00 12/16/18 10:41 Protonix Iv IVPUSH 40 mg BID IKER Administration Impression 1. KATHY 2. acute resp failure 3. HTN 4. gastric cancer 5. dementia 6. HLD 7. CAD 8. PVD 9. PNA 10. sepsis 11. hyperkalemia Plan - pt started on diet however is not eating much - stop clinimix once he is tolerating diet - replace potassium - discussed with family - avoid nsaids - avoid nephrotoxins
[2018-12-16] MEDS: AMINO ACIDS 4.25%/D5W 1,000 ML IV SCH (13:36)
--- NOTE | 2018-12-16 15:44 | PN ---
Progress Note (short form) - Note Progress Note: PULMONARY Breathing continues to improve. Less cough. No fevers or chills. Vital Signs Period Temp Pulse Resp BP Sys/Heredia Pulse Ox Last 24 Hr 97.4 F-98.5 F 104-113 18-20 134-142/65-77 95-100 Gen: NAD at rest Heart: RRR Lung: decreased breath sounds at the bases Abd: soft, nontender Ext: no edema CBC, BMP 12/16/18 08:40 12/16/18 08:40 Active Medications Albuterol/Ipratropium (Duoneb -) 1 amp NEB RQID [facility] Last Admin: 12/16/18 11:30 Dose: 1 amp Aspirin (Asa -) 81 mg NGT DAILY [facility] Last Admin: 12/16/18 10:40 Dose: Not Given Donepezil HCl (Aricept -) 10 mg NGT HS [facility] Last Admin: 12/15/18 22:22 Dose: 10 mg Emollient Ointment (Aquaphor -) 1 applic TP BID [facility] Last Admin: 12/16/18 10:42 Dose: 1 applic Heparin Sodium (Porcine) (Heparin -) 5,000 unit SQ BID [facility] Last Admin: 12/16/18 10:40 Dose: 5,000 unit Hydralazine HCl (Apresoline Injection -) 10 mg IVPUSH Q6H [facility] Last Admin: 12/16/18 05:28 Dose: 10 mg Metronidazole (Flagyl 500mg Premixed Ivpb -) 500 mg in 100 mls @ 100 mls/hr IVPB Q8H-IV [facility] Stop: 12/16/18 23:59 Last Admin: 12/16/18 10:26 Dose: 100 mls/hr Amino Acids (Clinimix -) 1,000 mls @ 50 mls/hr IV Q20H [facility] Last Admin: 12/16/18 13:36 Dose: 50 mls/hr Insulin Aspart (Novolog Vial Sliding Scale -) 1 vial SQ ACHS [facility]; Protocol Last Admin: 12/16/18 13:40 Dose: Not Given Memantine (Namenda -) 10 mg GT BID [facility] Last Admin: 12/16/18 10:41 Dose: Not Given Metoprolol Succinate (Toprol Xl -) 25 mg PO DAILY [facility] Last Admin: 12/16/18 10:41 Dose: Not Given Pantoprazole Sodium (Protonix Iv) 40 mg IVPUSH BID [facility] Last Admin: 12/16/18 10:41 Dose: 40 mg A/P Acute Hypoxic and Hypercapneic Respiratory Failure improving Pneumonia likely Aspiration Severe Sepsis resolving Acute on Chronic Renal Failure CAD +Troponins likely Demand Ischemia Lactic Acidosis HTN Hyperlipidemia GERD - continue antibiotics - aspiration precautions - IVF - monitor urine output, creatinine - taper Fio2 to keep Spo2 >90% - rehab/PT - DVT prophylaxis
[2018-12-16] MEDS: DONEPEZIL HCL 10 MG TABLET (FP) NGT SCH (23:12)
[2018-12-17] MEDS: hydrALAZINE HCL 20 MG/ML VIAL IVPUSH SCH ×4 (00:13→18:02)
[2018-12-17 05:00] VITALS: BMI 31.6
[2018-12-17] MEDS: INSULIN SLIDING SCALE (NOVOLOG) 1 VIAL SQ SCH ×4 (06:05→22:09)
[2018-12-17] MEDS: AMINO ACIDS 4.25%/D5W 1,000 ML IV SCH (06:06)
[2018-12-17 07:14] LABS: BLOOD UREA NITROGEN 47.2 mg/dL (7-18); CALCIUM 8.1 mg/dL (8.5-10.1); CREATININE 1.9 mg/dL (0.55-1.3); PHOSPHOROUS 2.7 mg/dL (2.5-4.9); POTASSIUM 3.5 mmol/L (3.5-5.1)
[2018-12-17 07:21] LABS: BASO % 0.6 % (0-2.0); EOS % 2.7 % (0-4.5); HEMATOCRIT 28.7 % (35.4-49); LYMPH % 9.8 % (8-40); MCH 31.2 pg (25.7-33.7); MEAN CELL VOLUME 89.4 fl (80-96); MEAN PLT VOLUME 8.4 fl (7.5-11.1); MONO % 8.4 % (3.8-10.2); NEUT % 78.5 % (42.8-82.8); PLATELET COUNT 280 K/MM3 (134-434); RBC 3.21 M/mm3 (4.00-5.60); RDW 15.2 % (11.9-15.9); WHITE BLOOD COUNT 8.2 K/mm3 (4.0-10.0)
[2018-12-17] MEDS: ALBUTEROL SO4 2.5/IPRATROPIUM 0.5 INH SOL 3 ML VIAL.NEB. NEB SCH ×2 (08:45→12:07)
[2018-12-17] MEDS: ASPIRIN 81 MG CHEWABLE TABLETS NGT SCH (10:25)
[2018-12-17] MEDS: HEPARIN NA (PORCINE) 5,000 UNITS/ML 1ML VIAL SQ SCH ×2 (10:26→22:00)
[2018-12-17] MEDS: PANTOPRAZOLE SODIUM 40 MG VIAL IVPUSH SCH ×2 (10:26→22:01)
[2018-12-17] MEDS: MINERAL OIL/PET HY-PHL TOPICAL OINTMENT 454 GM JAR TP SCH ×2 (10:27→22:00)
[2018-12-17] MEDS: metoPROLOL SUCCINATE 25 MG TAB.SR.24H (FP) PO SCH (10:29)
[2018-12-17] MEDS: MEMANTINE HCL 10 MG TABLET (FP) GT SCH ×2 (10:29→22:01)
--- NOTE | 2018-12-17 10:39 | PN ---
Progress Note, Physician Chief Complaint: no new CV complaints Denies CP or SOB History of Present Illness: Gurgling noted, upper airway sounds - Current Medication List Current Medications: Active Medications Albuterol/Ipratropium (Duoneb -) 1 amp NEB RQID [facility] Last Admin: 12/17/18 08:45 Dose: 1 amp Aspirin (Asa -) 81 mg NGT DAILY [facility] Last Admin: 12/17/18 10:25 Dose: Not Given Donepezil HCl (Aricept -) 10 mg NGT HS [facility] Last Admin: 12/16/18 23:12 Dose: Not Given Emollient Ointment (Aquaphor -) 1 applic TP BID [facility] Last Admin: 12/17/18 10:27 Dose: 1 applic Heparin Sodium (Porcine) (Heparin -) 5,000 unit SQ BID [facility] Last Admin: 12/17/18 10:26 Dose: 5,000 unit Hydralazine HCl (Apresoline Injection -) 10 mg IVPUSH Q6H [facility] Last Admin: 12/17/18 06:05 Dose: 10 mg Amino Acids (Clinimix -) 1,000 mls @ 50 mls/hr IV Q20H [facility] Last Admin: 12/17/18 06:06 Dose: 50 mls/hr Insulin Aspart (Novolog Vial Sliding Scale -) 1 vial SQ ACHS [facility]; Protocol Last Admin: 12/17/18 06:05 Dose: 2 units Memantine (Namenda -) 10 mg GT BID [facility] Last Admin: 12/17/18 10:29 Dose: Not Given Metoprolol Succinate (Toprol Xl -) 25 mg PO DAILY [facility] Last Admin: 12/17/18 10:29 Dose: Not Given Pantoprazole Sodium (Protonix Iv) 40 mg IVPUSH BID [facility] Last Admin: 12/17/18 10:26 Dose: 40 mg - Objective Vital Signs: Vital Signs Temperature 98.0 F 12/17/18 09:24 Pulse Rate 108 H 12/17/18 09:24 Respiratory Rate 24 H 12/17/18 09:24 Blood Pressure 127/90 12/17/18 09:24 O2 Sat by Pulse Oximetry (%) 96 12/17/18 07:29 Constitutional: Yes: No Distress Cardiovascular: Yes: Regular Rate and Rhythm Respiratory: Yes: Rhonchi, Other (referred upper airway sounds; no wheezing.) Gastrointestinal: Yes: Soft, Abdomen, Obese Edema: No Neurological: Yes: Alert ...Motor Strength: WNL Labs: CBC, BMP 12/17/18 05:15 12/17/18 05:15 INR, PTT INR 1.07 (0.83-1.09) 12/03/18 05:40 Assessment/Plan Assessment/Plan Echo 10/2017: tds, "no definitive statements can be made about findings due to extremely poor acoustic windows". nl lv size. Severely decreased LV sys fn. Global with possible anteroapical septal AK. RV not seen. 1+ ar. MV/TV not well visualized. MUGA 08/23: EF 51% Echo 09/2016: nl lv size. Septum is akinetic. No rwma in inferior, inferolateral or lateral wall, other ordoñez not well seen. Overall ejection fraction is probably mildly, vs [id number] reduced--estimated at 45% vs 40-45%. nl rv/valves. MIBI 07/22: 4:30min, probably + STs; large area mid-AW/septum/apex scar with small P.I.I.; moder decr EF with mild global HK and sev HK vs AK of mid-AW// apex; mild LVE, no TID [facility] ([place]) 05/20: thrombotic subtotal occl pLAD (BMS), 70-80% ramus, diffuse 30- 50% RCA, EF 35% (anterolat AK, lateral/posterolat HK) IMP: 1. Acute respiratory failure secondary to aspiration PNA, now extubated on tele. 2. CAD s/p prior AL, PCI LAD 2010, w/ ischemic CM and chronic systolic CHF (EF chronically b/t 40-45%) 3. Acute on chronic renal failure, improved 4. + TnI secondary to type II AL, demand ischemia in setting of above. 5. Chronic LBBB 6. H/o gastric cancer 7. NSVTach REC: 1. ASA, metoprolol resumed. 2. defer EDELMIRA/ARB due to CKD, advanced dementia makes benefits of this med questionable in the intermediate-term 3. Upper airway sounds, will repeat CXR this AM: ? developing congestion 4. Continue Abx as per ID. 5. DVT prophylaxis. GI prophylaxis w/ PPI. 6. Renal following, renal fx improved. 7. HTN -reasonably controlled. 8. Keep K and Mg repleted. Tele d/c'd 12/16
--- NOTE | 2018-12-17 10:52 | PN ---
Progress Note (short form) - Note Progress Note: PULMONARY Breathing continues to improve. Less cough. No fevers or chills. Vital Signs Period Temp Pulse Resp BP Sys/Heredia Pulse Ox Last 24 Hr 97.3 F-98.4 F 102-111 20-26 118-141/58-90 92-96 Gen: NAD at rest Heart: RRR Lung: decreased breath sounds at the bases Abd: soft, nontender Ext: no edema CBC, BMP 12/17/18 05:15 12/17/18 05:15 Active Medications Albuterol/Ipratropium (Duoneb -) 1 amp NEB RQID [facility] Last Admin: 12/17/18 08:45 Dose: 1 amp Aspirin (Asa -) 81 mg NGT DAILY [facility] Last Admin: 12/17/18 10:25 Dose: Not Given Donepezil HCl (Aricept -) 10 mg NGT HS [facility] Last Admin: 12/16/18 23:12 Dose: Not Given Emollient Ointment (Aquaphor -) 1 applic TP BID [facility] Last Admin: 12/17/18 10:27 Dose: 1 applic Heparin Sodium (Porcine) (Heparin -) 5,000 unit SQ BID [facility] Last Admin: 12/17/18 10:26 Dose: 5,000 unit Hydralazine HCl (Apresoline Injection -) 10 mg IVPUSH Q6H [facility] Last Admin: 12/17/18 06:05 Dose: 10 mg Amino Acids (Clinimix -) 1,000 mls @ 50 mls/hr IV Q20H [facility] Last Admin: 12/17/18 06:06 Dose: 50 mls/hr Insulin Aspart (Novolog Vial Sliding Scale -) 1 vial SQ ACHS [facility]; Protocol Last Admin: 12/17/18 06:05 Dose: 2 units Memantine (Namenda -) 10 mg GT BID [facility] Last Admin: 12/17/18 10:29 Dose: Not Given Metoprolol Succinate (Toprol Xl -) 25 mg PO DAILY [facility] Last Admin: 12/17/18 10:29 Dose: Not Given Pantoprazole Sodium (Protonix Iv) 40 mg IVPUSH BID [facility] Last Admin: 12/17/18 10:26 Dose: 40 mg A/P Acute Hypoxic and Hypercapneic Respiratory Failure improving Pneumonia likely Aspiration Severe Sepsis resolving Acute on Chronic Renal Failure CAD +Troponins likely Demand Ischemia Lactic Acidosis HTN Hyperlipidemia GERD - completed antibiotics - aspiration precautions - IVF - monitor urine output, creatinine - taper Fio2 to keep Spo2 >90% - rehab/PT - DVT prophylaxis
--- NOTE | 2018-12-17 11:18 | PN ---
Progress Note, Physician Chief Complaint: Mr Camacho says he is feeling fine today. Denies cp, sob, n/v. RN states he still has significant difficulty swallowing even with new diet. - Current Medication List Current Medications: Active Medications Albuterol/Ipratropium (Duoneb -) 1 amp NEB RQID [facility] Last Admin: 12/17/18 08:45 Dose: 1 amp Aspirin (Asa -) 81 mg NGT DAILY [facility] Last Admin: 12/17/18 10:25 Dose: Not Given Donepezil HCl (Aricept -) 10 mg NGT HS [facility] Last Admin: 12/16/18 23:12 Dose: Not Given Emollient Ointment (Aquaphor -) 1 applic TP BID [facility] Last Admin: 12/17/18 10:27 Dose: 1 applic Heparin Sodium (Porcine) (Heparin -) 5,000 unit SQ BID [facility] Last Admin: 12/17/18 10:26 Dose: 5,000 unit Hydralazine HCl (Apresoline Injection -) 10 mg IVPUSH Q6H [facility] Last Admin: 12/17/18 06:05 Dose: 10 mg Amino Acids (Clinimix -) 1,000 mls @ 50 mls/hr IV Q20H [facility] Last Admin: 12/17/18 06:06 Dose: 50 mls/hr Insulin Aspart (Novolog Vial Sliding Scale -) 1 vial SQ ACHS [facility]; Protocol Last Admin: 12/17/18 06:05 Dose: 2 units Memantine (Namenda -) 10 mg GT BID [facility] Last Admin: 12/17/18 10:29 Dose: Not Given Metoprolol Succinate (Toprol Xl -) 25 mg PO DAILY [facility] Last Admin: 12/17/18 10:29 Dose: Not Given Pantoprazole Sodium (Protonix Iv) 40 mg IVPUSH BID [facility] Last Admin: 12/17/18 10:26 Dose: 40 mg - Objective Vital Signs: Vital Signs Temperature 36.7 C 12/17/18 09:24 Pulse Rate 108 H 12/17/18 09:24 Respiratory Rate 24 H 12/17/18 09:24 Blood Pressure 127/90 12/17/18 09:24 O2 Sat by Pulse Oximetry (%) 96 12/17/18 07:29 Constitutional: Yes: Well Nourished, No Distress, Calm Cardiovascular: Yes: Regular Rate and Rhythm. No: Gallop, Murmur, Rub Respiratory: Yes: Regular, CTA Bilaterally. No: Rales, Rhonchi, Wheezes Gastrointestinal: Yes: Normal Bowel Sounds, Soft. No: Distention, Tenderness Extremities: Yes: WNL Edema: No Labs: CBC, BMP 12/17/18 05:15 12/17/18 05:15 INR, PTT INR 1.07 (0.83-1.09) 12/03/18 05:40 Problem List - Problems (1) Acute respiratory failure with hypoxia Code(s): J96.01 - ACUTE RESPIRATORY FAILURE WITH HYPOXIA (2) Aspiration pneumonia Code(s): J69.0 - PNEUMONITIS DUE TO INHALATION OF FOOD AND VOMIT (3) Hyperkalemia Code(s): E87.5 - HYPERKALEMIA (4) Acute kidney injury superimposed on CKD Code(s): N17.9 - ACUTE KIDNEY FAILURE, UNSPECIFIED; N18.9 - CHRONIC KIDNEY DISEASE, UNSPECIFIED (5) ASHD (arteriosclerotic heart disease) Code(s): I25.10 - ATHSCL HEART DISEASE OF [place] CORONARY ARTERY W/O ANG PCTRS (6) CHF (congestive heart failure) Code(s): I50.9 - HEART FAILURE, UNSPECIFIED Qualifiers: Heart failure type: systolic Heart failure chronicity: chronic Qualified Code(s): I50.22 - Chronic systolic (congestive) heart failure (7) HTN (hypertension) Code(s): I10 - ESSENTIAL (PRIMARY) HYPERTENSION Qualifiers: Hypertension type: essential hypertension Qualified Code(s): I10 - Essential (primary) hypertension (8) Hyperlipidemia Code(s): E78.5 - HYPERLIPIDEMIA, UNSPECIFIED Qualifiers: Hyperlipidemia type: mixed hyperlipidemia Qualified Code(s): E78.2 - Mixed hyperlipidemia Assessment/Plan (1) Acute respiratory failure with hypoxia Assessment/Plan: -resolved Code(s): J96.01 - ACUTE RESPIRATORY FAILURE WITH HYPOXIA (2) Aspiration pneumonia with sepsis Assessment/Plan: -finished full course of antibiotics -monitor over the weekend -will need GOC discussion -needs SNF but cannot discharge if unable to swallow Code(s): J69.0 - PNEUMONITIS DUE TO INHALATION OF FOOD AND VOMIT (3) Hyperkalemia Assessment/Plan: -resolved Code(s): E87.5 - HYPERKALEMIA (4) Acute kidney injury superimposed on CKD Assessment/Plan: -continue clinimix currently Code(s): N17.9 - ACUTE KIDNEY FAILURE, UNSPECIFIED; N18.9 - CHRONIC KIDNEY DISEASE, UNSPECIFIED (5) ASHD (arteriosclerotic heart disease) Assessment/Plan: -cardiology following -continue medical management Code(s): I25.10 - ATHSCL HEART DISEASE OF [place] CORONARY ARTERY W/O ANG PCTRS (6) CHF (congestive heart failure) Assessment/Plan: -not in exacerbation Code(s): I50.9 - HEART FAILURE, UNSPECIFIED Qualifiers: Heart failure type: systolic Heart failure chronicity: chronic Qualified Code(s): I50.22 - Chronic systolic (congestive) heart failure (7) HTN (hypertension) Assessment/Plan: -controlled Code(s): I10 - ESSENTIAL (PRIMARY) HYPERTENSION Qualifiers: Hypertension type: essential hypertension Qualified Code(s): I10 - Essential (primary) hypertension (8) Hyperlipidemia Assessment/Plan: -on pravastatin as an outpatient Code(s): E78.5 - HYPERLIPIDEMIA, UNSPECIFIED Qualifiers: Hyperlipidemia type: mixed hyperlipidemia Qualified Code(s): E78.2 - Mixed hyperlipidemia (9) Food bolus -GI following -s/p EGD -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
[2018-12-17] MEDS: ALBUTEROL SO4 0.083% IH SOL 2.5 MG/3 ML VIAL.NEB. NEB PRN (15:35)
[2018-12-17] MEDS: ACETYLCYSTEINE 20% 200MG/ML 30 ML VIAL *FOR ORAL / INH USE ONLY NEB SCH ×2 (15:36→20:50)
--- NOTE | 2018-12-17 21:27 | PN ---
Progress Note (short form) - Note Progress Note: covering dr trejo 1. KATHY 2. acute resp failure 3. HTN 4. gastric cancer 5. dementia 6. HLD 7. CAD 8. PVD 9. PNA 10. sepsis 11. hyperkalemia Current Medications Acetylcysteine (Mucomyst 20 Oral / Inh Use Only*) 200 mg NEB RQID [facility] Last Admin: 12/17/18 15:36 Dose: 200 mg Albuterol Sulfate (Ventolin 0.083% Nebulizer Soln -) 1 amp NEB Q4H PRN PRN Reason: SHORT OF BREATH/WHEEZING Last Admin: 12/17/18 15:35 Dose: 1 amp Aspirin (Asa -) 81 mg NGT DAILY [facility] Last Admin: 12/17/18 10:25 Dose: Not Given Donepezil HCl (Aricept -) 10 mg NGT HS [facility] Last Admin: 12/16/18 23:12 Dose: Not Given Emollient Ointment (Aquaphor -) 1 applic TP BID [facility] Last Admin: 12/17/18 10:27 Dose: 1 applic Heparin Sodium (Porcine) (Heparin -) 5,000 unit SQ BID [facility] Last Admin: 12/17/18 10:26 Dose: 5,000 unit Hydralazine HCl (Apresoline Injection -) 10 mg IVPUSH Q6H [facility] Last Admin: 12/17/18 18:02 Dose: Not Given Amino Acids (Clinimix -) 1,000 mls @ 50 mls/hr IV Q20H [facility] Last Admin: 12/17/18 06:06 Dose: 50 mls/hr Insulin Aspart (Novolog Vial Sliding Scale -) 1 vial SQ ACHS [facility]; Protocol Last Admin: 12/17/18 16:28 Dose: Not Given Memantine (Namenda -) 10 mg GT BID [facility] Last Admin: 12/17/18 10:29 Dose: Not Given Metoprolol Succinate (Toprol Xl -) 25 mg PO DAILY [facility] Last Admin: 12/17/18 10:29 Dose: Not Given Pantoprazole Sodium (Protonix Iv) 40 mg IVPUSH BID [facility] Last Admin: 12/17/18 10:26 Dose: 40 mg Last Vital Signs Temp Pulse Resp BP Pulse Ox 97.9 F 96 H 24 H 129/64 98 12/17/18 20:55 12/17/18 20:55 12/17/18 09:24 12/17/18 20:55 12/17/18 20:36 CBC, BMP 12/17/18 05:15 12/17/18 05:15 IMP- aotemia, new worsening trend, 2/2 poor po intake Plan- recheck labs in am encourage fluids
[2018-12-17] MEDS: DONEPEZIL HCL 10 MG TABLET (FP) NGT SCH (21:59)
[2018-12-18] MEDS: hydrALAZINE HCL 20 MG/ML VIAL IVPUSH SCH ×5 (01:44→23:32)
[2018-12-18] MEDS: AMINO ACIDS 4.25%/D5W 1,000 ML IV SCH ×2 (05:57→23:31)
[2018-12-18] MEDS: INSULIN SLIDING SCALE (NOVOLOG) 1 VIAL SQ SCH ×4 (06:13→23:31)
[2018-12-18] MEDS: ACETYLCYSTEINE 20% 200MG/ML 30 ML VIAL *FOR ORAL / INH USE ONLY NEB SCH ×4 (08:04→20:42)
[2018-12-18] MEDS: ALBUTEROL SO4 0.083% IH SOL 2.5 MG/3 ML VIAL.NEB. NEB PRN ×4 (08:05→20:42)
[2018-12-18 08:14] LABS: BASO % 0.6 % (0-2.0); EOS % 3.4 % (0-4.5); HEMATOCRIT 31.4 % (35.4-49); HEMOGLOBIN 10.8 GM/dL (11.7-16.9); LYMPH % 12.4 % (8-40); MCH 31.1 pg (25.7-33.7); MCHC 34.3 g/dl (32.0-35.9); MEAN CELL VOLUME 90.7 fl (80-96); MEAN PLT VOLUME 7.5 fl (7.5-11.1); MONO % 9.2 % (3.8-10.2); NEUT % 74.4 % (42.8-82.8); PLATELET COUNT 259 K/MM3 (134-434); RBC 3.46 M/mm3 (4.00-5.60); RDW 15.3 % (11.9-15.9); WHITE BLOOD COUNT 8.6 K/mm3 (4.0-10.0)
[2018-12-18 08:37] LABS: BLOOD UREA NITROGEN 50.3 mg/dL (7-18); CALCIUM 8.6 mg/dL (8.5-10.1); CREATININE 1.9 mg/dL (0.55-1.3); MAGNESIUM 2.1 mg/dL (1.8-2.4); PHOSPHOROUS 3.2 mg/dL (2.5-4.9); POTASSIUM 4.4 mmol/L (3.5-5.1)
[2018-12-18] MEDS: MINERAL OIL/PET HY-PHL TOPICAL OINTMENT 454 GM JAR TP SCH ×2 (10:09→21:55)
[2018-12-18] MEDS: HEPARIN NA (PORCINE) 5,000 UNITS/ML 1ML VIAL SQ SCH ×2 (10:09→21:56)
[2018-12-18] MEDS: PANTOPRAZOLE SODIUM 40 MG VIAL IVPUSH SCH ×2 (10:09→21:56)
[2018-12-18] MEDS: ASPIRIN 81 MG CHEWABLE TABLETS NGT SCH (10:10)
[2018-12-18] MEDS: metoPROLOL SUCCINATE 25 MG TAB.SR.24H (FP) PO SCH (10:10)
[2018-12-18] MEDS: MEMANTINE HCL 10 MG TABLET (FP) GT SCH ×2 (10:10→21:56)
--- NOTE | 2018-12-18 10:50 | PN ---
Progress Note (short form) - Note Progress Note: PULMONARY CXR with left opacification. Somnolent but arousable. Vital Signs Period Temp Pulse Resp BP Sys/Heredia Pulse Ox Last 24 Hr 97.7 F-98.1 F 96-99 20-20 128-140/64-70 98-100 Gen: NAD at rest Heart: RRR Lung: scattered rhonchi Abd: soft, nontender Ext: no edema CBC, BMP 12/18/18 07:18 12/18/18 07:18 Active Medications Acetylcysteine (Mucomyst 20 Oral / Inh Use Only*) 200 mg NEB RQID [facility] Last Admin: 12/18/18 08:04 Dose: 200 mg Albuterol Sulfate (Ventolin 0.083% Nebulizer Soln -) 1 amp NEB Q4H PRN PRN Reason: SHORT OF BREATH/WHEEZING Last Admin: 12/18/18 08:05 Dose: 1 amp Aspirin (Asa -) 81 mg NGT DAILY [facility] Last Admin: 12/18/18 10:10 Dose: Not Given Donepezil HCl (Aricept -) 10 mg NGT HS [facility] Last Admin: 12/17/18 21:59 Dose: Not Given Emollient Ointment (Aquaphor -) 1 applic TP BID [facility] Last Admin: 12/18/18 10:09 Dose: 1 applic Heparin Sodium (Porcine) (Heparin -) 5,000 unit SQ BID [facility] Last Admin: 12/18/18 10:09 Dose: 5,000 unit Hydralazine HCl (Apresoline Injection -) 10 mg IVPUSH Q6H [facility] Last Admin: 12/18/18 05:59 Dose: 10 mg Amino Acids (Clinimix -) 1,000 mls @ 50 mls/hr IV Q20H [facility] Last Admin: 12/18/18 05:57 Dose: 50 mls/hr Insulin Aspart (Novolog Vial Sliding Scale -) 1 vial SQ ACHS [facility]; Protocol Last Admin: 12/18/18 06:13 Dose: Not Given Memantine (Namenda -) 10 mg GT BID [facility] Last Admin: 12/18/18 10:10 Dose: Not Given Metoprolol Succinate (Toprol Xl -) 25 mg PO DAILY [facility] Last Admin: 12/18/18 10:10 Dose: Not Given Pantoprazole Sodium (Protonix Iv) 40 mg IVPUSH BID [facility] Last Admin: 12/18/18 10:09 Dose: 40 mg A/P Acute Hypoxic and Hypercapneic Respiratory Failure improving Pneumonia likely Aspiration Left Atelectasis likely mucous plugging Severe Sepsis resolving Acute on Chronic Renal Failure CAD +Troponins likely Demand Ischemia Lactic Acidosis HTN Hyperlipidemia GERD - albuterol/mucomyst - chest PT - position right side down - BiPAP - completed antibiotics - aspiration precautions - IVF - monitor urine output, creatinine - taper Fio2 to keep Spo2 >90% - rehab/PT - DVT prophylaxis
--- NOTE | 2018-12-18 11:03 | PN ---
Progress Note, Physician Chief Complaint: Total white out left lung field noted on AM CXR 12/17 Given nebs, PT and repeat study unchanged. Placed back on tele for tenuous resp status, remained stable on 3LNC D/W Dr. Adam, plans for BiPAP History of Present Illness: Aspiration PNA s/p extubation - Current Medication List Current Medications: Active Medications Acetylcysteine (Mucomyst 20 Oral / Inh Use Only*) 200 mg NEB RQID [facility] Last Admin: 12/18/18 08:04 Dose: 200 mg Albuterol Sulfate (Ventolin 0.083% Nebulizer Soln -) 1 amp NEB Q4H PRN PRN Reason: SHORT OF BREATH/WHEEZING Last Admin: 12/18/18 08:05 Dose: 1 amp Aspirin (Asa -) 81 mg NGT DAILY [facility] Last Admin: 12/18/18 10:10 Dose: Not Given Donepezil HCl (Aricept -) 10 mg NGT HS [facility] Last Admin: 12/17/18 21:59 Dose: Not Given Emollient Ointment (Aquaphor -) 1 applic TP BID [facility] Last Admin: 12/18/18 10:09 Dose: 1 applic Heparin Sodium (Porcine) (Heparin -) 5,000 unit SQ BID [facility] Last Admin: 12/18/18 10:09 Dose: 5,000 unit Hydralazine HCl (Apresoline Injection -) 10 mg IVPUSH Q6H [facility] Last Admin: 12/18/18 05:59 Dose: 10 mg Amino Acids (Clinimix -) 1,000 mls @ 50 mls/hr IV Q20H [facility] Last Admin: 12/18/18 05:57 Dose: 50 mls/hr Insulin Aspart (Novolog Vial Sliding Scale -) 1 vial SQ ACHS [facility]; Protocol Last Admin: 12/18/18 06:13 Dose: Not Given Memantine (Namenda -) 10 mg GT BID [facility] Last Admin: 12/18/18 10:10 Dose: Not Given Metoprolol Succinate (Toprol Xl -) 25 mg PO DAILY [facility] Last Admin: 12/18/18 10:10 Dose: Not Given Pantoprazole Sodium (Protonix Iv) 40 mg IVPUSH BID [facility] Last Admin: 12/18/18 10:09 Dose: 40 mg - Objective Vital Signs: Vital Signs Temperature 98.1 F 12/18/18 04:00 Pulse Rate 98 H 12/18/18 04:00 Respiratory Rate 20 12/18/18 09:00 Blood Pressure 140/70 12/18/18 04:00 O2 Sat by Pulse Oximetry (%) 100 12/18/18 09:00 Constitutional: Yes: Calm Cardiovascular: Yes: Regular Rate and Rhythm Respiratory: Yes: Other (gurgling, referred upper airway sounds, relatively decreased breath sounds L vs R. No wheezing) Gastrointestinal: Yes: Soft Edema: No Neurological: Yes: Alert Labs: CBC, BMP 12/18/18 07:18 12/18/18 07:18 INR, PTT INR 1.07 (0.83-1.09) 12/03/18 05:40 Laboratory Tests 12/18/18 12/18/18 07:18 07:18 WBC 8.6 Hgb 10.8 L Plt Count 259 Sodium 144 Potassium 4.4 BUN 50.3 H Creatinine 1.9 H Magnesium 2.1 - ....Imaging EKG: Other (TELE: NSR w/ IVCD) Assessment/Plan Assessment/Plan Echo 10/2017: tds, "no definitive statements can be made about findings due to extremely poor acoustic windows". nl lv size. Severely decreased LV sys fn. Global with possible anteroapical septal AK. RV not seen. 1+ ar. MV/TV not well visualized. MUGA 08/23: EF 51% Echo 09/2016: nl lv size. Septum is akinetic. No rwma in inferior, inferolateral or lateral wall, other ordoñez not well seen. Overall ejection fraction is probably mildly, vs [id number] reduced--estimated at 45% vs 40-45%. nl rv/valves. MIBI 07/22: 4:30min, probably + STs; large area mid-AW/septum/apex scar with small P.I.I.; moder decr EF with mild global HK and sev HK vs AK of mid-AW// apex; mild LVE, no TID [facility] ([facility]) 05/20: thrombotic subtotal occl pLAD (BMS), 70-80% ramus, diffuse 30- 50% RCA, EF 35% (anterolat AK, lateral/posterolat HK) IMP: 1. Acute respiratory failure secondary to aspiration PNA, now extubated on tele but with white out left lung field likely due to mucous plug 2. CAD s/p prior AK, PCI LAD 2010, w/ ischemic CM and chronic systolic CHF (EF chronically b/t 40-45%) 3. Acute on chronic renal failure, improved 4. + TnI secondary to type II AK, demand ischemia in setting of above. 5. Chronic LBBB 6. H/o gastric cancer 7. NSVTach REC: 1. ASA, metoprolol resumed. Placed back on tele 12/19 for tenuous respiratory status. 2. Defer EDELMIRA/ARB due to CKD, advanced dementia makes benefits of this med questionable in the intermediate-term 3. Abnl CXR as above, likely due to mucous plug. Planned for BiPAP as per pulm and if no improvement may need BRONCH 4. Continue Abx as per ID. 5. DVT prophylaxis. GI prophylaxis w/ PPI. 6. Renal following, renal fx improved. 7. HTN -reasonably controlled. 8. Keep K and Mg repleted.
--- NOTE | 2018-12-18 14:31 | PN ---
Progress Note, Physician Chief Complaint: Mr Camacho says he feels fine - Current Medication List Current Medications: Active Medications Acetylcysteine (Mucomyst 20 Oral / Inh Use Only*) 200 mg NEB RQID [facility] Last Admin: 12/18/18 11:59 Dose: 200 mg Albuterol Sulfate (Ventolin 0.083% Nebulizer Soln -) 1 amp NEB Q4H PRN PRN Reason: SHORT OF BREATH/WHEEZING Last Admin: 12/18/18 11:58 Dose: 1 amp Aspirin (Asa -) 81 mg NGT DAILY [facility] Last Admin: 12/18/18 10:10 Dose: Not Given Donepezil HCl (Aricept -) 10 mg NGT HS [facility] Last Admin: 12/17/18 21:59 Dose: Not Given Emollient Ointment (Aquaphor -) 1 applic TP BID [facility] Last Admin: 12/18/18 10:09 Dose: 1 applic Heparin Sodium (Porcine) (Heparin -) 5,000 unit SQ BID [facility] Last Admin: 12/18/18 10:09 Dose: 5,000 unit Hydralazine HCl (Apresoline Injection -) 10 mg IVPUSH Q6H [facility] Last Admin: 12/18/18 12:43 Dose: 10 mg Amino Acids (Clinimix -) 1,000 mls @ 50 mls/hr IV Q20H [facility] Last Admin: 12/18/18 05:57 Dose: 50 mls/hr Insulin Aspart (Novolog Vial Sliding Scale -) 1 vial SQ ACHS [facility]; Protocol Last Admin: 12/18/18 12:08 Dose: 2 units Memantine (Namenda -) 10 mg GT BID [facility] Last Admin: 12/18/18 10:10 Dose: Not Given Metoprolol Succinate (Toprol Xl -) 25 mg PO DAILY [facility] Last Admin: 12/18/18 10:10 Dose: Not Given Pantoprazole Sodium (Protonix Iv) 40 mg IVPUSH BID [facility] Last Admin: 12/18/18 10:09 Dose: 40 mg - Objective Vital Signs: Vital Signs Temperature 36.9 C 12/18/18 12:00 Pulse Rate 99 H 12/18/18 12:00 Respiratory Rate 20 12/18/18 12:00 Blood Pressure 139/71 12/18/18 12:00 O2 Sat by Pulse Oximetry (%) 100 12/18/18 09:00 Constitutional: Yes: Well Nourished, No Distress, Calm Cardiovascular: Yes: Tachycardia. No: Gallop, Murmur, Rub Respiratory: Yes: Cough, On Nasal O2, Rales, Rhonchi, Tachypnea. No: Regular, CTA Bilaterally Gastrointestinal: Yes: Normal Bowel Sounds, Soft. No: Distention, Tenderness Extremities: Yes: WNL Edema: No Labs: CBC, BMP 12/18/18 07:18 12/18/18 07:18 INR, PTT INR 1.07 (0.83-1.09) 12/03/18 05:40 Problem List - Problems (1) Acute respiratory failure with hypoxia Code(s): J96.01 - ACUTE RESPIRATORY FAILURE WITH HYPOXIA (2) Aspiration pneumonia Code(s): J69.0 - PNEUMONITIS DUE TO INHALATION OF FOOD AND VOMIT (3) Hyperkalemia Code(s): E87.5 - HYPERKALEMIA (4) Acute kidney injury superimposed on CKD Code(s): N17.9 - ACUTE KIDNEY FAILURE, UNSPECIFIED; N18.9 - CHRONIC KIDNEY DISEASE, UNSPECIFIED (5) ASHD (arteriosclerotic heart disease) Code(s): I25.10 - ATHSCL HEART DISEASE OF [place] CORONARY ARTERY W/O ANG PCTRS (6) CHF (congestive heart failure) Code(s): I50.9 - HEART FAILURE, UNSPECIFIED Qualifiers: Heart failure type: systolic Heart failure chronicity: chronic Qualified Code(s): I50.22 - Chronic systolic (congestive) heart failure (7) HTN (hypertension) Code(s): I10 - ESSENTIAL (PRIMARY) HYPERTENSION Qualifiers: Hypertension type: essential hypertension Qualified Code(s): I10 - Essential (primary) hypertension (8) Hyperlipidemia Code(s): E78.5 - HYPERLIPIDEMIA, UNSPECIFIED Qualifiers: Hyperlipidemia type: mixed hyperlipidemia Qualified Code(s): E78.2 - Mixed hyperlipidemia Assessment/Plan (1) Acute respiratory failure with hypoxia Assessment/Plan: -resolved Code(s): J96.01 - ACUTE RESPIRATORY FAILURE WITH HYPOXIA (2) Aspiration pneumonia with sepsis Assessment/Plan: -patient now with L sided marilee out lung -case d/w Dr Adam -chest PT -duonebs -patient continues to aspirate -suspect patient does not have a safe diet -d/w at bedside -made aware that patient cannot safely swallow - says patient expressed in past that he does not want a PEG tube -considering current condition, without PEG tube patient would have less than 6 months of life -PEG tube would not necessarily change this as it does not prevent aspiration -considering aspiration with current mucus plugging, patient would benefit from hospice - will d/w children -will make npo Code(s): J69.0 - PNEUMONITIS DUE TO INHALATION OF FOOD AND VOMIT (3) Hyperkalemia Assessment/Plan: -resolved Code(s): E87.5 - HYPERKALEMIA (4) Acute kidney injury superimposed on CKD Assessment/Plan: -continue clinimix currently Code(s): N17.9 - ACUTE KIDNEY FAILURE, UNSPECIFIED; N18.9 - CHRONIC KIDNEY DISEASE, UNSPECIFIED (5) ASHD (arteriosclerotic heart disease) Assessment/Plan: -cardiology following -continue medical management Code(s): I25.10 - ATHSCL HEART DISEASE OF [place] CORONARY ARTERY W/O ANG PCTRS (6) CHF (congestive heart failure) Assessment/Plan: -not in exacerbation Code(s): I50.9 - HEART FAILURE, UNSPECIFIED Qualifiers: Heart failure type: systolic Heart failure chronicity: chronic Qualified Code(s): I50.22 - Chronic systolic (congestive) heart failure (7) HTN (hypertension) Assessment/Plan: -controlled Code(s): I10 - ESSENTIAL (PRIMARY) HYPERTENSION Qualifiers: Hypertension type: essential hypertension Qualified Code(s): I10 - Essential (primary) hypertension (8) Hyperlipidemia Assessment/Plan: -on pravastatin as an outpatient Code(s): E78.5 - HYPERLIPIDEMIA, UNSPECIFIED Qualifiers: Hyperlipidemia type: mixed hyperlipidemia Qualified Code(s): E78.2 - Mixed hyperlipidemia (9) Food bolus -s/p dilation
--- NOTE | 2018-12-18 21:17 | PN ---
Progress Note (short form) - Note Progress Note: covering dr trejo 1. KATHY 2. acute resp failure 3. HTN 4. gastric cancer 5. dementia 6. HLD 7. CAD 8. PVD 9. PNA 10. sepsis 11. hyperkalemia Current Medications Acetylcysteine (Mucomyst 20 Oral / Inh Use Only*) 200 mg NEB RQID [facility] Last Admin: 12/18/18 20:42 Dose: 200 mg Albuterol Sulfate (Ventolin 0.083% Nebulizer Soln -) 1 amp NEB Q4H PRN PRN Reason: SHORT OF BREATH/WHEEZING Last Admin: 12/18/18 20:42 Dose: 1 amp Aspirin (Asa -) 81 mg NGT DAILY [facility] Last Admin: 12/18/18 10:10 Dose: Not Given Donepezil HCl (Aricept -) 10 mg NGT HS [facility] Last Admin: 12/17/18 21:59 Dose: Not Given Emollient Ointment (Aquaphor -) 1 applic TP BID [facility] Last Admin: 12/18/18 10:09 Dose: 1 applic Heparin Sodium (Porcine) (Heparin -) 5,000 unit SQ BID [facility] Last Admin: 12/18/18 10:09 Dose: 5,000 unit Hydralazine HCl (Apresoline Injection -) 10 mg IVPUSH Q6H [facility] Last Admin: 12/18/18 17:50 Dose: 10 mg Amino Acids (Clinimix -) 1,000 mls @ 50 mls/hr IV Q20H [facility] Last Admin: 12/18/18 05:57 Dose: 50 mls/hr Insulin Aspart (Novolog Vial Sliding Scale -) 1 vial SQ ACHS [facility]; Protocol Last Admin: 12/18/18 18:07 Dose: 2 units Memantine (Namenda -) 10 mg GT BID [facility] Last Admin: 12/18/18 10:10 Dose: Not Given Metoprolol Succinate (Toprol Xl -) 25 mg PO DAILY [facility] Last Admin: 12/18/18 10:10 Dose: Not Given Pantoprazole Sodium (Protonix Iv) 40 mg IVPUSH BID [facility] Last Admin: 12/18/18 10:09 Dose: 40 mg Last Vital Signs Temp Pulse Resp BP Pulse Ox 98.9 F 103 H 20 134/82 100 12/18/18 17:00 12/18/18 17:00 12/18/18 17:00 12/18/18 17:00 12/18/18 20:42 lungs clear Heart reg Abd soft CBC, BMP 12/18/18 07:18 12/18/18 07:18 CBC, BMP 12/17/18 05:15 12/17/18 05:15 IMP- azotemia, new worsening trend, 2/2 poor po intake Plan- recheck labs in am encourage fluids
[2018-12-18] MEDS: DONEPEZIL HCL 10 MG TABLET (FP) NGT SCH (21:56)
[2018-12-19] MEDS: hydrALAZINE HCL 20 MG/ML VIAL IVPUSH SCH ×3 (05:49→17:18)
[2018-12-19] MEDS: INSULIN SLIDING SCALE (NOVOLOG) 1 VIAL SQ SCH ×4 (06:03→21:44)
[2018-12-19] MEDS ORDERED: PT OWN MED DRAWER 7, Y5N ONE (06:30)
[2018-12-19] MEDS: ALBUTEROL SO4 0.083% IH SOL 2.5 MG/3 ML VIAL.NEB. NEB PRN ×4 (07:30→20:01)
[2018-12-19] MEDS: ACETYLCYSTEINE 20% 200MG/ML 30 ML VIAL *FOR ORAL / INH USE ONLY NEB SCH ×4 (07:30→20:01)
[2018-12-19 09:09] LABS: BASO % 2.9 % (0-2.0); EOS % 2.4 % (0-4.5); HEMATOCRIT 31.4 % (35.4-49); HEMOGLOBIN 10.9 GM/dL (11.7-16.9); LYMPH % 6.2 % (8-40); MCH 31.3 pg (25.7-33.7); MCHC 34.7 g/dl (32.0-35.9); MEAN CELL VOLUME 90.2 fl (80-96); MEAN PLT VOLUME 8.3 fl (7.5-11.1); MONO % 8.6 % (3.8-10.2); NEUT % 79.9 % (42.8-82.8); PLATELET COUNT 276 K/MM3 (134-434); RBC 3.48 M/mm3 (4.00-5.60); RDW 15.4 % (11.9-15.9); WHITE BLOOD COUNT 9.5 K/mm3 (4.0-10.0)
[2018-12-19] MEDS: HEPARIN NA (PORCINE) 5,000 UNITS/ML 1ML VIAL SQ SCH ×2 (09:24→21:08)
[2018-12-19] MEDS: PANTOPRAZOLE SODIUM 40 MG VIAL IVPUSH SCH ×2 (09:24→21:08)
[2018-12-19] MEDS: MINERAL OIL/PET HY-PHL TOPICAL OINTMENT 454 GM JAR TP SCH ×2 (09:24→21:10)
[2018-12-19] MEDS: metoPROLOL SUCCINATE 25 MG TAB.SR.24H (FP) PO SCH (09:51)
[2018-12-19] MEDS: MEMANTINE HCL 10 MG TABLET (FP) GT SCH ×2 (09:51→21:08)
[2018-12-19] MEDS: ASPIRIN 81 MG CHEWABLE TABLETS NGT SCH (09:51)
--- NOTE | 2018-12-19 09:59 | PN ---
Progress Note, Physician Chief Complaint: resp failure History of Present Illness: bipap on he denies cp, sob, palpit, syncope - Current Medication List Current Medications: Active Medications Acetylcysteine (Mucomyst 20 Oral / Inh Use Only*) 200 mg NEB RQID [facility] Last Admin: 12/19/18 07:30 Dose: 200 mg Albuterol Sulfate (Ventolin 0.083% Nebulizer Soln -) 1 amp NEB Q4H PRN PRN Reason: SHORT OF BREATH/WHEEZING Last Admin: 12/19/18 07:30 Dose: 1 amp Aspirin (Asa -) 81 mg NGT DAILY [facility] Last Admin: 12/19/18 09:51 Dose: Not Given Donepezil HCl (Aricept -) 10 mg NGT HS [facility] Last Admin: 12/18/18 21:56 Dose: Not Given Emollient Ointment (Aquaphor -) 1 applic TP BID [facility] Last Admin: 12/19/18 09:24 Dose: 1 applic Heparin Sodium (Porcine) (Heparin -) 5,000 unit SQ BID [facility] Last Admin: 12/19/18 09:24 Dose: 5,000 unit Hydralazine HCl (Apresoline Injection -) 10 mg IVPUSH Q6H [facility] Last Admin: 12/19/18 05:49 Dose: 10 mg Amino Acids (Clinimix -) 1,000 mls @ 50 mls/hr IV Q20H [facility] Last Admin: 12/18/18 23:31 Dose: 50 mls/hr Insulin Aspart (Novolog Vial Sliding Scale -) 1 vial SQ ACHS [facility]; Protocol Last Admin: 12/19/18 06:03 Dose: 2 units Memantine (Namenda -) 10 mg GT BID [facility] Last Admin: 12/19/18 09:51 Dose: Not Given Metoprolol Succinate (Toprol Xl -) 25 mg PO DAILY [facility] Last Admin: 12/19/18 09:51 Dose: Not Given Pantoprazole Sodium (Protonix Iv) 40 mg IVPUSH BID [facility] Last Admin: 12/19/18 09:24 Dose: 40 mg - Objective Vital Signs: Vital Signs Temperature 98.3 F 12/19/18 06:00 Pulse Rate 98 H 12/19/18 06:00 Respiratory Rate 20 12/19/18 06:00 Blood Pressure 140/71 12/19/18 06:00 O2 Sat by Pulse Oximetry (%) 100 12/18/18 20:42 Constitutional: Yes: Well Nourished, No Distress, Calm Cardiovascular: Yes: Regular Rate and Rhythm, S1, S2. No: JVD (tds habitus ( short/thick neck)), Gallop, Murmur Respiratory: Yes: Regular, CTA Bilaterally (anteriorly (decr sounds)). No: Accessory Muscle Use, Rales Extremities: No: Cold Edema: No Neurological: Yes: Alert. No: Seizure Psychiatric: No: Agitated Labs: CBC, BMP 12/19/18 07:38 INR, PTT INR 1.07 (0.83-1.09) 12/03/18 05:40 Assessment/Plan Echo 10/2017: tds, "no definitive statements can be made about findings due to extremely poor acoustic windows". nl lv size. Severely decreased LV sys fn. Global with possible anteroapical septal AK. RV not seen. 1+ ar. MV/TV not well visualized. MUGA 08/23: EF 51% Echo 09/2016: nl lv size. Septum is akinetic. No rwma in inferior, inferolateral or lateral wall, other ordoñez not well seen. Overall ejection fraction is probably mildly, vs [id number] reduced--estimated at 45% vs 40-45%. nl rv/valves. MIBI 07/22: 4:30min, probably + STs; large area mid-AW/septum/apex scar with small P.I.I.; moder decr EF with mild global HK and sev HK vs AK of mid-AW// apex; mild LVE, no TID [facility] 2010: thrombotic subtotal occl pLAD (BMS), 70-80% ramus, diffuse 30- 50% RCA, EF 35% (anterolat AK, lateral/posterolat HK) tele: NSR, VTach x 18 beat run IMP: 1. Acute respiratory failure (with intubation) secondary to aspiration PNA, recurrent aspiration/mucous plugging--white out left lung field 2. CAD s/p prior MO, PCI LAD 2010, w/ ischemic CM and chronic systolic CHF (EF chronically b/t 40-45%) 3. Acute on chronic renal failure, improved 4. + TnI secondary to type II MO, demand ischemia in setting of above. 5. Chronic LBBB 6. H/o gastric cancer 7. NSVTach REC: 1. metoprolol on hold sec to NPO status, family refusing PEG based on pt's previously expressed wishes--will start standing IV metoprolol (also for VT prophylaxis) 2. Defer EDELMIRA/ARB due to CKD, advanced dementia makes benefits of this med questionable in the intermediate-term 3. BiPAP, chest PT, other supportive care as per pulm 4. Continue Abx as per ID. 5. DVT prophylaxis. GI prophylaxis w/ PPI. 6. Renal following, renal fx improved. 7. HTN controlled with IV hydralazine--if final decision made for NPO and no parenteral route, will try clonidine patch 8. Keep K and Mg repleted to aggressive targets (>4, 2). 9. holding ASA, statin while NPO
[2018-12-19 10:14] LABS: BLOOD UREA NITROGEN 60.7 mg/dL (7-18); CALCIUM 8.7 mg/dL (8.5-10.1); CREATININE 2.2 mg/dL (0.55-1.3); PHOSPHOROUS 3.3 mg/dL (2.5-4.9)
--- NOTE | 2018-12-19 10:21 | PN ---
Physical Exam: SUBJECTIVE: Patient seen and examined laying on his right side on BIPAP , refuse PEG tube . still npo on clinimix OBJECTIVE: Vital Signs Period Temp Pulse Resp BP Sys/Heredia Pulse Ox Last 24 Hr 97.9 F-98.9 F 94-107 20-20 129-145/67-82 100 GENERAL: on BIPAP , lethargic HEAD:NC/AT EYES: PERRL, NECK: supple. LUNGS:decrease breath sounds left side , coarse breath sounds and upper respiratory congestions on the right side . HEART: Regular rate and rhythm, S1, S2 without murmur, rub or gallop. ABDOMEN: Obese , Soft, nontender, hypoactive BS EXTREMITIES: 2+ pulses, warm, well-perfused, +1 LLE edema. NEUROLOGICAL:aox3 , no focal deficit Laboratory Results - last 24 hr 12/18/18 12/18/18 12/18/18 11:38 18:06 22:13 WBC RBC Hgb Hct MCV MCH MCHC RDW Plt Count MPV Absolute Neuts (auto) Neutrophils % Lymphocytes % Monocytes % Eosinophils % Basophils % Nucleated RBC % Sodium Potassium Chloride Carbon Dioxide Anion Gap BUN Creatinine Est GFR (CKD-EPI)AfAm Est GFR (CKD-EPI)NonAf POC Glucometer 162 166 147 Random Glucose Calcium Phosphorus Magnesium 12/19/18 12/19/18 12/19/18 05:59 07:38 07:38 WBC 9.5 RBC 3.48 L Hgb 10.9 L Hct 31.4 L MCV 90.2 MCH 31.3 MCHC 34.7 RDW 15.4 Plt Count 276 MPV 8.3 D Absolute Neuts (auto) 7.6 Neutrophils % 79.9 Lymphocytes % 6.2 L D Monocytes % 8.6 Eosinophils % 2.4 Basophils % 2.9 H D Nucleated RBC % 0 Sodium 142 Potassium 4.0 Chloride 115 H Carbon Dioxide 19 L Anion Gap 8 BUN 60.7 H Creatinine 2.2 H Est GFR (CKD-EPI)AfAm 29.89 Est GFR (CKD-EPI)NonAf 25.79 POC Glucometer 158 Random Glucose 160 H Calcium 8.7 Phosphorus 3.3 Magnesium 2.0 Active Medications Generic Name Dose Route Start Last Admin Trade Name Freq PRN Reason Stop Dose Admin Acetylcysteine 200 mg 12/17/18 16:00 12/19/18 07:30 Mucomyst 20 Oral / Inh Use Only* NEB 200 mg RQID [facility] Administration Albuterol Sulfate 1 amp 12/17/18 14:17 12/19/18 07:30 Ventolin 0.083% Nebulizer Soln - NEB 1 amp Q4H PRN Administration SHORT OF BREATH/WHEEZING Aspirin 81 mg 12/09/18 10:00 12/19/18 09:51 Asa - NGT Not Given DAILY [facility] Donepezil HCl 10 mg 12/08/18 22:00 12/18/18 21:56 Aricept - NGT Not Given HS [facility] Emollient Ointment 1 applic 12/10/18 17:45 12/19/18 09:24 Aquaphor - TP 1 applic BID [facility] Administration Heparin Sodium (Porcine) 5,000 unit 12/08/18 22:00 12/19/18 09:24 Heparin - SQ 5,000 unit BID [facility] Administration Hydralazine HCl 10 mg 12/11/18 12:00 12/19/18 05:49 Apresoline Injection - IVPUSH 10 mg Q6H [facility] Administration Amino Acids 1,000 mls @ 50 mls/hr 12/11/18 11:00 12/18/18 23:31 Clinimix - IV 50 mls/hr Q20H [facility] Administration Insulin Aspart 1 vial 12/08/18 22:00 12/19/18 06:03 Novolog Vial Sliding Scale - SQ 2 units ACHS [facility] Administration Protocol Memantine 10 mg 12/08/18 22:00 12/19/18 09:51 Namenda - GT Not Given BID [facility] Metoprolol Succinate 25 mg 12/09/18 10:00 12/19/18 09:51 Toprol Xl - PO Not Given DAILY [facility] Pantoprazole Sodium 40 mg 12/08/18 22:00 12/19/18 09:24 Protonix Iv IVPUSH 40 mg BID [facility] Administration CBC, BMP 12/19/18 07:38 12/19/18 07:38 ASSESSMENT/PLAN: Mariano Camacho is an 88 y/o male with a PMHx of HTN, HLD, CAD (s/p stent 2010) , LBBB, Alzheimer's disease, CKD, PVD, OA, 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 * discuss goal of care with the family. # left lung white opasities due to mucus plug vs aspirartion * cont duoneb * chest PT * position on right side * mucomyst * BIPAP * CXR in AM # LBBB , not changed from 2018 , Derian I * continue aspirin, continue home metoprolol 25mg daily * last echo on 10/20/17 showing EF of 35% * repeat echo showing EF 40-45% * daily weight , I&O * dc tele transfer to /S # Acute hypoxic hypercapnic respiratory failure , improving * extubated on 3L o2 NC * maintain o2 sat above 92% * CXR with RUL Consolidation * duonebs q6h prn * copleted abx # KATHY in term of sepsis vs AIN or ATN ,worsening today * CR 1.9 on admission,2.2 today * renal U/S did not show any hydronephrosis or other acute pathology * DC gan * hold lasix for now * cont clinimix * bladder US with > 500 retention, nurse could not place gan , start flomax and consult Urology brain surgeon Theodore Caban #N/V on admission due to food bolus , resolved S.P EGD * cont Zofran and Pepcid , Protonix 40 daily * Abdominal CT showing s/p gastrectomy, 1.5cm hypodense nodule in the pancreatic tail, epigastric hernia with nondilated small bowel loop, small umbilical hernia with a small nondilated small bowel loop, bilateral inguinal hernias containing only fat, colonic diverticulosis, nonobstructing renal calculi * vomiting causes may include transient obstruction from hernias, food poisoning, viral gastritis * HOB elevated, aspiration precautions # HTN Started on Hydralizine on 12/11 as pt npo , hold on Metorolol and ASA per cardiology while NPO # severe sepsis in the setting of aspiration pneumonitis/pneumonia, resolved * cannot rule out community acquired pneumonia * Dr. Patel consulted, recs appreciated * ceftriaxone and flagyl continue * cx negative , isolation precautions, hx of MRSA * aspiration precautions # DM * BGM, ISS Alzheimer's disease Hx of stomach CA (MALT) # dementia on memantine and donepezil #F/E/N * off fluids , cont clinimix * continue to monitor electrolytes and replete as necessary * puree thick for tonight pending Swallow re eval #PROPHYLAXIS * heparin SQ BID , SCDS * Protonix #CODE * full code #DISPO * transfer to /S Visit type - Emergency Visit Emergency Visit: Yes ED Registration Date: 12/02/18 Care time: The patient presented to the Emergency Department on the above date and was hospitalized for further evaluation of their emergent condition. - New Patient This patient is new to me today: No - Critical Care Critical Care patient: No ATTENDING PHYSICIAN STATEMENT I saw and evaluated the patient. I reviewed the resident's note and discussed the case with the resident. I agree with the resident's findings and plan as documented. SUBJECTIVE: OBJECTIVE: ASSESSMENT AND PLAN:
--- NOTE | 2018-12-19 10:24 | PN ---
Progress Note, Physician History of Present Illness: PULMONARY COMFORTABLE ON BIPAP,NON-VERBAL,-RESP DISTRESS - Current Medication List Current Medications: Active Medications Acetylcysteine (Mucomyst 20 Oral / Inh Use Only*) 200 mg NEB RQID [facility] Last Admin: 12/19/18 07:30 Dose: 200 mg Albuterol Sulfate (Ventolin 0.083% Nebulizer Soln -) 1 amp NEB Q4H PRN PRN Reason: SHORT OF BREATH/WHEEZING Last Admin: 12/19/18 07:30 Dose: 1 amp Aspirin (Asa -) 81 mg NGT DAILY [facility] Last Admin: 12/19/18 09:51 Dose: Not Given Donepezil HCl (Aricept -) 10 mg NGT HS [facility] Last Admin: 12/18/18 21:56 Dose: Not Given Emollient Ointment (Aquaphor -) 1 applic TP BID [facility] Last Admin: 12/19/18 09:24 Dose: 1 applic Heparin Sodium (Porcine) (Heparin -) 5,000 unit SQ BID [facility] Last Admin: 12/19/18 09:24 Dose: 5,000 unit Hydralazine HCl (Apresoline Injection -) 10 mg IVPUSH Q6H [facility] Last Admin: 12/19/18 05:49 Dose: 10 mg Amino Acids (Clinimix -) 1,000 mls @ 50 mls/hr IV Q20H [facility] Last Admin: 12/18/18 23:31 Dose: 50 mls/hr Insulin Aspart (Novolog Vial Sliding Scale -) 1 vial SQ ACHS [facility]; Protocol Last Admin: 12/19/18 06:03 Dose: 2 units Memantine (Namenda -) 10 mg GT BID [facility] Last Admin: 12/19/18 09:51 Dose: Not Given Metoprolol Succinate (Toprol Xl -) 25 mg PO DAILY [facility] Last Admin: 12/19/18 09:51 Dose: Not Given Pantoprazole Sodium (Protonix Iv) 40 mg IVPUSH BID [facility] Last Admin: 12/19/18 09:24 Dose: 40 mg - Objective Vital Signs: Vital Signs Temperature 98.3 F 12/19/18 06:00 Pulse Rate 98 H 12/19/18 06:00 Respiratory Rate 20 12/19/18 06:00 Blood Pressure 140/71 12/19/18 06:00 O2 Sat by Pulse Oximetry (%) 100 12/18/18 20:42 Constitutional: Yes: Well Nourished, Calm Eyes: Yes: WNL HENT: Yes: WNL Neck: Yes: WNL Cardiovascular: Yes: Regular Rate and Rhythm, S1, S2 Respiratory: Yes: Diminished, On BiPap Gastrointestinal: Yes: Normal Bowel Sounds, Soft Extremities: Yes: WNL Edema: No Labs: CBC, BMP 12/19/18 07:38 12/19/18 07:38 INR, PTT INR 1.07 (0.83-1.09) 12/03/18 05:40 Problem List - Problems (1) Sepsis Code(s): A41.9 - SEPSIS, UNSPECIFIED ORGANISM (2) Acute kidney injury superimposed on CKD Code(s): N17.9 - ACUTE KIDNEY FAILURE, UNSPECIFIED; N18.9 - CHRONIC KIDNEY DISEASE, UNSPECIFIED (3) Acute respiratory failure with hypoxia Code(s): J96.01 - ACUTE RESPIRATORY FAILURE WITH HYPOXIA (4) Aspiration pneumonia Code(s): J69.0 - PNEUMONITIS DUE TO INHALATION OF FOOD AND VOMIT (5) 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 Code(s): L89.313 - PRESSURE ULCER OF RIGHT BUTTOCK, STAGE 3 (6) ASHD (arteriosclerotic heart disease) Code(s): I25.10 - ATHSCL HEART DISEASE OF [place] CORONARY ARTERY W/O ANG PCTRS (7) HTN (hypertension) Code(s): I10 - ESSENTIAL (PRIMARY) HYPERTENSION Qualifiers: Hypertension type: essential hypertension Qualified Code(s): I10 - Essential (primary) hypertension (8) Atelectasis of left lung Code(s): J98.11 - ATELECTASIS Assessment/Plan A/P Acute Hypoxic and Hypercapneic Respiratory Failure improving Pneumonia likely Aspiration Left Atelectasis likely mucous plugging Severe Sepsis resolving Acute on Chronic Renal Failure CAD +Troponins likely [place] Ischemia Lactic Acidosis HTN Hyperlipidemia GERD - albuterol/mucomyst - chest PT - position right side down - BiPAP - completed antibiotics - aspiration precautions - IVF - monitor urine output, creatinine - taper Fio2 to keep Spo2 >90% - rehab/PT - DVT prophylaxis - Chest x-ray DR CAMPOS
--- NOTE | 2018-12-19 10:41 | PN ---
Teaching Attending Note Name of Resident: Arnaud Batista ATTENDING PHYSICIAN STATEMENT I saw and evaluated the patient. I reviewed the resident's note and discussed the case with the resident. I agree with the resident's findings and plan as documented. SUBJECTIVE: Unable to obtain today, patient is on bipap OBJECTIVE: Last Vital Signs Temp Pulse Resp BP Pulse Ox 36.6 C 108 H 22 H 145/79 100 12/19/18 10:00 12/19/18 12:07 12/19/18 10:00 12/19/18 12:07 12/18/18 20:42 Gen: nad Pulm: on bipap, severely decreased L sided breath sounds with R sided ronchi CV: tachy w/o m/r/g Abd: +bs, s/nt/nd Ext: trace BLE edema CBC, BMP 12/19/18 07:38 12/19/18 07:38 ASSESSMENT AND PLAN: (1) Acute respiratory failure with hypoxia Assessment/Plan: -resolved Code(s): J96.01 - ACUTE RESPIRATORY FAILURE WITH HYPOXIA (2) Aspiration pneumonia with sepsis Assessment/Plan: -continue npo -now on bipap for mucous plug in L lung -continue chest PT -continue albuterol -d/w yesterday, patient does not want PEG tube -will benefit from hospice placement Code(s): J69.0 - PNEUMONITIS DUE TO INHALATION OF FOOD AND VOMIT (3) Hyperkalemia Assessment/Plan: -resolved Code(s): E87.5 - HYPERKALEMIA (4) Acute kidney injury superimposed on CKD Assessment/Plan: -continue clinimix currently -renal function worsening -case d/w Dr Taylor -retaining urine -gan placement, will need urology consult for placement Code(s): N17.9 - ACUTE KIDNEY FAILURE, UNSPECIFIED; N18.9 - CHRONIC KIDNEY DISEASE, UNSPECIFIED (5) ASHD (arteriosclerotic heart disease) Assessment/Plan: -cardiology following -continue medical management Code(s): I25.10 - ATHSCL HEART DISEASE OF [place] CORONARY ARTERY W/O ANG PCTRS (6) CHF (congestive heart failure) Assessment/Plan: -not in exacerbation Code(s): I50.9 - HEART FAILURE, UNSPECIFIED Qualifiers: Heart failure type: systolic Heart failure chronicity: chronic Qualified Code(s): I50.22 - Chronic systolic (congestive) heart failure (7) HTN (hypertension) Assessment/Plan: -controlled Code(s): I10 - ESSENTIAL (PRIMARY) HYPERTENSION Qualifiers: Hypertension type: essential hypertension Qualified Code(s): I10 - Essential (primary) hypertension (8) Hyperlipidemia Assessment/Plan: -on pravastatin as an outpatient Code(s): E78.5 - HYPERLIPIDEMIA, UNSPECIFIED Qualifiers: Hyperlipidemia type: mixed hyperlipidemia Qualified Code(s): E78.2 - Mixed hyperlipidemia (9) Food bolus -s/p dilation Problem List - Problems (1) Acute respiratory failure with hypoxia Code(s): J96.01 - ACUTE RESPIRATORY FAILURE WITH HYPOXIA (2) Aspiration pneumonia Code(s): J69.0 - PNEUMONITIS DUE TO INHALATION OF FOOD AND VOMIT (3) Hyperkalemia Code(s): E87.5 - HYPERKALEMIA (4) Acute kidney injury superimposed on CKD Code(s): N17.9 - ACUTE KIDNEY FAILURE, UNSPECIFIED; N18.9 - CHRONIC KIDNEY DISEASE, UNSPECIFIED (5) ASHD (arteriosclerotic heart disease) Code(s): I25.10 - ATHSCL HEART DISEASE OF [place] CORONARY ARTERY W/O ANG PCTRS (6) CHF (congestive heart failure) Code(s): I50.9 - HEART FAILURE, UNSPECIFIED Qualifiers: Heart failure type: systolic Heart failure chronicity: chronic Qualified Code(s): I50.22 - Chronic systolic (congestive) heart failure (7) HTN (hypertension) Code(s): I10 - ESSENTIAL (PRIMARY) HYPERTENSION Qualifiers: Hypertension type: essential hypertension Qualified Code(s): I10 - Essential (primary) hypertension (8) Hyperlipidemia Code(s): E78.5 - HYPERLIPIDEMIA, UNSPECIFIED Qualifiers: Hyperlipidemia type: mixed hyperlipidemia Qualified Code(s): E78.2 - Mixed hyperlipidemia
--- NOTE | 2018-12-19 10:48 | PN ---
Progress Note, DIRECTOR PAID MEDIA - Note Progress Note: Selected Entries 12/16/18 12/16/18 12/16/18 02:00 06:00 10:00 Breakfast 25% Supper Temperature 98.4 F 98.5 F 12/16/18 12/16/18 12/16/18 14:00 18:19 22:00 Breakfast Supper Temperature 97.4 F L 97.3 F L 97.5 F L 12/16/18 12/17/18 12/17/18 23:01 02:00 06:00 Breakfast Supper 0 Temperature 97.8 F 98.4 F 12/17/18 12/17/18 12/17/18 09:24 18:00 20:55 Breakfast Supper Temperature 98.0 F 97.7 F 97.9 F 12/18/18 12/18/18 12/18/18 00:00 04:00 12:00 Breakfast Supper Temperature 97.8 F 98.1 F 98.4 F 12/18/18 12/18/18 12/18/18 17:00 21:00 22:00 Breakfast Supper NPO NPO Temperature 98.9 F 97.9 F 12/19/18 12/19/18 02:55 06:00 Breakfast Supper Temperature 98.1 F 98.3 F Laboratory Tests 12/16/18 12/17/18 12/18/18 08:40 05:15 07:18 WBC 10.4 H 8.2 8.6 12/19/18 07:38 WBC 9.5 Cough noted following PO intake. PO held. On BIPAP. CXR with left opacification. Right clear. Palliative care re: pt's wishes. Options - Comfort care/Hospice/ PEG/ Repeat MBS for possible continues puree and hydration via PEG if tolerates puree on MBS Strict NPO for now.
[2018-12-19 11:05] LABS: ARTERIAL BLOOD GAS BASE EXCESS -8.5 meq/l (-2-2); ARTERIAL BLOOD GAS PCO2 29.4 mmHg (35-45); ARTERIAL BLOOD GAS PO2 108 mmHg (80-105); ARTERIAL BLOOD GAS pH 7.34 (7.35-7.45)
[2018-12-19 11:12] LABS: ALLENS TEST POSITIVE
--- NOTE | 2018-12-19 11:48 | PN ---
Progress Note, Physician History of Present Illness: Pt seen and examined at bedside. He is now on bipap. He is awake but confused. - Current Medication List Current Medications: Active Medications Acetylcysteine (Mucomyst 20 Oral / Inh Use Only*) 200 mg NEB RQID [facility] Last Admin: 12/19/18 07:30 Dose: 200 mg Albuterol Sulfate (Ventolin 0.083% Nebulizer Soln -) 1 amp NEB Q4H PRN PRN Reason: SHORT OF BREATH/WHEEZING Last Admin: 12/19/18 07:30 Dose: 1 amp Aspirin (Asa -) 81 mg NGT DAILY [facility] Last Admin: 12/19/18 09:51 Dose: Not Given Donepezil HCl (Aricept -) 10 mg NGT HS [facility] Last Admin: 12/18/18 21:56 Dose: Not Given Emollient Ointment (Aquaphor -) 1 applic TP BID [facility] Last Admin: 12/19/18 09:24 Dose: 1 applic Heparin Sodium (Porcine) (Heparin -) 5,000 unit SQ BID [facility] Last Admin: 12/19/18 09:24 Dose: 5,000 unit Hydralazine HCl (Apresoline Injection -) 10 mg IVPUSH Q6H [facility] Last Admin: 12/19/18 05:49 Dose: 10 mg Amino Acids (Clinimix -) 1,000 mls @ 50 mls/hr IV Q20H [facility] Last Admin: 12/18/18 23:31 Dose: 50 mls/hr Insulin Aspart (Novolog Vial Sliding Scale -) 1 vial SQ ACHS [facility]; Protocol Last Admin: 12/19/18 06:03 Dose: 2 units Memantine (Namenda -) 10 mg GT BID [facility] Last Admin: 12/19/18 09:51 Dose: Not Given Metoprolol Tartrate (Lopressor Injection -) 5 mg IVPUSH Q8H [facility] Pantoprazole Sodium (Protonix Iv) 40 mg IVPUSH BID [facility] Last Admin: 12/19/18 09:24 Dose: 40 mg - Objective Vital Signs: Vital Signs Temperature 98.3 F 12/19/18 06:00 Pulse Rate 98 H 12/19/18 06:00 Respiratory Rate 20 12/19/18 06:00 Blood Pressure 140/71 12/19/18 06:00 O2 Sat by Pulse Oximetry (%) 100 12/18/18 20:42 Constitutional: Yes: Calm Eyes: Yes: Conjunctiva Clear HENT: Yes: Atraumatic Neck: Yes: Supple Cardiovascular: Yes: S1, S2 Respiratory: Yes: On BiPap Gastrointestinal: Yes: Soft Genitourinary: Yes: Incontinence Edema: LLE: Trace, RLE: Trace Neurological: Yes: Confusion Labs: CBC, BMP 12/19/18 07:38 12/19/18 07:38 INR, PTT INR 1.07 (0.83-1.09) 12/03/18 05:40 Problem List - Problems (1) Acute kidney injury superimposed on CKD Code(s): N17.9 - ACUTE KIDNEY FAILURE, UNSPECIFIED; N18.9 - CHRONIC KIDNEY DISEASE, UNSPECIFIED (2) Aspiration pneumonia Code(s): J69.0 - PNEUMONITIS DUE TO INHALATION OF FOOD AND VOMIT (3) Vomiting Code(s): R11.10 - VOMITING, UNSPECIFIED Qualifiers: Vomiting type: unspecified Vomiting Intractability: unspecified Nausea presence: unspecified Qualified Code(s): R11.10 - Vomiting, unspecified Assessment/Plan Current Medications Generic Name Dose Route Start Last Admin Trade Name Freq PRN Reason Stop Dose Admin Acetylcysteine 200 mg 12/17/18 16:00 12/19/18 07:30 Mucomyst 20 Oral / Inh Use Only* NEB 200 mg RQID [facility] Administration Albuterol Sulfate 1 amp 12/17/18 14:17 12/19/18 07:30 Ventolin 0.083% Nebulizer Soln - NEB 1 amp Q4H PRN Administration SHORT OF BREATH/WHEEZING Aspirin 81 mg 12/09/18 10:00 12/19/18 09:51 Asa - NGT Not Given DAILY [facility] Donepezil HCl 10 mg 12/08/18 22:00 12/18/18 21:56 Aricept - NGT Not Given HS [facility] Emollient Ointment 1 applic 12/10/18 17:45 12/19/18 09:24 Aquaphor - TP 1 applic BID [facility] Administration Heparin Sodium (Porcine) 5,000 unit 12/08/18 22:00 12/19/18 09:24 Heparin - SQ 5,000 unit BID [facility] Administration Hydralazine HCl 10 mg 12/11/18 12:00 12/19/18 05:49 Apresoline Injection - IVPUSH 10 mg Q6H [facility] Administration Amino Acids 1,000 mls @ 50 mls/hr 12/11/18 11:00 12/18/18 23:31 Clinimix - IV 50 mls/hr Q20H [facility] Administration Insulin Aspart 1 vial 12/08/18 22:00 12/19/18 06:03 Novolog Vial Sliding Scale - SQ 2 units ACHS [facility] Administration Protocol Memantine 10 mg 12/08/18 22:00 12/19/18 09:51 Namenda - GT Not Given BID [facility] Metoprolol Tartrate 5 mg 12/19/18 11:30 Lopressor Injection - IVPUSH Q8H [facility] Pantoprazole Sodium 40 mg 12/08/18 22:00 12/19/18 09:24 Protonix Iv IVPUSH 40 mg BID [facility] Administration Impression 1. KATHY 2. acute resp failure 3. HTN 4. gastric cancer 5. dementia 6. HLD 7. CAD 8. PVD 9. PNA 10. sepsis 11. hyperkalemia Plan - check bladder scan to r/o obstruction - renal function is worsening - pulm follow up - bipap as needed - avoid nsaids - avoid nephrotoxins
[2018-12-19] MEDS: METOPROLOL TARTRATE 5 MG/5 ML VIAL IVPUSH SCH ×2 (12:07→19:44)
--- NOTE | 2018-12-19 15:03 | CON.GU ---
Consult Consult Specialty:: Referred by:: Esthela Reason for Consultation:: urinary retention - History of Present Illness Chief Complaint: diff voiding History of Present Illness: 88 year old critically ill male with HTN, HLD, CAD (s/p stent 2010), LBBB, ALzheimer's disease, CKD, PVD, OA, stomach CA (MALToma) s/p resection brought to hospital after vomiting episodes, suspected aspiration, intubated in ER for airway protection, resp failure. Pt had long hosp course and found to have elevated PVR on scan, RN unable to cath, cons req. - Past Medical History PIGSKIN TRIMMER: Yes: Alzheimer's Cardio/Vascular: Yes: CAD, CHF, HTN, Hyperlipdemia, NH, Other (hyperlipidemia) Gastrointestinal: Yes: Cancer, GERD Renal/: Yes: Renal Inusuff Infectious Disease: Yes: MRSA Musculoskeletal: Yes: Osteoarthritis - Past Surgical History Past Surgical History: Yes: None Additional Surgical History: open Intestinal resect 2/2 gastric CA. - Alcohol/Substance Use Hx Alcohol Use: Yes (RARE) - Smoking History Smoking history: Never smoked Have you smoked in the past 12 months: No If you are a former smoker, when did you quit?: Does not remember - Social History Usual Living Arrangement: With Spouse ADL: Family Assistance History of Recent Travel: No Home Medications - Allergies Allergies/Adverse Reactions: Allergies Allergy/AdvReac Type Severity Reaction Status Date / Time No Known Allergies Allergy Verified 12/02/18 13:16 - Home Medications Home Medications: Ambulatory Orders Aspirin Coated [Ecotrin -] 81 mg PO DAILY #0 07/19/14 Cholecalciferol (Vitamin D3) [Vitamin D3] 2,000 units PO DAILY 07/19/14 Cyanocobalamin [Vitamin B12 -] 1,000 mcg PO DAILY 07/19/14 Donepezil HCl [Aricept] 10 mg PO DAILY 07/19/14 Folic Acid 1 mg PO DAILY 07/19/14 Memantine HCl [Namenda -] 10 mg PO BID 07/19/14 Metoprolol Succinate [Toprol XL -] 25 mg PO DAILY 07/19/14 Pravastatin Sodium [Pravachol] 40 mg PO DAILY 07/19/14 Ranitidine [Zantac -] 150 mg PO DAILY 07/19/14 Fenofibrate Nanocrystallized [Fenofibrate] 160 mg PO DAILY 10/19/17 Albuterol 2.5/Ipratropium 0.5 [Duoneb -] 1 amp NEB Q6H PRN 7 Days amp 10/22/17 Lactobacillus Acidophilus [Acidophilus] 1 each PO DAILY 12/02/18 Valentine-3 Fatty Acids/Fish Oil [Fish Oil 1,000 mg Capsule] 1 each PO DAILY Family Disease History - Family Disease History Family Disease History: Heart Disease: Brother, CA: Sister Physical Exam- Vital Signs: Vital Signs Temperature 98 F 12/19/18 10:00 Pulse Rate 108 H 12/19/18 12:07 Respiratory Rate 22 H 12/19/18 10:00 Blood Pressure 145/79 12/19/18 12:07 O2 Sat by Pulse Oximetry (%) 100 12/18/18 20:42 Gastrointestinal: Yes: Distention, Tenderness (SP) Penis: Yes: Phimosis Prostate Exam: Yes: Deferred Labs: CBC, BMP 12/19/18 07:38 12/19/18 07:38 Problem List - Problems (1) Urinary retention Assessment/Plan: 16 fr gan inserted p dilation, > 2 L dark urine drained. Would cont gan until OOB ambulating. Code(s): R33.9 - RETENTION OF URINE, UNSPECIFIED (2) Acute kidney injury superimposed on CKD Code(s): N17.9 - ACUTE KIDNEY FAILURE, UNSPECIFIED; N18.9 - CHRONIC KIDNEY DISEASE, UNSPECIFIED
[2018-12-19] MEDS ORDERED: INSULIN (NOVOLOG) ASPART 100 UNITS/ML 10ML VIAL ONE (17:24)
[2018-12-19] MEDS: AMINO ACIDS 4.25%/D5W 1,000 ML IV SCH (18:44)
[2018-12-19] MEDS: DONEPEZIL HCL 10 MG TABLET (FP) NGT SCH (21:44)
[2018-12-20] MEDS: hydrALAZINE HCL 20 MG/ML VIAL IVPUSH SCH ×5 (00:11→23:48)
[2018-12-20] MEDS: METOPROLOL TARTRATE 5 MG/5 ML VIAL IVPUSH SCH ×3 (02:56→19:46)
[2018-12-20] MEDS: INSULIN SLIDING SCALE (NOVOLOG) 1 VIAL SQ SCH ×4 (06:02→21:36)
[2018-12-20 06:47] LABS: BASO % 0.8 % (0-2.0); EOS % 1.8 % (0-4.5); HEMATOCRIT 30.9 % (35.4-49); HEMOGLOBIN 10.5 GM/dL (11.7-16.9); LYMPH % 11.7 % (8-40); MCH 30.9 pg (25.7-33.7); MEAN PLT VOLUME 8.3 fl (7.5-11.1); MONO % 7.7 % (3.8-10.2); PLATELET COUNT 226 K/MM3 (134-434); RDW 16.1 % (11.9-15.9); WHITE BLOOD COUNT 8.9 K/mm3 (4.0-10.0)
[2018-12-20 07:15] LABS: ALBUMIN 2.3 g/dl (3.4-5.0); BILIRUBIN,TOTAL 0.5 mg/dL (0.2-1); CALCIUM 8.8 mg/dL (8.5-10.1); CREATININE 2.2 mg/dL (0.55-1.3); PHOSPHOROUS 3.4 mg/dL (2.5-4.9); POTASSIUM 4.1 mmol/L (3.5-5.1); TOT PROT 6.5 g/dl (6.4-8.2)
[2018-12-20] MEDS: ACETYLCYSTEINE 20% 200MG/ML 30 ML VIAL *FOR ORAL / INH USE ONLY NEB SCH ×4 (08:42→21:00)
[2018-12-20] MEDS: ASPIRIN 81 MG CHEWABLE TABLETS NGT SCH (10:14)
[2018-12-20] MEDS: MEMANTINE HCL 10 MG TABLET (FP) GT SCH ×2 (10:14→21:27)
[2018-12-20] MEDS: TAMSULOSIN HCL 0.4 MG CAP PO SCH (10:14)
--- NOTE | 2018-12-20 10:18 | PN ---
Progress Note, Physician History of Present Illness: pulmonary arousable on bipap,- resp distress,hypoxic o2sat 88%on gio2 40% - Current Medication List Current Medications: Active Medications Acetylcysteine (Mucomyst 20 Oral / Inh Use Only*) 200 mg NEB RQID [facility] Last Admin: 12/20/18 08:42 Dose: 200 mg Albuterol Sulfate (Ventolin 0.083% Nebulizer Soln -) 1 amp NEB Q4H PRN PRN Reason: SHORT OF BREATH/WHEEZING Last Admin: 12/19/18 20:01 Dose: 1 amp Aspirin (Asa -) 81 mg NGT DAILY [facility] Last Admin: 12/19/18 09:51 Dose: Not Given Donepezil HCl (Aricept -) 10 mg NGT HS [facility] Last Admin: 12/19/18 21:44 Dose: Not Given Emollient Ointment (Aquaphor -) 1 applic TP BID [facility] Last Admin: 12/19/18 21:10 Dose: 1 applic Heparin Sodium (Porcine) (Heparin -) 5,000 unit SQ BID [facility] Last Admin: 12/19/18 21:08 Dose: 5,000 unit Hydralazine HCl (Apresoline Injection -) 10 mg IVPUSH Q6H [facility] Last Admin: 12/20/18 05:53 Dose: 10 mg Amino Acids (Clinimix -) 1,000 mls @ 50 mls/hr IV Q20H [facility] Last Admin: 12/19/18 18:44 Dose: 50 mls/hr Insulin Aspart (Novolog Vial Sliding Scale -) 1 vial SQ ACHS [facility]; Protocol Last Admin: 12/20/18 06:02 Dose: Not Given Memantine (Namenda -) 10 mg GT BID [facility] Last Admin: 12/19/18 21:08 Dose: Not Given Metoprolol Tartrate (Lopressor Injection -) 5 mg IVPUSH Q8H [facility] Last Admin: 12/20/18 02:56 Dose: 5 mg Pantoprazole Sodium (Protonix Iv) 40 mg IVPUSH BID [facility] Last Admin: 12/19/18 21:08 Dose: 40 mg Tamsulosin HCl (Flomax -) 0.4 mg PO DAILY@0830 [facility] - Objective Vital Signs: Vital Signs Temperature 98.1 F 12/20/18 05:49 Pulse Rate 85 08/13/19 05:49 Respiratory Rate 20 12/20/18 05:49 Blood Pressure 122/62 12/20/18 05:49 O2 Sat by Pulse Oximetry (%) 100 12/19/18 21:00 Constitutional: Yes: Well Nourished, Other (sleepy) Eyes: Yes: WNL HENT: Yes: WNL Neck: Yes: WNL Cardiovascular: Yes: Regular Rate and Rhythm, S1, S2 Respiratory: Yes: Diminished, On BiPap Gastrointestinal: Yes: Normal Bowel Sounds, Soft Extremities: Yes: WNL Edema: No Labs: CBC, BMP 12/20/18 05:15 12/20/18 05:15 INR, PTT INR 1.07 (0.83-1.09) 12/03/18 05:40 Laboratory Tests 12/19/18 10:50 ABG pH 7.34 L ABG pCO2 at Pt Temp 29.4 L ABG pO2 at Pt Temp 108 H ABG HCO3 15.6 L ABG O2 Sat (Measured) 98.0 - ....Imaging Chest X-ray: Report Reviewed, Image Reviewed (improved aeration left lung) Problem List - Problems (1) Sepsis Code(s): A41.9 - SEPSIS, UNSPECIFIED ORGANISM (2) Acute kidney injury superimposed on CKD Code(s): N17.9 - ACUTE KIDNEY FAILURE, UNSPECIFIED; N18.9 - CHRONIC KIDNEY DISEASE, UNSPECIFIED (3) Acute respiratory failure with hypoxia Code(s): J96.01 - ACUTE RESPIRATORY FAILURE WITH HYPOXIA (4) Aspiration pneumonia Code(s): J69.0 - PNEUMONITIS DUE TO INHALATION OF FOOD AND VOMIT (5) 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 Code(s): L89.313 - PRESSURE ULCER OF RIGHT BUTTOCK, STAGE 3 (6) ASHD (arteriosclerotic heart disease) Code(s): I25.10 - ATHSCL HEART DISEASE OF [place] CORONARY ARTERY W/O ANG PCTRS (7) HTN (hypertension) Code(s): I10 - ESSENTIAL (PRIMARY) HYPERTENSION Qualifiers: Hypertension type: essential hypertension Qualified Code(s): I10 - Essential (primary) hypertension (8) Atelectasis of left lung Code(s): J98.11 - ATELECTASIS Assessment/Plan A/P Acute Hypoxic and Hypercapneic Respiratory Failure improving Pneumonia likely Aspiration Left Atelectasis likely mucous plugging Severe Sepsis resolving Acute on Chronic Renal Failure CAD +Troponins likely [place] Ischemia Lactic Acidosis HTN Hyperlipidemia GERD - albuterol/mucomyst - chest PT - position right side down - BiPAP - aspiration precautions - IVF - monitor urine output, creatinine - Fio2 to keep Spo2 >90% - rehab/PT - DVT prophylaxis - increase Fio2 to 50% DR CAMPOS
[2018-12-20] MEDS: HEPARIN NA (PORCINE) 5,000 UNITS/ML 1ML VIAL SQ SCH ×2 (10:39→21:28)
[2018-12-20] MEDS: PANTOPRAZOLE SODIUM 40 MG VIAL IVPUSH SCH ×2 (10:39→21:28)
[2018-12-20] MEDS: MINERAL OIL/PET HY-PHL TOPICAL OINTMENT 454 GM JAR TP SCH ×2 (10:39→21:37)
--- NOTE | 2018-12-20 11:48 | PN ---
Progress Note (short form) - Note Progress Note: s: on bipap, comfortable. no dyspnea, chest pain, palps tele: sinus Current Medications Acetylcysteine (Mucomyst 20 Oral / Inh Use Only*) 200 mg NEB RQID [facility] Last Admin: 12/20/18 08:42 Dose: 200 mg Albuterol Sulfate (Ventolin 0.083% Nebulizer Soln -) 1 amp NEB Q4H PRN PRN Reason: SHORT OF BREATH/WHEEZING Last Admin: 12/19/18 20:01 Dose: 1 amp Aspirin (Asa -) 81 mg NGT DAILY [facility] Last Admin: 12/20/18 10:14 Dose: Not Given Donepezil HCl (Aricept -) 10 mg NGT HS [facility] Last Admin: 12/19/18 21:44 Dose: Not Given Emollient Ointment (Aquaphor -) 1 applic TP BID [facility] Last Admin: 12/20/18 10:39 Dose: 1 applic Heparin Sodium (Porcine) (Heparin -) 5,000 unit SQ BID [facility] Last Admin: 12/20/18 10:39 Dose: 5,000 unit Hydralazine HCl (Apresoline Injection -) 10 mg IVPUSH Q6H [facility] Last Admin: 12/20/18 05:53 Dose: 10 mg Amino Acids (Clinimix -) 1,000 mls @ 50 mls/hr IV Q20H [facility] Last Admin: 12/19/18 18:44 Dose: 50 mls/hr Insulin Aspart (Novolog Vial Sliding Scale -) 1 vial SQ [facility]; Protocol Last Admin: 12/20/18 06:02 Dose: Not Given Memantine (Namenda -) 10 mg GT BID [facility] Last Admin: 12/20/18 10:14 Dose: Not Given Metoprolol Tartrate (Lopressor Injection -) 5 mg IVPUSH Q8H [facility] Last Admin: 12/20/18 02:56 Dose: 5 mg Pantoprazole Sodium (Protonix Iv) 40 mg IVPUSH BID [facility] Last Admin: 12/20/18 10:39 Dose: 40 mg Tamsulosin HCl (Flomax -) 0.4 mg PO DAILY@0830 [facility] Last Admin: 12/20/18 10:14 Dose: Not Given Vital Signs Period Temp Pulse Resp BP Sys/Heredia Pulse Ox Last 24 Hr 98.1 F-98.9 F 85-116 20-24 107-145/55-81 96-100 Constitutional: Yes: Well Nourished, No Distress, Calm Cardiovascular: Yes: Regular Rate and Rhythm, S1, S2. No: JVD (tds habitus ( short/thick neck)), Gallop, Murmur Respiratory: Yes: Regular, CTA Bilaterally (anteriorly (decr sounds)). No: Accessory Muscle Use, Rales Extremities: No: Cold Edema: No Neurological: Yes: Alert. No: Seizure Psychiatric: No: Agitated Assessment/Plan Echo 10/2017: tds, "no definitive statements can be made about findings due to extremely poor acoustic windows". nl lv size. Severely decreased LV sys fn. Global with possible anteroapical septal AK. RV not seen. 1+ ar. MV/TV not well visualized. MUGA 08/23: EF 51% Echo 09/2016: nl lv size. Septum is akinetic. No rwma in inferior, inferolateral or lateral wall, other ordoñez not well seen. Overall ejection fraction is probably mildly, vs [id number] reduced--estimated at 45% vs 40-45%. nl rv/valves. MIBI 07/22: 4:30min, probably + STs; large area mid-AW/septum/apex scar with small P.I.I.; moder decr EF with mild global HK and sev HK vs AK of mid-AW// apex; mild LVE, no TID [facility] 2010: thrombotic subtotal occl pLAD (BMS), 70-80% ramus, diffuse 30- 50% RCA, EF 35% (anterolat AK, lateral/posterolat HK) tele: NSR, VTach x 18 beat run IMP: 1. Acute respiratory failure (with intubation) secondary to aspiration PNA, recurrent aspiration/mucous plugging--white out left lung field 2. CAD s/p prior [place], PCI LAD 2010, w/ ischemic CM and chronic systolic CHF (EF chronically b/t 40-45%) 3. Acute on chronic renal failure, improved 4. + TnI secondary to type II [place], demand ischemia in setting of above. 5. Chronic LBBB 6. H/o gastric cancer 7. NSVTach REC: - metoprolol on hold sec to NPO status, family refusing PEG based on pt's previously expressed wishes--currently on IV metoprolol, no plans for PEG tube and considering hospice - Defer EDELMIRA/ARB due to CKD, advanced dementia makes benefits of this med questionable in the intermediate-term - BiPAP, chest PT, other supportive care as per pulm - Renal following, renal fx improved. - HTN controlled with IV hydralazine, as above no plans for PEG tube and considering hospice - Keep K and Mg repleted to aggressive targets (>4, 2). - holding ASA, statin while NPO
--- NOTE | 2018-12-20 11:57 | PN ---
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 NPO. Family not interested in PEG insertion based on pt's wishes. Considering [place].
--- NOTE | 2018-12-20 13:05 | PN ---
Physical Exam: SUBJECTIVE: Patient seen and examined no more labs on BIPAP increase Fio2 to 50 % cont clinimix OBJECTIVE: Vital Signs Period Temp Pulse Resp BP Sys/Heredia Pulse Ox Last 24 Hr 98.1 F-98.9 F 85-116 20-24 107-132/55-81 96-100 GENERAL: on BIPAP , lethargic HEAD:NC/AT EYES: PERRL, NECK: supple. LUNGS:decrease breath sounds left side , coarse breath sounds and upper respiratory congestions on the right side . HEART: Regular rate and rhythm, S1, S2 without murmur, rub or gallop. ABDOMEN: Obese , Soft, nontender, hypoactive BS EXTREMITIES: 2+ pulses, warm, well-perfused, +2 LLE edema. NEUROLOGICAL: no focal deficit Laboratory Results - last 24 hr 12/19/18 12/19/18 12/19/18 17:22 20:30 21:06 WBC RBC Hgb Hct MCV MCH MCHC RDW Plt Count MPV Absolute Neuts (auto) Neutrophils % Lymphocytes % Monocytes % Eosinophils % Basophils % Nucleated RBC % Sodium Potassium Chloride Carbon Dioxide Anion Gap BUN Creatinine Est GFR (CKD-EPI)AfAm Est GFR (CKD-EPI)NonAf POC Glucometer 190 178 Random Glucose Calcium Phosphorus Magnesium 2.0 Total Bilirubin AST ALT Alkaline Phosphatase Total Protein Albumin 12/20/18 12/20/18 12/20/18 05:15 05:15 05:38 WBC 8.9 RBC 3.40 L Hgb 10.5 L Hct 30.9 L MCV 91.0 MCH 30.9 MCHC 34.0 RDW 16.1 H Plt Count 226 MPV 8.3 Absolute Neuts (auto) 7.0 Neutrophils % 78.0 Lymphocytes % 11.7 D Monocytes % 7.7 Eosinophils % 1.8 Basophils % 0.8 Nucleated RBC % 0 Sodium 143 Potassium 4.1 Chloride 116 H Carbon Dioxide 19 L Anion Gap 8 BUN 65.0 H Creatinine 2.2 H Est GFR (CKD-EPI)AfAm 29.89 Est GFR (CKD-EPI)NonAf 25.79 POC Glucometer 141 Random Glucose 138 H Calcium 8.8 Phosphorus 3.4 Magnesium Total Bilirubin 0.5 AST 19 ALT 12 L Alkaline Phosphatase 48 Total Protein 6.5 Albumin 2.3 L 12/20/18 12:39 WBC RBC Hgb Hct MCV MCH MCHC RDW Plt Count MPV Absolute Neuts (auto) Neutrophils % Lymphocytes % Monocytes % Eosinophils % Basophils % Nucleated RBC % Sodium Potassium Chloride Carbon Dioxide Anion Gap BUN Creatinine Est GFR (CKD-EPI)AfAm Est GFR (CKD-EPI)NonAf POC Glucometer 139 Random Glucose Calcium Phosphorus Magnesium Total Bilirubin AST ALT Alkaline Phosphatase Total Protein Albumin Active Medications Generic Name Dose Route Start Last Admin Trade Name Freq PRN Reason Stop Dose Admin Acetylcysteine 200 mg 12/17/18 16:00 12/20/18 12:48 Mucomyst 20 Oral / Inh Use Only* NEB 200 mg RQID [facility] Administration Albuterol Sulfate 1 amp 12/17/18 14:17 12/19/18 20:01 Ventolin 0.083% Nebulizer Soln - NEB 1 amp Q4H PRN Administration SHORT OF BREATH/WHEEZING Aspirin 81 mg 12/09/18 10:00 12/20/18 10:14 Asa - NGT Not Given DAILY [facility] Donepezil HCl 10 mg 12/08/18 22:00 12/19/18 21:44 Aricept - NGT Not Given HS [facility] Emollient Ointment 1 applic 12/10/18 17:45 12/20/18 10:39 Aquaphor - TP 1 applic BID [facility] Administration Heparin Sodium (Porcine) 5,000 unit 12/08/18 22:00 12/20/18 10:39 Heparin - SQ 5,000 unit BID [facility] Administration Hydralazine HCl 10 mg 12/11/18 12:00 12/20/18 05:53 Apresoline Injection - IVPUSH 10 mg Q6H [facility] Administration Amino Acids 1,000 mls @ 50 mls/hr 12/11/18 11:00 12/19/18 18:44 Clinimix - IV 50 mls/hr Q20H [facility] Administration Insulin Aspart 1 vial 12/08/18 22:00 12/20/18 13:04 Novolog Vial Sliding Scale - SQ Not Given ACHS [facility] Protocol Memantine 10 mg 12/08/18 22:00 12/20/18 10:14 Namenda - GT Not Given BID [facility] Metoprolol Tartrate 5 mg 12/19/18 11:30 12/20/18 02:56 Lopressor Injection - IVPUSH 5 mg Q8H [facility] Administration Pantoprazole Sodium 40 mg 12/08/18 22:00 12/20/18 10:39 Protonix Iv IVPUSH 40 mg BID [facility] Administration Tamsulosin HCl 0.4 mg 12/20/18 08:30 12/20/18 10:14 Flomax - PO Not Given DAILY@0830 [facility] CBC, BMP 12/20/18 05:15 12/20/18 05:15 ASSESSMENT/PLAN: Mariano Camacho is an 88 y/o male with a PMHx of HTN, HLD, CAD (s/p stent 2010) , LBBB, Alzheimer's disease, CKD, PVD, OA, 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 * discuss goal of care with the family. # left lung white opasities due to mucus plug vs aspirartion * cont duoneb * chest PT * position on right side * mucomyst * BIPAP # LBBB , not changed from 2018 , Derian I * hold aspirin, metoprolol 25mg due to NPO * last echo on 10/20/17 showing EF of 35% * repeat echo showing EF 40-45% * daily weight , I&O * dc tele transfer to M/S # Acute hypoxic hypercapnic respiratory failure , improving * extubated on 3L o2 NC * maintain o2 sat above 92% * CXR with RUL Consolidation * duonebs q6h prn * copleted abx # KATHY in term of sepsis vs AIN or ATN ,worsening today * CR 1.9 on admission,2.2 today * renal U/S did not show any hydronephrosis or other acute pathology * DC gan * hold lasix for now * cont clinimix * bladder US with > 500 retention, nurse could not place gan , start flomax and consult Urology telephone switchboard operator Theodore Caban #N/V on admission due to food bolus , resolved S.P EGD * cont Zofran and Pepcid , Protonix 40 daily * Abdominal CT showing s/p gastrectomy, 1.5cm hypodense nodule in the pancreatic tail, epigastric hernia with nondilated small bowel loop, small umbilical hernia with a small nondilated small bowel loop, bilateral inguinal hernias containing only fat, colonic diverticulosis, nonobstructing renal calculi * vomiting causes may include transient obstruction from hernias, food poisoning, viral gastritis * HOB elevated, aspiration precautions # HTN Started on Hydralizine on 12/11 as pt npo , hold on Metorolol and ASA per cardiology while NPO # severe sepsis in the setting of aspiration pneumonitis/pneumonia, resolved * cannot rule out community acquired pneumonia * Dr. Patel consulted, recs appreciated * ceftriaxone and flagyl continue * cx negative , isolation precautions, hx of MRSA * aspiration precautions # DM * BGM, ISS Alzheimer's disease Hx of stomach CA (MALT) # dementia on memantine and donepezil #F/E/N * off fluids , cont clinimix * continue to monitor electrolytes and replete as necessary * puree thick for tonight pending Swallow re eval #PROPHYLAXIS * heparin SQ BID , SCDS * Protonix #CODE * full code #DISPO * pending clavari acceptance * no more labs Visit type - Emergency Visit Emergency Visit: Yes ED Registration Date: 12/02/18 Care time: The patient presented to the Emergency Department on the above date and was hospitalized for further evaluation of their emergent condition. - New Patient This patient is new to me today: No - Critical Care Critical Care patient: No ATTENDING PHYSICIAN STATEMENT I saw and evaluated the patient. I reviewed the resident's note and discussed the case with the resident. I agree with the resident's findings and plan as documented. SUBJECTIVE: OBJECTIVE: ASSESSMENT AND PLAN:
--- NOTE | 2018-12-20 13:20 | PN ---
Progress Note, Physician History of Present Illness: Pt seen and examined at bedside. He appears comfortable. Family have decided for [place] and comfort care. - Current Medication List Current Medications: Active Medications Acetylcysteine (Mucomyst 20 Oral / Inh Use Only*) 200 mg NEB RQID [facility] Last Admin: 12/20/18 12:48 Dose: 200 mg Albuterol Sulfate (Ventolin 0.083% Nebulizer Soln -) 1 amp NEB Q4H PRN PRN Reason: SHORT OF BREATH/WHEEZING Last Admin: 12/19/18 20:01 Dose: 1 amp Aspirin (Asa -) 81 mg NGT DAILY [facility] Last Admin: 12/20/18 10:14 Dose: Not Given Donepezil HCl (Aricept -) 10 mg NGT HS [facility] Last Admin: 12/19/18 21:44 Dose: Not Given Emollient Ointment (Aquaphor -) 1 applic TP BID [facility] Last Admin: 12/20/18 10:39 Dose: 1 applic Heparin Sodium (Porcine) (Heparin -) 5,000 unit SQ BID [facility] Last Admin: 12/20/18 10:39 Dose: 5,000 unit Hydralazine HCl (Apresoline Injection -) 10 mg IVPUSH Q6H [facility] Last Admin: 12/20/18 13:05 Dose: 10 mg Amino Acids (Clinimix -) 1,000 mls @ 50 mls/hr IV Q20H [facility] Last Admin: 12/19/18 18:44 Dose: 50 mls/hr Insulin Aspart (Novolog Vial Sliding Scale -) 1 vial SQ ACHS [facility]; Protocol Last Admin: 12/20/18 13:04 Dose: Not Given Memantine (Namenda -) 10 mg GT BID [facility] Last Admin: 12/20/18 10:14 Dose: Not Given Metoprolol Tartrate (Lopressor Injection -) 5 mg IVPUSH Q8H [facility] Last Admin: 12/20/18 13:04 Dose: 5 mg Pantoprazole Sodium (Protonix Iv) 40 mg IVPUSH BID [facility] Last Admin: 12/20/18 10:39 Dose: 40 mg Tamsulosin HCl (Flomax -) 0.4 mg PO DAILY@0830 [facility] Last Admin: 12/20/18 10:14 Dose: Not Given - Objective Vital Signs: Vital Signs Temperature 98.1 F 12/20/18 05:49 Pulse Rate 108 H 12/20/18 13:04 Respiratory Rate 20 12/20/18 05:49 Blood Pressure 124/70 12/20/18 13:04 O2 Sat by Pulse Oximetry (%) 98 12/20/18 10:44 Constitutional: Yes: Calm Eyes: Yes: Conjunctiva Clear HENT: Yes: Atraumatic Cardiovascular: Yes: S1, S2 Respiratory: Yes: On BiPap Gastrointestinal: Yes: Soft Genitourinary: Yes: WNL Musculoskeletal: Yes: WNL Edema: No Neurological: Yes: Lethargy Labs: CBC, BMP 12/20/18 05:15 12/20/18 05:15 INR, PTT INR 1.07 (0.83-1.09) 12/03/18 05:40 Problem List - Problems (1) Acute kidney injury superimposed on CKD Code(s): N17.9 - ACUTE KIDNEY FAILURE, UNSPECIFIED; N18.9 - CHRONIC KIDNEY DISEASE, UNSPECIFIED (2) Aspiration pneumonia Code(s): J69.0 - PNEUMONITIS DUE TO INHALATION OF FOOD AND VOMIT (3) Vomiting Code(s): R11.10 - VOMITING, UNSPECIFIED Qualifiers: Vomiting type: unspecified Vomiting Intractability: unspecified Nausea presence: unspecified Qualified Code(s): R11.10 - Vomiting, unspecified Assessment/Plan Current Medications Generic Name Dose Route Start Last Admin Trade Name Freq PRN Reason Stop Dose Admin Acetylcysteine 200 mg 12/17/18 16:00 12/20/18 12:48 Mucomyst 20 Oral / Inh Use Only* NEB 200 mg RQID [facility] Administration Albuterol Sulfate 1 amp 12/17/18 14:17 12/19/18 20:01 Ventolin 0.083% Nebulizer Soln - NEB 1 amp Q4H PRN Administration SHORT OF BREATH/WHEEZING Aspirin 81 mg 12/09/18 10:00 12/20/18 10:14 Asa - NGT Not Given DAILY [facility] Donepezil HCl 10 mg 12/08/18 22:00 12/19/18 21:44 Aricept - NGT Not Given HS [facility] Emollient Ointment 1 applic 12/10/18 17:45 12/20/18 10:39 Aquaphor - TP 1 applic BID [facility] Administration Heparin Sodium (Porcine) 5,000 unit 12/08/18 22:00 12/20/18 10:39 Heparin - SQ 5,000 unit BID [facility] Administration Hydralazine HCl 10 mg 12/11/18 12:00 12/20/18 13:05 Apresoline Injection - IVPUSH 10 mg Q6H [facility] Administration Amino Acids 1,000 mls @ 50 mls/hr 12/11/18 11:00 12/19/18 18:44 Clinimix - IV 50 mls/hr Q20H [facility] Administration Insulin Aspart 1 vial 12/08/18 22:00 12/20/18 13:04 Novolog Vial Sliding Scale - SQ Not Given ACHS [facility] Protocol Memantine 10 mg 12/08/18 22:00 12/20/18 10:14 Namenda - GT Not Given BID [facility] Metoprolol Tartrate 5 mg 12/19/18 11:30 12/20/18 13:04 Lopressor Injection - IVPUSH 5 mg Q8H [facility] Administration Pantoprazole Sodium 40 mg 12/08/18 22:00 12/20/18 10:39 Protonix Iv IVPUSH 40 mg BID [facility] Administration Tamsulosin HCl 0.4 mg 12/20/18 08:30 12/20/18 10:14 Flomax - PO Not Given DAILY@0830 [facility] Impression 1. KATHY 2. acute resp failure 3. HTN 4. gastric cancer 5. dementia 6. HLD 7. CAD 8. PVD 9. PNA 10. sepsis 11. hyperkalemia Plan - gan placed for obstruction - pt now on comfort care - discussed with medical team - bipap as needed - rest care per primary team - will follow PRN
--- NOTE | 2018-12-20 13:51 | PN ---
Teaching Attending Note Name of Resident: Arnadu Batista ATTENDING PHYSICIAN STATEMENT I saw and evaluated the patient. I reviewed the resident's note and discussed the case with the resident. I agree with the resident's findings and plan as documented. SUBJECTIVE: Patient on bipap, unable to obtain but appears comfortable OBJECTIVE: Last Vital Signs Temp Pulse Resp BP Pulse Ox 36.7 C 108 H 20 124/70 98 12/20/18 05:49 12/20/18 13:04 12/20/18 05:49 12/20/18 13:04 12/20/18 10:44 Gen: nad Pulm: on bipap, severely decreased breath sounds on the left CV: tachycardic w/o m/r/g Abd: +bs, s/nt/nd Ext: no c/c/e CBC, BMP 12/20/18 05:15 12/20/18 05:15 ASSESSMENT AND PLAN: (1) Acute respiratory failure with hypoxia Assessment/Plan: -resolved Code(s): J96.01 - ACUTE RESPIRATORY FAILURE WITH HYPOXIA (2) Aspiration pneumonia with sepsis Assessment/Plan: -continue npo -clinimix for nutrition -planning for transfer to [place] -case d/w Code(s): J69.0 - PNEUMONITIS DUE TO INHALATION OF FOOD AND VOMIT (3) Hyperkalemia Assessment/Plan: -resolved Code(s): E87.5 - HYPERKALEMIA (4) Acute kidney injury superimposed on CKD Assessment/Plan: -gan placed -no need for further labs Code(s): N17.9 - ACUTE KIDNEY FAILURE, UNSPECIFIED; N18.9 - CHRONIC KIDNEY DISEASE, UNSPECIFIED (5) ASHD (arteriosclerotic heart disease) Assessment/Plan: -case d/w cardiology -will simplify regimen Code(s): I25.10 - ATHSCL HEART DISEASE OF [place] CORONARY ARTERY W/O ANG PCTRS (6) CHF (congestive heart failure) Assessment/Plan: -not in exacerbation Code(s): I50.9 - HEART FAILURE, UNSPECIFIED Qualifiers: Heart failure type: systolic Heart failure chronicity: chronic Qualified Code(s): I50.22 - Chronic systolic (congestive) heart failure (7) HTN (hypertension) Assessment/Plan: -controlled Code(s): I10 - ESSENTIAL (PRIMARY) HYPERTENSION Qualifiers: Hypertension type: essential hypertension Qualified Code(s): I10 - Essential (primary) hypertension (8) Hyperlipidemia Assessment/Plan: -no longer needs statin Code(s): E78.5 - HYPERLIPIDEMIA, UNSPECIFIED Qualifiers: Hyperlipidemia type: mixed hyperlipidemia Qualified Code(s): E78.2 - Mixed hyperlipidemia (9) Food bolus -s/p dilation Dispo -planning for transfer to [place] Problem List - Problems (1) Acute respiratory failure with hypoxia Code(s): J96.01 - ACUTE RESPIRATORY FAILURE WITH HYPOXIA (2) Aspiration pneumonia Code(s): J69.0 - PNEUMONITIS DUE TO INHALATION OF FOOD AND VOMIT (3) Hyperkalemia Code(s): E87.5 - HYPERKALEMIA (4) Acute kidney injury superimposed on CKD Code(s): N17.9 - ACUTE KIDNEY FAILURE, UNSPECIFIED; N18.9 - CHRONIC KIDNEY DISEASE, UNSPECIFIED (5) ASHD (arteriosclerotic heart disease) Code(s): I25.10 - ATHSCL HEART DISEASE OF [place] CORONARY ARTERY W/O ANG PCTRS (6) CHF (congestive heart failure) Code(s): I50.9 - HEART FAILURE, UNSPECIFIED Qualifiers: Heart failure type: systolic Heart failure chronicity: chronic Qualified Code(s): I50.22 - Chronic systolic (congestive) heart failure (7) HTN (hypertension) Code(s): I10 - ESSENTIAL (PRIMARY) HYPERTENSION Qualifiers: Hypertension type: essential hypertension Qualified Code(s): I10 - Essential (primary) hypertension (8) Hyperlipidemia Code(s): E78.5 - HYPERLIPIDEMIA, UNSPECIFIED Qualifiers: Hyperlipidemia type: mixed hyperlipidemia Qualified Code(s): E78.2 - Mixed hyperlipidemia
[2018-12-20] MEDS: AMINO ACIDS 4.25%/D5W 1,000 ML IV SCH (16:49)
[2018-12-20] MEDS: ALBUTEROL SO4 0.083% IH SOL 2.5 MG/3 ML VIAL.NEB. NEB PRN (21:00)
[2018-12-20] MEDS: DONEPEZIL HCL 10 MG TABLET (FP) NGT SCH (22:28)
[2018-12-21] MEDS: METOPROLOL TARTRATE 5 MG/5 ML VIAL IVPUSH SCH ×2 (04:18→10:52)
[2018-12-21] MEDS: hydrALAZINE HCL 20 MG/ML VIAL IVPUSH SCH ×2 (06:02→12:38)
[2018-12-21] MEDS: INSULIN SLIDING SCALE (NOVOLOG) 1 VIAL SQ SCH ×2 (06:43→12:37)
--- NOTE | 2018-12-21 07:43 | PN ---
Physical Exam: SUBJECTIVE: Patient seen and examined no more labs on BIPAP increase Fio2 to 50 % cont clinimix OBJECTIVE: Vital Signs Period Temp Pulse Resp BP Sys/Heredia Pulse Ox Last 24 Hr 97.8 F-98.6 F 76-108 21-24 116-134/55-70 98-98 GENERAL: on BIPAP , lethargic HEAD:NC/AT EYES: PERRL, NECK: supple. LUNGS:decrease breath sounds left side , coarse breath sounds and upper respiratory congestions on the right side . HEART: Regular rate and rhythm, S1, S2 without murmur, rub or gallop. ABDOMEN: Obese , Soft, nontender, hypoactive BS EXTREMITIES: 2+ pulses, warm, well-perfused, +2 LLE edema. NEUROLOGICAL: no focal deficit Laboratory Results - last 24 hr 12/20/18 12/20/18 12/20/18 12:39 16:46 21:35 POC Glucometer 139 125 161 12/21/18 06:07 POC Glucometer 129 Active Medications Generic Name Dose Route Start Last Admin Trade Name Freq PRN Reason Stop Dose Admin Acetylcysteine 200 mg 12/17/18 16:00 12/20/18 21:00 Mucomyst 20 Oral / Inh Use Only* NEB 200 mg RQID IKER Administration Albuterol Sulfate 1 amp 12/17/18 14:17 12/20/18 21:00 Ventolin 0.083% Nebulizer Soln - NEB 1 amp Q4H PRN Administration SHORT OF BREATH/WHEEZING Aspirin 81 mg 12/09/18 10:00 12/20/18 10:14 Asa - NGT Not Given DAILY IKER Donepezil HCl 10 mg 12/08/18 22:00 12/20/18 22:28 Aricept - NGT Not Given HS IKER Emollient Ointment 1 applic 12/10/18 17:45 12/20/18 21:37 Aquaphor - TP 1 applic BID IKER Administration Heparin Sodium (Porcine) 5,000 unit 12/08/18 22:00 12/20/18 21:28 Heparin - SQ 5,000 unit BID IKER Administration Hydralazine HCl 10 mg 12/11/18 12:00 12/21/18 06:02 Apresoline Injection - IVPUSH 10 mg Q6H KIER Administration Amino Acids 1,000 mls @ 50 mls/hr 12/11/18 11:00 08/13/19 16:49 Clinimix - IV 50 mls/hr Q20H IKER Administration Insulin Aspart 1 vial 12/08/18 22:00 12/21/18 06:43 Novolog Vial Sliding Scale - SQ Not Given ACHS [facility] Protocol Memantine 10 mg 12/08/18 22:00 12/20/18 21:27 Namenda - GT Not Given BID [facility] Metoprolol Tartrate 5 mg 12/19/18 11:30 12/21/18 04:18 Lopressor Injection - IVPUSH 5 mg Q8H IKER Administration Pantoprazole Sodium 40 mg 12/08/18 22:00 12/20/18 21:28 Protonix Iv IVPUSH 40 mg BID IKER Administration Tamsulosin HCl 0.4 mg 12/20/18 08:30 12/20/18 10:14 Flomax - PO Not Given DAILY@0830 [facility] ASSESSMENT/PLAN: Mariano Camacho is an 88 y/o male with a PMHx of HTN, HLD, CAD (s/p stent 2010) , LBBB, Alzheimer's disease, CKD, PVD, OA, 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 * discuss goal of care with the family. # left lung white opasities due to mucus plug vs aspirartion * cont duoneb * chest PT * position on right side * mucomyst * BIPAP # LBBB , not changed from 2018 , Derian I * hold aspirin, metoprolol 25mg due to NPO * last echo on 10/20/17 showing EF of 35% * repeat echo showing EF 40-45% * daily weight , I&O * dc tele transfer to /S # Acute hypoxic hypercapnic respiratory failure , improving * extubated on 3L o2 NC * maintain o2 sat above 92% * CXR with RUL Consolidation * duonebs q6h prn * copleted abx # KATHY in term of sepsis vs AIN or ATN ,worsening today * CR 1.9 on admission,2.2 today * renal U/S did not show any hydronephrosis or other acute pathology * DC gan * hold lasix for now * cont clinimix * bladder US with > 500 retention, nurse could not place gan , start flomax and consult Urology mental retardation aide Theodore Caban #N/V on admission due to food bolus , resolved S.P EGD * cont Zofran and Pepcid , Protonix 40 daily * Abdominal CT showing s/p gastrectomy, 1.5cm hypodense nodule in the pancreatic tail, epigastric hernia with nondilated small bowel loop, small umbilical hernia with a small nondilated small bowel loop, bilateral inguinal hernias containing only fat, colonic diverticulosis, nonobstructing renal calculi * vomiting causes may include transient obstruction from hernias, food poisoning, viral gastritis * HOB elevated, aspiration precautions # HTN Started on Hydralizine on 12/11 as pt npo , hold on Metorolol and ASA per cardiology while NPO # severe sepsis in the setting of aspiration pneumonitis/pneumonia, resolved * cannot rule out community acquired pneumonia * Dr. Patel consulted, recs appreciated * ceftriaxone and flagyl continue * cx negative , isolation precautions, hx of MRSA * aspiration precautions # DM * BGM, ISS Alzheimer's disease Hx of stomach CA (MALT) # dementia on memantine and donepezil #F/E/N * off fluids , cont clinimix * continue to monitor electrolytes and replete as necessary * puree thick for tonight pending Swallow re eval #PROPHYLAXIS * heparin SQ BID , SCDS * Protonix #CODE * pendng DNR/DNI to be discussed by next of kin #DISPO * pending clavari acceptance * no more labs ATTENDING PHYSICIAN STATEMENT I saw and evaluated the patient. I reviewed the resident's note and discussed the case with the resident. I agree with the resident's findings and plan as documented. SUBJECTIVE: OBJECTIVE: ASSESSMENT AND PLAN:
[2018-12-21] MEDS: ACETYLCYSTEINE 20% 200MG/ML 4 ML VIAL *FOR ORAL / INH USE ONLY NEB SCH ×3 (08:15→15:52)
[2018-12-21] MEDS: ALBUTEROL SO4 0.083% IH SOL 2.5 MG/3 ML VIAL.NEB. NEB PRN ×3 (08:15→15:53)
[2018-12-21] MEDS: MEMANTINE HCL 10 MG TABLET (FP) GT SCH (09:54)
[2018-12-21] MEDS: TAMSULOSIN HCL 0.4 MG CAP PO SCH (09:54)
[2018-12-21] MEDS: ASPIRIN 81 MG CHEWABLE TABLETS NGT SCH (09:54)
[2018-12-21] MEDS: PANTOPRAZOLE SODIUM 40 MG VIAL IVPUSH SCH (10:52)
[2018-12-21] MEDS: HEPARIN NA (PORCINE) 5,000 UNITS/ML 1ML VIAL SQ SCH (10:52)
[2018-12-21] MEDS: MINERAL OIL/PET HY-PHL TOPICAL OINTMENT 454 GM JAR TP SCH (10:53)
--- NOTE | 2018-12-21 11:16 | PN ---
Progress Note (short form) - Note Progress Note: s: comfortable on bipap. no chest pain, palps, dizziness tele: sinus Current Medications Acetylcysteine (Mucomyst 20 Oral / Inh Use Only*) 200 mg NEB RQID IKER Albuterol Sulfate (Ventolin 0.083% Nebulizer Soln -) 1 amp NEB Q4H PRN PRN Reason: SHORT OF BREATH/WHEEZING Last Admin: 12/20/18 21:00 Dose: 1 amp Aspirin (Asa -) 81 mg NGT DAILY [facility] Last Admin: 12/21/18 09:54 Dose: Not Given Donepezil HCl (Aricept -) 10 mg NGT HS [facility] Last Admin: 12/20/18 22:28 Dose: Not Given Emollient Ointment (Aquaphor -) 1 applic TP BID [facility] Last Admin: 12/21/18 10:53 Dose: 1 applic Heparin Sodium (Porcine) (Heparin -) 5,000 unit SQ BID [facility] Last Admin: 12/21/18 10:52 Dose: 5,000 unit Hydralazine HCl (Apresoline Injection -) 10 mg IVPUSH Q6H [facility] Last Admin: 12/21/18 06:02 Dose: 10 mg Amino Acids (Clinimix -) 1,000 mls @ 50 mls/hr IV Q20H [facility] Last Admin: 12/20/18 16:49 Dose: 50 mls/hr Insulin Aspart (Novolog Vial Sliding Scale -) 1 vial SQ ACHS [facility]; Protocol Last Admin: 12/21/18 06:43 Dose: Not Given Memantine (Namenda -) 10 mg GT BID [facility] Last Admin: 12/21/18 09:54 Dose: Not Given Metoprolol Tartrate (Lopressor Injection -) 5 mg IVPUSH Q8H [facility] Last Admin: 12/21/18 10:52 Dose: 5 mg Pantoprazole Sodium (Protonix Iv) 40 mg IVPUSH BID [facility] Last Admin: 12/21/18 10:52 Dose: 40 mg Tamsulosin HCl (Flomax -) 0.4 mg PO DAILY@0830 [facility] Last Admin: 12/21/18 09:54 Dose: Not Given Vital Signs Period Temp Pulse Resp BP Sys/Heredia Pulse Ox Last 24 Hr 97.8 F-98.6 F 76-108 20-24 116-142/55-70 98-98 Constitutional: Yes: Well Nourished, No Distress, Calm Cardiovascular: Yes: Regular Rate and Rhythm, S1, S2. No: JVD (tds habitus ( short/thick neck)), Gallop, Murmur Respiratory: Yes: Regular, CTA Bilaterally (anteriorly (decr sounds)). No: Accessory Muscle Use, Rales Extremities: No: Cold Edema: No Neurological: Yes: Alert. No: Seizure Psychiatric: No: Agitated no jaundice, diaphoresis Assessment/Plan Echo 10/2017: tds, "no definitive statements can be made about findings due to extremely poor acoustic windows". nl lv size. Severely decreased LV sys fn. Global with possible anteroapical septal AK. RV not seen. 1+ ar. MV/TV not well visualized. MUGA 08/23: EF 51% Echo 09/2016: nl lv size. Septum is akinetic. No rwma in inferior, inferolateral or lateral wall, other ordoñez not well seen. Overall ejection fraction is probably mildly, vs ooyg-su-prptsyjslj reduced--estimated at 45% vs 40-45%. nl rv/valves. MIBI 07/22: 4:30min, probably + STs; large area mid-AW/septum/apex scar with small P.I.I.; moder decr EF with mild global HK and sev HK vs AK of mid-AW// apex; mild LVE, no TID [facility] 2010: thrombotic subtotal occl pLAD (BMS), 70-80% ramus, diffuse 30- 50% RCA, EF 35% (anterolat AK, lateral/posterolat HK) tele: NSR, VTach x 18 beat run IMP: 1. Acute respiratory failure (with intubation) secondary to aspiration PNA, recurrent aspiration/mucous plugging--white out left lung field 2. CAD s/p prior LA, PCI LAD 2010, w/ ischemic CM and chronic systolic CHF (EF chronically b/t 40-45%) 3. Acute on chronic renal failure, improved 4. + TnI secondary to type II LA, demand ischemia in setting of above. 5. Chronic LBBB 6. H/o gastric cancer 7. NSVTach REC: - metoprolol on hold sec to NPO status, family refusing PEG based on pt's previously expressed wishes--currently on IV metoprolol, no plans for PEG tube. plans to transfer to [place], can receive IV meds - Defer EDELMIRA/ARB due to CKD, advanced dementia makes benefits of this med questionable in the intermediate-term - BiPAP, chest PT, other supportive care as per pulm - Renal following, renal fx improved. - HTN controlled with IV hydralazine, as above no plans for PEG tube and considering hospice, continue, will receive IV meds at [place] - Keep K and Mg repleted to aggressive targets (>4, 2). - holding ASA, statin while NPO
--- NOTE | 2018-12-21 11:36 | PN ---
Progress Note, Physician History of Present Illness: pulmonary awake on bipap,comfortable,-resp distress - Current Medication List Current Medications: Active Medications Acetylcysteine (Mucomyst 20 Oral / Inh Use Only*) 200 mg NEB RQID IKER Albuterol Sulfate (Ventolin 0.083% Nebulizer Soln -) 1 amp NEB Q4H PRN PRN Reason: SHORT OF BREATH/WHEEZING Last Admin: 12/20/18 21:00 Dose: 1 amp Aspirin (Asa -) 81 mg NGT DAILY [facility] Last Admin: 12/21/18 09:54 Dose: Not Given Donepezil HCl (Aricept -) 10 mg NGT HS [facility] Last Admin: 12/20/18 22:28 Dose: Not Given Emollient Ointment (Aquaphor -) 1 applic TP BID [facility] Last Admin: 12/21/18 10:53 Dose: 1 applic Heparin Sodium (Porcine) (Heparin -) 5,000 unit SQ BID [facility] Last Admin: 12/21/18 10:52 Dose: 5,000 unit Hydralazine HCl (Apresoline Injection -) 10 mg IVPUSH Q6H [facility] Last Admin: 12/21/18 06:02 Dose: 10 mg Amino Acids (Clinimix -) 1,000 mls @ 50 mls/hr IV Q20H [facility] Last Admin: 12/20/18 16:49 Dose: 50 mls/hr Insulin Aspart (Novolog Vial Sliding Scale -) 1 vial SQ ACHS [facility]; Protocol Last Admin: 12/21/18 06:43 Dose: Not Given Memantine (Namenda -) 10 mg GT BID [facility] Last Admin: 12/21/18 09:54 Dose: Not Given Metoprolol Tartrate (Lopressor Injection -) 5 mg IVPUSH Q8H [facility] Last Admin: 12/21/18 10:52 Dose: 5 mg Pantoprazole Sodium (Protonix Iv) 40 mg IVPUSH BID [facility] Last Admin: 12/21/18 10:52 Dose: 40 mg Tamsulosin HCl (Flomax -) 0.4 mg PO DAILY@0830 [facility] Last Admin: 12/21/18 09:54 Dose: Not Given - Objective Vital Signs: Vital Signs Temperature 97.8 F 12/21/18 09:00 Pulse Rate 98 H 12/21/18 10:52 Respiratory Rate 20 12/21/18 09:00 Blood Pressure 142/70 08/14/19 10:52 O2 Sat by Pulse Oximetry (%) 98 12/20/18 21:00 Constitutional: Yes: Well Nourished, Calm Eyes: Yes: WNL HENT: Yes: WNL Neck: Yes: WNL Cardiovascular: Yes: Regular Rate and Rhythm, S1, S2 Respiratory: Yes: Diminished, On BiPap Extremities: Yes: WNL Edema: No Labs: Problem List - Problems (1) Sepsis Code(s): A41.9 - SEPSIS, UNSPECIFIED ORGANISM (2) Acute kidney injury superimposed on CKD Code(s): N17.9 - ACUTE KIDNEY FAILURE, UNSPECIFIED; N18.9 - CHRONIC KIDNEY DISEASE, UNSPECIFIED (3) Acute respiratory failure with hypoxia Code(s): J96.01 - ACUTE RESPIRATORY FAILURE WITH HYPOXIA (4) Aspiration pneumonia Code(s): J69.0 - PNEUMONITIS DUE TO INHALATION OF FOOD AND VOMIT (5) 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 Code(s): L89.313 - PRESSURE ULCER OF RIGHT BUTTOCK, STAGE 3 (6) ASHD (arteriosclerotic heart disease) Code(s): I25.10 - ATHSCL HEART DISEASE OF [place] CORONARY ARTERY W/O ANG PCTRS (7) HTN (hypertension) Code(s): I10 - ESSENTIAL (PRIMARY) HYPERTENSION Qualifiers: Qualified Code(s): I10 - Essential (primary) hypertension (8) Atelectasis of left lung Code(s): J98.11 - ATELECTASIS Assessment/Plan A/P Acute Hypoxic and Hypercapneic Respiratory Failure improving Pneumonia likely Aspiration Left Atelectasis likely mucous plugging improved Severe Sepsis resolving Acute on Chronic Renal Failure CAD +Troponins likely [place] Ischemia Lactic Acidosis HTN Hyperlipidemia GERD - albuterol/mucomyst - chest PT - position right side down - BiPAP - aspiration precautions - IVF - monitor urine output, creatinine - Fio2 to keep Spo2 >90% - rehab/PT - DVT prophylaxis DR CAMPOS
[2018-12-21] MEDS: AMINO ACIDS 4.25%/D5W 1,000 ML IV SCH (12:38)
--- NOTE | 2018-12-21 14:51 | PN ---
Teaching Attending Note Name of Resident: Arnaud Batista ATTENDING PHYSICIAN STATEMENT I saw and evaluated the patient. I reviewed the resident's note and discussed the case with the resident. I agree with the resident's findings and plan as documented with exceptions below. SUBJECTIVE: Patient seen and examined. On bipap, denies any complaints. OBJECTIVE: Vital Signs Period Temp Pulse Resp BP Sys/Heredia Pulse Ox Last 24 Hr 97.8 F-98.6 F 87-103 20-24 116-142/56-70 98 Intake & Output 12/18/18 12/19/18 12/20/18 12/21/18 23:59 23:59 23:59 23:59 Intake Total 600 460 610 610 Output Total 2400 1200 550 Balance 600 -1940 -590 60 Weight 189 lb 9.6 oz General: on bipap, lethargic in bed Chest: poor effort, coarse bilateral rales Abdomen:soft, NT Extremities: 1+ pedal edema Home Medications Medication Instructions Recorded Acetylcysteine Po/INH 20% 200 mg NEB RQID vial 12/21/18 [Mucomyst 20 Oral / INH Use Only*] Albuterol 0.083% Nebulizer Arleen 1 amp NEB Q4H PRN amp 12/21/18 [Ventolin 0.083% Nebulizer Soln -] Amino Acids 4.25%/D5w [Clinimix 40 ml IV Q20H infus.bag 12/21/18 4.25%/D5w Solution] Heparin - 5,000 unit SQ BID vial 12/21/18 Insulin Sliding Scale [Novolog 1 vial SQ ACHS units 12/21/18 Vial Sliding Scale -] Metoprolol Tartrate Injection 5 mg IVPUSH Q8H vial 12/21/18 [Lopressor Injection -] Mineral Oil/Pet Hy-Phl [Aquaphor -] 1 applic TP BID jar 12/21/18 Pantoprazole Sodium [Protonix IV] 40 mg IVPUSH BID vial 12/21/18 hydrALAZINE INJECTION [Apresoline 10 mg IVPUSH Q6H vial 12/21/18 Injection -] Laboratory Results - last 24 hr 12/20/18 12/20/18 12/21/18 16:46 21:35 06:07 POC Glucometer 125 161 129 12/21/18 12:36 POC Glucometer 127 ASSESSMENT AND PLAN: 88 yom with PMHx of alzheimer's dementia, HTN, HLD, CAD, known LBBB, CKD, PVD, OA, stomach CA s/p resection, GERD, hx R Gluteal stage 3 ulcer (w hx MRSA), admitting with vomiting and respiratory failure Acute Hypoxic and Hypercapneic Respiratory Failure BRIANDA Pneumonia likely Aspiration Severe Sepsis Acute on Chronic Renal Failure CAD +Troponins likely [place] Ischemia, type II NSTEMI Schatzki Ring High aspiration risk Malnutrition Lactic Acidosis HTN Hyperlipidemia GERD Plan: on bipap/clinimix. IV meds for BP control, nebs. Bed available at [facility] to [place] today. Discussed with nursing and CM.
[2018-12-21 15:40] VITALS: BP 125/55; PULSE 80; TEMP 98
--- NOTE | 2018-12-21 17:10 | DS ---
Physical Exam: SUBJECTIVE: Patient seen and examined on BIPAP and clinimix not able to swallow , will be dc to another facility for further care not available in out hospital OBJECTIVE: Vital Signs Period Temp Pulse Resp BP Sys/Heredia Pulse Ox Last 24 Hr 97.8 F-98.6 F 80-103 20-24 116-142/55-70 98-100 PHYSICAL EXAM GENERAL: on BIPAP , lethargic HEAD:NC/AT EYES: PERRL, NECK: supple. LUNGS:decrease breath sounds left side , coarse breath sounds and upper respiratory congestions on the right side . HEART: Regular rate and rhythm, S1, S2 without murmur, rub or gallop. ABDOMEN: Obese , Soft, nontender, hypoactive BS EXTREMITIES: 2+ pulses, warm, well-perfused, +2 LLE edema. 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 Dysphagia 2/2 chatzki ring s.p dilation by Dr Oneill ,still coughing with minimal feeding , cont NPO pt refuse PEG tube , cont on clinimix , aspiration precautions.pt developed left lung white opasities due to mucus plug vs aspirartion cont BIPAP and chest PT, mucomyst.pt has LBBB , not changed from 2018 , Derian I , monitored in tele.echo showing EF 40-45%pt was found to have Acute hypoxic hypercapnic respiratory failure extubated on 3L o2 NC and then put on BIPAP due to hypoxia . in term of KATHY in term of sepsis vs AIN or ATN , worsening gan placed and cont clinimix , US with not hydronephrosis or acute pathology.CR 2.2, will be send to another facility for further evaluation and hospice care. Minutes to complete discharge: 45 Discharge Summary Reason For Visit: ACUTE RESP DISTRESS Condition: Guarded - Instructions Diet, Activity, Other Instructions: you presented to the hospital due to pneumonia and you were found to have neoplastic disease and you will be transferred to [facility] for tumor management you will be discharged on BIPAP and clinimix. Disposition: TRANSFER ACUTE CARE/OTHER HOSP - Home Medications Comprehensive Discharge Medication List: Ambulatory Orders Acetylcysteine Po/INH 20% [Mucomyst 20 Oral / INH Use Only*] 200 mg NEB RQID vial 12/21/18 Albuterol 0.083% Nebulizer Arleen [Ventolin 0.083% Nebulizer Soln -] 1 amp NEB Q4H PRN amp 12/21/18 Amino Acids 4.25%/D5w [Clinimix 4.25%/D5w Solution] 40 ml IV Q20H infus.bag Heparin - 5,000 unit SQ BID vial 12/21/18 Insulin Sliding Scale [Novolog Vial Sliding Scale -] 1 vial SQ ACHS units 12/21 Metoprolol Tartrate Injection [Lopressor Injection -] 5 mg IVPUSH Q8H vial Mineral Oil/Pet Hy-Phl [Aquaphor -] 1 applic TP BID jar 12/21/18 Pantoprazole Sodium [Protonix IV] 40 mg IVPUSH BID vial 12/21/18 hydrALAZINE INJECTION [Apresoline Injection -] 10 mg IVPUSH Q6H vial 12/21/18 This patient is new to me today: No Emergency Visit: Yes ED Registration Date: 12/02/18 Care time: The patient presented to the Emergency Department on the above date and was hospitalized for further evaluation of their emergent condition. Critical Care patient: No - Discharge Referral Referred to [facility] No ATTENDING PHYSICIAN STATEMENT I saw and evaluated the patient. I reviewed the resident's note and discussed the case with the resident. I agree with the resident's findings and plan as documented. SUBJECTIVE: OBJECTIVE: ASSESSMENT AND PLAN:
== END 2018-12-21 16:26 | disposition hospice, inpatient (51) | DRG 870 ==
LOC: JER 13:09 → JERBED 19:49 → JICU 21:02 → J4W 12-08 17:46
PROVIDERS: ADMIT Internal Medicine; ATTEND Hospitalist
PROC: 5A1955Z Respiratory Ventilation, Greater than 96 Consecutive Hours (ICD-10-PCS; principal; 2018-12-02)
PROC: 0BH17EZ Insertion of Endotracheal Airway into Trachea, Via Natural or Artificial Opening (ICD-10-PCS; 2018-12-02)
PROC: 0D738ZZ Dilation of Lower Esophagus, Via Natural or Artificial Opening Endoscopic (ICD-10-PCS; 2018-12-14)
PROC: 0D7A8ZZ Dilation of Jejunum, Via Natural or Artificial Opening Endoscopic (ICD-10-PCS; 2018-12-14)
PROC: 05H633Z Insertion of Infusion Device into Left Subclavian Vein, Percutaneous Approach (ICD-10-PCS; 2018-12-14)
DX: A41.9 Sepsis, unspecified organism (principal); L89.313 Pressure ulcer of right buttock, stage 3; J69.0 Pneumonitis due to inhalation of food and vomit; J96.02 Acute respiratory failure with hypercapnia; J96.01 Acute respiratory failure with hypoxia; I21.A1 Myocardial infarction type 2; N17.9 Acute kidney failure, unspecified; I50.22 Chronic systolic (congestive) heart failure; I24.8 Other forms of acute ischemic heart disease; I13.0 Hypertensive heart and chronic kidney disease with heart failure and stage 1 through stage 4 chronic kidney disease, or unspecified chronic kidney disease; E87.2 Acidosis; J98.11 Atelectasis; I47.1 Supraventricular tachycardia; G30.9 Alzheimer's disease, unspecified; N18.9 Chronic kidney disease, unspecified; F02.80 Dementia in other diseases classified elsewhere, unspecified severity, without behavioral disturbance, psychotic disturbance, mood disturbance, and anxiety; E78.5 Hyperlipidemia, unspecified; I10 Essential (primary) hypertension; I25.10 Atherosclerotic heart disease of native coronary artery without angina pectoris; R13.10 Dysphagia, unspecified; R65.20 Severe sepsis without septic shock; K21.9 Gastro-esophageal reflux disease without esophagitis; Z98.61 Coronary angioplasty status; E87.5 Hyperkalemia; D72.829 Elevated white blood cell count, unspecified
CPT/HCPCS: 36415; 36600; 71045-TC-FY; 74018-TC-FY; 74176-TC; 74220-TC-FY; 74230-TC-FY; 74240-TC-FY; 76775-TC; 80048; 80053; 80307; 81003; 82375; 82436; 82550; 82565; 82570; 82803; 82962; 83036; 83050; 83605; 83690; 83735; 83880; 84100; 84133; 84155; 84156; 84165; 84300; 84484; 85025; 85027; 85610; 85730; 86038; 86850; 86900; 86901; 87040; 87070; 87086; 87205; 88305-TC; 92611-GN; 93005; 93010; 93306-TC; 94002; 94640; 94660; 97116-GP; 97161-GP; 99285-25; G0480; J0131; J1644; J7030